=== PATIENT | male | born 1955 | race Two or more races ===

== ENCOUNTER 2019-01-03 06:05 | Inpatient (IN) | payer MEDICAID ==
[~2019-01-03] VITALS: Ht 170.2 cm; Wt 72.4 kg
--- NOTE | 2019-01-03 06:19 | NUR ---
ED Nurse Note: Patient brought in by ambulance, RA 70, with complaints of altered level of consciousness.
[2019-01-03 06:20] VITALS: BP 149/76
--- NOTE | 2019-01-03 06:41 | Emergency Room Report ---
History of Present Illness General Chief Complaint: Altered Level of Consciousness Source: EMS Present Illness HPI Patient presents with complaints of altered mental status Patient is brought in by paramedics Unknown last well symptoms Patient does have a dialysis catheter on the right upper chest Grimaces to physical stimuli otherwise is nonverbal does not open his eyes to verbal command Unknown regarding recent fevers unknown regarding vomiting or diarrhea history of present illness is significantly limited Allergies: Coded Allergies: PENICILLINS (Verified Allergy, Unknown, 01/03/19) Patient History Limited by: medical condition Reviewed Nursing Documentation: PMH: Agreed; PSxH: Agreed Review of Systems All Other Systems: limited - Other than the ones mentioned in the history of present illness all others are reviewed however they do stay limited due to the patient's mental status Physical Exam Vital Signs Date Time Temp Pulse Resp B/P (MAP) Pulse Ox O2 Delivery O2 Flow Rate FiO2 01/03/19 06:03 98.4 85 22 149/76 (100) 98 Room Air Sp02 EP Interpretation: reviewed, normal General Appearance: other - Patient has significant decreased response grimaces to physical stimuli otherwise nonverbal Head: normocephalic, atraumatic Eyes: bilateral eye PERRL ENT: normal pharynx, no angioedema Neck: supple Respiratory: lungs clear, no respiratory distress, no retraction Cardiovascular #1: regular rate, rhythm Gastrointestinal: non tender, soft, other - Umbilical hernia mild abdominal distention Musculoskeletal: other - Difficult to assess patient is not awake does not follow commands Neurologic: other - Significantly decreased GCS does not open eyes minimal response to physical stimuli Skin: no rash Lymphatic: no adenopathy Procedures Critical Care Time Critical Care Time 40 minutes for multiple re-evaluations confused presentation concern for respiratory failure and possible not including any procedural time Medical Decision Making Diagnostic Impression: Primary Impression: Hepatic encephalopathy Additional Impressions: Pleural effusion Renal failure Pancytopenia ER Course Patient is a fairly complex patient with multiple differential to consideration including but not limited to cardiac cardiopulmonary and vascular emergencies, intracranial, neurological, neurosurgical, infectious process also entertained CT head does not show any obvious acute process patient shows signs of pancytopenia Along with Elevated ammonia likely liver disease with hepatic encephalopathy and consideration patient provided acute intervention Nephrology has also been contacted and patient admitted for further care Labs Test 01/03/19 06:15 01/03/19 07:00 01/03/19 08:40 White Blood Count 1.8 K/UL (4.8-10.8) Red Blood Count 2.96 M/UL (4.70-6.10) Hemoglobin 9.6 G/DL (14.2-18.0) Hematocrit 29.2 % (42.0-52.0) Mean Corpuscular Volume 99 FL (80-99) Mean Corpuscular Hemoglobin 32.5 PG (27.0-31.0) Mean Corpuscular Hemoglobin Concent 32.9 G/DL (32.0-36.0) Red Cell Distribution Width 16.0 % (11.6-14.8) Platelet Count 37 K/UL (150-450) Mean Platelet Volume 10.3 FL (6.5-10.1) Neutrophils (%) (Auto) % (45.0-75.0) Lymphocytes (%) (Auto) % (20.0-45.0) Monocytes (%) (Auto) % (1.0-10.0) Eosinophils (%) (Auto) % (0.0-3.0) Basophils (%) (Auto) % (0.0-2.0) Differential Total Cells Counted 100 Neutrophils % (Manual) 84 % (45-75) Lymphocytes % (Manual) 10 % (20-45) Monocytes % (Manual) 6 % (1-10) Eosinophils % (Manual) 0 % (0-3) Basophils % (Manual) 0 % (0-2) Band Neutrophils 0 % (0-8) Platelet Estimate Decreased Platelet Morphology Normal Hypochromasia 1+ Anisocytosis 1+ Sodium Level 139 MMOL/L (136-145) Potassium Level 3.9 MMOL/L (3.5-5.1) Chloride Level 104 MMOL/L (98-107) Carbon Dioxide Level 33 MMOL/L (21-32) Anion Gap 2 mmol/L (5-15) Blood Urea Nitrogen 16 mg/dL (7-18) Creatinine 2.0 MG/DL (0.55-1.30) Estimat Glomerular Filtration Rate 34.1 mL/min (>60) Glucose Level 132 MG/DL (74-106) Lactic Acid Level 2.80 mmol/L (0.4-2.0) 2.70 mmol/L (0.66-2.22) Calcium Level 8.1 MG/DL (8.5-10.1) Total Bilirubin 1.8 MG/DL (0.2-1.0) Direct Bilirubin 0.7 MG/DL (0.0-0.3) Aspartate Amino Transf (AST/SGOT) 48 U/L (15-37) Alanine Aminotransferase (ALT/SGPT) 31 U/L (12-78) Alkaline Phosphatase 233 U/L (46-116) Ammonia 108 umol/L (11-32) Total Creatine Kinase 40 U/L (26-308) Creatine Kinase MB 0.5 NG/ML (0.0-3.6) Creatine Kinase MB Relative Index 1.2 Troponin I 0.005 ng/mL (0.000-0.056) Pro-B-Type Natriuretic Peptide 489 pg/mL (0-125) Total Protein 7.4 G/DL (6.4-8.2) Albumin 2.5 G/DL (3.4-5.0) Globulin 4.9 g/dL Albumin/Globulin Ratio 0.5 (1.0-2.7) Lipase 322 U/L (73-393) Urine Color Yellow Urine Appearance Clear Urine pH 8 (4.5-8.0) Urine Specific [place] 1.010 (1.005-1.035) Urine Protein 2+ (NEGATIVE) Urine Glucose (UA) Negative (NEGATIVE) Urine Ketones 2+ (NEGATIVE) Urine Blood 4+ (NEGATIVE) Urine Nitrite Negative (NEGATIVE) Urine Bilirubin Negative (NEGATIVE) Urine Urobilinogen Normal MG/DL (0.0-1.0) Urine Leukocyte Esterase Negative (NEGATIVE) Urine RBC 5-10 /HPF (0 - 0) Urine WBC 0-2 /HPF (0 - 0) Urine Squamous Epithelial Cells Occasional /LPF Urine Bacteria Occasional /HPF (NONE) Urine Opiates Screen Negative (NEGATIVE) Urine Barbiturates Screen Negative (NEGATIVE) Phencyclidine (PCP) Screen Negative (NEGATIVE) Urine Amphetamines Screen Negative (NEGATIVE) Urine Benzodiazepines Screen Negative (NEGATIVE) Urine Cocaine Screen Negative (NEGATIVE) Urine Marijuana (THC) Screen Negative (NEGATIVE) EKG Diagnostic Results Rate: normal Rhythm: NSR ST Segments: other - Specific ST T wave changes Rhythm Strip Diag. Results EP Interpretation: yes Rate: 66 Rhythm: NSR, no PVC's, no ectopy Chest X-Ray Diagnostic Results Chest X-Ray Diagnostic Results : Chest X-Ray Ordered: Yes # of Views/Limited/Complete: 1 View Indication: Chest Pain EP Interpretation: Yes Interpretation: no pneumothorax, other - Large right-sided effusion, almost full white out of the right side Impression: Other - Large right-sided effusion, pleural effusion Electronically Signed by: Keron Woodward DO Last Vital Signs Date Time Temp Pulse Resp B/P (MAP) Pulse Ox O2 Delivery O2 Flow Rate FiO2 01/03/19 06:20 85 22 Room Air 01/03/19 06:20 98.4 149/76 98 Status: improved Disposition: ADMITTED INPATIENT Condition: Serious Scripts Unable to Obtain Active Prescriptions or Reported Meds Keron Woodward DO Jan 03, 2019 06:41
[2019-01-03 06:46] LABS: ANION GAP 2 mmol/L (5-15); BLOOD UREA NITROGEN 16 mg/dL (7-18); CALCIUM 8.1 MG/DL (8.5-10.1); CARBON DIOXIDE 33 MMOL/L (21-32); CHLORIDE 104 MMOL/L (98-107); HEMATOCRIT 29.2 % (42.0-52.0); HEMOGLOBIN 9.6 G/DL (14.2-18.0); MEAN CORPUSCULAR VOLUME 99 FL (80-99); PLATELET COUNT 37 K/UL (150-450); POTASSIUM 3.9 MMOL/L (3.5-5.1); RED BLOOD COUNT 2.96 M/UL (4.70-6.10); SODIUM 139 MMOL/L (136-145); WHITE BLOOD COUNT 1.8 K/UL (4.8-10.8)
[2019-01-03 06:59] LABS: ALANINE AMINOTRANSFERASE 31 U/L (12-78); ALBUMIN 2.5 G/DL (3.4-5.0); ALBUMIN/GLOBULIN RATIO 0.5 (1.0-2.7); ALKALINE PHOSPHATASE 233 U/L (46-116); ASPARTATE AMINO TRANSFERASE 48 U/L (15-37); BILIRUBIN,TOTAL 1.8 MG/DL (0.2-1.0); CKMB 0.5 NG/ML (0.0-3.6); CREATINE KINASE 40 U/L (26-308)
[2019-01-03 07:00] LABS: BILIRUBIN,DIRECT 0.7 MG/DL (0.0-0.3)
--- NOTE | 2019-01-03 07:16 | NUR ---
HAND-OFF: Report given to Ai QUINTANILLA.
[2019-01-03 07:18] LABS: APPEARANCE,URINE CLEAR; BILIRUBIN, URINE NEGATIVE (NEGATIVE); GLUCOSE, URINE (UA) NEGATIVE (NEGATIVE); KETONES,URINE 2+ (NEGATIVE); LEUKOCYTE ESTERASE ,URINE NEGATIVE (NEGATIVE); NITRITE,URINE NEGATIVE (NEGATIVE); PH,URINE 8 (4.5-8.0); PROTEIN,URINE 2+ (NEGATIVE); UROBILINOGEN,URINE NORMAL MG/DL (0.0-1.0)
--- NOTE | 2019-01-03 07:27 | NUR ---
ED Nurse Note:pt. had ct scan head done
[2019-01-03 07:38] LABS: COLOR,URINE YELLOW
--- NOTE | 2019-01-03 08:07 | Diagnostic Imaging Report ---
Indications: Altered mental status Technique: Spiral acquisitions obtained through the brain. Angled axial and coronal 5 x 5 mm slices were reconstructed. Total dose length product 1720 mGycm. CTDI vol(s) 74 mGy. Dose reduction achieved using automated exposure control Comparison: None. Findings: No acute intracranial hemorrhage or edema. No mass effect nor midline shift. Ring artifact is demonstrated posteriorly to the left of midline. Normal moreno-white differentiation. Normal size ventricles and extra-axial CSF spaces. Intact calvarium. Visualized orbits and sinuses are unremarkable. The mastoids are clear. Impression: Negative This agrees with the preliminary interpretation provided overnight by [facility]erad[facility] service. The CT scanner at [facility] is accredited by the [employer] and the scans are performed using protocols designed to limit radiation exposure to as low as reasonably achievable to attain images of sufficient resolution adequate for diagnostic evaluation.
[2019-01-03 08:34] VITALS: BP 110/78
[2019-01-03] MEDS ORDERED: Lactulose 200 GM in NS Irrig 1000ml 700 ML RECTAL ONE (08:45)
--- NOTE | 2019-01-03 08:46 | NUR ---
ED Nurse Note sent lactic redraw
[2019-01-03] MEDS ORDERED: Lactulose 200 GM in NS Irrig 1000ml 700 ML RECTAL SCH (09:00)
--- NOTE | 2019-01-03 09:26 | NUR ---
ED Nurse Note:given lactulose enema- pt. had large BM, swabs are done
--- NOTE | 2019-01-03 10:27 | Consultation ---
Consult Note Consult Note asked to eval for dialysis management william seen in Er room 4 encephalopathic with high Ammonia was dialysed yesterday has a right chest permacath no previous admission at [facility] examined data reviewed ER Altered Level of Consciousness Patient presents with complaints of altered mental status Patient is brought in by paramedics Unknown last well symptoms Patient does have a dialysis catheter on the right upper chest Grimaces to physical stimuli otherwise is nonverbal does not open his eyes to verbal command Unknown regarding recent fevers unknown regarding vomiting or diarrhea history of present illness is significantly limited Allergies: PENICILLINS (Verified Allergy, Unknown, 01/03/19) Assessment/Plan ESRD Liver Disease, nature? Hepatic encephalopathy Leukopenia Pleural effusion NPO until awake per GI ? NGT Dialysis as needed per orders Dg Ennis MD Jan 03, 2019 10:27
--- NOTE | 2019-01-03 10:27 | NUR ---
ED Nurse Note:called report to tele, given to Lee Ann RN, pt. is stable for transfer up stairs
[2019-01-03] MEDS: D5NS 1,000 ML IV SCH (10:30)
[2019-01-03 10:45] VITALS: BP 118/70
--- NOTE | 2019-01-03 10:48 | Diagnostic Imaging Report ---
Indication: Chest pain Technique: One view of the chest Comparison: none Findings: There is a massive right pleural effusion. There is bilateral interstitial and airspace edema. There is right jugular tunneled dialysis catheter. There is probably a small amount of pleural fluid on the left. Probably normal heart size Impression: Massive right pleural effusion Bilateral pulmonary interstitial and airspace edema Probable small left pleural effusion
--- NOTE | 2019-01-03 11:00 | NUR ---
NURSE NOTES: Received report from Nunu Cloud. Patient arrived to the floor transported via gurney. Patient transferred to the bed without difficulty. Patient is lethargic but arousable to touch/ withdraws to pain. hong konger speaking. is at bedside. VSS. fall precautions in place. call schuster within patients reach will follow.
[2019-01-03] MEDS ORDERED: guaiFENesin 100mg/5ml Liq ud ORAL PRN (11:15)
[2019-01-03] MEDS ORDERED: VITAMIN D250000 UNI1 ORAL ×2 (11:16→13:04)
--- NOTE | 2019-01-03 11:40 | NUR ---
NURSE NOTES: received orders from Dr. Hoffman. noted and carried out.
--- NOTE | 2019-01-03 11:41 | General Progress Note ---
Assessment/Plan Problem List: (1) Renal failure ICD Codes: N19 - Unspecified kidney failure SNOMED: 40186049 (2) Hepatic encephalopathy ICD Codes: K72.90 - Hepatic failure, unspecified without coma SNOMED: 05342507 (3) Pancytopenia ICD Codes: D61.818 - Other pancytopenia SNOMED: 444124630 (4) Pleural effusion ICD Codes: J90 - Pleural effusion, not elsewhere classified SNOMED: 47782488 Assessment/Plan: lactulose and xifaxan repeat labs in am abd us hepatitis panel HD per nephrology drug screen Subjective Allergies: Coded Allergies: PENICILLINS (Verified Allergy, Unknown, 01/03/19) Objective Last 24 Hour Vital Signs Date Time Temp Pulse Resp B/P (MAP) Pulse Ox O2 Delivery O2 Flow Rate FiO2 01/03/19 10:26 98.4 72 16 110/78 100 Room Air 01/03/19 08:34 98.4 72 16 110/78 100 Room Air 01/03/19 06:20 85 22 Room Air 01/03/19 06:20 98.4 85 22 149/76 98 Room Air 01/03/19 06:03 98.4 85 22 149/76 (100) 98 Room Air Intake and Output 01/02/19 01/03/19 19:00 07:00 Intake Total 0 ml Balance 0 ml Intake Oral 0 ml Laboratory Tests 01/03/19 06:15: White Blood Count 1.8*L, Red Blood Count 2.96L, Hemoglobin 9.6L, Hematocrit 29.2L, Mean Corpuscular Volume 99, Mean Corpuscular Hemoglobin 32.5H, Mean Corpuscular Hemoglobin Concent 32.9, Red Cell Distribution Width 16.0H, Platelet Count 37L, Mean Platelet Volume 10.3H, Neutrophils (%) (Auto) , Lymphocytes (%) (Auto) , Monocytes (%) (Auto) , Eosinophils (%) (Auto) , Basophils (%) (Auto) , Differential Total Cells Counted 100, Neutrophils % ( Manual) 84H, Lymphocytes % (Manual) 10L, Monocytes % (Manual) 6, Eosinophils % ( Manual) 0, Basophils % (Manual) 0, Band Neutrophils 0, Platelet Estimate DecreasedL, Platelet Morphology Normal, Hypochromasia 1+, Anisocytosis 1+, Sodium Level 139, Potassium Level 3.9, Chloride Level 104, Carbon Dioxide Level 33H, Anion Gap 2L, Blood Urea Nitrogen 16, Creatinine 2.0H, Estimat Glomerular Filtration Rate 34.1, Glucose Level 132H, Lactic Acid Level 2.80H, Calcium Level 8.1L, Total Bilirubin 1.8H, Direct Bilirubin 0.7H, Aspartate Amino Transf (AST/SGOT) 48H, Alanine Aminotransferase (ALT/SGPT) 31, Alkaline Phosphatase 233H, Ammonia 108H, Total Creatine Kinase 40, Creatine Kinase MB 0.5, Creatine Kinase MB Relative Index 1.2, Troponin I 0.005, Pro-B-Type Natriuretic Peptide 489H, Total Protein 7.4, Albumin 2.5L, Globulin 4.9, Albumin/Globulin Ratio 0.5L , Lipase 322 01/03/19 07:00: Urine Color Yellow, Urine Appearance Clear, Urine pH 8, Urine Specific [place] 1.010, Urine Protein 2+H, Urine Glucose (UA) Negative, Urine Ketones 2+H, Urine Blood 4+H, Urine Nitrite Negative, Urine Bilirubin Negative, Urine Urobilinogen Normal, Urine Leukocyte Esterase Negative, Urine RBC 5-10H, Urine WBC 0-2, Urine Squamous Epithelial Cells Occasional, Urine Bacteria Occasional, Urine Opiates Screen Negative, Urine Barbiturates Screen Negative, Phencyclidine (PCP ) Screen Negative, Urine Amphetamines Screen Negative, Urine Benzodiazepines Screen Negative, Urine Cocaine Screen Negative, Urine Marijuana (THC) Screen Negative 01/03/19 08:40: Lactic Acid Level 2.70H Height (Feet): 5 Height (Inches): 7.00 Weight (Pounds): 180 General Appearance: lethargic EENT: normal ENT inspection Neck: supple Cardiovascular: normal rate Respiratory/Chest: decreased breath sounds Abdomen: normal bowel sounds, non tender, soft Extremities: non-tender José Michael MD Jan 03, 2019 11:41
[2019-01-03] MEDS: Lactulose 10gm/15ml UDC ORAL SCH ×3 (12:00→18:53)
[2019-01-03] MEDS: Pantoprazole Inj IVP SCH (12:05)
--- NOTE | 2019-01-03 12:30 | NUR ---
NURSE NOTES: Charge nurse Wayne Rn. Spoke with Héctor BROWNING. made aware patient unable to take meds PO secondary to lethargy. new orders received to insert NGT. will follow.
[2019-01-03] MEDS ORDERED: Lactulose 10gm/15ml UDC ORAL SCH (13:00)
[2019-01-03] MEDS ORDERED: RIFAXIMIN500 GM MC (13:04)
[2019-01-03] MEDS ORDERED: GUAIFENESI100 MG/5 M ORAL (13:04)
[2019-01-03] MEDS ORDERED: SEVELAMER HCL800 MG PO (13:04)
[2019-01-03] MEDS ORDERED: SPIRONOLACTONE25 MG ORAL (13:04)
[2019-01-03] MEDS ORDERED: MIRALAX17 G2 ORAL (13:04)
[2019-01-03] MEDS ORDERED: LACTULOSE10 GM/153 PO (13:04)
[2019-01-03] MEDS ORDERED: FOLIC ACID1 M1 PO (13:04)
[2019-01-03] MEDS ORDERED: MULTIVITAMINS1 EAC2 ORAL (13:04)
[2019-01-03] MEDS ORDERED: OMEPRAZOLE20 M2 ORAL (13:04)
--- NOTE | 2019-01-03 13:30 | NUR ---
NURSE NOTES: Right nare NGT inserted. Awaiting Xray to be done. Notified Radiology. will follow
--- NOTE | 2019-01-03 15:17 | Diagnostic Imaging Report ---
Indication: Abdominal pain, abnormal liver function tests, abnormal renal function tests Technique: Benton-scale and duplex images of the upper abdomen were obtained Comparison: none Findings: Ascites fluid is present. There are bilateral pleural effusions. Gallbladder gallbladder contains a gallstone. Gallbladder wall is thickened, measuring 6 mm thick. Sonographic Orr's sign is negative. Common bile duct measures 3 mm in diameter. No intrahepatic biliary ductal dilatation. Liver demonstrates surface nodularity. In the right hepatic lobe, there is a 13 mm hypoechoic solid-appearing nodule. Portal vein and hepatic veins are patent. Pancreas is unremarkable. The spleen is enlarged, measuring at least 14 cm long axis dimension. Large varices are seen in the splenic hilum. There is an accessory splenule incidentally noted Left kidney measures 10.5 cm in length. Right kidney measures 8.7 cm length. Both kidneys demonstrate equivocally slightly increased echogenicity There is no hydronephrosis. No focal abnormality . Abdominal aorta is partially obscured by bowel gas, visualized portions are non-aneurysmal . Impression: Evidence of hepatic cirrhosis, with hepatic surface nodularity Hypoechoic but solid-appearing right hepatic lobe liver nodule. Recommend further evaluation with multiphasic liver protocol contrast CT or MRI Evidence of portal hypertension, with ascites, splenomegaly, and splenic hilar varices Cholelithiasis. Gallbladder wall thickening is probably a manifestation of generalized edema resulting from the hepatic derangements, but does raise the possibility of acute cholecystitis. Consider hepatobiliary nuclear scan if there is high clinical suspicion Bilateral pleural effusions Borderline increased renal echogenicity, if real could indicate medical renal disease Note suboptimal visualization of the abdominal aorta
[2019-01-03 16:00] VITALS: BP 115/69
--- NOTE | 2019-01-03 16:00 | NUR ---
NURSE NOTES: Xray abdomen for NGT confirmation done and resulted. Leigh Ann Anaya aware. order received ok to use. will follow.
--- NOTE | 2019-01-03 16:04 | Diagnostic Imaging Report ---
Indication: Post nasogastric tube placement Technique: Supine view of the upper abdomen Comparison: none Findings: There is nasogastric tube in place, tip projected at the level of the gastric antrum. The visualized bowel gas appears unremarkable. The included lower chest demonstrates a large right pleural effusion and a right chest tunneled dialysis catheter. Impression: Satisfactory position of nasogastric tube, suitable for use
--- NOTE | 2019-01-03 19:47 | NUR ---
HAND-OFF: Report given to Nunu Killian. Plan of care endorsed.
[2019-01-03 20:00] VITALS: BP 105/60
--- NOTE | 2019-01-03 20:13 | NUR ---
NURSE NOTES: RECEIVED PATIENT AWAKE RESTING IN BED, FAMILY AT BEDSIDE. FALL AND ASPIRATION PRECAUTIONS IN PLACE: CALL LIGHT WITHIN REACH, BED IN LOW POSITION AND BED ALARM ON. PLAN OF CARE REVIEWED.
[2019-01-03] MEDS ORDERED: Miralax 17gm pkt ORAL SCH (21:00)
[2019-01-04] VITALS: BP 104/58
[2019-01-04 04:00] VITALS: BP 100/56
[2019-01-04] MEDS: D5NS 1,000 ML IV SCH (04:55)
[2019-01-04] MEDS: Lactulose 10gm/15ml UDC ORAL SCH (06:41)
[2019-01-04 06:59] LABS: HEMOGLOBIN 8.5 G/DL (14.2-18.0); MEAN CORPUSCULAR VOLUME 100 FL (80-99); PLATELET COUNT 34 K/UL (150-450); RED BLOOD COUNT 2.61 M/UL (4.70-6.10); RED CELL DISTRIBUTION WIDTH 16.1 % (11.6-14.8)
[2019-01-04 07:00] LABS: WHITE BLOOD COUNT 1.3 K/UL (4.8-10.8)
--- NOTE | 2019-01-04 07:20 | NUR ---
NURSE NOTES: Received report from Nunu Killian. Patient is alert and Ox2. Patient is Hebrew speaking. With rn hemodialysis, patient denies pain and request to eat breakfast. Patient is breathing even and unlabored on room air. Noted NG tube on right nare that is patent and intact. Patient left arm is +1 edema and elevated. Noted right chest permacath with dry and intact dressing. Right FA 22g is dry, patent and intact. Fall precautions in place- bed locked, side rails x3, bed in lowest position. Call schuster within patient's reach. Will follow up with lab results with Dr. Hoffman.
--- NOTE | 2019-01-04 07:28 | NUR ---
HAND-OFF: Report given to Velasquez STRANGE RN. PATIENT AWAKE, RESTING IN BED.
[2019-01-04 07:38] LABS: ALANINE AMINOTRANSFERASE 27 U/L (12-78); ALBUMIN/GLOBULIN RATIO 0.5 (1.0-2.7); ALKALINE PHOSPHATASE 174 U/L (46-116); ANION GAP 5 mmol/L (5-15); ASPARTATE AMINO TRANSFERASE 40 U/L (15-37); BILIRUBIN,TOTAL 1.9 MG/DL (0.2-1.0); BLOOD UREA NITROGEN 19 mg/dL (7-18); CARBON DIOXIDE 32 MMOL/L (21-32); CHLORIDE 107 MMOL/L (98-107); CHOLESTEROL 89 MG/DL (< 200); CREATININE 1.9 MG/DL (0.55-1.30); FERRITIN 299 NG/ML (8-388); GAMMA GLUTAMYL TRANSPEPTIDASE 132 U/L (5-85); HDL CHOLESTEROL 47 MG/DL (40-60); PHOSPHORUS 3.8 MG/DL (2.5-4.9); POTASSIUM 3.4 MMOL/L (3.5-5.1); SODIUM 143 MMOL/L (136-145); TRIGLYCERIDES 62 MG/DL (30-150)
[2019-01-04 08:00] VITALS: BP 108/61
[2019-01-04 08:23] LABS: % IRON SATURATION 30 % (15-50); TOTAL IRON BINDING CAPACITY 141 ug/dL (250-450)
--- NOTE | 2019-01-04 08:27 | NUR ---
NURSE NOTES: Notified Dr. Hoffman about WBC 1.3. Received orders.
--- NOTE | 2019-01-04 08:33 | NUR ---
NURSE NOTES: Notified Dr. Mcclain about wbc 1.3. Aware of ID consult.
[2019-01-04 08:51] LABS: IRON 42 ug/dL (50-175)
[2019-01-04 08:59] LABS: BILIRUBIN,DIRECT 0.6 MG/DL (0.0-0.3)
[2019-01-04] MEDS ORDERED: Spironolactone 25mg tab ORAL SCH (09:00)
--- NOTE | 2019-01-04 09:36 | Nephrology Progress Note ---
Assessment/Plan Problem List: (1) Hepatic encephalopathy (2) Renal failure (3) Pleural effusion (4) Pancytopenia Assessment ESRD Liver Disease, nature? Hepatic encephalopathy Leukopenia Pleural effusion massive right Plan increase lactulose K supplement NPO until awake per GI ? NGT Dialysis as needed per orders Pleural tap?? Objective Objective Last 24 Hour Vital Signs Date Time Temp Pulse Resp B/P (MAP) Pulse Ox O2 Delivery O2 Flow Rate FiO2 01/04/19 08:00 97.7 70 18 108/61 (77) 92 01/04/19 07:40 66 01/04/19 04:00 98.3 71 18 100/56 (71) 96 01/04/19 04:00 65 01/04/19 00:00 69 01/04/19 00:00 98.5 74 18 104/58 (73) 96 01/03/19 21:00 Room Air 01/03/19 20:00 98.2 69 18 105/60 (75) 96 01/03/19 20:00 66 01/03/19 16:00 97.2 76 18 115/69 (84) 95 01/03/19 16:00 74 01/03/19 12:00 64 01/03/19 11:00 Room Air 01/03/19 10:45 97.4 80 18 118/70 (86) 97 01/03/19 10:26 98.4 72 16 110/78 100 Room Air Intake and Output 01/03/19 01/04/19 19:00 07:00 Intake Total 50 ml 503 ml Balance 50 ml 503 ml IV Total 50 ml 503 ml # Bowel Movements 4 Laboratory Tests 01/04/19 06:29: White Blood Count 1.3*L, Red Blood Count 2.61L, Hemoglobin 8.5L, Hematocrit 26.0L, Mean Corpuscular Volume 100H, Mean Corpuscular Hemoglobin 32.7H, Mean Corpuscular Hemoglobin Concent 32.8, Red Cell Distribution Width 16.1H, Platelet Count 34L, Mean Platelet Volume 8.4, Neutrophils (%) (Auto) , Lymphocytes (%) (Auto) , Monocytes (%) (Auto) , Eosinophils (%) (Auto) , Basophils (%) (Auto) , Differential Total Cells Counted 100, Neutrophils % ( Manual) 59, Lymphocytes % (Manual) 27, Monocytes % (Manual) 13H, Eosinophils % ( Manual) 1, Basophils % (Manual) 0, Band Neutrophils 0, Platelet Estimate DecreasedL, Platelet Morphology Normal, Polychromasia 1+, Hypochromasia 1+, Anisocytosis 1+, Sodium Level 143, Potassium Level 3.4L, Chloride Level 107, Carbon Dioxide Level 32, Anion Gap 5, Blood Urea Nitrogen 19H, Creatinine 1.9H, Estimat Glomerular Filtration Rate 36.2, Glucose Level 92, Lactic Acid Level 1.40, Uric Acid 4.3, Calcium Level 8.0L, Phosphorus Level 3.8, Magnesium Level 1.6L, Iron Level 42L, Total Iron Binding Capacity 141L, Percent Iron Saturation 30, Unsaturated Iron Binding 99L, Ferritin 299, Total Bilirubin 1.9H, Direct Bilirubin 0.6H, Gamma Glutamyl Transpeptidase 132H, Aspartate Amino Transf (AST/ SGOT) 40H, Alanine Aminotransferase (ALT/SGPT) 27, Alkaline Phosphatase 174H, Ammonia 110H, C-Reactive Protein, Quantitative 2.4H, Pro-B-Type Natriuretic Peptide 874H, Total Protein 6.2L, Albumin 2.0L, Globulin 4.2, Albumin/Globulin Ratio 0.5L, Triglycerides Level 62, Cholesterol Level 89, LDL Cholesterol 33, HDL Cholesterol 47, Cholesterol/HDL Ratio 1.9L, Vitamin B12 Level 931, Folate 34.2, Hepatitis A IgM Antibody [Pending], Hepatitis B Surface Antigen [Pending] , Hepatitis B Core IgM Antibody [Pending], Hepatitis C Antibody [Pending] Height (Feet): 5 Height (Inches): 7.00 Weight (Pounds): 180 Dg Ennis MD Jan 04, 2019 09:36
[2019-01-04] MEDS ORDERED: Vancomycin 1.5gm/NS Premix IVPB ONE (10:00)
[2019-01-04] MEDS ORDERED: guaiFENesin 100mg/5ml Liq ud NG PRN (10:00)
[2019-01-04] MEDS: Pantoprazole Inj IVP SCH (10:09)
[2019-01-04] MEDS ORDERED: Multivitamins W/Minerals 15 ML UDC NG SCH (10:30)
[2019-01-04 12:00] VITALS: BP 111/61
--- NOTE | 2019-01-04 12:12 | Cardiology Progress Note ---
Assessment/Plan Assessment/Plan The patient is seen and examined, full consult note is dictated. Objective Last 24 Hour Vital Signs Date Time Temp Pulse Resp B/P (MAP) Pulse Ox O2 Delivery O2 Flow Rate FiO2 01/04/19 12:00 97.9 71 20 111/61 (78) 97 01/04/19 09:00 Room Air 01/04/19 08:00 97.7 70 18 108/61 (77) 92 01/04/19 07:40 66 01/04/19 04:00 98.3 71 18 100/56 (71) 96 01/04/19 04:00 65 01/04/19 00:00 69 01/04/19 00:00 98.5 74 18 104/58 (73) 96 01/03/19 21:00 Room Air 01/03/19 20:00 98.2 69 18 105/60 (75) 96 01/03/19 20:00 66 01/03/19 16:00 97.2 76 18 115/69 (84) 95 01/03/19 16:00 74 Intake and Output 01/03/19 01/04/19 19:00 07:00 Intake Total 50 ml 503 ml Balance 50 ml 503 ml IV Total 50 ml 503 ml # Bowel Movements 4 Laboratory Tests Test 01/04/19 06:29 White Blood Count 1.3 K/UL (4.8-10.8) *L Red Blood Count 2.61 M/UL (4.70-6.10) L Hemoglobin 8.5 G/DL (14.2-18.0) L Hematocrit 26.0 % (42.0-52.0) L Mean Corpuscular Volume 100 FL (80-99) H Mean Corpuscular Hemoglobin 32.7 PG (27.0-31.0) H Mean Corpuscular Hemoglobin Concent 32.8 G/DL (32.0-36.0) Red Cell Distribution Width 16.1 % (11.6-14.8) H Platelet Count 34 K/UL (150-450) L Mean Platelet Volume 8.4 FL (6.5-10.1) Neutrophils (%) (Auto) % (45.0-75.0) Lymphocytes (%) (Auto) % (20.0-45.0) Monocytes (%) (Auto) % (1.0-10.0) Eosinophils (%) (Auto) % (0.0-3.0) Basophils (%) (Auto) % (0.0-2.0) Differential Total Cells Counted 100 Neutrophils % (Manual) 59 % (45-75) Lymphocytes % (Manual) 27 % (20-45) Monocytes % (Manual) 13 % (1-10) H Eosinophils % (Manual) 1 % (0-3) Basophils % (Manual) 0 % (0-2) Band Neutrophils 0 % (0-8) Platelet Estimate Decreased L Platelet Morphology Normal Polychromasia 1+ Hypochromasia 1+ Anisocytosis 1+ Sodium Level 143 MMOL/L (136-145) Potassium Level 3.4 MMOL/L (3.5-5.1) L Chloride Level 107 MMOL/L (98-107) Carbon Dioxide Level 32 MMOL/L (21-32) Anion Gap 5 mmol/L (5-15) Blood Urea Nitrogen 19 mg/dL (7-18) H Creatinine 1.9 MG/DL (0.55-1.30) H Estimat Glomerular Filtration Rate 36.2 mL/min (>60) Glucose Level 92 MG/DL (74-106) Lactic Acid Level 1.40 mmol/L (0.4-2.0) Uric Acid 4.3 MG/DL (2.6-7.2) Calcium Level 8.0 MG/DL (8.5-10.1) L Phosphorus Level 3.8 MG/DL (2.5-4.9) Magnesium Level 1.6 MG/DL (1.8-2.4) L Iron Level 42 ug/dL (50-175) L Total Iron Binding Capacity 141 ug/dL (250-450) L Percent Iron Saturation 30 % (15-50) Unsaturated Iron Binding 99 ug/dL (112-346) L Ferritin 299 NG/ML (8-388) Total Bilirubin 1.9 MG/DL (0.2-1.0) H Direct Bilirubin 0.6 MG/DL (0.0-0.3) H Gamma Glutamyl Transpeptidase 132 U/L (5-85) H Aspartate Amino Transf (AST/SGOT) 40 U/L (15-37) H Alanine Aminotransferase (ALT/SGPT) 27 U/L (12-78) Alkaline Phosphatase 174 U/L (46-116) H Ammonia 110 umol/L (11-32) H C-Reactive Protein, Quantitative 2.4 mg/dL (0.00-0.90) H Pro-B-Type Natriuretic Peptide 874 pg/mL (0-125) H Total Protein 6.2 G/DL (6.4-8.2) L Albumin 2.0 G/DL (3.4-5.0) L Globulin 4.2 g/dL Albumin/Globulin Ratio 0.5 (1.0-2.7) L Triglycerides Level 62 MG/DL (30-150) Cholesterol Level 89 MG/DL (< 200) LDL Cholesterol 33 mg/dL (<100) HDL Cholesterol 47 MG/DL (40-60) Cholesterol/HDL Ratio 1.9 (3.3-4.4) L Vitamin B12 Level 931 PG/ML (193-986) Folate 34.2 NG/ML (8.6-58.9) Hepatitis A IgM Antibody Pending Hepatitis B Surface Antigen Pending Hepatitis B Core IgM Antibody Pending Hepatitis C Antibody Pending Microbiology Date/Time Source Procedure Growth Status 01/03/19 08:30 Rectum Received Oswaldo Hobson MD Jan 04, 2019 12:12
--- NOTE | 2019-01-04 12:42 | Cardiology Report ---
APPROVED REPORT EKG Measurement Heart [id number] Normal sinus rhythm Prolonged QT Abnormal ECG
[2019-01-04] MEDS ORDERED: Acetaminophen 650mg/20.3ml NG PRN (12:45)
[2019-01-04] MEDS ORDERED: Lactulose 10gm/15ml UDC NG SCH (13:00)
--- NOTE | 2019-01-04 13:01 | Cardiology Report ---
APPROVED REPORT EXAM: Two-dimensional and M-mode echocardiogram with Doppler and color Doppler. INDICATION Altred mental sattus M-Mode DIMENSIONS IVSd0.7 (0.7-1.1cm)Left Atrium (MM)3.8 (1.6-4.0cm) LVDd4.4 (3.5-5.6cm)Aortic Root2.8 (2.0-3.7cm) PWd0.9 (0.7-1.1cm)Aortic Cusp Exc.1.8 (1.5-2.0cm) IVSs1.2 cm LVDs1.7 (2.5-4.0cm) PWs1.0 cm Normal left ventricular chamber size, systolic function and wall motion . Left ventricular ejection fraction estimated to be 60-65%. Small posterior pericardial effusion. Mild bi-atrial enlargement. Right ventricular chamber sizes are within normal limits. Focal aortic valve sclerosis with adequate cusp excursion. Thickened mitral valve leaflets with normal excursion. Mitral annulus and aortic root calcification. Normal pulmonic valve structure. Normal tricuspid valve structure. IVC at normal size with physiologic collapse. A color flow and spectral Doppler study was performed and revealed: Mild mitral regurgitation. Mitral inflow indicates normal left ventricular diastolic function Mild tricuspid regurgitation. Tricuspid systolic velocities suggests peak right ventricular systolic pressure of 24mmHg consistent with mild, moderate, severe pulmonary hypertension.
--- NOTE | 2019-01-04 13:25 | Infectious Diseases Prog Note ---
Assessment/Plan Problems: (1) Pancytopenia Assessment & Plan: suspect bone marrow suppression from advanced liver cirrhosis, may benefit from filgrastim injection to improve his WBC, will start him empirically on cefepime and continue vancomycin pending other cultures and the improvement of his WBC counts , hematology is following (2) Pleural effusion Assessment & Plan: massive on the right side with possible underlying pneumonia , recommend thoracentesis and fluids to be sent for cell counts, culture, gram stain, fungal and AFB with cytology. already on wide spectrum antibiotics (3) ESRD (end stage renal disease) Assessment & Plan: resume HD as per renal (4) Hepatic encephalopathy Assessment & Plan: with elevated ammonia level, on lactulose , monitor closely ammonia level (5) Liver nodule Assessment & Plan: on the right lobe, rule out HCC, recommend tumor markers and oncology eval for possible biopsy (6) Liver cirrhosis Assessment & Plan: advanced, with poor prognosis , GI is following Subjective Allergies: Coded Allergies: PENICILLINS (Verified Allergy, Unknown, 01/03/19) Objective Vital Signs Last 24 Hour Vital Signs Date Time Temp Pulse Resp B/P (MAP) Pulse Ox O2 Delivery O2 Flow Rate FiO2 01/04/19 12:00 97.9 71 20 111/61 (78) 97 01/04/19 11:51 71 01/04/19 09:00 Room Air 01/04/19 08:00 97.7 70 18 108/61 (77) 92 01/04/19 07:40 66 01/04/19 04:00 98.3 71 18 100/56 (71) 96 01/04/19 04:00 65 01/04/19 00:00 69 01/04/19 00:00 98.5 74 18 104/58 (73) 96 01/03/19 21:00 Room Air 01/03/19 20:00 98.2 69 18 105/60 (75) 96 01/03/19 20:00 66 01/03/19 16:00 97.2 76 18 115/69 (84) 95 01/03/19 16:00 74 Height (Feet): 5 Height (Inches): 7.00 Weight (Pounds): 154 Microbiology Date/Time Source Procedure Growth Status 01/03/19 08:30 Rectum Received Laboratory Tests Test 01/04/19 06:29 White Blood Count 1.3 K/UL (4.8-10.8) *L Red Blood Count 2.61 M/UL (4.70-6.10) L Hemoglobin 8.5 G/DL (14.2-18.0) L Hematocrit 26.0 % (42.0-52.0) L Mean Corpuscular Volume 100 FL (80-99) H Mean Corpuscular Hemoglobin 32.7 PG (27.0-31.0) H Mean Corpuscular Hemoglobin Concent 32.8 G/DL (32.0-36.0) Red Cell Distribution Width 16.1 % (11.6-14.8) H Platelet Count 34 K/UL (150-450) L Mean Platelet Volume 8.4 FL (6.5-10.1) Neutrophils (%) (Auto) % (45.0-75.0) Lymphocytes (%) (Auto) % (20.0-45.0) Monocytes (%) (Auto) % (1.0-10.0) Eosinophils (%) (Auto) % (0.0-3.0) Basophils (%) (Auto) % (0.0-2.0) Differential Total Cells Counted 100 Neutrophils % (Manual) 59 % (45-75) Lymphocytes % (Manual) 27 % (20-45) Monocytes % (Manual) 13 % (1-10) H Eosinophils % (Manual) 1 % (0-3) Basophils % (Manual) 0 % (0-2) Band Neutrophils 0 % (0-8) Platelet Estimate Decreased L Platelet Morphology Normal Polychromasia 1+ Hypochromasia 1+ Anisocytosis 1+ Sodium Level 143 MMOL/L (136-145) Potassium Level 3.4 MMOL/L (3.5-5.1) L Chloride Level 107 MMOL/L (98-107) Carbon Dioxide Level 32 MMOL/L (21-32) Anion Gap 5 mmol/L (5-15) Blood Urea Nitrogen 19 mg/dL (7-18) H Creatinine 1.9 MG/DL (0.55-1.30) H Estimat Glomerular Filtration Rate 36.2 mL/min (>60) Glucose Level 92 MG/DL (74-106) Lactic Acid Level 1.40 mmol/L (0.4-2.0) Uric Acid 4.3 MG/DL (2.6-7.2) Calcium Level 8.0 MG/DL (8.5-10.1) L Phosphorus Level 3.8 MG/DL (2.5-4.9) Magnesium Level 1.6 MG/DL (1.8-2.4) L Iron Level 42 ug/dL (50-175) L Total Iron Binding Capacity 141 ug/dL (250-450) L Percent Iron Saturation 30 % (15-50) Unsaturated Iron Binding 99 ug/dL (112-346) L Ferritin 299 NG/ML (8-388) Total Bilirubin 1.9 MG/DL (0.2-1.0) H Direct Bilirubin 0.6 MG/DL (0.0-0.3) H Gamma Glutamyl Transpeptidase 132 U/L (5-85) H Aspartate Amino Transf (AST/SGOT) 40 U/L (15-37) H Alanine Aminotransferase (ALT/SGPT) 27 U/L (12-78) Alkaline Phosphatase 174 U/L (46-116) H Ammonia 110 umol/L (11-32) H C-Reactive Protein, Quantitative 2.4 mg/dL (0.00-0.90) H Pro-B-Type Natriuretic Peptide 874 pg/mL (0-125) H Total Protein 6.2 G/DL (6.4-8.2) L Albumin 2.0 G/DL (3.4-5.0) L Globulin 4.2 g/dL Albumin/Globulin Ratio 0.5 (1.0-2.7) L Triglycerides Level 62 MG/DL (30-150) Cholesterol Level 89 MG/DL (< 200) LDL Cholesterol 33 mg/dL (<100) HDL Cholesterol 47 MG/DL (40-60) Cholesterol/HDL Ratio 1.9 (3.3-4.4) L Vitamin B12 Level 931 PG/ML (193-986) Folate 34.2 NG/ML (8.6-58.9) Hepatitis A IgM Antibody Pending Hepatitis B Surface Antigen Pending Hepatitis B Core IgM Antibody Pending Hepatitis C Antibody Pending Current Medications Medications (Trade) Dose Ordered Sig/Katie Route PRN Reason Start Time Stop Time Status Last Admin Dose Admin Acetaminophen (Tylenol) 500 mg Q8H PRN NG Prn Headache/Temp > 101 01/04/19 12:45 02/03/19 12:44 Dextrose/Sodium Chloride 1,000 ml @ 50 mls/hr Q20H IV 01/03/19 10:30 02/02/19 10:29 01/04/19 04:55 Guaifenesin (Robitussin) 100 mg Q4H PRN NG For Cough 01/04/19 10:00 02/03/19 09:59 Lactulose (Cephulac) 20 gm QID NG 01/04/19 13:00 02/02/19 12:59 Magnesium Sulfate 100 ml @ 100 mls/hr ONCE ONCE IVPB 01/04/19 15:45 01/04/19 16:44 Multivitamins (Multivitamins W/ Minerals 15ml Liquid) 15 ml DAILY NG 01/04/19 10:30 02/03/19 10:29 01/04/19 10:55 Pantoprazole (Protonix) 40 mg DAILY IVP 01/03/19 10:30 02/02/19 10:29 01/04/19 10:09 Polyethylene Glycol (Miralax) 17 gm BEDTIME NG 01/04/19 21:00 02/02/19 20:59 Rifaximin (Xifaxan) 550 mg EVERY 12 HOURS NG 01/04/19 21:00 01/10/19 12:59 Spironolactone (Aldactone) 25 mg BID NG 01/04/19 18:00 02/03/19 08:59 Vancomycin HCl (Vanco rx to dose) 1 ea DAILY PRN MISC Per rx protocol 01/04/19 08:30 02/03/19 08:29 Sudeep Mcclain M.D. Jan 04, 2019 13:25
[2019-01-04] MEDS ORDERED: D5NS 1000ml IV ONE (13:40)
--- NOTE | 2019-01-04 14:00 | NUR ---
NURSE NOTES: Spoke to Dr. Hernandez. Ok to remove NG tube.
--- NOTE | 2019-01-04 14:30 | NUR ---
NURSE NOTES: NG tube removed at 14:30.
--- NOTE | 2019-01-04 15:43 | General Progress Note ---
Assessment/Plan Assessment/Plan: Assessment (1) Renal failure ICD Codes: N19 - Unspecified kidney failure SNOMED: 40956544 (2) Hepatic encephalopathy / EtOH cirrhosis ICD Codes: K72.90 - Hepatic failure, unspecified without coma SNOMED: 66152315 (3) Pancytopenia ICD Codes: D61.818 - Other pancytopenia SNOMED: 362530321 (4) Pleural effusion ICD Codes: J90 - Pleural effusion, not elsewhere classified SNOMED: 60864939 Assessment/Plan: lactulose and xifaxan repeat labs in am abd us hepatitis panel HD per nephrology drug screen d/c MGT Begin clears Subjective Allergies: Coded Allergies: PENICILLINS (Verified Allergy, Unknown, 01/03/19) Subjective more awake A&O to name of hospital, year, month, and own name Objective Last 24 Hour Vital Signs Date Time Temp Pulse Resp B/P (MAP) Pulse Ox O2 Delivery O2 Flow Rate FiO2 01/04/19 14:20 97.9 01/04/19 12:00 97.9 71 20 111/61 (78) 97 01/04/19 11:51 71 01/04/19 09:00 Room Air 01/04/19 08:00 97.7 70 18 108/61 (77) 92 01/04/19 07:40 66 01/04/19 04:00 98.3 71 18 100/56 (71) 96 01/04/19 04:00 65 01/04/19 00:00 69 01/04/19 00:00 98.5 74 18 104/58 (73) 96 01/03/19 21:00 Room Air 01/03/19 20:00 98.2 69 18 105/60 (75) 96 01/03/19 20:00 66 01/03/19 16:00 97.2 76 18 115/69 (84) 95 01/03/19 16:00 74 Intake and Output 01/03/19 01/04/19 19:00 07:00 Intake Total 50 ml 503 ml Balance 50 ml 503 ml IV Total 50 ml 503 ml # Bowel Movements 4 Laboratory Tests 01/04/19 06:29: White Blood Count 1.3*L, Red Blood Count 2.61L, Hemoglobin 8.5L, Hematocrit 26.0L, Mean Corpuscular Volume 100H, Mean Corpuscular Hemoglobin 32.7H, Mean Corpuscular Hemoglobin Concent 32.8, Red Cell Distribution Width 16.1H, Platelet Count 34L, Mean Platelet Volume 8.4, Neutrophils (%) (Auto) , Lymphocytes (%) (Auto) , Monocytes (%) (Auto) , Eosinophils (%) (Auto) , Basophils (%) (Auto) , Differential Total Cells Counted 100, Neutrophils % ( Manual) 59, Lymphocytes % (Manual) 27, Monocytes % (Manual) 13H, Eosinophils % ( Manual) 1, Basophils % (Manual) 0, Band Neutrophils 0, Platelet Estimate DecreasedL, Platelet Morphology Normal, Polychromasia 1+, Hypochromasia 1+, Anisocytosis 1+, Sodium Level 143, Potassium Level 3.4L, Chloride Level 107, Carbon Dioxide Level 32, Anion Gap 5, Blood Urea Nitrogen 19H, Creatinine 1.9H, Estimat Glomerular Filtration Rate 36.2, Glucose Level 92, Lactic Acid Level 1.40, Uric Acid 4.3, Calcium Level 8.0L, Phosphorus Level 3.8, Magnesium Level 1.6L, Iron Level 42L, Total Iron Binding Capacity 141L, Percent Iron Saturation 30, Unsaturated Iron Binding 99L, Ferritin 299, Total Bilirubin 1.9H, Direct Bilirubin 0.6H, Gamma Glutamyl Transpeptidase 132H, Aspartate Amino Transf (AST/ SGOT) 40H, Alanine Aminotransferase (ALT/SGPT) 27, Alkaline Phosphatase 174H, Ammonia 110H, C-Reactive Protein, Quantitative 2.4H, Pro-B-Type Natriuretic Peptide 874H, Total Protein 6.2L, Albumin 2.0L, Globulin 4.2, Albumin/Globulin Ratio 0.5L, Triglycerides Level 62, Cholesterol Level 89, LDL Cholesterol 33, HDL Cholesterol 47, Cholesterol/HDL Ratio 1.9L, Vitamin B12 Level 931, Folate 34.2, Hepatitis A IgM Antibody [Pending], Hepatitis B Surface Antigen [Pending] , Hepatitis B Core IgM Antibody [Pending], Hepatitis C Antibody [Pending] Height (Feet): 5 Height (Inches): 7.00 Weight (Pounds): 154 Objective Thin man NCAT supple CTA RRR abd soft ND NT no edema Paulina Hernandez MD Jan 04, 2019 15:43
[2019-01-04 16:00] VITALS: BP 125/68
[2019-01-04] MEDS ORDERED: Acetaminophen 500mg (ES) tab ORAL PRN (16:00)
[2019-01-04] MEDS ORDERED: guaiFENesin 100mg/5ml Liq ud ORAL PRN (16:00)
[2019-01-04] MEDS: Cefepime HCl 1 GM in D5W 55 ML IVPB SCH (16:11)
[2019-01-04] MEDS ORDERED: NS 275ml ONE (16:24)
[2019-01-04] MEDS ORDERED: Tubing IV Secondary IV ONE (16:24)
--- NOTE | 2019-01-04 16:36 | History & Physical ---
History and Physical History & Physicial seen and examined. Dict # [id number] Rosaura Hoffman MD Jan 04, 2019 16:36
--- NOTE | 2019-01-04 16:37 | General Progress Note ---
Assessment/Plan Assessment/Plan: Dict in progress 1- Acute metabolic encephalpthy 2- PNA 3- Peritonisits Plan: GI ID Nephro Hem Puml consulted Subjective Allergies: Coded Allergies: PENICILLINS (Verified Allergy, Unknown, 01/03/19) Objective Last 24 Hour Vital Signs Date Time Temp Pulse Resp B/P (MAP) Pulse Ox O2 Delivery O2 Flow Rate FiO2 01/04/19 16:00 97.7 71 18 125/68 (87) 96 01/04/19 14:20 97.9 01/04/19 12:00 97.9 71 20 111/61 (78) 97 01/04/19 11:51 71 01/04/19 09:00 Room Air 01/04/19 08:00 97.7 70 18 108/61 (77) 92 01/04/19 07:40 66 01/04/19 04:00 98.3 71 18 100/56 (71) 96 01/04/19 04:00 65 01/04/19 00:00 69 01/04/19 00:00 98.5 74 18 104/58 (73) 96 01/03/19 21:00 Room Air 01/03/19 20:00 98.2 69 18 105/60 (75) 96 01/03/19 20:00 66 Intake and Output 01/03/19 01/04/19 19:00 07:00 Intake Total 50 ml 503 ml Balance 50 ml 503 ml IV Total 50 ml 503 ml # Bowel Movements 4 Laboratory Tests 01/04/19 06:29: White Blood Count 1.3*L, Red Blood Count 2.61L, Hemoglobin 8.5L, Hematocrit 26.0L, Mean Corpuscular Volume 100H, Mean Corpuscular Hemoglobin 32.7H, Mean Corpuscular Hemoglobin Concent 32.8, Red Cell Distribution Width 16.1H, Platelet Count 34L, Mean Platelet Volume 8.4, Neutrophils (%) (Auto) , Lymphocytes (%) (Auto) , Monocytes (%) (Auto) , Eosinophils (%) (Auto) , Basophils (%) (Auto) , Differential Total Cells Counted 100, Neutrophils % ( Manual) 59, Lymphocytes % (Manual) 27, Monocytes % (Manual) 13H, Eosinophils % ( Manual) 1, Basophils % (Manual) 0, Band Neutrophils 0, Platelet Estimate DecreasedL, Platelet Morphology Normal, Polychromasia 1+, Hypochromasia 1+, Anisocytosis 1+, Sodium Level 143, Potassium Level 3.4L, Chloride Level 107, Carbon Dioxide Level 32, Anion Gap 5, Blood Urea Nitrogen 19H, Creatinine 1.9H, Estimat Glomerular Filtration Rate 36.2, Glucose Level 92, Lactic Acid Level 1.40, Uric Acid 4.3, Calcium Level 8.0L, Phosphorus Level 3.8, Magnesium Level 1.6L, Iron Level 42L, Total Iron Binding Capacity 141L, Percent Iron Saturation 30, Unsaturated Iron Binding 99L, Ferritin 299, Total Bilirubin 1.9H, Direct Bilirubin 0.6H, Gamma Glutamyl Transpeptidase 132H, Aspartate Amino Transf (AST/ SGOT) 40H, Alanine Aminotransferase (ALT/SGPT) 27, Alkaline Phosphatase 174H, Ammonia 110H, C-Reactive Protein, Quantitative 2.4H, Pro-B-Type Natriuretic Peptide 874H, Total Protein 6.2L, Albumin 2.0L, Globulin 4.2, Albumin/Globulin Ratio 0.5L, Triglycerides Level 62, Cholesterol Level 89, LDL Cholesterol 33, HDL Cholesterol 47, Cholesterol/HDL Ratio 1.9L, Vitamin B12 Level 931, Folate 34.2, Hepatitis A IgM Antibody [Pending], Hepatitis B Surface Antigen [Pending] , Hepatitis B Core IgM Antibody [Pending], Hepatitis C Antibody [Pending] Height (Feet): 5 Height (Inches): 7.00 Weight (Pounds): 154 Rosaura Hoffman MD Jan 04, 2019 16:37
[2019-01-04] MEDS ORDERED: Omnipaque-300 100ml vial INJ PRN (17:15)
[2019-01-04] MEDS: Lactulose 20gm/30ml UDC ORAL SCH ×2 (17:59→20:56)
[2019-01-04] MEDS ORDERED: Spironolactone 25mg tab NG SCH (18:00)
--- NOTE | 2019-01-04 19:20 | NUR ---
HAND-OFF: Report given to DWIGHT Marino.
--- NOTE | 2019-01-04 19:21 | NUR ---
NURSE NOTES: Received report from DWIGHT Mcrae. Patient is awake, lying in semi carl's; resting comfortably. A/Ox3-4. Primarily [place] speaking. Denies pain at this time. No signs of acute distress noted. Checked IV site and flushed. No erythema, bleeding or infiltration noted. With perm catheter located at right upper chest for hemodialysis. Bed at lowest position, brakes on, [id number]. Call light within reach. Will continue to monitor.
--- NOTE | 2019-01-04 19:30 | Consultation ---
DATE OF CONSULTATION: 01/04/2019 INFECTIOUS DISEASE CONSULTATION CONSULTING PHYSICIAN: Sudeep Mcclain M.D. REQUESTING PHYSICIAN: Rosaura Hoffman M.D. REASON FOR CONSULTATION: Massive right pleural effusion, possible underlying pneumonia, and pancytopenia with low WBC count. Recommendation for antibiotics treatment HISTORY OF PRESENT ILLNESS: The patient is a 63-year-old male with past medical history of end-stage renal disease, on hemodialysis and chronic liver cirrhosis with ascites presented to [facility] emergency room with altered mental status via paramedics from his facility. The patient had only grimaces to physical stimuli upon arrival to the emergency room and he was nonverbal and does not respond to command. Unclear whether he had a recent fever, cough, shortness of breath, vomiting, or diarrhea. The patient's O2 saturation was 98% on room air with temperature of 98.4. Chest x-ray showed massive right pleural effusion with underlying lung atelectasis concerning for pneumonia. His white count also was significantly low with 1.8. So, the patient was given antibiotics and Infectious Disease consultation was requested for antibiotics treatment and further management. As of note, the patient is [place] speaker. Poor historian could not provide good history. History was mainly obtained from the medical record and nursing staff. REVIEW OF SYSTEMS: A 14-point of systems reviewed were all negative apart from the one I mentioned above in my History and Physical. PAST MEDICAL HISTORY: Significant for chronic liver cirrhosis with ascites, end-stage renal disease, on hemodialysis, and hepatic encephalopathy. PAST SURGICAL HISTORY: Not on record. MEDICATIONS: The patient received vancomycin. For the rest of his medications, please refer to MAR's. ALLERGIES: He is allergic to penicillin unclear what kind of reaction he gets, but as per nurse he gets itching. FAMILY HISTORY: Unable to obtain. SOCIAL HISTORY: Unable to obtain. PHYSICAL EXAMINATION: VITAL SIGNS: Temperature 97.9, pulse 71, respirations 20, blood pressure 111/61, and saturation 97% on room air. GENERAL: A middle-aged male, cachectic, lying in bed, awake, alert, [place] speaker mainly, not in acute distress. HEENT: Normocephalic and atraumatic. Pupils are reactive to light equally. Moist oral mucosa. No exudate. NECK: Supple. No lymphadenopathy. CARDIOVASCULAR: Regular rate and rhythm. No murmur. LUNGS: He had diminished breathing sound on the right side of his chest. Normal breathing sounds on the left. No wheezing or rhonchi. CHEST: He had right tunneled hemodialysis catheter with clean site. ABDOMEN: Soft, nontender, and nondistended. There is hepatosplenomegaly and ascites. EXTREMITY: Edema +1. No cyanosis. Distal pulses +1 in both lower extremities. SKIN: No rash. No hives. LABORATORY DATA: Laboratories showed white count of 1.3, hemoglobin of 8.5. BUN of 19 and creatinine of 1.9. AST of 40 and ALT of 27. A C-reactive protein 2.4. Urinalysis was negative for infection. IMAGING: Chest x-ray showed massive right pleural effusion, bilateral pulmonary interstitial and airspace edema, probable small left pleural effusion. Abdominal ultrasound showed hepatic cirrhosis with hepatic surface nodularity, hypoechoic but solid appearing right hepatic lobe liver nodule, evidence of portal hypertension with ascites, splenomegaly, and splenic hilar varices. Cholelithiasis and gallbladder wall thickening is probably a manifestation of generalized edema. Abdominal x-ray showed satisfactory position of nasogastric tube. ASSESSMENT AND RECOMMENDATION: 1. Pancytopenia, suspect bone marrow suppression from hepatic cirrhosis. We will start the patient empirically on cefepime and continue vancomycin with dialysis. We will send blood culture. The patient may benefit from the filgrastim injection to improve his WBC. 2. Pleural effusion, massive suspect due to liver cirrhosis. Recommend thoracentesis and fluid to be sent for cell count, culture, bacterial, fungal, and AFB, and cytology. 3. Possible pneumonia due to massive pleural effusion. The patient will be on vancomycin and cefepime empiric coverage. We will send sputum culture if he produces any. Recommend thoracentesis. 4. End-stage renal disease, on hemodialysis. Continue dialysis as per Renal. 5. Hepatic encephalopathy with high ammonia level. Continue lactulose as needed. Monitor mental status. 6. Right liver lobe nodule. Recommend tumor marker and Oncology evaluation for possible biopsy to rule out hepatocellular carcinoma. 7. Liver cirrhosis, chronic. Follow up with GI. Prognosis is poor. Thank you for the consult. ID will continue to follow. Sudeep Mcclain M.D. DR: DIYA JOB#: [id number] CC: EDITA
--- NOTE | 2019-01-04 19:45 | Consultation ---
DATE OF CONSULTATION: 01/04/2019 CARDIOLOGY CONSULTATION CONSULTING PHYSICIAN: Oswaldo Hobson M.D. REFERRING PHYSICIAN: Rosaura Hoffman M.D. REASON FOR CONSULTATION: Management of anasarca from cardiac standpoint. HISTORY OF PRESENT ILLNESS: The patient is a very unfortunate 63-year-old gentleman, who presents to the hospital with altered level of consciousness. The patient has a prior history of alcohol cirrhosis with history of portal hypertension, prior history of upper gastrointestinal bleed, as well as history of end-stage renal disease, on dialysis. Last hemodialysis was done on . Other than that, there is no prior history of coronary artery disease, congestive heart failure, or cardiac arrhythmias. At the time of arrival to this facility, blood pressure was 149/76 mmHg and heart rate was 85. A 12-lead electrocardiogram was significant for sinus rhythm at the rate of 85 with QT prolongation at 5:23 but no acute ischemic features. In the emergency department, initial laboratory finding was significant for a creatinine of 2.0, elevation of total bilirubin at 1.8, elevation of alkaline phosphatase at 233, normal troponin I level is 0.005, elevation of pro-brain natriuretic peptide at 489, and low magnesium level measured at 1.6. The patient's chest x-ray showed whiteout of the right lung due to large pleural effusion. Abdominal ultrasound confirmed the presence of ascites as well as bilateral pleural effusion, left greater than right. The patient was admitted to telemetry for further evaluation and management. Cardiology consultation was made at the request of Dr. Hoffman to assess and address anasarca from cardiac standpoint. PAST MEDICAL HISTORY: 1. Liver cirrhosis with portal hypertension. 2. History of umbilical hernia. 3. History of upper gastrointestinal bleed. 4. History of alcoholic hepatitis. 5. History of anemia. ALLERGIES: Penicillin. REVIEW OF SYSTEMS: A 12-system review done essentially negative except what was mentioned in the history of present illness. SOCIAL HISTORY: Prior history of alcohol use for more than 30 years. Quit alcohol about 10 years ago. Denies any tobacco or illicit drug use. FAMILY HISTORY: No premature coronary artery disease in the first-degree relatives. LIST OF MEDICATIONS: 1. Vitamin D 50,000 units once a week. 2. Folic acid 1 mg p.o. daily. 3. Guaifenesin 5 mL q.4 hours. 4. Lactulose 10 gram 5 times a day. 5. Multivitamin one tablet daily. 6. Omeprazole 20 mg daily. 7. MiraLAX 17 grams daily. 8. Rifaximin 500 gram ____. 9. Sevelamer 1600 mg p.o. daily. 10. Aldactone 25 mg daily. PHYSICAL EXAMINATION: VITAL SIGNS: Blood pressure at the time of arrival to the hospital was 149/76, pulse of 85, respirations 22, temperature 98.4 degrees Fahrenheit, and O2 saturation 99% on room air. GENERAL: The patient is a very ill-looking 63-year-old gentleman with NG-tube in place, appeared to be weak, and communicating in Armenian language with the nurse appropriately. HEENT: Atraumatic and normocephalic. Icteric sclerae is evident. Pupils are equal, round, and reactive to light and accommodation. NECK: JVP less than 5 cm. No carotid bruits. Carotid upstrokes 2+ bilaterally. CVS: Normal S1, S2. Regular rate and rhythm. No murmurs, gallops, or rubs. PMI is at fourth intercostal space at the midclavicular line. LUNGS: Diminished breath sounds particularly in the right lower lung and in the base of the left lung. ABDOMEN: Distended most likely due to ascites. Positive shifting dullness. Positive for an umbilical hernia, soft, and possible bowel sounds. EXTREMITIES: A 1+ bilateral lower extremity edema. LABORATORY FINDINGS: Sodium was 139, potassium is 3.9, chloride 104, bicarbonate 33, BUN of 16, creatinine 2.0, and glucose 132. Lactic acid is 2.8. Calcium is 8.1. WBC was 1.8, hemoglobin of 9.6, hematocrit of 29.2, and platelet count is 37,000. Urine tox screen was negative. ASSESSMENT AND PLAN: The patient is a very unfortunate 63-year-old gentleman, who is seen in Cardiology consultation. 1. Anasarca most likely due to end-stage liver disease due to alcohol-induced liver cirrhosis. The patient has low oncotic pressure due to lack of albumin synthesis and a failed liver requires albumin administration if mean arterial pressure is less than 65 mmHg. This measure however is temporary. I would consider, we will continue monitoring the patient's hemodynamics. A 2D echocardiography had shown presence of a normal LV systolic function with LVEF of approximately 60% to 65%. 2. Bilateral pleural effusion, right greater than left most likely due to low oncotic pressure or via the fenestration from ascitic fluid. Pulmonary consultation. Possible thoracentesis. 3. Small pericardial effusion. 4. History of GI bleed. 5. Portal hypertension. I would agree with combination of Lasix and Aldactone determined by [employer] real [employer] listing consultant. 6. ALOC most likely hepatic encephalopathy. Continue with ammonia check. Appears to be better. I would like to thank, Dr. Hoffman for allowing me to participate in the care of this patient. Oswaldo Hobson M.D. DR: JAS JOB#: [id number] CC:
[2019-01-04 20:00] VITALS: BP 121/64
[2019-01-04] MEDS: Miralax 17gm pkt ORAL SCH (20:56)
[2019-01-04] MEDS: Spironolactone 25mg tab ORAL SCH (20:56)
[2019-01-04] MEDS ORDERED: Miralax 17gm pkt NG SCH (21:00)
--- NOTE | 2019-01-04 21:30 | History and Physical Report ---
DATE OF ADMISSION: 01/03/2019 SOURCE OF INFORMATION: Patient and EMR. HISTORY OF PRESENT ILLNESS: The patient is a 63-year-old male with a history of dialysis, who lives with . Per , the patient has had decreased level of consciousness for the last couple of days. At the time of evaluation, the patient poor historian. at the bedside. No reported incident of fever, shortness of breath, or chest pain. No episodes of missed hemodialysis. REVIEW OF SYSTEMS: All 12 elements of review of systems reviewed, pertinent positive and negative as above. ALLERGIES: Penicillin. PAST MEDICAL HISTORY: End-stage renal disease, on hemodialysis and cirrhosis. MEDICATIONS: Current hospital medications including cefepime, vancomycin, spironolactone, and . SOCIAL HISTORY: The patient is . No recent active tobacco use or illicit drug abuse has been reported. The patient lives with the . PHYSICAL EXAMINATION: VITAL SIGNS: Blood pressure 150/70, temperature 98.2, pulse oximetry 98% on room air, pulse rate 85, and respiratory rate 18. HEAD AND NECK: Atraumatic and normocephalic. CHEST: Clear to auscultation. HEART: S1, S2. Regular rate and rhythm. ABDOMEN: Soft. No organomegaly. Abdomen is protuberant. Positive organomegaly. MUSCULOSKELETAL: Limited evaluation as the patient is sleepy. Limited following of the commands. IMAGING: Chest x-ray dated 01/03/2019 shows right-sided pleural effusion and bilateral pulmonary airspace disease. LABORATORY DATA: Labs dated 01/03/2019 shows WBC 1.8, hemoglobin 9.6, and platelets 37,000. Sodium 143. Ammonia level of 108. ASSESSMENT: 1. Acute metabolic encephalopathy. 2. Sepsis secondary to healthcare-associated pneumonia. 3. Pancytopenia. 4. Cirrhosis. 5. End-stage renal disease, on hemodialysis. 6. GI and DVT prophylaxes. PLAN OF CARE: I will start with empiric antibiotic treatment. Infectious Disease, Nephrology, Pulmonary, and Hematology-Oncology have been consulted. The time of this dictation does not reflect the actual time of encounter. Rosaura Hoffman M.D. DR: JOSIE JOB#: [id number] CC:
[2019-01-05] VITALS: BP 122/76
--- NOTE | 2019-01-05 03:11 | NUR ---
NURSE NOTES: Resting throughout the night. No significant change of condition noted. Will continue to monitor.
[2019-01-05] MEDS: D5NS 1,000 ML IV SCH ×2 (03:55→21:16)
[2019-01-05 04:00] VITALS: BP 120/63
[2019-01-05 06:26] LABS: HEMATOCRIT 26.3 % (42.0-52.0); HEMOGLOBIN 8.6 G/DL (14.2-18.0); MEAN CORPUSCULAR VOLUME 99 FL (80-99); PLATELET COUNT 33 K/UL (150-450); RED BLOOD COUNT 2.65 M/UL (4.70-6.10); RED CELL DISTRIBUTION WIDTH 16.1 % (11.6-14.8)
[2019-01-05 06:52] LABS: WHITE BLOOD COUNT 1.5 K/UL (4.8-10.8)
[2019-01-05 07:22] LABS: AMMONIA 100 umol/L (11-32)
[2019-01-05 07:23] LABS: ALANINE AMINOTRANSFERASE 29 U/L (12-78); ALBUMIN 1.9 G/DL (3.4-5.0); ALBUMIN/GLOBULIN RATIO 0.5 (1.0-2.7); ALKALINE PHOSPHATASE 170 U/L (46-116); ANION GAP 9 mmol/L (5-15); ASPARTATE AMINO TRANSFERASE 51 U/L (15-37); BILIRUBIN,TOTAL 1.7 MG/DL (0.2-1.0); BLOOD UREA NITROGEN 20 mg/dL (7-18); CALCIUM 7.8 MG/DL (8.5-10.1); CARBON DIOXIDE 24 MMOL/L (21-32); CHLORIDE 108 MMOL/L (98-107); CREATININE 1.8 MG/DL (0.55-1.30); PHOSPHORUS 3.7 MG/DL (2.5-4.9); POTASSIUM 3.7 MMOL/L (3.5-5.1); SODIUM 141 MMOL/L (136-145)
[2019-01-05 07:25] LABS: BILIRUBIN,DIRECT 0.5 MG/DL (0.0-0.3)
--- NOTE | 2019-01-05 07:40 | NUR ---
NURSE NOTES: Received report from DWIGHT Marino. Patient in bed resting no active s/s cardiac, respiratory distress noticed at this time. Patient on room air, AOx3-4, SR with HR 66. IV on right FA 22G, asymptomatic, patent, intact, IV fluid running as prescribed rate, PermCath on right chest . Bed in lowest position, side rails upx3, call light within reach. Will continue to monitor.
--- NOTE | 2019-01-05 07:40 | NUR ---
HAND-OFF: Report given to DWIGHT Willis. Plan of care endorsed.
--- NOTE | 2019-01-05 07:50 | NUR ---
NURSE NOTES: Dr. Hoffman made aware patient Mg level today 1.7, WBC 1.5. Per Dr. Hoffman 1g Mg once IV. Order noted, entered, carried out.
[2019-01-05 08:00] VITALS: BP 126/71
--- NOTE | 2019-01-05 08:21 | Consultation ---
History of Present Illness General Chief Complaint: Altered Level of Consciousness Present Illness Allergies: Coded Allergies: PENICILLINS (Verified Allergy, Unknown, 01/03/19) Medication History Scheduled Ergocalciferol (Vitamin D2)* (Vitamin D*), 50,000 UNIT ORAL ONCE A WEEK, ( Reported) Ergocalciferol (Vitamin D2)* (Vitamin D*), 50,000 UNIT ORAL ONCE A WEEK, ( Reported) Guaifenesin* (Guaifenesin), 5 ML ORAL Q4H, (Reported) Lactulose (Lactulose), 10 GM PO FIVE TIMES A DAY, (Reported) Multivitamins* (Multivitamins*), 1 TAB ORAL DAILY, (Reported) Omeprazole (Omeprazole), 20 MG ORAL DAILY, (Reported) Polyethylene Glycol 3350* (Miralax*), 17 GM ORAL DAILY, (Reported) Spironolactone* (Aldactone*), 25 MG ORAL DAILY, (Reported) Miscellaneous Medications Folic Acid (Folic Acid), 1 MG PO, (Reported) Rifaximin (Rifaximin), 500 GM MC, (Reported) Sevelamer HCl (Sevelamer HCl), 1,600 MG PO, (Reported) Patient History Healthcare decision maker Resuscitation status Advanced Directive on File Physical Exam Last 24 Hour Vital Signs Date Time Temp Pulse Resp B/P (MAP) Pulse Ox O2 Delivery O2 Flow Rate FiO2 01/05/19 08:00 97.5 73 18 126/71 (89) 96 01/05/19 04:00 65 01/05/19 04:00 98.3 66 18 120/63 (82) 96 01/05/19 00:00 71 01/05/19 00:00 98.0 72 20 122/76 (91) 95 01/04/19 21:00 Room Air 01/04/19 20:00 98.0 70 20 121/64 (83) 94 01/04/19 20:00 79 01/04/19 16:08 70 01/04/19 16:00 97.7 71 18 125/68 (87) 96 01/04/19 14:20 97.9 01/04/19 12:00 97.9 71 20 111/61 (78) 97 01/04/19 11:51 71 01/04/19 09:00 Room Air Intake and Output 01/04/19 01/05/19 19:00 07:00 Intake Total 350 ml 120 ml Output Total 500 ml 200 ml Balance -150 ml -80 ml Intake Oral 300 ml 120 ml IV Total 50 ml Output Urine Total 500 ml 200 ml # Bowel Movements 1 Laboratory Tests Test 01/05/19 04:35 White Blood Count 1.5 K/UL (4.8-10.8) *L Red Blood Count 2.65 M/UL (4.70-6.10) L Hemoglobin 8.6 G/DL (14.2-18.0) L Hematocrit 26.3 % (42.0-52.0) L Mean Corpuscular Volume 99 FL (80-99) Mean Corpuscular Hemoglobin 32.7 PG (27.0-31.0) H Mean Corpuscular Hemoglobin Concent 32.9 G/DL (32.0-36.0) Red Cell Distribution Width 16.1 % (11.6-14.8) H Platelet Count 33 K/UL (150-450) L Mean Platelet Volume 10.0 FL (6.5-10.1) Neutrophils (%) (Auto) % (45.0-75.0) Lymphocytes (%) (Auto) % (20.0-45.0) Monocytes (%) (Auto) % (1.0-10.0) Eosinophils (%) (Auto) % (0.0-3.0) Basophils (%) (Auto) % (0.0-2.0) Neutrophils % (Manual) Pending Lymphocytes % (Manual) Pending Platelet Estimate Pending Platelet Morphology Pending Sodium Level 141 MMOL/L (136-145) Potassium Level 3.7 MMOL/L (3.5-5.1) Chloride Level 108 MMOL/L (98-107) H Carbon Dioxide Level 24 MMOL/L (21-32) Anion Gap 9 mmol/L (5-15) Blood Urea Nitrogen 20 mg/dL (7-18) H Creatinine 1.8 MG/DL (0.55-1.30) H Estimat Glomerular Filtration Rate 38.6 mL/min (>60) Glucose Level 92 MG/DL (74-106) Uric Acid 4.9 MG/DL (2.6-7.2) Calcium Level 7.8 MG/DL (8.5-10.1) L Phosphorus Level 3.7 MG/DL (2.5-4.9) Magnesium Level 1.7 MG/DL (1.8-2.4) L Total Bilirubin 1.7 MG/DL (0.2-1.0) H Direct Bilirubin 0.5 MG/DL (0.0-0.3) H Aspartate Amino Transf (AST/SGOT) 51 U/L (15-37) H Alanine Aminotransferase (ALT/SGPT) 29 U/L (12-78) Alkaline Phosphatase 170 U/L (46-116) H Ammonia 100 umol/L (11-32) H C-Reactive Protein, Quantitative 2.1 mg/dL (0.00-0.90) H Pro-B-Type Natriuretic Peptide 790 pg/mL (0-125) H Total Protein 6.0 G/DL (6.4-8.2) L Albumin 1.9 G/DL (3.4-5.0) L Globulin 4.1 g/dL Albumin/Globulin Ratio 0.5 (1.0-2.7) L Cortisol AM Sample Pending Height (Feet): 5 Height (Inches): 7.00 Weight (Pounds): 154 Medications Current Medications Medications (Trade) Dose Ordered Sig/Katie Route PRN Reason Start Time Stop Time Status Last Admin Dose Admin Acetaminophen (Tylenol) 500 mg Q8H PRN ORAL Prn Headache/Temp > 101 01/04/19 16:00 02/03/19 15:59 Barium Sulfate (Readi-Cat 2) 450 ml NOW PRN ORAL Radiology Procedure 01/04/19 17:15 01/06/19 17:03 Cefepime HCl 1 gm/ Dextrose 55 ml @ 110 mls/hr Q24H IVPB 01/04/19 15:00 01/11/19 14:59 01/04/19 16:11 Dextrose/Sodium Chloride 1,000 ml @ 50 mls/hr Q20H IV 01/03/19 10:30 02/02/19 10:29 01/05/19 03:55 Guaifenesin (Robitussin) 100 mg Q4H PRN ORAL For Cough 01/04/19 16:00 02/03/19 15:59 Iohexol (OMNIPAQUE-300 100ml) 100 ml NOW PRN INJ Radiology Procedure 01/04/19 17:15 01/06/19 17:03 Lactulose (Cephulac) 20 gm QID ORAL 01/04/19 18:00 02/02/19 12:59 01/04/19 20:56 Multivitamins Therapeutic (Therapeutic Multivitamin) 15 ea DAILY ORAL 01/05/19 09:00 02/03/19 10:29 Pantoprazole (Protonix) 40 mg DAILY IVP 01/03/19 10:30 02/02/19 10:29 01/04/19 10:09 Polyethylene Glycol (Miralax) 17 gm BEDTIME ORAL 01/04/19 21:00 02/02/19 20:59 01/04/19 20:56 Rifaximin (Xifaxan) 550 mg EVERY 12 HOURS ORAL 01/04/19 21:00 01/10/19 12:59 01/04/19 20:56 Spironolactone (Aldactone) 25 mg Q12HR ORAL 01/04/19 21:00 02/03/19 20:59 01/04/19 20:56 Vancomycin HCl (Vanco rx to dose) 1 ea DAILY PRN MISC Per rx protocol 01/04/19 08:30 02/03/19 08:29 Assessment/Plan Assessment/Plan: Hematology Consultation REGuillermina MD: Isaiah Kaplan RFC: Pancytopenia DOS: 01/05/19 ID 63y old male Patient presents with complaints of altered mental status Patient is brought in by paramedics Unknown last well symptoms Patient does have a dialysis catheter on the right upper chest Grimaces to physical stimuli otherwise is nonverbal does not open his eyes to verbal command This was in the ER Unknown regarding recent fevers unknown regarding vomiting or diarrhea history of present illness is significantly limited He has been seen by gi, id, renal, cards, here for hd as well HE is a very poor historian, speaks arabic and does go to [facility] for his [facility] care , does have a known history of cancer. Coded Allergies: PENICILLINS (Verified Allergy, Unknown, 01/03/19) Patient History Limited by: medical condition Reviewed Nursing Documentation: PMH: Agreed; PSxH: Agreed Review of Systems All Other Systems: limited - Other than the ones mentioned in the history of present illness all others are reviewed however they do stay limited due to the patient's mental status Physical Exam Vitals: reviewed General Appearance: today more comfortable Neck: supple Respiratory: lungs clear, no respiratory distress Cardiovascular: RRR, no mgr Gastrointestinal: non tender, soft, other ++ Umbilical hernia mild abdominal distention Neurologic: II-XII intact grossly Lymphatic: no adenopathy Imaging: US abd: Impression: Evidence of hepatic cirrhosis, with hepatic surface nodularity Hypoechoic but solid-appearing right hepatic lobe liver nodule. Recommend further evaluation with multiphasic liver protocol contrast CT or MRI Evidence of portal hypertension, with ascites, splenomegaly, and splenic hilar varices Cholelithiasis. Gallbladder wall thickening is probably a manifestation of generalized edema resulting from the hepatic derangements, but does raise the possibility of acute cholecystitis. Consider hepatobiliary nuclear scan if there is high clinical suspicion Bilateral pleural effusions Borderline increased renal echogenicity, if real could indicate medical renal disease Note suboptimal visualization of the abdominal aorta Assessment and Recs: # Hepatocellular carcinoma has had this for three years and gets treatment at [facility] --> have dw patient need further history and will contact family, have dw RN, need more history, has been on treatment for the past three years --> f[place] [facility] since first time here, obtain ONLY cea, afp --> imaging noted, doesn't need biopsy here --> further imaging if abd pain worsens # PAncytopenia is related to history of liver disease, cirrhosis and cancer --> closely monitor, neupogen given 01/05 x1 --> ANC is >1500 --> meds have been reviewed, on abx --> perp smear has been reviewed, no blasts --> epogen and iron as needed for esrd --> as per renal, hd # Hepatic encephalopathy --> lactulose and gi management # HYperblirubinemia due to liver disease --> lactulose and other prn # Pleural effusion --> drain prn, due to hep congestion potentially and chf # ESRD on hd --> per renal DW RN in am, and appreciate consultation. Damion Brown MD Jan 05, 2019 08:21
[2019-01-05] MEDS: Lactulose 20gm/30ml UDC ORAL SCH ×4 (08:49→21:01)
[2019-01-05] MEDS: Multivitamin w/Minerals tab ORAL SCH (08:54)
[2019-01-05] MEDS: Pantoprazole Inj IVP SCH (08:54)
[2019-01-05] MEDS: Spironolactone 25mg tab ORAL SCH ×2 (08:54→21:00)
[2019-01-05] MEDS ORDERED: Multivitamin w/Minerals tab ORAL SCH (09:00)
[2019-01-05] MEDS ORDERED: TBO-Filgrastim 300 mcg/0.5ml SQ ONE (09:30)
[2019-01-05] MEDS ORDERED: D5NS 1000ml IV ONE (09:56)
[2019-01-05] MEDS ORDERED: Tubing IV Secondary IV ONE (09:56)
--- NOTE | 2019-01-05 11:03 | NUR ---
NURSE NOTES: Dr. Hoffman made aware patient schedule for CT abd pelvis w/ contrast, creatinine level 1.8, no HD scheduled at this time. Per Dr. Hoffman, do CT w/ contrast right before dialysis. Radiology made aware.
--- NOTE | 2019-01-05 11:41 | NUR ---
NURSE NOTES: Dr. Mcclain made aware blood culture resulted as positive for gram positive cocci in clusters and patient on vancomycin IV, cefepime IV. Per Dr. Mcclain, vancomycin is good enough, no new order given at this time. Will continue to monitor.
[2019-01-05 12:00] VITALS: BP 124/66
[2019-01-05] MEDS ORDERED: Vancomycin 1gm/D5W 275ml IVPB ONE ×2 (12:00)
--- NOTE | 2019-01-05 13:21 | General Progress Note ---
Assessment/Plan Assessment/Plan: S: I am feeling better O: son and at the bed side. Complains of mild abd pain Interpretation: reviewed, normal General Appearance: other - Patient has significant decreased response grimaces to physical stimuli otherwise nonverbal Head: normocephalic, atraumatic Eyes: bilateral eye PERRL ENT: normal pharynx, no angioedema Neck: supple Respiratory: lungs clear, no respiratory distress, no retraction Cardiovascular #1: regular rate, rhythm Gastrointestinal: non tender, soft, other - Umbilical hernia mild abdominal distention Musculoskeletal: other - Difficult to assess patient is not awake does not follow commands Neurologic: other - Significantly decreased GCS does not open eyes minimal response to physical stimuli Skin: no rash Lymphatic: no adenopathy Meds and Labs: dated Jan 05 reviewed Assessment: 1- Acute encephalopathy 2- Pancytopenia 3- HCC 4- Cirhosis 5- Immunocompromised 6- ESRDx HD Plan: Following notes reviewed: GI ID Nephro Hem Puml current mgt Subjective Allergies: Coded Allergies: PENICILLINS (Verified Allergy, Unknown, 01/03/19) Objective Last 24 Hour Vital Signs Date Time Temp Pulse Resp B/P (MAP) Pulse Ox O2 Delivery O2 Flow Rate FiO2 01/05/19 12:00 97.8 68 20 124/66 (85) 97 01/05/19 12:00 80 01/05/19 09:00 Room Air 01/05/19 08:00 80 01/05/19 08:00 97.5 73 18 126/71 (89) 96 01/05/19 04:00 65 01/05/19 04:00 98.3 66 18 120/63 (82) 96 01/05/19 00:00 71 01/05/19 00:00 98.0 72 20 122/76 (91) 95 01/04/19 21:00 Room Air 01/04/19 20:00 98.0 70 20 121/64 (83) 94 01/04/19 20:00 79 01/04/19 16:08 70 01/04/19 16:00 97.7 71 18 125/68 (87) 96 01/04/19 14:20 97.9 Intake and Output 01/04/19 01/05/19 19:00 07:00 Intake Total 350 ml 120 ml Output Total 500 ml 200 ml Balance -150 ml -80 ml Intake Oral 300 ml 120 ml IV Total 50 ml Output Urine Total 500 ml 200 ml # Bowel Movements 1 Laboratory Tests 01/05/19 04:35: White Blood Count 1.5*L, Red Blood Count 2.65L, Hemoglobin 8.6L, Hematocrit 26.3L, Mean Corpuscular Volume 99, Mean Corpuscular Hemoglobin 32.7H, Mean Corpuscular Hemoglobin Concent 32.9, Red Cell Distribution Width 16.1H, Platelet Count 33L, Mean Platelet Volume 10.0, Neutrophils (%) (Auto) , Lymphocytes (%) (Auto) , Monocytes (%) (Auto) , Eosinophils (%) (Auto) , Basophils (%) (Auto) , Differential Total Cells Counted 100, Neutrophils % ( Manual) 66, Lymphocytes % (Manual) 19L, Monocytes % (Manual) 10, Eosinophils % ( Manual) 5H, Basophils % (Manual) 0, Band Neutrophils 0, Platelet Estimate DecreasedL, Platelet Morphology Normal, Anisocytosis 1+, Sodium Level 141, Potassium Level 3.7, Chloride Level 108H, Carbon Dioxide Level 24, Anion Gap 9, Blood Urea Nitrogen 20H, Creatinine 1.8H, Estimat Glomerular Filtration Rate 38.6, Glucose Level 92, Uric Acid 4.9, Calcium Level 7.8L, Phosphorus Level 3.7 , Magnesium Level 1.7L, Total Bilirubin 1.7H, Direct Bilirubin 0.5H, Aspartate Amino Transf (AST/SGOT) 51H, Alanine Aminotransferase (ALT/SGPT) 29, Alkaline Phosphatase 170H, Ammonia 100H, C-Reactive Protein, Quantitative 2.1H, Pro-B- Type Natriuretic Peptide 790H, Total Protein 6.0L, Albumin 1.9L, Globulin 4.1, Albumin/Globulin Ratio 0.5L, Cortisol AM Sample [Pending] 01/05/19 08:40: Alpha Fetoprotein [Pending], Carcinoembryonic Antigen [Pending], Random Vancomycin Level 13.9, HIV (1&2) Antibody Rapid Negative Height (Feet): 5 Height (Inches): 7.00 Weight (Pounds): 154 Rosaura Hoffman MD Jan 05, 2019 13:21
--- NOTE | 2019-01-05 13:40 | Consultation ---
Consult Note Assessment/Plan DICT # [id number] Agustin Gilbert MD Jan 05, 2019 13:40
--- NOTE | 2019-01-05 14:12 | Nephrology Progress Note ---
Assessment/Plan Problem List: (1) Liver nodule Assessment: h/o hepatocellular ca (2) Hepatic encephalopathy (3) Renal failure (4) Pleural effusion (5) Pancytopenia Assessment ESRD Liver Disease, nature? Hepatic encephalopathy Leukopenia Pleural effusion massive right Plan increase lactulose K supplement NPO until awake per GI ? NGT Dialysis as needed per orders Pleural tap?? Subjective ROS Limited/Unobtainable: No Constitutional: Reports: malaise Objective Objective Last 24 Hour Vital Signs Date Time Temp Pulse Resp B/P (MAP) Pulse Ox O2 Delivery O2 Flow Rate FiO2 01/05/19 12:00 97.8 68 20 124/66 (85) 97 01/05/19 12:00 80 01/05/19 09:00 Room Air 01/05/19 08:00 80 01/05/19 08:00 97.5 73 18 126/71 (89) 96 01/05/19 04:00 65 01/05/19 04:00 98.3 66 18 120/63 (82) 96 01/05/19 00:00 71 01/05/19 00:00 98.0 72 20 122/76 (91) 95 01/04/19 21:00 Room Air 01/04/19 20:00 98.0 70 20 121/64 (83) 94 01/04/19 20:00 79 01/04/19 16:08 70 01/04/19 16:00 97.7 71 18 125/68 (87) 96 01/04/19 14:20 97.9 Intake and Output 01/04/19 01/05/19 19:00 07:00 Intake Total 350 ml 120 ml Output Total 500 ml 200 ml Balance -150 ml -80 ml Intake Oral 300 ml 120 ml IV Total 50 ml Output Urine Total 500 ml 200 ml # Bowel Movements 1 Laboratory Tests 01/05/19 04:35: White Blood Count 1.5*L, Red Blood Count 2.65L, Hemoglobin 8.6L, Hematocrit 26.3L, Mean Corpuscular Volume 99, Mean Corpuscular Hemoglobin 32.7H, Mean Corpuscular Hemoglobin Concent 32.9, Red Cell Distribution Width 16.1H, Platelet Count 33L, Mean Platelet Volume 10.0, Neutrophils (%) (Auto) , Lymphocytes (%) (Auto) , Monocytes (%) (Auto) , Eosinophils (%) (Auto) , Basophils (%) (Auto) , Differential Total Cells Counted 100, Neutrophils % ( Manual) 66, Lymphocytes % (Manual) 19L, Monocytes % (Manual) 10, Eosinophils % ( Manual) 5H, Basophils % (Manual) 0, Band Neutrophils 0, Platelet Estimate DecreasedL, Platelet Morphology Normal, Anisocytosis 1+, Sodium Level 141, Potassium Level 3.7, Chloride Level 108H, Carbon Dioxide Level 24, Anion Gap 9, Blood Urea Nitrogen 20H, Creatinine 1.8H, Estimat Glomerular Filtration Rate 38.6, Glucose Level 92, Uric Acid 4.9, Calcium Level 7.8L, Phosphorus Level 3.7 , Magnesium Level 1.7L, Total Bilirubin 1.7H, Direct Bilirubin 0.5H, Aspartate Amino Transf (AST/SGOT) 51H, Alanine Aminotransferase (ALT/SGPT) 29, Alkaline Phosphatase 170H, Ammonia 100H, C-Reactive Protein, Quantitative 2.1H, Pro-B- Type Natriuretic Peptide 790H, Total Protein 6.0L, Albumin 1.9L, Globulin 4.1, Albumin/Globulin Ratio 0.5L, Cortisol AM Sample [Pending] 01/05/19 08:40: Alpha Fetoprotein [Pending], Carcinoembryonic Antigen [Pending], Random Vancomycin Level 13.9, HIV (1&2) Antibody Rapid Negative Height (Feet): 5 Height (Inches): 7.00 Weight (Pounds): 154 General Appearance: no apparent distress, lethargic Cardiovascular: tachycardia Respiratory/Chest: decreased breath sounds Abdomen: distended Dg Ennis MD Jan 05, 2019 14:12
--- NOTE | 2019-01-05 15:05 | NUR ---
NURSE NOTES: Family member stated patient went to [facility] Oncology last week, per Dr. Gilbert request for medical record. Called [facility] tele : [phone], left message regarding request for medical record. Awaiting for callback.
--- NOTE | 2019-01-05 15:12 | NUR ---
NURSE NOTES: Dr. Brown made aware per family member, patient diagnosed as liver cancer about 2 yrs ago and went [facility] Oncology last week for treatment, made aware awaiting for medical record.
[2019-01-05] MEDS: Cefepime HCl 1 GM in D5W 55 ML IVPB SCH (15:52)
[2019-01-05 16:00] VITALS: BP 128/72
--- NOTE | 2019-01-05 16:25 | General Progress Note ---
Assessment/Plan Assessment/Plan: Assessment (1) Renal failure ICD Codes: N19 - Unspecified kidney failure SNOMED: 42477925 (2) Hepatic encephalopathy / EtOH cirrhosis ICD Codes: K72.90 - Hepatic failure, unspecified without coma SNOMED: 03769494 (3) Pancytopenia ICD Codes: D61.818 - Other pancytopenia SNOMED: 872852508 (4) Pleural effusion ICD Codes: J90 - Pleural effusion, not elsewhere classified SNOMED: 66741317 Assessment/Plan: lactulose and xifaxan repeat labs in am abd us hepatitis panel HD per nephrology drug screen d/c MGT advance diet Subjective Allergies: Coded Allergies: PENICILLINS (Verified Allergy, Unknown, 01/03/19) Subjective awake conversant no complaints Objective Last 24 Hour Vital Signs Date Time Temp Pulse Resp B/P (MAP) Pulse Ox O2 Delivery O2 Flow Rate FiO2 01/05/19 12:00 97.8 68 20 124/66 (85) 97 01/05/19 12:00 80 01/05/19 09:00 Room Air 01/05/19 08:00 80 01/05/19 08:00 97.5 73 18 126/71 (89) 96 01/05/19 04:00 65 01/05/19 04:00 98.3 66 18 120/63 (82) 96 01/05/19 00:00 71 01/05/19 00:00 98.0 72 20 122/76 (91) 95 01/04/19 21:00 Room Air 01/04/19 20:00 98.0 70 20 121/64 (83) 94 01/04/19 20:00 79 Intake and Output 01/04/19 01/05/19 19:00 07:00 Intake Total 350 ml 120 ml Output Total 500 ml 200 ml Balance -150 ml -80 ml Intake Oral 300 ml 120 ml IV Total 50 ml Output Urine Total 500 ml 200 ml # Bowel Movements 1 Laboratory Tests 01/05/19 04:35: White Blood Count 1.5*L, Red Blood Count 2.65L, Hemoglobin 8.6L, Hematocrit 26.3L, Mean Corpuscular Volume 99, Mean Corpuscular Hemoglobin 32.7H, Mean Corpuscular Hemoglobin Concent 32.9, Red Cell Distribution Width 16.1H, Platelet Count 33L, Mean Platelet Volume 10.0, Neutrophils (%) (Auto) , Lymphocytes (%) (Auto) , Monocytes (%) (Auto) , Eosinophils (%) (Auto) , Basophils (%) (Auto) , Differential Total Cells Counted 100, Neutrophils % ( Manual) 66, Lymphocytes % (Manual) 19L, Monocytes % (Manual) 10, Eosinophils % ( Manual) 5H, Basophils % (Manual) 0, Band Neutrophils 0, Platelet Estimate DecreasedL, Platelet Morphology Normal, Anisocytosis 1+, Sodium Level 141, Potassium Level 3.7, Chloride Level 108H, Carbon Dioxide Level 24, Anion Gap 9, Blood Urea Nitrogen 20H, Creatinine 1.8H, Estimat Glomerular Filtration Rate 38.6, Glucose Level 92, Uric Acid 4.9, Calcium Level 7.8L, Phosphorus Level 3.7 , Magnesium Level 1.7L, Total Bilirubin 1.7H, Direct Bilirubin 0.5H, Aspartate Amino Transf (AST/SGOT) 51H, Alanine Aminotransferase (ALT/SGPT) 29, Alkaline Phosphatase 170H, Ammonia 100H, C-Reactive Protein, Quantitative 2.1H, Pro-B- Type Natriuretic Peptide 790H, Total Protein 6.0L, Albumin 1.9L, Globulin 4.1, Albumin/Globulin Ratio 0.5L, Cortisol AM Sample [Pending] 01/05/19 08:40: Alpha Fetoprotein [Pending], Carcinoembryonic Antigen [Pending], Random Vancomycin Level 13.9, HIV (1&2) Antibody Rapid Negative Height (Feet): 5 Height (Inches): 7.00 Weight (Pounds): 154 Objective Thin man NCAT supple CTA RRR abd soft ND NT no edema Paulina Hernandez MD Jan 05, 2019 16:25
--- NOTE | 2019-01-05 18:20 | NUR ---
CASE MANAGEMENT: INITIAL REVIEW 63 YO M KARLOS FROM HOME CC: ALOC PMHx: ESRD ON HD. DM. SI:HEPATIC ENCEPHALOPATHY. T 98.4 HR 85 RR 22 B/P 149/76 SATS 98% ON RA LABS: WBC 1.8 CO2 33 CR 2 GLU 132 CA 8.1 TBILI 1.8 DBILI 0.7 AST 48 ALP 233 BNP 489 IS: LACTULOSE REC X2 CT HEAD (-) CXR Impression: Massive right pleural effusion. Bilateral pulmonary interstitial and airspace edema. Probable small left pleural effusion. US ABD Impression: Evidence of hepatic cirrhosis, with hepatic surface nodularity. Evidence of portal hypertension, with ascites, splenomegaly, and splenic hilar varices PATIENT ADMITTED TO TELE 01/03/2019 @ 0748. DCP: PATIENT TO BE DISCHARGED TO HOME ONCE MEDICALLY CLEARED. PLAN OF CARE: CT ABD PELVIS US PARACENTESIS Addendum: 01/05/19 at 2050 by Jamila Lux CM INTERQUAL MET
--- NOTE | 2019-01-05 18:50 | Infectious Diseases Prog Note ---
Assessment/Plan Problems: (1) Bacteremia due to Gram-positive bacteria Assessment & Plan: already on vancomycin and cefepime pending identification and sensitivity (2) Pancytopenia Assessment & Plan: suspect bone marrow suppression from advanced liver cirrhosis, may benefit from filgrastim injection to improve his WBC, will start him empirically on cefepime and continue vancomycin pending other cultures and the improvement of his WBC counts , hematology is following (3) Pleural effusion Assessment & Plan: massive on the right side with possible underlying pneumonia , recommend thoracentesis and fluids to be sent for cell counts, culture, gram stain, fungal and AFB with cytology. already on wide spectrum antibiotics (4) ESRD (end stage renal disease) Assessment & Plan: resume HD as per renal (5) Hepatic encephalopathy Assessment & Plan: with elevated ammonia level, on lactulose , monitor closely ammonia level (6) Liver nodule Assessment & Plan: on the right lobe, rule out HCC, recommend tumor markers and oncology eval for possible biopsy (7) Liver cirrhosis Assessment & Plan: advanced, with poor prognosis , GI is following Subjective Constitutional: Reports: fatigue HEENT: Reports: no symptoms Respiratory: Reports: dry cough Breasts: Reports: no symptoms Cardiovascular: Reports: no symptoms Gastrointestinal/Abdominal: Reports: bloating Genitourinary: Reports: no symptoms Neurologic: Reports: weakness Psychiatric: Reports: no symptoms Skin: Reports: no symptoms Endocrine: Reports: no symptoms Hematologic: Reports: no symptoms Musculoskeletal: Reports: no symptoms Allergies: Coded Allergies: PENICILLINS (Verified Allergy, Unknown, 01/03/19) Objective Vital Signs Last 24 Hour Vital Signs Date Time Temp Pulse Resp B/P (MAP) Pulse Ox O2 Delivery O2 Flow Rate FiO2 01/05/19 16:00 97.9 66 18 128/72 (90) 96 01/05/19 16:00 70 01/05/19 12:00 97.8 68 20 124/66 (85) 97 01/05/19 12:00 80 01/05/19 09:00 Room Air 01/05/19 08:00 80 01/05/19 08:00 97.5 73 18 126/71 (89) 96 01/05/19 04:00 65 01/05/19 04:00 98.3 66 18 120/63 (82) 96 01/05/19 00:00 71 01/05/19 00:00 98.0 72 20 122/76 (91) 95 01/04/19 21:00 Room Air 01/04/19 20:00 98.0 70 20 121/64 (83) 94 01/04/19 20:00 79 Height (Feet): 5 Height (Inches): 7.00 Weight (Pounds): 154 General Appearance: no acute distress, cachetic HEENT: normocephalic, atraumatic, anicteric, mucous membranes moist, PERRL, supple Respiratory/Chest: chest wall non-tender, no respiratory distress, no accessory muscle use, decreased breath sounds Cardiovascular: normal peripheral pulses, normal rate, regular rhythm, no gallop/murmur, no JVD Abdomen: soft, non tender, no scars, hypoactive bowel sounds, distended, hepatomegaly, other - ascites Genitourinary: normal external genitalia Extremities: no cyanosis, no clubbing Skin: no rash, no lesions, no ulcers Neurologic/Psychiatric: event mgr II-XII grossly normal, no motor/sensory deficits, alert, oriented x 3, responsive Lymphatic: no neck adenopathy, no groin adenopathy Musculoskeletal: normal muscle bulk, no effusion Microbiology Date/Time Source Procedure Growth Status 01/03/19 06:15 Blood Blood Culture - Preliminary NO GROWTH AFTER 48 HOURS Resulted 01/03/19 06:00 Blood Blood Culture - Preliminary Resulted 01/03/19 08:30 Nasal Nares MRSA Culture - Final NO METHICILLIN RESISTANT STAPH AUREUS... Complete 01/03/19 08:30 Rectum VRE Culture - Final NO VANCOMYCIN RESISTANT ENTEROCOCCUS ... Complete 01/03/19 08:30 Rectum - Final NO CARBAPENEM-RESISTANT ENTEROBACTERI... Complete Laboratory Tests Test 01/05/19 04:35 01/05/19 08:40 White Blood Count 1.5 K/UL (4.8-10.8) *L Red Blood Count 2.65 M/UL (4.70-6.10) L Hemoglobin 8.6 G/DL (14.2-18.0) L Hematocrit 26.3 % (42.0-52.0) L Mean Corpuscular Volume 99 FL (80-99) Mean Corpuscular Hemoglobin 32.7 PG (27.0-31.0) H Mean Corpuscular Hemoglobin Concent 32.9 G/DL (32.0-36.0) Red Cell Distribution Width 16.1 % (11.6-14.8) H Platelet Count 33 K/UL (150-450) L Mean Platelet Volume 10.0 FL (6.5-10.1) Neutrophils (%) (Auto) % (45.0-75.0) Lymphocytes (%) (Auto) % (20.0-45.0) Monocytes (%) (Auto) % (1.0-10.0) Eosinophils (%) (Auto) % (0.0-3.0) Basophils (%) (Auto) % (0.0-2.0) Differential Total Cells Counted 100 Neutrophils % (Manual) 66 % (45-75) Lymphocytes % (Manual) 19 % (20-45) L Monocytes % (Manual) 10 % (1-10) Eosinophils % (Manual) 5 % (0-3) H Basophils % (Manual) 0 % (0-2) Band Neutrophils 0 % (0-8) Platelet Estimate Decreased L Platelet Morphology Normal Anisocytosis 1+ Sodium Level 141 MMOL/L (136-145) Potassium Level 3.7 MMOL/L (3.5-5.1) Chloride Level 108 MMOL/L (98-107) H Carbon Dioxide Level 24 MMOL/L (21-32) Anion Gap 9 mmol/L (5-15) Blood Urea Nitrogen 20 mg/dL (7-18) H Creatinine 1.8 MG/DL (0.55-1.30) H Estimat Glomerular Filtration Rate 38.6 mL/min (>60) Glucose Level 92 MG/DL (74-106) Uric Acid 4.9 MG/DL (2.6-7.2) Calcium Level 7.8 MG/DL (8.5-10.1) L Phosphorus Level 3.7 MG/DL (2.5-4.9) Magnesium Level 1.7 MG/DL (1.8-2.4) L Total Bilirubin 1.7 MG/DL (0.2-1.0) H Direct Bilirubin 0.5 MG/DL (0.0-0.3) H Aspartate Amino Transf (AST/SGOT) 51 U/L (15-37) H Alanine Aminotransferase (ALT/SGPT) 29 U/L (12-78) Alkaline Phosphatase 170 U/L (46-116) H Ammonia 100 umol/L (11-32) H C-Reactive Protein, Quantitative 2.1 mg/dL (0.00-0.90) H Pro-B-Type Natriuretic Peptide 790 pg/mL (0-125) H Total Protein 6.0 G/DL (6.4-8.2) L Albumin 1.9 G/DL (3.4-5.0) L Globulin 4.1 g/dL Albumin/Globulin Ratio 0.5 (1.0-2.7) L Cortisol AM Sample Pending Alpha Fetoprotein Pending Carcinoembryonic Antigen Pending Random Vancomycin Level 13.9 ug/mL HIV (1&2) Antibody Rapid Negative (NEGATIVE) Current Medications Medications (Trade) Dose Ordered Sig/Katie Route PRN Reason Start Time Stop Time Status Last Admin Dose Admin Acetaminophen (Tylenol) 500 mg Q8H PRN ORAL Prn Headache/Temp > 101 01/04/19 16:00 02/03/19 15:59 Barium Sulfate (Readi-Cat 2) 450 ml NOW PRN ORAL Radiology Procedure 01/04/19 17:15 01/06/19 17:03 Cefepime HCl 1 gm/ Dextrose 55 ml @ 110 mls/hr Q24H IVPB 01/04/19 15:00 01/11/19 14:59 01/05/19 15:52 Dextrose/Sodium Chloride 1,000 ml @ 50 mls/hr Q20H IV 01/03/19 10:30 02/02/19 10:29 01/05/19 03:55 Guaifenesin (Robitussin) 100 mg Q4H PRN ORAL For Cough 01/04/19 16:00 02/03/19 15:59 Iohexol (OMNIPAQUE-300 100ml) 100 ml NOW PRN INJ Radiology Procedure 01/04/19 17:15 01/06/19 17:03 Lactulose (Cephulac) 30 gm QID ORAL 01/05/19 18:00 02/02/19 12:59 01/05/19 17:25 Multivitamins Therapeutic (Therapeutic Multivitamin) 1 ea DAILY ORAL 01/05/19 09:00 02/03/19 10:29 01/05/19 08:54 Pantoprazole (Protonix) 40 mg EVERY 12 HOURS ORAL 01/05/19 21:00 02/04/19 20:59 Polyethylene Glycol (Miralax) 17 gm BEDTIME ORAL 01/04/19 21:00 02/02/19 20:59 01/04/19 20:56 Rifaximin (Xifaxan) 550 mg EVERY 12 HOURS ORAL 01/04/19 21:00 01/10/19 12:59 01/05/19 08:51 Spironolactone (Aldactone) 25 mg Q12HR ORAL 01/04/19 21:00 02/03/19 20:59 01/05/19 08:54 Vancomycin HCl (Vanco rx to dose) 1 ea DAILY PRN MISC Per rx protocol 01/04/19 08:30 02/03/19 08:29 Sudeep Mcclain M.D. Jan 05, 2019 18:50
--- NOTE | 2019-01-05 19:20 | NUR ---
NURSE NOTES: Received report from DWIGHT Willis. Patient is awake, lying in semi carl's; resting comfortably. A/Ox4. Primarily Persian speaking. Denies pain at this time. No signs of distress noted. Checked IV site and flushed. No erythema, bleeding or infiltration noted. Bed at lowest position, brakes on, siderails x3. Call light within reach. Will continue to monitor.
--- NOTE | 2019-01-05 19:25 | NUR ---
HAND-OFF: Report given to DWIGHT Marino.
[2019-01-05 20:00] VITALS: BP 120/65
[2019-01-05] MEDS: Miralax 17gm pkt ORAL SCH (21:00)
--- NOTE | 2019-01-05 21:30 | Consultation ---
DATE OF CONSULTATION: 01/05/2019 PULMONARY CONSULTATION CONSULTING PHYSICIAN: Agustin Gilbert M.D. REFERRING PHYSICIAN: Rosaura Hoffman M.D. REASON FOR CONSULTATION: Opacification of right hemithorax. HISTORY OF PRESENT ILLNESS: The patient and family are all poor historians, but the patient has a history of cirrhosis, pancytopenia, and dialysis dependent, recently admitted to [facility], who came in with paramedics with altered mental status. When the patient was first seen, he was grimacing, but now he is awake and alert. A CT of the head did not show any acute process, and as I said the patient had pancytopenia, elevated ammonia and was admitted for further management of renal failure and hepatic encephalopathy. Since presenting to the hospital, the patient has been afebrile with stable vital signs and saturating well on room air. He had pancytopenia as stated and evidence of elevated ammonia consistent with hepatic encephalopathy. Toxicology screen was negative. Hepatitis and HIV serologies are all pending. Blood culture from the first actually grew gram-positive cocci. The patient is being treated with broad spectrum antimicrobials. A chest x-ray done in the ER showed a massive right effusion as I said with edema and no other findings. Tunnel catheter was noted. Abdominal ultrasound showed evidence of cirrhosis with hepatic surface nodularity and gallbladder wall thickening, bilateral effusions, as I stated. Duplex ultrasound of the lower extremities was negative. Echocardiogram was done, the EF of 60% to 65%, small posterior pericardial effusion, mild mitral enlargement, normal chamber sizes, IVC collapsible and evidence of pulmonary hypertension as well. PAST MEDICAL HISTORY: Not entirely known, but definitely history of cirrhosis, hepatocellular carcinoma, hepatic encephalopathy, pancytopenia, end-stage renal disease on dialysis, known liver nodule and hepatic encephalopathy. PAST SURGICAL HISTORY: Unknown. SOCIAL HISTORY: No known history of tobacco, alcohol, or drug use. FAMILY HISTORY: Noncontributory. REVIEW OF SYSTEMS: Negative other than history of present illness. PHYSICAL EXAMINATION: VITAL SIGNS: Temperature 97.5, pulse 73, blood pressure 126/71, and respiratory rate 18. Saturating well on room air. GENERAL: The patient is well developed, well nourished, in no acute distress. Awake, alert, and oriented x3. HEENT: Normocephalic and atraumatic. Scleral icterus is noted. NECK: Supple without lymphadenopathy. CHEST: Decreased breath sounds on the right. Normal breath sounds on the left. HEART: Regular rate and rhythm. PermCath noted. ABDOMEN: Soft, nontender, and nondistended. EXTREMITIES: No cyanosis, clubbing, or edema. ANCILLARY DATA: Labs reviewed. ASSESSMENT: The patient is a 63-year-old male with a history of end-stage renal disease on dialysis, cirrhosis, questionable history of hepatocellular carcinoma in the past, and pancytopenia, now presenting with altered mental status and gram-positive cocci bacteremia, noted to have complete opacification of the right hemithorax. He is being worked up by GI and treated for hepatic encephalopathy. We will obtain a thoracentesis. I would like to scan his chest afterwards to assess for lung expansion and underlying parenchymal lung disease. PROBLEM LIST: 1. Large right-sided pleural effusion. 2. Gram-positive bacteremia. 3. Pancytopenia. 4. End-stage renal disease, on dialysis. 5. Cirrhosis. 6. Hepatic encephalopathy. 7. History of hepatocellular carcinoma in the past. 8. Protein-calorie malnutrition. TREATMENT PLAN: 1. Thoracentesis evaluation. 2. We will consider imaging of the chest afterwards. 3. Management of hepatic encephalopathy per GI. 4. Continue antibiotics per ID, follow up cultures. 5. Monitor volumes and renal function. Dialysis per Renal with ultrafiltration as able. 6. DVT prophylaxis, SCDs. 7. Aspiration precautions. 8. The patient is a Full Code. I discussed the case with the patient and his family via supervisor production department. We will attempt to get outside records from [facility]. Agustin Gilbert M.D. DR: JAVIER JOB#: [id number] CC:
[2019-01-06] VITALS: BP 121/67
--- NOTE | 2019-01-06 00:51 | NUR ---
NURSE NOTES: Resting throughout the night. No significant change of condition noted. Will continue to monitor.
[2019-01-06 04:00] VITALS: BP 124/68
--- NOTE | 2019-01-06 07:10 | NUR ---
HAND-OFF: Report given to DWIGHT Willis. Plan of care endorsed.
[2019-01-06 07:31] LABS: HEMATOCRIT 27.4 % (42.0-52.0); HEMOGLOBIN 9.1 G/DL (14.2-18.0); MEAN CORPUSCULAR VOLUME 99 FL (80-99); PLATELET COUNT 35 K/UL (150-450); RED BLOOD COUNT 2.76 M/UL (4.70-6.10); RED CELL DISTRIBUTION WIDTH 16.4 % (11.6-14.8); WHITE BLOOD COUNT 7.7 K/UL (4.8-10.8)
--- NOTE | 2019-01-06 07:42 | NUR ---
NURSE NOTES: Received report from DWIGHT Marino. Patient in bed resting, no active s/s cardiac, respiratory distress noticed at this time. Patient AOx3-4, SR with HR 81. Patient on room air, denies chest pain at this time, c/o discomfort on abdominal area. Endorsed patient schedule fro CT abd with contrast, thoracentesis. IV on right FA22G, asymptomatic, patent, intact, IV fluid running as prescribed rate. Bed in lowest position, side rails ups x2, call light within reach. Will continue to monitor.
[2019-01-06 07:57] LABS: AMMONIA 63 umol/L (11-32)
[2019-01-06 08:00] VITALS: BP 115/69
[2019-01-06 08:00] LABS: ANION GAP 10 mmol/L (5-15); BLOOD UREA NITROGEN 18 mg/dL (7-18); CALCIUM 8.1 MG/DL (8.5-10.1); CARBON DIOXIDE 21 MMOL/L (21-32); CHLORIDE 108 MMOL/L (98-107); CREATININE 1.8 MG/DL (0.55-1.30); POTASSIUM 3.6 MMOL/L (3.5-5.1); SODIUM 139 MMOL/L (136-145)
--- NOTE | 2019-01-06 08:10 | NUR ---
NURSE NOTES: Paged Dr. Gilbert, regarding patient schedule for Thoracentesis today, no record for INR, PT, PTT and platelet low 35 K/UL. No order received at this time. Will continue to follow up.
[2019-01-06 08:20] LABS: ALANINE AMINOTRANSFERASE 34 U/L (12-78); ALKALINE PHOSPHATASE 190 U/L (46-116); ASPARTATE AMINO TRANSFERASE 54 U/L (15-37); BILIRUBIN,DIRECT 0.6 MG/DL (0.0-0.3); BILIRUBIN,TOTAL 2.1 MG/DL (0.2-1.0); GAMMA GLUTAMYL TRANSPEPTIDASE 146 U/L (5-85); PHOSPHORUS 3.7 MG/DL (2.5-4.9)
[2019-01-06] MEDS: Lactulose 20gm/30ml UDC ORAL SCH ×4 (09:12→20:57)
[2019-01-06] MEDS: Spironolactone 25mg tab ORAL SCH ×2 (09:12→20:50)
[2019-01-06] MEDS: Multivitamin w/Minerals tab ORAL SCH (09:12)
--- NOTE | 2019-01-06 10:10 | NUR ---
NURSE NOTES: Paged Dr. Hoffman regarding CT w/ contrast. made aware no HD schedule per Dr. Ennis today. Per Dr. Hoffman, cancel the test. Order noted, entered, carried out.
--- NOTE | 2019-01-06 10:43 | General Progress Note ---
Assessment/Plan Assessment/Plan: patient seen and examined. Full dictation in progress. I discussed with Yamile[employer] in HIM department, she notified me about the software issue that doesn't let Progress notes show in system. Subjective Allergies: Coded Allergies: PENICILLINS (Verified Allergy, Unknown, 01/03/19) Objective Last 24 Hour Vital Signs Date Time Temp Pulse Resp B/P (MAP) Pulse Ox O2 Delivery O2 Flow Rate FiO2 01/06/19 08:00 79 01/06/19 08:00 98.1 78 20 115/69 (84) 93 01/06/19 04:00 98.2 83 16 124/68 (86) 96 01/06/19 04:00 81 01/06/19 00:00 98.5 83 17 121/67 (85) 95 01/06/19 00:00 78 01/05/19 21:00 Room Air 01/05/19 20:00 73 01/05/19 20:00 98.3 75 17 120/65 (83) 95 01/05/19 16:00 97.9 66 18 128/72 (90) 96 01/05/19 16:00 70 01/05/19 12:00 97.8 68 20 124/66 (85) 97 01/05/19 12:00 80 Intake and Output 01/05/19 01/06/19 18:59 06:59 Intake Total 360 ml 120 ml Output Total 700 ml Balance -340 ml 120 ml Intake Oral 360 ml 120 ml Output Urine Total 700 ml Laboratory Tests 01/06/19 06:16: White Blood Count 7.7#, Red Blood Count 2.76L, Hemoglobin 9.1L, Hematocrit 27.4L , Mean Corpuscular Volume 99, Mean Corpuscular Hemoglobin 32.8H, Mean Corpuscular Hemoglobin Concent 33.1, Red Cell Distribution Width 16.4H, Platelet Count 35L, Mean Platelet Volume 6.9, Neutrophils (%) (Auto) , Lymphocytes (%) (Auto) , Monocytes (%) (Auto) , Eosinophils (%) (Auto) , Basophils (%) (Auto) , Differential Total Cells Counted 100, Neutrophils % ( Manual) 90H, Lymphocytes % (Manual) 5L, Monocytes % (Manual) 3, Eosinophils % ( Manual) 2, Basophils % (Manual) 0, Band Neutrophils 0, Platelet Estimate DecreasedL, Platelet Morphology Normal, Anisocytosis 1+, Sodium Level 139, Potassium Level 3.6, Chloride Level 108H, Carbon Dioxide Level 21, Anion Gap 10 , Blood Urea Nitrogen 18, Creatinine 1.8H, Estimat Glomerular Filtration Rate 38.6, Glucose Level 101, Calcium Level 8.1L, Phosphorus Level 3.7, Magnesium Level 1.7L, Total Bilirubin 2.1H, Direct Bilirubin 0.6H, Gamma Glutamyl Transpeptidase 146H, Aspartate Amino Transf (AST/SGOT) 54H, Alanine Aminotransferase (ALT/SGPT) 34, Alkaline Phosphatase 190H, Ammonia 63H, Total Protein 6.3L, Albumin 2.0L Height (Feet): 5 Height (Inches): 7.00 Weight (Pounds): 154 Rosaura Hoffman MD Jan 06, 2019 10:42
[2019-01-06 11:38] LABS: INR 1.5 (0.9-1.1)
[2019-01-06 12:00] VITALS: BP 120/69
--- NOTE | 2019-01-06 12:41 | GI Progress Note ---
Assessment/Plan Problems: (1) Liver cirrhosis ICD Codes: K74.60 - Unspecified cirrhosis of liver SNOMED: 40803644 (2) Hepatic encephalopathy ICD Codes: K72.90 - Hepatic failure, unspecified without coma SNOMED: 45628331 (3) Pancytopenia ICD Codes: D61.818 - Other pancytopenia SNOMED: 123822810 Status: progressing Status Narrative Discussed with Dr. Michael Assessment/Plan hepatitis panel negative abdominal US reviewed, Evidence of hepatic cirrhosis, with hepatic surface nodularity. Evidence of portal hypertension, with ascites, splenomegaly, and splenic hilar varices. Hepatic encephalopathy resolved cont lactulose and xifaxan repeat labs in am HD per nephrology drug screen dc NGT, advance diet dc planning The patient was seen and examined at bedside and all new and available data was reviewed in the patients chart. I agree with the above findings, impression and plan. (Patient seen earlier today. Signature stamp does not reflect patient encounter time.). - José Michael MD Subjective Subjective Denies any abdominal pain Denies any nausea vomiting. Has complaint of diarrhea Objective Last 24 Hour Vital Signs Date Time Temp Pulse Resp B/P (MAP) Pulse Ox O2 Delivery O2 Flow Rate FiO2 01/06/19 09:00 Room Air 01/06/19 08:00 79 01/06/19 08:00 98.1 78 20 115/69 (84) 93 01/06/19 04:00 98.2 83 16 124/68 (86) 96 01/06/19 04:00 81 01/06/19 00:00 98.5 83 17 121/67 (85) 95 01/06/19 00:00 78 01/05/19 21:00 Room Air 01/05/19 20:00 73 01/05/19 20:00 98.3 75 17 120/65 (83) 95 01/05/19 16:00 97.9 66 18 128/72 (90) 96 01/05/19 16:00 70 Intake and Output 01/05/19 01/06/19 19:00 07:00 Intake Total 360 ml 120 ml Output Total 700 ml Balance -340 ml 120 ml Intake Oral 360 ml 120 ml Output Urine Total 700 ml Laboratory Tests Test 01/06/19 06:16 01/06/19 11:05 White Blood Count 7.7 K/UL (4.8-10.8) # Red Blood Count 2.76 M/UL (4.70-6.10) L Hemoglobin 9.1 G/DL (14.2-18.0) L Hematocrit 27.4 % (42.0-52.0) L Mean Corpuscular Volume 99 FL (80-99) Mean Corpuscular Hemoglobin 32.8 PG (27.0-31.0) H Mean Corpuscular Hemoglobin Concent 33.1 G/DL (32.0-36.0) Red Cell Distribution Width 16.4 % (11.6-14.8) H Platelet Count 35 K/UL (150-450) L Mean Platelet Volume 6.9 FL (6.5-10.1) Neutrophils (%) (Auto) % (45.0-75.0) Lymphocytes (%) (Auto) % (20.0-45.0) Monocytes (%) (Auto) % (1.0-10.0) Eosinophils (%) (Auto) % (0.0-3.0) Basophils (%) (Auto) % (0.0-2.0) Differential Total Cells Counted 100 Neutrophils % (Manual) 90 % (45-75) H Lymphocytes % (Manual) 5 % (20-45) L Monocytes % (Manual) 3 % (1-10) Eosinophils % (Manual) 2 % (0-3) Basophils % (Manual) 0 % (0-2) Band Neutrophils 0 % (0-8) Platelet Estimate Decreased L Platelet Morphology Normal Anisocytosis 1+ Sodium Level 139 MMOL/L (136-145) Potassium Level 3.6 MMOL/L (3.5-5.1) Chloride Level 108 MMOL/L (98-107) H Carbon Dioxide Level 21 MMOL/L (21-32) Anion Gap 10 mmol/L (5-15) Blood Urea Nitrogen 18 mg/dL (7-18) Creatinine 1.8 MG/DL (0.55-1.30) H Estimat Glomerular Filtration Rate 38.6 mL/min (>60) Glucose Level 101 MG/DL (74-106) Calcium Level 8.1 MG/DL (8.5-10.1) L Phosphorus Level 3.7 MG/DL (2.5-4.9) Magnesium Level 1.7 MG/DL (1.8-2.4) L Total Bilirubin 2.1 MG/DL (0.2-1.0) H Direct Bilirubin 0.6 MG/DL (0.0-0.3) H Gamma Glutamyl Transpeptidase 146 U/L (5-85) H Aspartate Amino Transf (AST/SGOT) 54 U/L (15-37) H Alanine Aminotransferase (ALT/SGPT) 34 U/L (12-78) Alkaline Phosphatase 190 U/L (46-116) H Ammonia 63 umol/L (11-32) H Total Protein 6.3 G/DL (6.4-8.2) L Albumin 2.0 G/DL (3.4-5.0) L Prothrombin Time 15.2 SEC (9.30-11.50) H Prothromb Time International Ratio 1.5 (0.9-1.1) H Activated Partial Thromboplast Time 41 SEC (23-33) H Height (Feet): 5 Height (Inches): 7.00 Weight (Pounds): 154 General Appearance: WD/WN, no apparent distress, alert Cardiovascular: normal rate Respiratory/Chest: normal breath sounds, no respiratory distress Abdominal Exam: normal bowel sounds, non tender, soft Extremities: normal range of motion, non-tender Aden Sanderson NP Jan 06, 2019 12:41
--- NOTE | 2019-01-06 14:20 | NUR ---
NURSE NOTES: Paged Dr. Gilbert, regarding patient INR 1.54, PT 15.2, PTT 41, platelet 35. Left message, awaiting for callback. Will continue to follow up.
--- NOTE | 2019-01-06 15:01 | Infectious Diseases Prog Note ---
Assessment/Plan Problems: (1) Bacteremia due to Gram-positive bacteria Assessment & Plan: already on vancomycin and cefepime pending identification and sensitivity (2) Pancytopenia Assessment & Plan: suspect bone marrow suppression from advanced liver cirrhosis, had filgrastim injection which improved his WBC, continue cefepime and vancomycin pending other cultures and the improvement of his WBC counts , hematology is following (3) Pleural effusion Assessment & Plan: massive on the right side with possible underlying pneumonia , recommend thoracentesis and fluids to be sent for cell counts, culture, gram stain, fungal and AFB with cytology. already on wide spectrum antibiotics (4) ESRD (end stage renal disease) Assessment & Plan: resume HD as per renal (5) Hepatic encephalopathy Assessment & Plan: with elevated ammonia level, on lactulose , monitor closely ammonia level (6) Liver nodule Assessment & Plan: on the right lobe, rule out HCC, recommend tumor markers and oncology eval for possible biopsy (7) Liver cirrhosis Assessment & Plan: advanced, with poor prognosis , GI is following Subjective Constitutional: Reports: fatigue, anorexia HEENT: Reports: no symptoms Respiratory: Reports: dry cough Breasts: Reports: no symptoms Cardiovascular: Reports: no symptoms Gastrointestinal/Abdominal: Reports: nausea, bloating Genitourinary: Reports: no symptoms Neurologic: Reports: weakness Psychiatric: Reports: no symptoms Skin: Reports: no symptoms Endocrine: Reports: no symptoms Hematologic: Reports: no symptoms Musculoskeletal: Reports: no symptoms Allergies: Coded Allergies: PENICILLINS (Verified Allergy, Unknown, 01/03/19) Objective Vital Signs Last 24 Hour Vital Signs Date Time Temp Pulse Resp B/P (MAP) Pulse Ox O2 Delivery O2 Flow Rate FiO2 01/06/19 12:00 72 01/06/19 12:00 98.2 80 20 120/69 (86) 95 01/06/19 09:00 Room Air 01/06/19 08:00 79 01/06/19 08:00 98.1 78 20 115/69 (84) 93 01/06/19 04:00 98.2 83 16 124/68 (86) 96 01/06/19 04:00 81 01/06/19 00:00 98.5 83 17 121/67 (85) 95 01/06/19 00:00 78 01/05/19 21:00 Room Air 01/05/19 20:00 73 01/05/19 20:00 98.3 75 17 120/65 (83) 95 01/05/19 16:00 97.9 66 18 128/72 (90) 96 01/05/19 16:00 70 Height (Feet): 5 Height (Inches): 7.00 Weight (Pounds): 154 General Appearance: no acute distress, cachetic HEENT: normocephalic, atraumatic, anicteric, mucous membranes moist, PERRL, supple, no JVD Respiratory/Chest: chest wall non-tender, no respiratory distress, no accessory muscle use, decreased breath sounds, crackles/rales Cardiovascular: normal peripheral pulses, normal rate, regular rhythm, no gallop/murmur, no JVD Abdomen: normal bowel sounds, soft, non tender, no organomegaly, non distended , no mass, no scars Extremities: no cyanosis, no clubbing Skin: no rash, no lesions, no ulcers Neurologic/Psychiatric: alert, responsive Lymphatic: no neck adenopathy, no groin adenopathy Musculoskeletal: normal muscle bulk, no effusion Microbiology Date/Time Source Procedure Growth Status 01/04/19 09:50 Blood Blood Culture - Preliminary NO GROWTH AFTER 24 HOURS Resulted 01/04/19 09:38 Blood Blood Culture - Preliminary NO GROWTH AFTER 24 HOURS Resulted Laboratory Tests Test 01/06/19 06:16 01/06/19 11:05 White Blood Count 7.7 K/UL (4.8-10.8) # Red Blood Count 2.76 M/UL (4.70-6.10) L Hemoglobin 9.1 G/DL (14.2-18.0) L Hematocrit 27.4 % (42.0-52.0) L Mean Corpuscular Volume 99 FL (80-99) Mean Corpuscular Hemoglobin 32.8 PG (27.0-31.0) H Mean Corpuscular Hemoglobin Concent 33.1 G/DL (32.0-36.0) Red Cell Distribution Width 16.4 % (11.6-14.8) H Platelet Count 35 K/UL (150-450) L Mean Platelet Volume 6.9 FL (6.5-10.1) Neutrophils (%) (Auto) % (45.0-75.0) Lymphocytes (%) (Auto) % (20.0-45.0) Monocytes (%) (Auto) % (1.0-10.0) Eosinophils (%) (Auto) % (0.0-3.0) Basophils (%) (Auto) % (0.0-2.0) Differential Total Cells Counted 100 Neutrophils % (Manual) 90 % (45-75) H Lymphocytes % (Manual) 5 % (20-45) L Monocytes % (Manual) 3 % (1-10) Eosinophils % (Manual) 2 % (0-3) Basophils % (Manual) 0 % (0-2) Band Neutrophils 0 % (0-8) Platelet Estimate Decreased L Platelet Morphology Normal Anisocytosis 1+ Sodium Level 139 MMOL/L (136-145) Potassium Level 3.6 MMOL/L (3.5-5.1) Chloride Level 108 MMOL/L (98-107) H Carbon Dioxide Level 21 MMOL/L (21-32) Anion Gap 10 mmol/L (5-15) Blood Urea Nitrogen 18 mg/dL (7-18) Creatinine 1.8 MG/DL (0.55-1.30) H Estimat Glomerular Filtration Rate 38.6 mL/min (>60) Glucose Level 101 MG/DL (74-106) Calcium Level 8.1 MG/DL (8.5-10.1) L Phosphorus Level 3.7 MG/DL (2.5-4.9) Magnesium Level 1.7 MG/DL (1.8-2.4) L Total Bilirubin 2.1 MG/DL (0.2-1.0) H Direct Bilirubin 0.6 MG/DL (0.0-0.3) H Gamma Glutamyl Transpeptidase 146 U/L (5-85) H Aspartate Amino Transf (AST/SGOT) 54 U/L (15-37) H Alanine Aminotransferase (ALT/SGPT) 34 U/L (12-78) Alkaline Phosphatase 190 U/L (46-116) H Ammonia 63 umol/L (11-32) H Total Protein 6.3 G/DL (6.4-8.2) L Albumin 2.0 G/DL (3.4-5.0) L Prothrombin Time 15.2 SEC (9.30-11.50) H Prothromb Time International Ratio 1.5 (0.9-1.1) H Activated Partial Thromboplast Time 41 SEC (23-33) H Current Medications Medications (Trade) Dose Ordered Sig/Katie Route PRN Reason Start Time Stop Time Status Last Admin Dose Admin Acetaminophen (Tylenol) 500 mg Q8H PRN ORAL Prn Headache/Temp > 101 01/04/19 16:00 02/03/19 15:59 Barium Sulfate (Readi-Cat 2) 450 ml NOW PRN ORAL Radiology Procedure 01/04/19 17:15 01/06/19 17:03 Cefepime HCl 1 gm/ Dextrose 55 ml @ 110 mls/hr Q24H IVPB 01/04/19 15:00 01/11/19 14:59 01/05/19 15:52 Dextrose/Sodium Chloride 1,000 ml @ 50 mls/hr Q20H IV 01/03/19 10:30 02/02/19 10:29 01/05/19 21:16 Guaifenesin (Robitussin) 100 mg Q4H PRN ORAL For Cough 01/04/19 16:00 02/03/19 15:59 Iohexol (OMNIPAQUE-300 100ml) 100 ml NOW PRN INJ Radiology Procedure 01/04/19 17:15 01/06/19 17:03 Lactulose (Cephulac) 30 gm QID ORAL 01/05/19 18:00 02/02/19 12:59 01/06/19 13:53 Multivitamins Therapeutic (Therapeutic Multivitamin) 1 ea DAILY ORAL 01/05/19 09:00 02/03/19 10:29 01/06/19 09:12 Pantoprazole (Protonix) 40 mg EVERY 12 HOURS ORAL 01/05/19 21:00 02/04/19 20:59 01/06/19 09:12 Polyethylene Glycol (Miralax) 17 gm BEDTIME ORAL 01/04/19 21:00 02/02/19 20:59 01/04/19 20:56 Rifaximin (Xifaxan) 550 mg EVERY 12 HOURS ORAL 01/04/19 21:00 01/10/19 12:59 01/06/19 09:12 Spironolactone (Aldactone) 25 mg Q12HR ORAL 01/04/19 21:00 02/03/19 20:59 01/06/19 09:12 Vancomycin HCl (Vanco rx to dose) 1 ea DAILY PRN MISC Per rx protocol 01/04/19 08:30 02/03/19 08:29 Sudeep Mcclain M.D. Jan 06, 2019 15:01
[2019-01-06] MEDS: Cefepime HCl 1 GM in D5W 55 ML IVPB SCH (15:03)
--- NOTE | 2019-01-06 15:05 | NUR ---
NURSE NOTES: Paged Dr. Hoffman regarding patient schedule for thoracentesis per Dr. Gilbert but patient with low platelet, high INR MD made aware no response from Dr. Gilbert at this time. Per Dr. Hoffman, order needed to received from Dr. Gilbert. No order given at this time. Will continue to follow up.
--- NOTE | 2019-01-06 15:18 | Hematology/Onc Progress Note ---
Assessment/Plan Assessment/Plan Assessment and Recs: # Hepatocellular carcinoma has had this for three years and gets treatment at [facility] --> have dw patient need further history and will contact family, have dw RN, need more history, has been on treatment for the past three years --> [place] [facility] [place] since first time here, obtain ONLY cea, afp --> imaging noted, doesn't need biopsy here --> further imaging if abd pain worsens # PAncytopenia is related to history of liver disease, cirrhosis and cancer --> closely monitor, neupogen given 01/05 x1 --> ANC is >1500 --> meds have been reviewed, on abx --> perp smear has been reviewed, no blasts --> epogen and iron as needed for esrd --> as per renal, hd --> wbc 1.5-->7.7 # Coagulopathy is due to likely cirrhosis --> vit K prn pre any procedure # Hepatic encephalopathy --> lactulose and gi management # HYperblirubinemia due to liver disease --> lactulose and other prn # Pleural effusion --> drain prn, due to hep congestion potentially and chf # ESRD on hd --> per renal DW RN in am, and appreciate consultation. Subjective HEENT: Denies: no symptoms, eye pain, blurred vision, tearing, double vision, ear pain, ear discharge, nose pain, nose congestion, throat pain, throat swelling, mouth pain, mouth swelling, other Cardiovascular: Denies: no symptoms, chest pain, edema, irregular heart rate, lightheadedness, palpitations, syncope, other Respiratory: Denies: no symptoms, cough, shortness of breath, SOB with excertion, SOB at rest, sputum, wheezing, other Neurologic/Psychiatric: Denies: no symptoms, anxiety, depressed, emotional problems, headache, numbness, paresthesia, pre-existing deficit, seizure, tingling, tremors, weakness, other Endocrine: Denies: no symptoms, excessive sweating, flushing, intolerance to cold, intolerance to heat, increased hunger, increased thirst, increased urine, unexplained weight gain, unexplained weight loss, other Hematologic/Lymphatic: Denies: no symptoms, anemia, easy bleeding, easy bruising, adenopathy, other Allergies: Coded Allergies: PENICILLINS (Verified Allergy, Unknown, 01/03/19) Subjective 01/06: no major events, wbc is higher as neupogen was given, no bleeding Objective Objective Current Medications Medications (Trade) Dose Ordered Sig/Katie Route PRN Reason Start Time Stop Time Status Last Admin Dose Admin Acetaminophen (Tylenol) 500 mg Q8H PRN ORAL Prn Headache/Temp > 101 01/04/19 16:00 02/03/19 15:59 Barium Sulfate (Readi-Cat 2) 450 ml NOW PRN ORAL Radiology Procedure 01/04/19 17:15 01/06/19 17:03 Cefepime HCl 1 gm/ Dextrose 55 ml @ 110 mls/hr Q24H IVPB 01/04/19 15:00 01/11/19 14:59 01/06/19 15:03 Dextrose/Sodium Chloride 1,000 ml @ 50 mls/hr Q20H IV 01/03/19 10:30 02/02/19 10:29 01/05/19 21:16 Guaifenesin (Robitussin) 100 mg Q4H PRN ORAL For Cough 01/04/19 16:00 02/03/19 15:59 Iohexol (OMNIPAQUE-300 100ml) 100 ml NOW PRN INJ Radiology Procedure 01/04/19 17:15 01/06/19 17:03 Lactulose (Cephulac) 30 gm QID ORAL 01/05/19 18:00 02/02/19 12:59 01/06/19 13:53 Multivitamins Therapeutic (Therapeutic Multivitamin) 1 ea DAILY ORAL 01/05/19 09:00 02/03/19 10:29 01/06/19 09:12 Pantoprazole (Protonix) 40 mg EVERY 12 HOURS ORAL 01/05/19 21:00 02/04/19 20:59 01/06/19 09:12 Polyethylene Glycol (Miralax) 17 gm BEDTIME ORAL 01/04/19 21:00 02/02/19 20:59 01/04/19 20:56 Rifaximin (Xifaxan) 550 mg EVERY 12 HOURS ORAL 01/04/19 21:00 01/10/19 12:59 01/06/19 09:12 Spironolactone (Aldactone) 25 mg Q12HR ORAL 01/04/19 21:00 02/03/19 20:59 01/06/19 09:12 Vancomycin HCl (Vanco rx to dose) 1 ea DAILY PRN MISC Per rx protocol 01/04/19 08:30 02/03/19 08:29 Last 24 Hour Vital Signs Date Time Temp Pulse Resp B/P (MAP) Pulse Ox O2 Delivery O2 Flow Rate FiO2 01/06/19 12:00 72 01/06/19 12:00 98.2 80 20 120/69 (86) 95 01/06/19 09:00 Room Air 01/06/19 08:00 79 01/06/19 08:00 98.1 78 20 115/69 (84) 93 01/06/19 04:00 98.2 83 16 124/68 (86) 96 01/06/19 04:00 81 01/06/19 00:00 98.5 83 17 121/67 (85) 95 01/06/19 00:00 78 01/05/19 21:00 Room Air 01/05/19 20:00 73 01/05/19 20:00 98.3 75 17 120/65 (83) 95 01/05/19 16:00 97.9 66 18 128/72 (90) 96 01/05/19 16:00 70 01/05/19 12:00 97.8 68 20 124/66 (85) 97 01/05/19 12:00 80 01/05/19 09:00 Room Air 01/05/19 08:00 80 01/05/19 08:00 97.5 73 18 126/71 (89) 96 01/05/19 04:00 65 01/05/19 04:00 98.3 66 18 120/63 (82) 96 01/05/19 00:00 71 01/05/19 00:00 98.0 72 20 122/76 (91) 95 01/04/19 21:00 Room Air 01/04/19 20:00 98.0 70 20 121/64 (83) 94 01/04/19 20:00 79 01/04/19 16:08 70 01/04/19 16:00 97.7 71 18 125/68 (87) 96 Intake and Output 01/05/19 01/06/19 19:00 07:00 Intake Total 360 ml 120 ml Output Total 700 ml Balance -340 ml 120 ml Intake Oral 360 ml 120 ml Output Urine Total 700 ml Labs Test 01/04/19 06:29 01/05/19 04:35 01/05/19 08:40 01/06/19 06:16 White Blood Count 1.3 K/UL (4.8-10.8) 1.5 K/UL (4.8-10.8) 7.7 K/UL (4.8-10.8) Red Blood Count 2.61 M/UL (4.70-6.10) 2.65 M/UL (4.70-6.10) 2.76 M/UL (4.70-6.10) Hemoglobin 8.5 G/DL (14.2-18.0) 8.6 G/DL (14.2-18.0) 9.1 G/DL (14.2-18.0) Hematocrit 26.0 % (42.0-52.0) 26.3 % (42.0-52.0) 27.4 % (42.0-52.0) Mean Corpuscular Volume 100 FL (80-99) 99 FL (80-99) 99 FL (80-99) Mean Corpuscular Hemoglobin 32.7 PG (27.0-31.0) 32.7 PG (27.0-31.0) 32.8 PG (27.0-31.0) Mean Corpuscular Hemoglobin Concent 32.8 G/DL (32.0-36.0) 32.9 G/DL (32.0-36.0) 33.1 G/DL (32.0-36.0) Red Cell Distribution Width 16.1 % (11.6-14.8) 16.1 % (11.6-14.8) 16.4 % (11.6-14.8) Platelet Count 34 K/UL (150-450) 33 K/UL (150-450) 35 K/UL (150-450) Mean Platelet Volume 8.4 FL (6.5-10.1) 10.0 FL (6.5-10.1) 6.9 FL (6.5-10.1) Neutrophils (%) (Auto) % (45.0-75.0) % (45.0-75.0) % (45.0-75.0) Lymphocytes (%) (Auto) % (20.0-45.0) % (20.0-45.0) % (20.0-45.0) Monocytes (%) (Auto) % (1.0-10.0) % (1.0-10.0) % (1.0-10.0) Eosinophils (%) (Auto) % (0.0-3.0) % (0.0-3.0) % (0.0-3.0) Basophils (%) (Auto) % (0.0-2.0) % (0.0-2.0) % (0.0-2.0) Differential Total Cells Counted 100 100 100 Neutrophils % (Manual) 59 % (45-75) 66 % (45-75) 90 % (45-75) Lymphocytes % (Manual) 27 % (20-45) 19 % (20-45) 5 % (20-45) Monocytes % (Manual) 13 % (1-10) 10 % (1-10) 3 % (1-10) Eosinophils % (Manual) 1 % (0-3) 5 % (0-3) 2 % (0-3) Basophils % (Manual) 0 % (0-2) 0 % (0-2) 0 % (0-2) Band Neutrophils 0 % (0-8) 0 % (0-8) 0 % (0-8) Platelet Estimate Decreased Decreased Decreased Platelet Morphology Normal Normal Normal Polychromasia 1+ Hypochromasia 1+ Anisocytosis 1+ 1+ 1+ Sodium Level 143 MMOL/L (136-145) 141 MMOL/L (136-145) 139 MMOL/L (136-145) Potassium Level 3.4 MMOL/L (3.5-5.1) 3.7 MMOL/L (3.5-5.1) 3.6 MMOL/L (3.5-5.1) Chloride Level 107 MMOL/L (98-107) 108 MMOL/L (98-107) 108 MMOL/L (98-107) Carbon Dioxide Level 32 MMOL/L (21-32) 24 MMOL/L (21-32) 21 MMOL/L (21-32) Anion Gap 5 mmol/L (5-15) 9 mmol/L (5-15) 10 mmol/L (5-15) Blood Urea Nitrogen 19 mg/dL (7-18) 20 mg/dL (7-18) 18 mg/dL (7-18) Creatinine 1.9 MG/DL (0.55-1.30) 1.8 MG/DL (0.55-1.30) 1.8 MG/DL (0.55-1.30) Estimat Glomerular Filtration Rate 36.2 mL/min (>60) 38.6 mL/min (>60) 38.6 mL/min (>60) Glucose Level 92 MG/DL (74-106) 92 MG/DL (74-106) 101 MG/DL (74-106) Lactic Acid Level 1.40 mmol/L (0.4-2.0) Uric Acid 4.3 MG/DL (2.6-7.2) 4.9 MG/DL (2.6-7.2) Calcium Level 8.0 MG/DL (8.5-10.1) 7.8 MG/DL (8.5-10.1) 8.1 MG/DL (8.5-10.1) Phosphorus Level 3.8 MG/DL (2.5-4.9) 3.7 MG/DL (2.5-4.9) 3.7 MG/DL (2.5-4.9) Magnesium Level 1.6 MG/DL (1.8-2.4) 1.7 MG/DL (1.8-2.4) 1.7 MG/DL (1.8-2.4) Iron Level 42 ug/dL (50-175) Total Iron Binding Capacity 141 ug/dL (250-450) Percent Iron Saturation 30 % (15-50) Unsaturated Iron Binding 99 ug/dL (112-346) Ferritin 299 NG/ML (8-388) Total Bilirubin 1.9 MG/DL (0.2-1.0) 1.7 MG/DL (0.2-1.0) 2.1 MG/DL (0.2-1.0) Direct Bilirubin 0.6 MG/DL (0.0-0.3) 0.5 MG/DL (0.0-0.3) 0.6 MG/DL (0.0-0.3) Gamma Glutamyl Transpeptidase 132 U/L (5-85) 146 U/L (5-85) Aspartate Amino Transf (AST/SGOT) 40 U/L (15-37) 51 U/L (15-37) 54 U/L (15-37) Alanine Aminotransferase (ALT/SGPT) 27 U/L (12-78) 29 U/L (12-78) 34 U/L (12-78) Alkaline Phosphatase 174 U/L (46-116) 170 U/L (46-116) 190 U/L (46-116) Ammonia 110 umol/L (11-32) 100 umol/L (11-32) 63 umol/L (11-32) C-Reactive Protein, Quantitative 2.4 mg/dL (0.00-0.90) 2.1 mg/dL (0.00-0.90) Pro-B-Type Natriuretic Peptide 874 pg/mL (0-125) 790 pg/mL (0-125) Total Protein 6.2 G/DL (6.4-8.2) 6.0 G/DL (6.4-8.2) 6.3 G/DL (6.4-8.2) Albumin 2.0 G/DL (3.4-5.0) 1.9 G/DL (3.4-5.0) 2.0 G/DL (3.4-5.0) Globulin 4.2 g/dL 4.1 g/dL Albumin/Globulin Ratio 0.5 (1.0-2.7) 0.5 (1.0-2.7) Triglycerides Level 62 MG/DL (30-150) Cholesterol Level 89 MG/DL (< 200) LDL Cholesterol 33 mg/dL (<100) HDL Cholesterol 47 MG/DL (40-60) Cholesterol/HDL Ratio 1.9 (3.3-4.4) Vitamin B12 Level 931 PG/ML (193-986) Folate 34.2 NG/ML (8.6-58.9) Hepatitis A IgM Antibody Negative (Negative) Hepatitis B Surface Antigen Negative (Negative) Hepatitis B Core IgM Antibody Negative (Negative) Hepatitis C Antibody <0.1 s/co ratio Random Vancomycin Level 13.9 ug/mL HIV (1&2) Antibody Rapid Negative (NEGATIVE) Test 01/06/19 11:05 Prothrombin Time 15.2 SEC (9.30-11.50) Prothromb Time International Ratio 1.5 (0.9-1.1) Activated Partial Thromboplast Time 41 SEC (23-33) Height (Feet): 5 Height (Inches): 7.00 Weight (Pounds): 154 Objective Physical Exam Vitals: reviewed General Appearance: today more comfortable Neck: supple Respiratory: lungs clear, no respiratory distress Cardiovascular: RRR, no mgr Gastrointestinal: non tender, soft, other ++ Umbilical hernia mild abdominal distention Neurologic: II-XII intact grossly Lymphatic: no adenopathy noted Damion Brown MD Jan 06, 2019 15:18
[2019-01-06 16:00] VITALS: BP 129/72
--- NOTE | 2019-01-06 16:00 | NUR ---
NURSE NOTES: Left message Dr. Gilbert regarding thoracentesis. Awaiting for callback.
--- NOTE | 2019-01-06 16:11 | Nephrology Progress Note ---
Assessment/Plan Problem List: (1) Liver nodule Assessment: h/o hepatocellular ca (2) Hepatic encephalopathy (3) Renal failure (4) Pleural effusion (5) Pancytopenia Assessment ESRD Liver Disease, nature? Hepatic encephalopathy Leukopenia Pleural effusion massive right Plan amonia lower on lactulose K supplement as needed taking PO well Dialysis as needed, not needed since admission per orders Pleural tap?? Subjective ROS Limited/Unobtainable: No Constitutional: Reports: malaise Objective Objective Last 24 Hour Vital Signs Date Time Temp Pulse Resp B/P (MAP) Pulse Ox O2 Delivery O2 Flow Rate FiO2 01/06/19 12:00 72 01/06/19 12:00 98.2 80 20 120/69 (86) 95 01/06/19 09:00 Room Air 01/06/19 08:00 79 01/06/19 08:00 98.1 78 20 115/69 (84) 93 01/06/19 04:00 98.2 83 16 124/68 (86) 96 01/06/19 04:00 81 01/06/19 00:00 98.5 83 17 121/67 (85) 95 01/06/19 00:00 78 01/05/19 21:00 Room Air 01/05/19 20:00 73 01/05/19 20:00 98.3 75 17 120/65 (83) 95 Intake and Output 01/05/19 01/06/19 19:00 07:00 Intake Total 360 ml 120 ml Output Total 700 ml Balance -340 ml 120 ml Intake Oral 360 ml 120 ml Output Urine Total 700 ml Laboratory Tests 01/06/19 06:16: White Blood Count 7.7#, Red Blood Count 2.76L, Hemoglobin 9.1L, Hematocrit 27.4L , Mean Corpuscular Volume 99, Mean Corpuscular Hemoglobin 32.8H, Mean Corpuscular Hemoglobin Concent 33.1, Red Cell Distribution Width 16.4H, Platelet Count 35L, Mean Platelet Volume 6.9, Neutrophils (%) (Auto) , Lymphocytes (%) (Auto) , Monocytes (%) (Auto) , Eosinophils (%) (Auto) , Basophils (%) (Auto) , Differential Total Cells Counted 100, Neutrophils % ( Manual) 90H, Lymphocytes % (Manual) 5L, Monocytes % (Manual) 3, Eosinophils % ( Manual) 2, Basophils % (Manual) 0, Band Neutrophils 0, Platelet Estimate DecreasedL, Platelet Morphology Normal, Anisocytosis 1+, Sodium Level 139, Potassium Level 3.6, Chloride Level 108H, Carbon Dioxide Level 21, Anion Gap 10 , Blood Urea Nitrogen 18, Creatinine 1.8H, Estimat Glomerular Filtration Rate 38.6, Glucose Level 101, Calcium Level 8.1L, Phosphorus Level 3.7, Magnesium Level 1.7L, Total Bilirubin 2.1H, Direct Bilirubin 0.6H, Gamma Glutamyl Transpeptidase 146H, Aspartate Amino Transf (AST/SGOT) 54H, Alanine Aminotransferase (ALT/SGPT) 34, Alkaline Phosphatase 190H, Ammonia 63H, Total Protein 6.3L, Albumin 2.0L 01/06/19 11:05: Prothrombin Time 15.2H, Prothromb Time International Ratio 1.5H, Activated Partial Thromboplast Time 41H Height (Feet): 5 Height (Inches): 7.00 Weight (Pounds): 154 General Appearance: no apparent distress Cardiovascular: tachycardia Respiratory/Chest: decreased breath sounds Abdomen: distended Dg Ennis MD Jan 06, 2019 16:11
--- NOTE | 2019-01-06 16:11 | NUR ---
NURSE NOTES:WOUND CARE NOTES:Pt presented with non-blanching erythema without induration sacrum. Pt complained of pain when affected site minimally palpated. Moisture Barrier Paste applied to sacrum and covered with Optifoam drsg.Pt demonstrated good mobility in bed and is capable of repositioning self when cued. Pt educated on wound prevention and encouraged to frequently reposition side to side to avoid further skin breakdown. Pt also noted to have three Cat 3 skin tears with full flap loss to L antecubital.Surrounding skin fragile and erythematous. Cleansed with Saline. Versatel Contact layer Drsg applied. Silvasorb gel applied and covered with Optifoam drsg. Recommendations: Cleanse L antecubital with Saline.(Versatel Contact layer applied). Apply Silvasorb Gel. Cover with Optifoam drsg. Change every 7 days and prn. Apply Moisture Barrier Paste to Sacrum. Cover with Optifoam drsg. Change every 3 days and prn. Reposition at least every 2hours or as tolerated. Off-load heels with pillow.
[2019-01-06] MEDS: D5NS 1,000 ML IV SCH (17:34)
--- NOTE | 2019-01-06 19:36 | NUR ---
NURSE NOTES: Received patient from DWIGHT Willis. Patient resting comfortably in bed, Niuean speaking, and able to make needs known. IV site checked, intact and patent, no signs of bleeding, redness, or infiltration, D5NS running at 50 mL/hr. Bed in lowest position, brakes on, side rails up x3, and call light within reach. Will continue with plan of care.
--- NOTE | 2019-01-06 19:50 | NUR ---
HAND-OFF: Report given to DWIGHT Martinez.
[2019-01-06 20:00] VITALS: BP 126/76
[2019-01-06] MEDS: Miralax 17gm pkt ORAL SCH (20:57)
--- NOTE | 2019-01-06 22:20 | Pulmonology Progress Note ---
Assessment/Plan Assessment/Plan Pulmonary Progress Note HPI: The patient has a history of cirrhosis, pancytopenia, and ESRD dialysis dependent, recently admitted to [facility], who came in with paramedics with altered mental status. When the patient was first seen, he was grimacing, but now he is awake and alert. A CT of the head did not show any acute process, and as I said the patient had pancytopenia, elevated ammonia and was admitted for further management of renal failure and hepatic encephalopathy. Since presenting to the hospital, the patient has been afebrile with stable vital signs and saturating well on room air. He had pancytopenia as stated and evidence of elevated ammonia consistent with hepatic encephalopathy. Toxicology screen was negative. Hepatitis and HIV serologies are all pending. Blood culture from the first actually grew gram-positive cocci. The patient is being treated with broad spectrum antimicrobials. A chest x-ray done in the ER showed a massive right effusion as I said with edema and no other findings. Tunnel catheter was noted. Abdominal ultrasound showed evidence of cirrhosis with hepatic surface nodularity and gallbladder wall thickening, bilateral effusions, as I stated. Duplex ultrasound of the lower extremities was negative. Echocardiogram was done, the EF of 60% to 65%, small posterior pericardial effusion, mild mitral enlargement, normal chamber sizes, IVC collapsible and evidence of pulmonary hypertension as well. PAST MEDICAL HISTORY: Not entirely known, but definitely history of cirrhosis, hepatocellular carcinoma, hepatic encephalopathy, pancytopenia, end-stage renal disease on dialysis, known liver nodule and hepatic encephalopathy. PAST SURGICAL HISTORY: Unknown. SOCIAL HISTORY: No known history of tobacco, alcohol, or drug use. FAMILY HISTORY: Noncontributory. REVIEW OF SYSTEMS: Negative other than history of present illness. PHYSICAL EXAMINATION: VITAL SIGNS NOTED: GENERAL: The patient is well developed, well nourished, in no acute distress. Awake, alert, and oriented x3. HEENT: Normocephalic and atraumatic. Scleral icterus is noted. NECK: Supple without lymphadenopathy. CHEST: Decreased breath sounds on the right. Normal breath sounds on the left. HEART: Regular rate and rhythm. PermCath noted. ABDOMEN: Soft, nontender, and nondistended. EXTREMITIES: No cyanosis, clubbing, or edema. ANCILLARY DATA: Labs reviewed. ASSESSMENT: The patient is a 63-year-old male with a history of end-stage renal disease on dialysis, cirrhosis, questionable history of hepatocellular carcinoma in the past, and pancytopenia, now presenting with altered mental status and gram-positive cocci bacteremia, noted to have complete opacification of the right hemithorax. He is being worked up by GI and treated for hepatic encephalopathy. We will obtain a thoracentesis. I would like to scan his chest afterwards to assess for lung expansion and underlying parenchymal lung disease. PROBLEM LIST: 1. Large right-sided pleural effusion. 2. Gram-positive bacteremia. 3. Pancytopenia. 4. End-stage renal disease, on dialysis. 5. Cirrhosis. 6. Hepatic encephalopathy. 7. History of hepatocellular carcinoma in the past. 8. Protein-calorie malnutrition. PLAN: 1. Thoracentesis. 2. We will consider imaging of the chest afterwards. 3. Management of hepatic encephalopathy per GI. 4. Continue antibiotics per ID, follow up cultures. 5. Monitor volumes and renal function. Dialysis per Renal with ultrafiltration as able. 6. DVT prophylaxis, SCDs. 7. Aspiration precautions. 8. The patient is a Full Code. Subjective ROS Limited/Unobtainable: No Allergies: Coded Allergies: PENICILLINS (Verified Allergy, Unknown, 01/03/19) Objective Last 24 Hour Vital Signs Date Time Temp Pulse Resp B/P (MAP) Pulse Ox O2 Delivery O2 Flow Rate FiO2 01/06/19 20:00 98.2 88 18 126/76 (93) 93 01/06/19 16:00 98.6 83 20 129/72 (91) 94 01/06/19 16:00 82 01/06/19 12:00 72 01/06/19 12:00 98.2 80 20 120/69 (86) 95 01/06/19 09:00 Room Air 01/06/19 08:00 79 01/06/19 08:00 98.1 78 20 115/69 (84) 93 01/06/19 04:00 98.2 83 16 124/68 (86) 96 01/06/19 04:00 81 01/06/19 00:00 98.5 83 17 121/67 (85) 95 01/06/19 00:00 78 Intake and Output 01/05/19 01/06/19 19:00 07:00 Intake Total 360 ml 120 ml Output Total 700 ml Balance -340 ml 120 ml Intake Oral 360 ml 120 ml Output Urine Total 700 ml Microbiology Date/Time Source Procedure Growth Status 01/04/19 09:50 Blood Blood Culture - Preliminary NO GROWTH AFTER 24 HOURS Resulted 01/04/19 09:38 Blood Blood Culture - Preliminary NO GROWTH AFTER 24 HOURS Resulted Laboratory Tests 01/06/19 06:16: White Blood Count 7.7#, Red Blood Count 2.76L, Hemoglobin 9.1L, Hematocrit 27.4L , Mean Corpuscular Volume 99, Mean Corpuscular Hemoglobin 32.8H, Mean Corpuscular Hemoglobin Concent 33.1, Red Cell Distribution Width 16.4H, Platelet Count 35L, Mean Platelet Volume 6.9, Neutrophils (%) (Auto) , Lymphocytes (%) (Auto) , Monocytes (%) (Auto) , Eosinophils (%) (Auto) , Basophils (%) (Auto) , Differential Total Cells Counted 100, Neutrophils % ( Manual) 90H, Lymphocytes % (Manual) 5L, Monocytes % (Manual) 3, Eosinophils % ( Manual) 2, Basophils % (Manual) 0, Band Neutrophils 0, Platelet Estimate DecreasedL, Platelet Morphology Normal, Anisocytosis 1+, Sodium Level 139, Potassium Level 3.6, Chloride Level 108H, Carbon Dioxide Level 21, Anion Gap 10 , Blood Urea Nitrogen 18, Creatinine 1.8H, Estimat Glomerular Filtration Rate 38.6, Glucose Level 101, Calcium Level 8.1L, Phosphorus Level 3.7, Magnesium Level 1.7L, Total Bilirubin 2.1H, Direct Bilirubin 0.6H, Gamma Glutamyl Transpeptidase 146H, Aspartate Amino Transf (AST/SGOT) 54H, Alanine Aminotransferase (ALT/SGPT) 34, Alkaline Phosphatase 190H, Ammonia 63H, Total Protein 6.3L, Albumin 2.0L 01/06/19 11:05: Prothrombin Time 15.2H, Prothromb Time International Ratio 1.5H, Activated Partial Thromboplast Time 41H Current Medications Medications (Trade) Dose Ordered Sig/Katie Route PRN Reason Start Time Stop Time Status Last Admin Dose Admin Acetaminophen (Tylenol) 500 mg Q8H PRN ORAL Prn Headache/Temp > 101 01/04/19 16:00 02/03/19 15:59 Cefepime HCl 1 gm/ Dextrose 55 ml @ 110 mls/hr Q24H IVPB 01/04/19 15:00 01/11/19 14:59 01/06/19 15:03 Dextrose/Sodium Chloride 1,000 ml @ 50 mls/hr Q20H IV 01/03/19 10:30 02/02/19 10:29 01/06/19 17:34 Guaifenesin (Robitussin) 100 mg Q4H PRN ORAL For Cough 01/04/19 16:00 02/03/19 15:59 Lactulose (Cephulac) 30 gm QID ORAL 01/05/19 18:00 02/02/19 12:59 01/06/19 20:57 Multivitamins Therapeutic (Therapeutic Multivitamin) 1 ea DAILY ORAL 01/05/19 09:00 02/03/19 10:29 01/06/19 09:12 Pantoprazole (Protonix) 40 mg EVERY 12 HOURS ORAL 01/05/19 21:00 02/04/19 20:59 01/06/19 20:50 Polyethylene Glycol (Miralax) 17 gm BEDTIME ORAL 01/04/19 21:00 02/02/19 20:59 01/04/19 20:56 Rifaximin (Xifaxan) 550 mg EVERY 12 HOURS ORAL 01/04/19 21:00 01/10/19 12:59 01/06/19 20:50 Spironolactone (Aldactone) 25 mg Q12HR ORAL 01/04/19 21:00 02/03/19 20:59 01/06/19 20:50 Vancomycin HCl (Vanco rx to dose) 1 ea DAILY PRN MISC Per rx protocol 01/04/19 08:30 02/03/19 08:29 Claudio Araiza MD Jan 06, 2019 22:20
[2019-01-07] VITALS: BP 124/67
[2019-01-07 04:00] VITALS: BP 128/67
--- NOTE | 2019-01-07 05:51 | Hematology/Onc Progress Note ---
Assessment/Plan Assessment/Plan Assessment and Recs: # Hepatocellular carcinoma has had this for three years and gets treatment at [facility] --> have dw patient need further history and will contact family, have mounika RN, need more history, has been on treatment for the past three years --> f/u with onc at [facility] [place] --> since first time here, obtain ONLY cea, afp --> imaging noted, doesn't need biopsy here --> further imaging if abd pain worsens # PAncytopenia is related to history of liver disease, cirrhosis and cancer --> closely monitor, neupogen given 01/05 x1 --> ANC is >1500 --> meds have been reviewed, on abx --> perp smear has been reviewed, no blasts --> epogen and iron as needed for esrd --> as per renal, hd --> wbc 1.5-->7.7 # Coagulopathy is due to likely cirrhosis --> vit K prn pre any procedure # Hepatic encephalopathy --> lactulose and gi management # HYperblirubinemia due to liver disease --> lactulose and other prn # Pleural effusion --> drain prn, due to hep congestion potentially and chf # ESRD on hd --> per renal # Dvt ppx with scds MOUNIKA RN in am, and appreciate consultation. Subjective Constitutional: Denies: no symptoms, chills, fever, malaise, weakness, other HEENT: Denies: no symptoms, eye pain, blurred vision, tearing, double vision, ear pain, ear discharge, nose pain, nose congestion, throat pain, throat swelling, mouth pain, mouth swelling, other Cardiovascular: Denies: no symptoms, chest pain, edema, irregular heart rate, lightheadedness, palpitations, syncope, other Respiratory: Denies: no symptoms, cough, shortness of breath, SOB with excertion, SOB at rest, sputum, wheezing, other Gastrointestinal/Abdominal: Denies: no symptoms, abdomen distended, abdominal pain, black stools, tarry stools, blood in stool, constipated, diarrhea, difficulty swallowing, nausea, poor appetite, poor fluid intake, rectal bleeding , vomiting, other Endocrine: Denies: no symptoms, excessive sweating, flushing, intolerance to cold, intolerance to heat, increased hunger, increased thirst, increased urine, unexplained weight gain, unexplained weight loss, other Allergies: Coded Allergies: PENICILLINS (Verified Allergy, Unknown, 01/03/19) Subjective 01/06: no major events, wbc is higher as neupogen was given, no bleeding 01/07: remains sob, decreased breath sounds on right side, no events Objective Objective Current Medications Medications (Trade) Dose Ordered Sig/Katie Route PRN Reason Start Time Stop Time Status Last Admin Dose Admin Acetaminophen (Tylenol) 500 mg Q8H PRN ORAL Prn Headache/Temp > 101 01/04/19 16:00 02/03/19 15:59 Cefepime HCl 1 gm/ Dextrose 55 ml @ 110 mls/hr Q24H IVPB 01/04/19 15:00 01/11/19 14:59 01/06/19 15:03 Dextrose/Sodium Chloride 1,000 ml @ 50 mls/hr Q20H IV 01/03/19 10:30 02/02/19 10:29 01/06/19 17:34 Guaifenesin (Robitussin) 100 mg Q4H PRN ORAL For Cough 01/04/19 16:00 02/03/19 15:59 Lactulose (Cephulac) 30 gm QID ORAL 01/05/19 18:00 02/02/19 12:59 01/06/19 20:57 Multivitamins Therapeutic (Therapeutic Multivitamin) 1 ea DAILY ORAL 01/05/19 09:00 02/03/19 10:29 01/06/19 09:12 Pantoprazole (Protonix) 40 mg EVERY 12 HOURS ORAL 01/05/19 21:00 02/04/19 20:59 01/06/19 20:50 Polyethylene Glycol (Miralax) 17 gm BEDTIME ORAL 01/04/19 21:00 02/02/19 20:59 01/04/19 20:56 Rifaximin (Xifaxan) 550 mg EVERY 12 HOURS ORAL 01/04/19 21:00 01/10/19 12:59 01/06/19 20:50 Spironolactone (Aldactone) 25 mg Q12HR ORAL 01/04/19 21:00 02/03/19 20:59 01/06/19 20:50 Vancomycin HCl (Vanco rx to dose) 1 ea DAILY PRN MISC Per rx protocol 01/04/19 08:30 02/03/19 08:29 Last 24 Hour Vital Signs Date Time Temp Pulse Resp B/P (MAP) Pulse Ox O2 Delivery O2 Flow Rate FiO2 01/07/19 04:00 81 01/07/19 04:00 98.0 82 18 128/67 (87) 95 01/07/19 00:00 80 01/07/19 00:00 98.2 83 18 124/67 (86) 95 01/06/19 21:00 Room Air 01/06/19 20:00 91 01/06/19 20:00 98.2 88 18 126/76 (93) 93 01/06/19 16:00 98.6 83 20 129/72 (91) 94 01/06/19 16:00 82 01/06/19 12:00 72 01/06/19 12:00 98.2 80 20 120/69 (86) 95 01/06/19 09:00 Room Air 01/06/19 08:00 79 01/06/19 08:00 98.1 78 20 115/69 (84) 93 01/06/19 04:00 98.2 83 16 124/68 (86) 96 01/06/19 04:00 81 01/06/19 00:00 98.5 83 17 121/67 (85) 95 01/06/19 00:00 78 01/05/19 21:00 Room Air 01/05/19 20:00 73 01/05/19 20:00 98.3 75 17 120/65 (83) 95 01/05/19 16:00 97.9 66 18 128/72 (90) 96 01/05/19 16:00 70 01/05/19 12:00 97.8 68 20 124/66 (85) 97 01/05/19 12:00 80 01/05/19 09:00 Room Air 01/05/19 08:00 80 01/05/19 08:00 97.5 73 18 126/71 (89) 96 Intake and Output 01/06/19 01/07/19 19:00 07:00 Intake Total 240 ml 450 ml Output Total 200 ml Balance 40 ml 450 ml Intake Oral 240 ml IV Total 450 ml Output Urine Total 200 ml # Voids 2 Labs Test 01/04/19 06:29 01/05/19 04:35 01/05/19 08:40 01/06/19 06:16 White Blood Count 1.3 K/UL (4.8-10.8) 1.5 K/UL (4.8-10.8) 7.7 K/UL (4.8-10.8) Red Blood Count 2.61 M/UL (4.70-6.10) 2.65 M/UL (4.70-6.10) 2.76 M/UL (4.70-6.10) Hemoglobin 8.5 G/DL (14.2-18.0) 8.6 G/DL (14.2-18.0) 9.1 G/DL (14.2-18.0) Hematocrit 26.0 % (42.0-52.0) 26.3 % (42.0-52.0) 27.4 % (42.0-52.0) Mean Corpuscular Volume 100 FL (80-99) 99 FL (80-99) 99 FL (80-99) Mean Corpuscular Hemoglobin 32.7 PG (27.0-31.0) 32.7 PG (27.0-31.0) 32.8 PG (27.0-31.0) Mean Corpuscular Hemoglobin Concent 32.8 G/DL (32.0-36.0) 32.9 G/DL (32.0-36.0) 33.1 G/DL (32.0-36.0) Red Cell Distribution Width 16.1 % (11.6-14.8) 16.1 % (11.6-14.8) 16.4 % (11.6-14.8) Platelet Count 34 K/UL (150-450) 33 K/UL (150-450) 35 K/UL (150-450) Mean Platelet Volume 8.4 FL (6.5-10.1) 10.0 FL (6.5-10.1) 6.9 FL (6.5-10.1) Neutrophils (%) (Auto) % (45.0-75.0) % (45.0-75.0) % (45.0-75.0) Lymphocytes (%) (Auto) % (20.0-45.0) % (20.0-45.0) % (20.0-45.0) Monocytes (%) (Auto) % (1.0-10.0) % (1.0-10.0) % (1.0-10.0) Eosinophils (%) (Auto) % (0.0-3.0) % (0.0-3.0) % (0.0-3.0) Basophils (%) (Auto) % (0.0-2.0) % (0.0-2.0) % (0.0-2.0) Differential Total Cells Counted 100 100 100 Neutrophils % (Manual) 59 % (45-75) 66 % (45-75) 90 % (45-75) Lymphocytes % (Manual) 27 % (20-45) 19 % (20-45) 5 % (20-45) Monocytes % (Manual) 13 % (1-10) 10 % (1-10) 3 % (1-10) Eosinophils % (Manual) 1 % (0-3) 5 % (0-3) 2 % (0-3) Basophils % (Manual) 0 % (0-2) 0 % (0-2) 0 % (0-2) Band Neutrophils 0 % (0-8) 0 % (0-8) 0 % (0-8) Platelet Estimate Decreased Decreased Decreased Platelet Morphology Normal Normal Normal Polychromasia 1+ Hypochromasia 1+ Anisocytosis 1+ 1+ 1+ Sodium Level 143 MMOL/L (136-145) 141 MMOL/L (136-145) 139 MMOL/L (136-145) Potassium Level 3.4 MMOL/L (3.5-5.1) 3.7 MMOL/L (3.5-5.1) 3.6 MMOL/L (3.5-5.1) Chloride Level 107 MMOL/L (98-107) 108 MMOL/L (98-107) 108 MMOL/L (98-107) Carbon Dioxide Level 32 MMOL/L (21-32) 24 MMOL/L (21-32) 21 MMOL/L (21-32) Anion Gap 5 mmol/L (5-15) 9 mmol/L (5-15) 10 mmol/L (5-15) Blood Urea Nitrogen 19 mg/dL (7-18) 20 mg/dL (7-18) 18 mg/dL (7-18) Creatinine 1.9 MG/DL (0.55-1.30) 1.8 MG/DL (0.55-1.30) 1.8 MG/DL (0.55-1.30) Estimat Glomerular Filtration Rate 36.2 mL/min (>60) 38.6 mL/min (>60) 38.6 mL/min (>60) Glucose Level 92 MG/DL (74-106) 92 MG/DL (74-106) 101 MG/DL (74-106) Lactic Acid Level 1.40 mmol/L (0.4-2.0) Uric Acid 4.3 MG/DL (2.6-7.2) 4.9 MG/DL (2.6-7.2) Calcium Level 8.0 MG/DL (8.5-10.1) 7.8 MG/DL (8.5-10.1) 8.1 MG/DL (8.5-10.1) Phosphorus Level 3.8 MG/DL (2.5-4.9) 3.7 MG/DL (2.5-4.9) 3.7 MG/DL (2.5-4.9) Magnesium Level 1.6 MG/DL (1.8-2.4) 1.7 MG/DL (1.8-2.4) 1.7 MG/DL (1.8-2.4) Iron Level 42 ug/dL (50-175) Total Iron Binding Capacity 141 ug/dL (250-450) Percent Iron Saturation 30 % (15-50) Unsaturated Iron Binding 99 ug/dL (112-346) Ferritin 299 NG/ML (8-388) Total Bilirubin 1.9 MG/DL (0.2-1.0) 1.7 MG/DL (0.2-1.0) 2.1 MG/DL (0.2-1.0) Direct Bilirubin 0.6 MG/DL (0.0-0.3) 0.5 MG/DL (0.0-0.3) 0.6 MG/DL (0.0-0.3) Gamma Glutamyl Transpeptidase 132 U/L (5-85) 146 U/L (5-85) Aspartate Amino Transf (AST/SGOT) 40 U/L (15-37) 51 U/L (15-37) 54 U/L (15-37) Alanine Aminotransferase (ALT/SGPT) 27 U/L (12-78) 29 U/L (12-78) 34 U/L (12-78) Alkaline Phosphatase 174 U/L (46-116) 170 U/L (46-116) 190 U/L (46-116) Ammonia 110 umol/L (11-32) 100 umol/L (11-32) 63 umol/L (11-32) C-Reactive Protein, Quantitative 2.4 mg/dL (0.00-0.90) 2.1 mg/dL (0.00-0.90) Pro-B-Type Natriuretic Peptide 874 pg/mL (0-125) 790 pg/mL (0-125) Total Protein 6.2 G/DL (6.4-8.2) 6.0 G/DL (6.4-8.2) 6.3 G/DL (6.4-8.2) Albumin 2.0 G/DL (3.4-5.0) 1.9 G/DL (3.4-5.0) 2.0 G/DL (3.4-5.0) Globulin 4.2 g/dL 4.1 g/dL Albumin/Globulin Ratio 0.5 (1.0-2.7) 0.5 (1.0-2.7) Triglycerides Level 62 MG/DL (30-150) Cholesterol Level 89 MG/DL (< 200) LDL Cholesterol 33 mg/dL (<100) HDL Cholesterol 47 MG/DL (40-60) Cholesterol/HDL Ratio 1.9 (3.3-4.4) Vitamin B12 Level 931 PG/ML (193-986) Folate 34.2 NG/ML (8.6-58.9) Hepatitis A IgM Antibody Negative (Negative) Hepatitis B Surface Antigen Negative (Negative) Hepatitis B Core IgM Antibody Negative (Negative) Hepatitis C Antibody <0.1 s/co ratio Random Vancomycin Level 13.9 ug/mL HIV (1&2) Antibody Rapid Negative (NEGATIVE) Test 01/06/19 11:05 Prothrombin Time 15.2 SEC (9.30-11.50) Prothromb Time International Ratio 1.5 (0.9-1.1) Activated Partial Thromboplast Time 41 SEC (23-33) Height (Feet): 5 Height (Inches): 7.00 Weight (Pounds): 154 Objective Physical Exam Vitals: reviewed General Appearance: today more comfortable Neck: supple Respiratory: lungs clear,Right side decreased breath sounds Cardiovascular: RRR, no mgr Gastrointestinal: non tender, soft, other ++ Umbilical hernia mild abdominal distention Neurologic: II-XII intact grossly Lymphatic: no adenopathy noted Damion Brown MD Jan 07, 2019 05:51
--- NOTE | 2019-01-07 07:00 | NUR ---
HAND-OFF: Report given to DWIGHT Willis. Plan of care endorsed, patient alert and talkative.
--- NOTE | 2019-01-07 07:32 | General Progress Note ---
Assessment/Plan Problem List: (1) Renal failure ICD Codes: N19 - Unspecified kidney failure SNOMED: 77102237 (2) Hepatic encephalopathy ICD Codes: K72.90 - Hepatic failure, unspecified without coma SNOMED: 61983368 (3) Pancytopenia ICD Codes: D61.818 - Other pancytopenia SNOMED: 605583233 (4) Pleural effusion ICD Codes: J90 - Pleural effusion, not elsewhere classified SNOMED: 52816224 Status: progressing Assessment/Plan: lactulose and xifaxan repeat labs in am abd us>>> reviewed hepatitis panel>>> neg HD per nephrology paracentesis for today EGD for tomorrow Subjective ROS Limited/Unobtainable: Yes Allergies: Coded Allergies: PENICILLINS (Verified Allergy, Unknown, 01/03/19) Subjective c/o abd pain Objective Last 24 Hour Vital Signs Date Time Temp Pulse Resp B/P (MAP) Pulse Ox O2 Delivery O2 Flow Rate FiO2 01/07/19 04:00 81 01/07/19 04:00 98.0 82 18 128/67 (87) 95 01/07/19 00:00 80 01/07/19 00:00 98.2 83 18 124/67 (86) 95 01/06/19 21:00 Room Air 01/06/19 20:00 91 01/06/19 20:00 98.2 88 18 126/76 (93) 93 01/06/19 16:00 98.6 83 20 129/72 (91) 94 01/06/19 16:00 82 01/06/19 12:00 72 01/06/19 12:00 98.2 80 20 120/69 (86) 95 01/06/19 09:00 Room Air 01/06/19 08:00 79 01/06/19 08:00 98.1 78 20 115/69 (84) 93 Intake and Output 01/06/19 01/07/19 19:00 07:00 Intake Total 240 ml 670 ml Output Total 200 ml Balance 40 ml 670 ml Intake Oral 240 ml 120 ml IV Total 550 ml Output Urine Total 200 ml # Voids 2 2 # Bowel Movements 1 Laboratory Tests 01/06/19 11:05: Prothrombin Time 15.2H, Prothromb Time International Ratio 1.5H, Activated Partial Thromboplast Time 41H Height (Feet): 5 Height (Inches): 7.00 Weight (Pounds): 154 General Appearance: alert EENT: normal ENT inspection Neck: supple Cardiovascular: normal rate Respiratory/Chest: decreased breath sounds Abdomen: soft, hypoactive bowel sounds, distended Extremities: non-tender José Michael MD Jan 07, 2019 07:32
[2019-01-07 08:00] VITALS: BP 131/82
--- NOTE | 2019-01-07 08:01 | NUR ---
NURSE NOTES: Received report from DWIGHT Martinez. Patient in bed resting, no active s/s cardiac, respiratory distress noticed at this time. Patient AOx4, SR with HR 82, on room air. IV on right FA 22G, asymptomatic, patent, intact, IVF running as prescribed rate. Bed in lowest position, side rails upx3, call light within reach. Will continue to monitor.
[2019-01-07] MEDS: Multivitamin w/Minerals tab ORAL SCH (08:36)
[2019-01-07] MEDS: Lactulose 20gm/30ml UDC ORAL SCH ×5 (08:36→22:01)
[2019-01-07 08:41] LABS: HEMATOCRIT 29.4 % (42.0-52.0); HEMOGLOBIN 9.5 G/DL (14.2-18.0); MEAN CORPUSCULAR VOLUME 101 FL (80-99); PLATELET COUNT 32 K/UL (150-450); RED BLOOD COUNT 2.92 M/UL (4.70-6.10); RED CELL DISTRIBUTION WIDTH 16.1 % (11.6-14.8); WHITE BLOOD COUNT 4.9 K/UL (4.8-10.8)
--- NOTE | 2019-01-07 08:52 | NUR ---
NURSE NOTES: Paged Dr. Gilbert regarding patient schedule for thoracentesis, per Dr. Gilbert, 1 bag of platelet prior to thoracentesis. Order noted, entered, carried out.
[2019-01-07 08:57] LABS: ANION GAP 9 mmol/L (5-15); BLOOD UREA NITROGEN 19 mg/dL (7-18); CALCIUM 8.1 MG/DL (8.5-10.1); CARBON DIOXIDE 22 MMOL/L (21-32); CHLORIDE 108 MMOL/L (98-107); CREATININE 1.9 MG/DL (0.55-1.30); POTASSIUM 3.5 MMOL/L (3.5-5.1); SODIUM 139 MMOL/L (136-145)
--- NOTE | 2019-01-07 09:20 | NUR ---
NURSE NOTES: Per Dr. Hoffman, order Physical therapy eval. Order noted, entered, carried out.
[2019-01-07] MEDS ORDERED: Vancomycin 1.25gm/NS Premix q24h IVPB SCH (11:00)
[2019-01-07 12:00] VITALS: BP 126/74
--- NOTE | 2019-01-07 12:39 | CDS Physician Query ---
Clarification is required for compliance, coding accuracy, and to reflect severity of illness for this patient Dear Dg Sauceda MD Date: 01/07/2019 Bee Producer/CDS Name: Jaylon Sanabria The patient is a 63-year-old male with a history of dialysis, who lives with . Per , the patient has had decreased level of consciousness for the last couple of days. At the time of evaluation, the patient poor historian. at the bedside. No reported incident of fever, shortness of breath, or chest pain. No episodes of missed hemodialysis. ALBUMIN: 2.5--->1.9 Please select the most appropriate option: [] Protein/Calorie Malnutrition [] Mild [] Moderate [] Severe [] Hypoalbuminemia [] Cachexia [] Underweight [] Intestinal malabsorption [] Other [] Unable to determine [] Not Applicable Present on Admission: [] Yes [] No [] Clinically Undetermined Physician signature Date Please also document in your Progress Notes and/or Discharge Summary and indicate if the condition was present on admission. MTDD
--- NOTE | 2019-01-07 13:12 | NUR ---
P.T Note: P.T evaluation completed and tx initiated. Please refer to P.T evaluation for current functional status. Pt is limited by generalized weakness from prolonged bedrest ( pt stated he has not been getting out bed for the past 5 days ). Pt currently require MIN A x 1 for bed mobilities, CGA x 1 for transfers and SBA/CGA x 1 for gait/ambulation activities with use of FWW. Skilled P.T service is warranted to improve his strength, balance and endurance to increase level of mobility independence and safety. Pt is cleared for OOB with nursing assist.
--- NOTE | 2019-01-07 13:39 | Nephrology Progress Note ---
Assessment/Plan Problem List: (1) Liver nodule Assessment: h/o hepatocellular ca (2) Hepatic encephalopathy (3) Renal failure (4) Pleural effusion (5) Pancytopenia Assessment ESRD Liver Disease, nature? Hepatic encephalopathy Leukopenia Pleural effusion massive right Plan due paracenthesis am[place] lower on lactulose K supplement as needed taking PO well Dialysis as needed, not needed since admission per orders Pleural tap?? Subjective ROS Limited/Unobtainable: No Constitutional: Reports: malaise Objective Objective Last 24 Hour Vital Signs Date Time Temp Pulse Resp B/P (MAP) Pulse Ox O2 Delivery O2 Flow Rate FiO2 01/07/19 12:00 98.0 88 20 126/74 (91) 97 01/07/19 09:00 Room Air 01/07/19 08:00 90 01/07/19 08:00 97.8 82 18 131/82 (98) 95 01/07/19 04:00 81 01/07/19 04:00 98.0 82 18 128/67 (87) 95 01/07/19 00:00 80 01/07/19 00:00 98.2 83 18 124/67 (86) 95 01/06/19 21:00 Room Air 01/06/19 20:00 91 01/06/19 20:00 98.2 88 18 126/76 (93) 93 01/06/19 16:00 98.6 83 20 129/72 (91) 94 01/06/19 16:00 82 Intake and Output 01/06/19 01/07/19 19:00 07:00 Intake Total 240 ml 670 ml Output Total 200 ml Balance 40 ml 670 ml Intake Oral 240 ml 120 ml IV Total 550 ml Output Urine Total 200 ml # Voids 2 2 # Bowel Movements 1 Laboratory Tests 01/07/19 07:15: White Blood Count 4.9, Red Blood Count 2.92L, Hemoglobin 9.5L, Hematocrit 29.4L , Mean Corpuscular Volume 101H, Mean Corpuscular Hemoglobin 32.6H, Mean Corpuscular Hemoglobin Concent 32.3, Red Cell Distribution Width 16.1H, Platelet Count 32L, Mean Platelet Volume 8.0, Neutrophils (%) (Auto) , Lymphocytes (%) (Auto) , Monocytes (%) (Auto) , Eosinophils (%) (Auto) , Basophils (%) (Auto) , Differential Total Cells Counted 100, Neutrophils % ( Manual) 88H, Lymphocytes % (Manual) 5L, Monocytes % (Manual) 3, Eosinophils % ( Manual) 4H, Basophils % (Manual) 0, Band Neutrophils 0, Platelet Estimate DecreasedL, Platelet Morphology Normal, Anisocytosis 1+, Sodium Level 139, Potassium Level 3.5, Chloride Level 108H, Carbon Dioxide Level 22, Anion Gap 9, Blood Urea Nitrogen 19H, Creatinine 1.9H, Estimat Glomerular Filtration Rate 36.2, Glucose Level 105, Calcium Level 8.1L, Random Vancomycin Level 11.7 Height (Feet): 5 Height (Inches): 7.00 Weight (Pounds): 154 General Appearance: no apparent distress Cardiovascular: normal rate Respiratory/Chest: decreased breath sounds Abdomen: distended Dg Ennis MD Jan 07, 2019 13:39
--- NOTE | 2019-01-07 14:25 | Diagnostic Imaging Report ---
APPROVED REPORT CPT Code: 59690 Present Symptoms Lower Extremity Pain: Bilateral Lower Extremity Edema: Bilateral BILATERAL: Imaging reveals a patent deep venous system bilaterally. There is no evidence of thrombus within the common femoral, superficial femoral, popliteal or tibial segments. The greater saphenous veins are within normal limits. Doppler indicates normal spontaneous flow within these segments.
--- NOTE | 2019-01-07 14:31 | Infectious Diseases Prog Note ---
Assessment/Plan Problems: (1) Bacteremia due to Gram-positive bacteria Assessment & Plan: ruled out with culture grew only staph hominis , suspect contaminants , already on vancomycin and cefepime to cover for pneumonia (2) Pancytopenia Assessment & Plan: suspect bone marrow suppression from advanced liver cirrhosis, had filgrastim injection which improved his WBC, continue cefepime and vancomycin to cover for possible pneumonia , hematology is following (3) Pleural effusion Assessment & Plan: massive on the right side with possible underlying pneumonia , recommend thoracentesis and fluids to be sent for cell counts, culture, gram stain, fungal and AFB with cytology. already on wide spectrum antibiotics (4) ESRD (end stage renal disease) Assessment & Plan: resume HD as per renal (5) Hepatic encephalopathy Assessment & Plan: with elevated ammonia level, on lactulose , monitor closely ammonia level (6) Liver nodule Assessment & Plan: on the right lobe, rule out HCC, recommend tumor markers and oncology eval for possible biopsy (7) Liver cirrhosis Assessment & Plan: advanced, with poor prognosis , GI is following Subjective Constitutional: Reports: fatigue, anorexia HEENT: Reports: no symptoms Respiratory: Reports: shortness of breath, dry cough Breasts: Reports: no symptoms Cardiovascular: Reports: no symptoms Gastrointestinal/Abdominal: Reports: bloating, other - massive ascites Genitourinary: Reports: no symptoms Neurologic: Reports: weakness Psychiatric: Reports: no symptoms Skin: Reports: no symptoms Endocrine: Reports: no symptoms Hematologic: Reports: no symptoms Musculoskeletal: Reports: no symptoms Allergies: Coded Allergies: PENICILLINS (Verified Allergy, Unknown, 01/03/19) Objective Vital Signs Last 24 Hour Vital Signs Date Time Temp Pulse Resp B/P (MAP) Pulse Ox O2 Delivery O2 Flow Rate FiO2 01/07/19 12:00 98.0 88 20 126/74 (91) 97 01/07/19 09:00 Room Air 01/07/19 08:00 90 01/07/19 08:00 97.8 82 18 131/82 (98) 95 01/07/19 04:00 81 01/07/19 04:00 98.0 82 18 128/67 (87) 95 01/07/19 00:00 80 01/07/19 00:00 98.2 83 18 124/67 (86) 95 01/06/19 21:00 Room Air 01/06/19 20:00 91 01/06/19 20:00 98.2 88 18 126/76 (93) 93 01/06/19 16:00 98.6 83 20 129/72 (91) 94 01/06/19 16:00 82 Height (Feet): 5 Height (Inches): 7.00 Weight (Pounds): 154 General Appearance: no acute distress, cachetic HEENT: normocephalic, atraumatic, anicteric, mucous membranes moist, PERRL Respiratory/Chest: chest wall non-tender, lungs clear, normal breath sounds, no respiratory distress, no accessory muscle use Cardiovascular: normal peripheral pulses, normal rate, regular rhythm, no gallop/murmur, no JVD Abdomen: soft, non tender, no mass, no scars, hypoactive bowel sounds, distended, hepatomegaly, other - ascites Extremities: no cyanosis, no clubbing Skin: no rash, no lesions, no ulcers Neurologic/Psychiatric: alert, oriented x 3, responsive Lymphatic: no neck adenopathy, no groin adenopathy Musculoskeletal: normal muscle bulk, no effusion Laboratory Tests Test 01/07/19 07:15 White Blood Count 4.9 K/UL (4.8-10.8) Red Blood Count 2.92 M/UL (4.70-6.10) L Hemoglobin 9.5 G/DL (14.2-18.0) L Hematocrit 29.4 % (42.0-52.0) L Mean Corpuscular Volume 101 FL (80-99) H Mean Corpuscular Hemoglobin 32.6 PG (27.0-31.0) H Mean Corpuscular Hemoglobin Concent 32.3 G/DL (32.0-36.0) Red Cell Distribution Width 16.1 % (11.6-14.8) H Platelet Count 32 K/UL (150-450) L Mean Platelet Volume 8.0 FL (6.5-10.1) Neutrophils (%) (Auto) % (45.0-75.0) Lymphocytes (%) (Auto) % (20.0-45.0) Monocytes (%) (Auto) % (1.0-10.0) Eosinophils (%) (Auto) % (0.0-3.0) Basophils (%) (Auto) % (0.0-2.0) Differential Total Cells Counted 100 Neutrophils % (Manual) 88 % (45-75) H Lymphocytes % (Manual) 5 % (20-45) L Monocytes % (Manual) 3 % (1-10) Eosinophils % (Manual) 4 % (0-3) H Basophils % (Manual) 0 % (0-2) Band Neutrophils 0 % (0-8) Platelet Estimate Decreased L Platelet Morphology Normal Anisocytosis 1+ Sodium Level 139 MMOL/L (136-145) Potassium Level 3.5 MMOL/L (3.5-5.1) Chloride Level 108 MMOL/L (98-107) H Carbon Dioxide Level 22 MMOL/L (21-32) Anion Gap 9 mmol/L (5-15) Blood Urea Nitrogen 19 mg/dL (7-18) H Creatinine 1.9 MG/DL (0.55-1.30) H Estimat Glomerular Filtration Rate 36.2 mL/min (>60) Glucose Level 105 MG/DL (74-106) Calcium Level 8.1 MG/DL (8.5-10.1) L Random Vancomycin Level 11.7 ug/mL Current Medications Medications (Trade) Dose Ordered Sig/Katie Route PRN Reason Start Time Stop Time Status Last Admin Dose Admin Acetaminophen (Tylenol) 500 mg Q8H PRN ORAL Prn Headache/Temp > 101 01/04/19 16:00 02/03/19 15:59 Cefepime HCl 1 gm/ Dextrose 55 ml @ 110 mls/hr Q24H IVPB 01/04/19 15:00 01/11/19 14:59 01/06/19 15:03 Dextrose/Sodium Chloride 1,000 ml @ 50 mls/hr Q20H IV 01/03/19 10:30 02/02/19 10:29 01/06/19 17:34 Guaifenesin (Robitussin) 100 mg Q4H PRN ORAL For Cough 01/04/19 16:00 02/03/19 15:59 Lactulose (Cephulac) 30 gm QID ORAL 01/05/19 18:00 02/02/19 12:59 01/07/19 13:41 Multivitamins Therapeutic (Therapeutic Multivitamin) 1 ea DAILY ORAL 01/05/19 09:00 02/03/19 10:29 01/07/19 08:36 Pantoprazole (Protonix) 40 mg EVERY 12 HOURS ORAL 01/05/19 21:00 02/04/19 20:59 01/07/19 08:36 Polyethylene Glycol (Miralax) 17 gm BEDTIME ORAL 01/04/19 21:00 02/02/19 20:59 01/04/19 20:56 Rifaximin (Xifaxan) 550 mg EVERY 12 HOURS ORAL 01/04/19 21:00 01/10/19 12:59 01/07/19 08:36 Vancomycin HCl (Vanco rx to dose) 1 ea DAILY PRN MISC Per rx protocol 01/04/19 08:30 02/03/19 08:29 Sudeep Mcclain M.D. Jan 07, 2019 14:31
--- NOTE | 2019-01-07 15:09 | NUR ---
RD ASSESSMENT & RECOMMENDATIONS SEE CARE ACTIVITY FOR COMPLETE ASSESSMENT DAILY ESTIMATED NEEDS: Needs based on cirrhosis, renal (no order for HD yet)/ 63kg 25-30 kcals/kg 3660-0736 total kcals 0.9-1.3 (Without HD)/ 1.2-1.8 (with HD) g protein/kg 57-82 (Without HD)/ 75-113 (with HD) g total protein 20-25 mL/kg 9383-2718 total fluid mLs NUTRITION DIAGNOSIS: Altered nutrition related lab values R/T cirrhosis, hepatic encephalopathy, h/o ESRD as evidenced by elev T bili (2.1), elev AST, elev NH3 (108-> 63), elev creat (1.9) CURRENT DIET:RENAL PO DIET RECOMMENDATIONS: Maintain renal restriction at this time given h/o ESRD/ texture as tolerate ADDITIONAL RECOMMENDATIONS: * Standing wt as able for accurate CBW * Monitor renal fxn closely- h/o ERSD, no need for HD since adm -> Monitor for resuming of HD * Monitor lytes closely- h/o ESRD -> Replete lytes a needed (low mag 1.7) * Wound healing: Nephrovite x 1 + Vit C 250mg QD
--- NOTE | 2019-01-07 15:34 | General Progress Note ---
Assessment/Plan Status: progressing Assessment/Plan: S: I am feeling better O: at the bed side. Complains of mild abd pain Interpretation: reviewed, normal General Appearance: other - Patient has significant decreased response grimaces to physical stimuli otherwise nonverbal Head: normocephalic, atraumatic Eyes: bilateral eye PERRL ENT: normal pharynx, no angioedema Neck: supple Respiratory: lungs clear, no respiratory distress, no retraction Cardiovascular #1: regular rate, rhythm Gastrointestinal: non tender, soft, other - Umbilical hernia mild abdominal distention Musculoskeletal: other - Difficult to assess patient is not awake does not follow commands Neurologic: other - Significantly decreased GCS does not open eyes minimal response to physical stimuli Skin: no rash Lymphatic: no adenopathy Meds and Labs: dated Jan 07 reviewed Assessment: 1- Acute encephalopathy: resolved 2- Pancytopenia 3- HCC 4- Cirhosis 5- Immunocompromised 6- ESRDx HD Plan: Proceed with Thoracentesis and Paracentesis Discussed the fact that his expected life expectancy is less than six months at the bed side. Plan: Following notes reviewed: GI ID Nephro Hem Puml current mgt Subjective Allergies: Coded Allergies: PENICILLINS (Verified Allergy, Unknown, 01/03/19) Objective Last 24 Hour Vital Signs Date Time Temp Pulse Resp B/P (MAP) Pulse Ox O2 Delivery O2 Flow Rate FiO2 01/07/19 12:00 98.0 88 20 126/74 (91) 97 01/07/19 12:00 85 01/07/19 09:00 Room Air 01/07/19 08:00 90 01/07/19 08:00 97.8 82 18 131/82 (98) 95 01/07/19 04:00 81 01/07/19 04:00 98.0 82 18 128/67 (87) 95 01/07/19 00:00 80 01/07/19 00:00 98.2 83 18 124/67 (86) 95 01/06/19 21:00 Room Air 01/06/19 20:00 91 01/06/19 20:00 98.2 88 18 126/76 (93) 93 01/06/19 16:00 98.6 83 20 129/72 (91) 94 01/06/19 16:00 82 Intake and Output 01/06/19 01/07/19 19:00 07:00 Intake Total 240 ml 670 ml Output Total 200 ml Balance 40 ml 670 ml Intake Oral 240 ml 120 ml IV Total 550 ml Output Urine Total 200 ml # Voids 2 2 # Bowel Movements 1 Laboratory Tests 01/07/19 07:15: White Blood Count 4.9, Red Blood Count 2.92L, Hemoglobin 9.5L, Hematocrit 29.4L , Mean Corpuscular Volume 101H, Mean Corpuscular Hemoglobin 32.6H, Mean Corpuscular Hemoglobin Concent 32.3, Red Cell Distribution Width 16.1H, Platelet Count 32L, Mean Platelet Volume 8.0, Neutrophils (%) (Auto) , Lymphocytes (%) (Auto) , Monocytes (%) (Auto) , Eosinophils (%) (Auto) , Basophils (%) (Auto) , Differential Total Cells Counted 100, Neutrophils % ( Manual) 88H, Lymphocytes % (Manual) 5L, Monocytes % (Manual) 3, Eosinophils % ( Manual) 4H, Basophils % (Manual) 0, Band Neutrophils 0, Platelet Estimate DecreasedL, Platelet Morphology Normal, Anisocytosis 1+, Sodium Level 139, Potassium Level 3.5, Chloride Level 108H, Carbon Dioxide Level 22, Anion Gap 9, Blood Urea Nitrogen 19H, Creatinine 1.9H, Estimat Glomerular Filtration Rate 36.2, Glucose Level 105, Calcium Level 8.1L, Random Vancomycin Level 11.7 Height (Feet): 5 Height (Inches): 7.00 Weight (Pounds): 154 Rosaura Hoffman MD Jan 07, 2019 15:34
[2019-01-07 16:00] VITALS: BP 125/66
[2019-01-07] MEDS: Cefepime HCl 1 GM in D5W 55 ML IVPB SCH (16:04)
[2019-01-07] MEDS: D5NS 1,000 ML IV SCH (16:04)
--- NOTE | 2019-01-07 16:20 | NUR ---
NURSE NOTES: Thoracentesis done at the bedside, x-ray taken, no bleeding at this time. Patient dines pain at this time.
--- NOTE | 2019-01-07 16:21 | NUR ---
NURSE NOTES: Per Ultrasound department, [place], 1.15L out from right lung.
--- NOTE | 2019-01-07 16:38 | Diagnostic Imaging Report ---
Indication: Status post thoracentesis, cough, pleural effusion Technique: One view of the chest Comparison: 01/03/2019 Findings: Large right pleural effusion is again demonstrated, probably not significantly changed from the prior exam despite recent 1 L thoracentesis. The left lung is clear except for minimal left basilar atelectasis. The heart is enlarged. There is no pneumothorax. Right jugular tunneled dialysis catheter is again demonstrated Impression: Persistent large right pleural effusion, post 1 L thoracentesis. No pneumothorax demonstrated.
--- NOTE | 2019-01-07 19:18 | NUR ---
HAND-OFF: Report given to DWIGHT Martinez.
--- NOTE | 2019-01-07 19:20 | NUR ---
NURSE NOTES: Received patient from DWIGHT Willis. Patient awake, talkative, and resting in bed comfortably. Family at bedside. No signs of distress, shortness of breath, or pain noted. Patient is able to make needs known, Cambodian speaking. IV site checked, intact and patent, no signs of infiltration, redness, or bleeding, D5NS running at 50 mL/hr. Patient aware of NPO at midnight. Bed in lowest position, brakes on, side rails up x3, and call light within reach. Will continue with plan of care.
[2019-01-07 20:00] VITALS: BP 122/69
[2019-01-07] MEDS: Miralax 17gm pkt ORAL SCH (20:11)
--- NOTE | 2019-01-07 20:50 | Pulmonology Progress Note ---
Assessment/Plan Assessment/Plan Pulmonary Progress Note HPI: The patient has a history of cirrhosis, pancytopenia, and ESRD dialysis dependent, recently admitted to [facility], who came in with paramedics with altered mental status. When the patient was first seen, he was grimacing, but now he is awake and alert. A CT of the head did not show any acute process, and as I said the patient had pancytopenia, elevated ammonia and was admitted for further management of renal failure and hepatic encephalopathy. Since presenting to the hospital, the patient has been afebrile with stable vital signs and saturating well on room air. He had pancytopenia as stated and evidence of elevated ammonia consistent with hepatic encephalopathy. Toxicology screen was negative. Hepatitis and HIV serologies are all pending. Blood culture from the first actually grew gram-positive cocci. The patient is being treated with broad spectrum antimicrobials. A chest x-ray done in the ER showed a massive right effusion as I said with edema and no other findings. Tunnel catheter was noted. Abdominal ultrasound showed evidence of cirrhosis with hepatic surface nodularity and gallbladder wall thickening, bilateral effusions, as I stated. Duplex ultrasound of the lower extremities was negative. Echocardiogram was done, the EF of 60% to 65%, small posterior pericardial effusion, mild mitral enlargement, normal chamber sizes, IVC collapsible and evidence of pulmonary hypertension as well. PAST MEDICAL HISTORY: Not entirely known, but definitely history of cirrhosis, hepatocellular carcinoma, hepatic encephalopathy, pancytopenia, end-stage renal disease on dialysis, known liver nodule and hepatic encephalopathy. PAST SURGICAL HISTORY: Unknown. SOCIAL HISTORY: No known history of tobacco, alcohol, or drug use. FAMILY HISTORY: Noncontributory. REVIEW OF SYSTEMS: Negative other than history of present illness. PHYSICAL EXAMINATION: VITAL SIGNS NOTED: GENERAL: The patient is well developed, well nourished, in no acute distress. Awake, alert, and oriented x3. HEENT: Normocephalic and atraumatic. Scleral icterus is noted. NECK: Supple without lymphadenopathy. CHEST: Decreased breath sounds on the right. Normal breath sounds on the left. HEART: Regular rate and rhythm. PermCath noted. ABDOMEN: Soft, nontender, and nondistended. EXTREMITIES: No cyanosis, clubbing, or edema. ANCILLARY DATA: Labs reviewed. ASSESSMENT: The patient is a 63-year-old male with a history of end-stage renal disease on dialysis, cirrhosis, questionable history of hepatocellular carcinoma in the past, and pancytopenia, now presenting with altered mental status and gram-positive cocci bacteremia, noted to have complete opacification of the right hemithorax. He is being worked up by GI and treated for hepatic encephalopathy. We will obtain a thoracentesis. I would like to scan his chest afterwards to assess for lung expansion and underlying parenchymal lung disease. PROBLEM LIST: 1. Large right-sided pleural effusion - improved s/p Thoracentesis 2. Gram-positive bacteremia. 3. Pancytopenia. 4. End-stage renal disease, on dialysis. 5. Cirrhosis. 6. Hepatic encephalopathy. 7. History of hepatocellular carcinoma in the past. 8. Protein-calorie malnutrition. PLAN: 1. Thoracentesis. 2. We will consider imaging of the chest afterwards. 3. Management of hepatic encephalopathy per GI. 4. Continue antibiotics per ID, follow up cultures. 5. Monitor volumes and renal function. Dialysis per Renal with ultrafiltration as able. 6. DVT prophylaxis, SCDs. 7. Aspiration precautions. 8. The patient is a Full Code. Subjective ROS Limited/Unobtainable: No Allergies: Coded Allergies: PENICILLINS (Verified Allergy, Unknown, 01/03/19) Objective Last 24 Hour Vital Signs Date Time Temp Pulse Resp B/P (MAP) Pulse Ox O2 Delivery O2 Flow Rate FiO2 01/07/19 16:00 83 01/07/19 16:00 98.0 87 18 125/66 (85) 99 01/07/19 12:00 98.0 88 20 126/74 (91) 97 01/07/19 12:00 85 01/07/19 09:00 Room Air 01/07/19 08:00 90 01/07/19 08:00 97.8 82 18 131/82 (98) 95 01/07/19 04:00 81 01/07/19 04:00 98.0 82 18 128/67 (87) 95 01/07/19 00:00 80 01/07/19 00:00 98.2 83 18 124/67 (86) 95 01/06/19 21:00 Room Air Intake and Output 01/06/19 01/07/19 19:00 07:00 Intake Total 240 ml 670 ml Output Total 200 ml Balance 40 ml 670 ml Intake Oral 240 ml 120 ml IV Total 550 ml Output Urine Total 200 ml # Voids 2 2 # Bowel Movements 1 Laboratory Tests 01/07/19 07:15: White Blood Count 4.9, Red Blood Count 2.92L, Hemoglobin 9.5L, Hematocrit 29.4L , Mean Corpuscular Volume 101H, Mean Corpuscular Hemoglobin 32.6H, Mean Corpuscular Hemoglobin Concent 32.3, Red Cell Distribution Width 16.1H, Platelet Count 32L, Mean Platelet Volume 8.0, Neutrophils (%) (Auto) , Lymphocytes (%) (Auto) , Monocytes (%) (Auto) , Eosinophils (%) (Auto) , Basophils (%) (Auto) , Differential Total Cells Counted 100, Neutrophils % ( Manual) 88H, Lymphocytes % (Manual) 5L, Monocytes % (Manual) 3, Eosinophils % ( Manual) 4H, Basophils % (Manual) 0, Band Neutrophils 0, Platelet Estimate DecreasedL, Platelet Morphology Normal, Anisocytosis 1+, Sodium Level 139, Potassium Level 3.5, Chloride Level 108H, Carbon Dioxide Level 22, Anion Gap 9, Blood Urea Nitrogen 19H, Creatinine 1.9H, Estimat Glomerular Filtration Rate 36.2, Glucose Level 105, Calcium Level 8.1L, Random Vancomycin Level 11.7 01/07/19 15:45: Body Fluid Source Pleural, Body Fluid Volume 24, Body Fluid Appearance Hazy, Body Fluid RBC 4380, Body Fluid Total Nucleated Cells 105, Body Fluid Polynuclear WBCs (%) 4, Body Fluid Mononuclear WBCs (%) 88, Body Fluid Mesothelial Cells (%) 8, Body Fluid Glucose [Pending], Body Fluid Total Protein [Pending], Body Fluid Lactate Dehydrogenase [Pending] Current Medications Medications (Trade) Dose Ordered Sig/Katie Route PRN Reason Start Time Stop Time Status Last Admin Dose Admin Acetaminophen (Tylenol) 500 mg Q8H PRN ORAL Prn Headache/Temp > 101 01/04/19 16:00 02/03/19 15:59 Cefepime HCl 1 gm/ Dextrose 55 ml @ 110 mls/hr Q24H IVPB 01/04/19 15:00 01/11/19 14:59 01/07/19 16:04 Dextrose/Sodium Chloride 1,000 ml @ 50 mls/hr Q20H IV 01/03/19 10:30 02/02/19 10:29 01/07/19 16:04 Guaifenesin (Robitussin) 100 mg Q4H PRN ORAL For Cough 01/04/19 16:00 02/03/19 15:59 Lactulose (Cephulac) 30 gm QID ORAL 01/05/19 18:00 02/02/19 12:59 01/07/19 18:09 Multivitamins Therapeutic (Therapeutic Multivitamin) 1 ea DAILY ORAL 01/05/19 09:00 02/03/19 10:29 01/07/19 08:36 Pantoprazole (Protonix) 40 mg EVERY 12 HOURS ORAL 01/05/19 21:00 02/04/19 20:59 01/07/19 20:11 Polyethylene Glycol (Miralax) 17 gm BEDTIME ORAL 01/04/19 21:00 02/02/19 20:59 01/04/19 20:56 Rifaximin (Xifaxan) 550 mg EVERY 12 HOURS ORAL 01/04/19 21:00 01/10/19 12:59 01/07/19 20:11 Vancomycin HCl (Vanco rx to dose) 1 ea DAILY PRN MISC Per rx protocol 01/04/19 08:30 02/03/19 08:29 Claudio Araiza MD Jan 07, 2019 20:50
--- NOTE | 2019-01-07 23:54 | Cardiology Progress Note ---
Assessment/Plan Assessment/Plan 1. Anasarca most likely due to end-stage liver disease, normal hemodynamics, A 2D echocardiography had shown presence of a normal LV systolic function with LVEF of approximately 60% to 65%. 2. Bilateral pleural effusion, right greater than left most likely due to low oncotic pressure or via the fenestration from ascitic fluid. 3. Small pericardial effusion. 4. History of GI bleed. 5. Portal hypertension, continue Lasix and Aldactone. 6. ALOC most likely hepatic encephalopathy. Subjective Subjective Sinus rhythm at rate of 82. Objective Last 24 Hour Vital Signs Date Time Temp Pulse Resp B/P (MAP) Pulse Ox O2 Delivery O2 Flow Rate FiO2 01/07/19 21:00 Room Air 01/07/19 20:00 98.2 80 18 122/69 (86) 96 01/07/19 20:00 79 01/07/19 16:00 83 01/07/19 16:00 98.0 87 18 125/66 (85) 99 01/07/19 12:00 98.0 88 20 126/74 (91) 97 01/07/19 12:00 85 01/07/19 09:00 Room Air 01/07/19 08:00 90 01/07/19 08:00 97.8 82 18 131/82 (98) 95 01/07/19 04:00 81 01/07/19 04:00 98.0 82 18 128/67 (87) 95 01/07/19 00:00 80 01/07/19 00:00 98.2 83 18 124/67 (86) 95 Intake and Output 01/06/19 01/07/19 19:00 07:00 Intake Total 240 ml 670 ml Output Total 200 ml Balance 40 ml 670 ml Intake Oral 240 ml 120 ml IV Total 550 ml Output Urine Total 200 ml # Voids 2 2 # Bowel Movements 1 2D Echo: LVEF 60-65%, TRINO, Small pericard. effusion, RVSP 24 mmHg, Mild MR Laboratory Tests Test 01/07/19 07:15 01/07/19 15:45 White Blood Count 4.9 K/UL (4.8-10.8) Red Blood Count 2.92 M/UL (4.70-6.10) L Hemoglobin 9.5 G/DL (14.2-18.0) L Hematocrit 29.4 % (42.0-52.0) L Mean Corpuscular Volume 101 FL (80-99) H Mean Corpuscular Hemoglobin 32.6 PG (27.0-31.0) H Mean Corpuscular Hemoglobin Concent 32.3 G/DL (32.0-36.0) Red Cell Distribution Width 16.1 % (11.6-14.8) H Platelet Count 32 K/UL (150-450) L Mean Platelet Volume 8.0 FL (6.5-10.1) Neutrophils (%) (Auto) % (45.0-75.0) Lymphocytes (%) (Auto) % (20.0-45.0) Monocytes (%) (Auto) % (1.0-10.0) Eosinophils (%) (Auto) % (0.0-3.0) Basophils (%) (Auto) % (0.0-2.0) Differential Total Cells Counted 100 Neutrophils % (Manual) 88 % (45-75) H Lymphocytes % (Manual) 5 % (20-45) L Monocytes % (Manual) 3 % (1-10) Eosinophils % (Manual) 4 % (0-3) H Basophils % (Manual) 0 % (0-2) Band Neutrophils 0 % (0-8) Platelet Estimate Decreased L Platelet Morphology Normal Anisocytosis 1+ Sodium Level 139 MMOL/L (136-145) Potassium Level 3.5 MMOL/L (3.5-5.1) Chloride Level 108 MMOL/L (98-107) H Carbon Dioxide Level 22 MMOL/L (21-32) Anion Gap 9 mmol/L (5-15) Blood Urea Nitrogen 19 mg/dL (7-18) H Creatinine 1.9 MG/DL (0.55-1.30) H Estimat Glomerular Filtration Rate 36.2 mL/min (>60) Glucose Level 105 MG/DL (74-106) Calcium Level 8.1 MG/DL (8.5-10.1) L Random Vancomycin Level 11.7 ug/mL Body Fluid Source Pleural Body Fluid Volume 24 mL Body Fluid Appearance Hazy (Clear) Body Fluid RBC 4380 /CUMM Body Fluid Total Nucleated Cells 105 /CUMM Body Fluid Polynuclear WBCs (%) 4 % Body Fluid Mononuclear WBCs (%) 88 % Body Fluid Mesothelial Cells (%) 8 % Body Fluid Glucose Pending Body Fluid Total Protein Pending Body Fluid Lactate Dehydrogenase Pending Objective HEENT: Atraumatic and normocephalic. Icteric sclerae is evident. Pupils are equal, round, and reactive to light and accommodation. NECK: JVP less than 5 cm. No carotid bruits. Carotid upstrokes 2+ bilaterally. CVS: Normal S1, S2. Regular rate and rhythm. No murmurs, gallops, or rubs. PMI is at fourth intercostal space at the midclavicular line. LUNGS: Diminished breath sounds particularly in the right lower lung and in the base of the left lung. ABDOMEN: Distended most likely due to ascites. Positive shifting dullness. Positive for an umbilical hernia, soft, and possible bowel sounds. EXTREMITIES: A 1+ bilateral lower extremity edema. Oswlado Hobson MD Jan 07, 2019 23:53
[2019-01-08] VITALS (8 sets, daily range): BP systolic 112–130; BP diastolic 61–76
[2019-01-08 07:23] LABS: INR 1.5 (0.9-1.1)
[2019-01-08 07:37] LABS: HEMATOCRIT 27.8 % (42.0-52.0); HEMOGLOBIN 9.1 G/DL (14.2-18.0); MEAN CORPUSCULAR VOLUME 101 FL (80-99); PLATELET COUNT 33 K/UL (150-450); RED BLOOD COUNT 2.76 M/UL (4.70-6.10); RED CELL DISTRIBUTION WIDTH 15.7 % (11.6-14.8); WHITE BLOOD COUNT 3.3 K/UL (4.8-10.8)
--- NOTE | 2019-01-08 07:50 | NUR ---
HAND-OFF: Report given to DWIGHT Shoemaker. Plan of care endorsed.
[2019-01-08 07:56] LABS: AMMONIA 36 umol/L (11-32)
[2019-01-08 08:03] LABS: ALANINE AMINOTRANSFERASE 35 U/L (12-78); ALBUMIN 2.5 G/DL (3.4-5.0); ALBUMIN/GLOBULIN RATIO 0.6 (1.0-2.7); ALKALINE PHOSPHATASE 233 U/L (46-116); ANION GAP 12 mmol/L (5-15); ASPARTATE AMINO TRANSFERASE 52 U/L (15-37); BLOOD UREA NITROGEN 19 mg/dL (7-18); CALCIUM 8.4 MG/DL (8.5-10.1); CARBON DIOXIDE 21 MMOL/L (21-32); CHLORIDE 109 MMOL/L (98-107); CREATININE 1.5 MG/DL (0.55-1.30); POTASSIUM 3.4 MMOL/L (3.5-5.1); SODIUM 142 MMOL/L (136-145)
[2019-01-08 08:04] LABS: BILIRUBIN,DIRECT 0.6 MG/DL (0.0-0.3)
[2019-01-08 08:08] LABS: PHOSPHORUS 3.2 MG/DL (2.5-4.9)
--- NOTE | 2019-01-08 08:24 | NUR ---
NURSE NOTES: pt is awake and in bed very talkative. pt is NPO waiting for paracentesis and EGD. Pt on teletypesetter monitor no signs of cardiac or respiratory stress at this time. Bed in lowest position and locked. call light within reach. Will continue to follow plans of care.
[2019-01-08] MEDS ORDERED: Vitamin D 50,000 units cap ORAL SCH (09:00)
[2019-01-08] MEDS: Lactulose 20gm/30ml UDC ORAL SCH ×4 (09:00→22:28)
--- NOTE | 2019-01-08 09:37 | Nephrology Progress Note ---
Assessment/Plan Problem List: (1) Liver nodule Assessment: h/o hepatocellular ca (2) Hepatic encephalopathy (3) Renal failure (4) Pleural effusion (5) Pancytopenia Assessment ESRD Liver Disease, nature? Hepatic encephalopathy Leukopenia Pleural effusion massive right Plan to med surg due paracenthesis [place] lower on lactulose K supplement as needed taking PO well Dialysis as needed, not needed since admission per orders Pleural tap?? Subjective ROS Limited/Unobtainable: No Constitutional: Reports: malaise Objective Objective Last 24 Hour Vital Signs Date Time Temp Pulse Resp B/P (MAP) Pulse Ox O2 Delivery O2 Flow Rate FiO2 01/08/19 04:00 97.4 81 18 112/63 (79) 96 01/08/19 04:00 78 01/08/19 00:00 98.5 77 18 124/70 (88) 96 01/08/19 00:00 77 01/07/19 21:00 Room Air 01/07/19 20:00 98.2 80 18 122/69 (86) 96 01/07/19 20:00 79 01/07/19 16:00 83 01/07/19 16:00 98.0 87 18 125/66 (85) 99 01/07/19 12:00 98.0 88 20 126/74 (91) 97 01/07/19 12:00 85 Intake and Output 01/07/19 01/08/19 19:00 07:00 Intake Total 240 ml 580 ml Output Total 700 ml 200 ml Balance -460 ml 380 ml Intake Oral 240 ml 80 ml IV Total 500 ml Output Urine Total 700 ml 200 ml # Bowel Movements 2 Laboratory Tests 01/07/19 15:45: Body Fluid Source Pleural, Body Fluid Volume 24, Body Fluid Appearance Hazy, Body Fluid RBC 4380, Body Fluid Total Nucleated Cells 105, Body Fluid Polynuclear WBCs (%) 4, Body Fluid Mononuclear WBCs (%) 88, Body Fluid Mesothelial Cells (%) 8, Body Fluid Glucose [Pending], Body Fluid Total Protein [Pending], Body Fluid Lactate Dehydrogenase [Pending] 01/08/19 06:26: White Blood Count 3.3L, Red Blood Count 2.76L, Hemoglobin 9.1L, Hematocrit 27.8L , Mean Corpuscular Volume 101H, Mean Corpuscular Hemoglobin 32.8H, Mean Corpuscular Hemoglobin Concent 32.6, Red Cell Distribution Width 15.7H, Platelet Count 33L, Mean Platelet Volume 7.8, Neutrophils (%) (Auto) , Lymphocytes (%) (Auto) , Monocytes (%) (Auto) , Eosinophils (%) (Auto) , Basophils (%) (Auto) , Differential Total Cells Counted 100, Neutrophils % ( Manual) 81H, Lymphocytes % (Manual) 9L, Monocytes % (Manual) 4, Eosinophils % ( Manual) 6H, Basophils % (Manual) 0, Band Neutrophils 0, Platelet Estimate DecreasedL, Platelet Morphology Normal, Anisocytosis 1+, Prothrombin Time 15.2H , Prothromb Time International Ratio 1.5H, Sodium Level 142, Potassium Level 3.4L, Chloride Level 109H, Carbon Dioxide Level 21, Anion Gap 12, Blood Urea Nitrogen 19H, Creatinine 1.5H, Estimat Glomerular Filtration Rate 47.6, Glucose Level 103, Calcium Level 8.4L, Phosphorus Level 3.2, Magnesium Level 1.7L, Total Bilirubin 2.0H, Direct Bilirubin 0.6H, Aspartate Amino Transf (AST/SGOT) 52H, Alanine Aminotransferase (ALT/SGPT) 35, Alkaline Phosphatase 233H, Ammonia 36H, C-Reactive Protein, Quantitative 1.4H, Pro-B-Type Natriuretic Peptide 812H , Total Protein 6.8, Albumin 2.5L, Globulin 4.3, Albumin/Globulin Ratio 0.6L Height (Feet): 5 Height (Inches): 7.00 Weight (Pounds): 153 General Appearance: no apparent distress Cardiovascular: normal rate Abdomen: soft Dg Ennis MD Jan 08, 2019 09:37
--- NOTE | 2019-01-08 10:15 | Anethesia Preoperative Eval ---
Anesthesia Pre-op PMH/ROS General Date of Evaluation: Jan 08, 2019 Time of Evaluation: 10:11 Anesthesiologist: Burke ASA Score: ASA 4 Mallampati Score Class I : Soft palate, uvula, fauces, pillars visible Class II: Soft palate, uvula, fauces visible Class III: Soft palate, base of uvula visible Class IV: Only hard plate visible Mallampati Classification: Class II Surgeon: Fernanda Diagnosis: Anemia Surgical Procedure: EGD Anesthesia History: none Social History: alcohol use - h/o Family History: no anesthesia problems Allergies: Coded Allergies: PENICILLINS (Verified Allergy, Unknown, 01/03/19) Medications: see eMAR Patient NPO?: Yes Past Medical History Cardiovascular: Reports: HTN; Denies: CAD, [place], valve dz, arrhythmia, other Pulmonary: Denies: asthma, COPD, CHEPE, other Gastrointestinal/Genitourinary: Reports: GERD, ESRD - on HD, other - Liver cirrosis; Denies: CRI Neurologic/Psychiatric: Reports: dementia, other - encephaloppathyu; Denies: CVA, depression/anxiety, TIA Endocrine: Reports: DM, hypothyroidism; Denies: steroids, other HEENT: Denies: cataract (L), cataract (R), glaucoma, [place] (L), [place] (R), other Hematology/Immune: Reports: anemia - of chronic d-s; Denies: DVT, bleeding disorder, other Musculoskeletal/Integumentary: Denies: OA, RA, DJD, DDD, edema, other Other: other - malnourished PMH Narrative: as above PSxH Narrative: see chart Anesthesia Pre-op Phys. Exam Physician Exam Last Vital Signs Date Time Temp Pulse Resp B/P (MAP) Pulse Ox O2 Delivery O2 Flow Rate FiO2 01/08/19 04:00 97.4 81 18 112/63 (79) 96 01/07/19 21:00 Room Air Constitutional: NAD Neurologic: CN 2-12 intact Cardiovascular: RRR, no M/R/G Respiratory: CTA Gastrointestinal: S/NT/ND Airway Exam Mallampati Score: Class II MO: limited Neck: stiff ROM: limited Teeth: missing Dentures: no upper, no lower Anesthesia Pre-op A/P Labs Hematology Test 01/08/19 06:26 White Blood Count 3.3 K/UL (4.8-10.8) L Red Blood Count 2.76 M/UL (4.70-6.10) L Hemoglobin 9.1 G/DL (14.2-18.0) L Hematocrit 27.8 % (42.0-52.0) L Mean Corpuscular Volume 101 FL (80-99) H Mean Corpuscular Hemoglobin 32.8 PG (27.0-31.0) H Mean Corpuscular Hemoglobin Concent 32.6 G/DL (32.0-36.0) Red Cell Distribution Width 15.7 % (11.6-14.8) H Platelet Count 33 K/UL (150-450) L Mean Platelet Volume 7.8 FL (6.5-10.1) Neutrophils (%) (Auto) % (45.0-75.0) Lymphocytes (%) (Auto) % (20.0-45.0) Monocytes (%) (Auto) % (1.0-10.0) Eosinophils (%) (Auto) % (0.0-3.0) Basophils (%) (Auto) % (0.0-2.0) Differential Total Cells Counted 100 Neutrophils % (Manual) 81 % (45-75) H Lymphocytes % (Manual) 9 % (20-45) L Monocytes % (Manual) 4 % (1-10) Eosinophils % (Manual) 6 % (0-3) H Basophils % (Manual) 0 % (0-2) Band Neutrophils 0 % (0-8) Platelet Estimate Decreased L Platelet Morphology Normal Anisocytosis 1+ Coagulation Test 01/08/19 06:26 Prothrombin Time 15.2 SEC (9.30-11.50) H Prothromb Time International Ratio 1.5 (0.9-1.1) H Chemistry Test 01/08/19 06:26 Sodium Level 142 MMOL/L (136-145) Potassium Level 3.4 MMOL/L (3.5-5.1) L Chloride Level 109 MMOL/L (98-107) H Carbon Dioxide Level 21 MMOL/L (21-32) Anion Gap 12 mmol/L (5-15) Blood Urea Nitrogen 19 mg/dL (7-18) H Creatinine 1.5 MG/DL (0.55-1.30) H Estimat Glomerular Filtration Rate 47.6 mL/min (>60) Glucose Level 103 MG/DL (74-106) Calcium Level 8.4 MG/DL (8.5-10.1) L Phosphorus Level 3.2 MG/DL (2.5-4.9) Magnesium Level 1.7 MG/DL (1.8-2.4) L Total Bilirubin 2.0 MG/DL (0.2-1.0) H Direct Bilirubin 0.6 MG/DL (0.0-0.3) H Aspartate Amino Transf (AST/SGOT) 52 U/L (15-37) H Alanine Aminotransferase (ALT/SGPT) 35 U/L (12-78) Alkaline Phosphatase 233 U/L (46-116) H Ammonia 36 umol/L (11-32) H C-Reactive Protein, Quantitative 1.4 mg/dL (0.00-0.90) H Pro-B-Type Natriuretic Peptide 812 pg/mL (0-125) H Total Protein 6.8 G/DL (6.4-8.2) Albumin 2.5 G/DL (3.4-5.0) L Globulin 4.3 g/dL Albumin/Globulin Ratio 0.6 (1.0-2.7) L Risk Assessment & Plan Assessment: ASA 4 Plan: MAC Status Change Before Surgery: Adeel Ordaz MD Jan 08, 2019 10:15
--- NOTE | 2019-01-08 10:40 | General Progress Note ---
Assessment/Plan Status: progressing Assessment/Plan: S: I am feeling better O: at the bed side. Complains of mild abd pain Interpretation: reviewed, normal General Appearance: other - Patient has significant decreased response grimaces to physical stimuli otherwise nonverbal Head: normocephalic, atraumatic Eyes: bilateral eye PERRL ENT: normal pharynx, no angioedema Neck: supple Respiratory: lungs clear, no respiratory distress, no retraction Cardiovascular #1: regular rate, rhythm Gastrointestinal: non tender, soft, other - Umbilical hernia mild abdominal distention Musculoskeletal: other - Difficult to assess patient is not awake does not follow commands Neurologic: other - Significantly decreased GCS does not open eyes minimal response to physical stimuli Skin: no rash Lymphatic: no adenopathy Meds and Labs: dated Jan 08 reviewed Assessment: 1- Acute encephalopathy: resolved 2- Pancytopenia 3- HCC 4- Cirhosis 5- Immunocompromised 6- ESRDx HD 7. Multiple medi al problems with Life expectency less than 6 months Plan: Once clear by GI may return home. Palliative care is consulted Subjective Allergies: Coded Allergies: PENICILLINS (Verified Allergy, Unknown, 01/03/19) Objective Last 24 Hour Vital Signs Date Time Temp Pulse Resp B/P (MAP) Pulse Ox O2 Delivery O2 Flow Rate FiO2 01/08/19 04:00 97.4 81 18 112/63 (79) 96 01/08/19 04:00 78 01/08/19 00:00 98.5 77 18 124/70 (88) 96 01/08/19 00:00 77 01/07/19 21:00 Room Air 01/07/19 20:00 98.2 80 18 122/69 (86) 96 01/07/19 20:00 79 01/07/19 16:00 83 01/07/19 16:00 98.0 87 18 125/66 (85) 99 01/07/19 12:00 98.0 88 20 126/74 (91) 97 01/07/19 12:00 85 Intake and Output 01/07/19 01/08/19 19:00 07:00 Intake Total 240 ml 580 ml Output Total 700 ml 200 ml Balance -460 ml 380 ml Intake Oral 240 ml 80 ml IV Total 500 ml Output Urine Total 700 ml 200 ml # Bowel Movements 2 Laboratory Tests 01/07/19 15:45: Body Fluid Source Pleural, Body Fluid Volume 24, Body Fluid Appearance Hazy, Body Fluid RBC 4380, Body Fluid Total Nucleated Cells 105, Body Fluid Polynuclear WBCs (%) 4, Body Fluid Mononuclear WBCs (%) 88, Body Fluid Mesothelial Cells (%) 8, Body Fluid Glucose [Pending], Body Fluid Total Protein [Pending], Body Fluid Lactate Dehydrogenase [Pending] 01/08/19 06:26: White Blood Count 3.3L, Red Blood Count 2.76L, Hemoglobin 9.1L, Hematocrit 27.8L , Mean Corpuscular Volume 101H, Mean Corpuscular Hemoglobin 32.8H, Mean Corpuscular Hemoglobin Concent 32.6, Red Cell Distribution Width 15.7H, Platelet Count 33L, Mean Platelet Volume 7.8, Neutrophils (%) (Auto) , Lymphocytes (%) (Auto) , Monocytes (%) (Auto) , Eosinophils (%) (Auto) , Basophils (%) (Auto) , Differential Total Cells Counted 100, Neutrophils % ( Manual) 81H, Lymphocytes % (Manual) 9L, Monocytes % (Manual) 4, Eosinophils % ( Manual) 6H, Basophils % (Manual) 0, Band Neutrophils 0, Platelet Estimate DecreasedL, Platelet Morphology Normal, Anisocytosis 1+, Prothrombin Time 15.2H , Prothromb Time International Ratio 1.5H, Sodium Level 142, Potassium Level 3.4L, Chloride Level 109H, Carbon Dioxide Level 21, Anion Gap 12, Blood Urea Nitrogen 19H, Creatinine 1.5H, Estimat Glomerular Filtration Rate 47.6, Glucose Level 103, Calcium Level 8.4L, Phosphorus Level 3.2, Magnesium Level 1.7L, Total Bilirubin 2.0H, Direct Bilirubin 0.6H, Aspartate Amino Transf (AST/SGOT) 52H, Alanine Aminotransferase (ALT/SGPT) 35, Alkaline Phosphatase 233H, Ammonia 36H, C-Reactive Protein, Quantitative 1.4H, Pro-B-Type Natriuretic Peptide 812H , Total Protein 6.8, Albumin 2.5L, Globulin 4.3, Albumin/Globulin Ratio 0.6L Height (Feet): 5 Height (Inches): 7.00 Weight (Pounds): 153 Rosaura Hoffman MD Jan 08, 2019 10:40
--- NOTE | 2019-01-08 10:52 | Pre-Procedure Note/Attestation ---
Pre-Procedure Note/Attestation Complete Prior to Procedure Planned Procedure: not applicable Procedure Narrative: paracentesis Indications for Procedure Pre-Operative Diagnosis: ascites Attestation I attest that I discussed the nature of the procedure; its benefits; risks and complications; and alternatives (and the risks and benefits of such alternatives ), prior to the procedure, with the patient (or the patient's legal footwear sales representative). I attest that, if there was a reasonable possibility of needing a blood transfusion, the patient (or the patient's legal footwear sales representative) was given the [facility] standardized written summary, pursuant to the Aleksandr Hermila Blood Safety Act ([place] Health and Safety Code # 1645, as amended). I attest that I re-evaluated the patient just prior to the surgery and that there has been no change in the patient's H&P, except as documented below: Jaylon Ball MD Jan 08, 2019 10:52
--- NOTE | 2019-01-08 10:53 | Brief Operative Note ---
Immediate Post Operative Note Operative Note Pre-op Diagnosis: ascites Procedure: paracentesis Post-op Diagnosis: same as pre-op Surgeon: Isaiah Franklin Anesthesia: local Specimen: yes - 50 ml fluid sent to lab Complications: none Fluids: none Implant(s) used?: No Jaylon Franklin MD Jan 08, 2019 10:53
--- NOTE | 2019-01-08 10:53 | NUR ---
NURSE NOTES: Waisted 9am meds, pt was p/u to get procedure done earlier. Will pull meds again once pt comes back to unit.
--- NOTE | 2019-01-08 10:59 | Diagnostic Imaging Report ---
Indications: Pleural effusion Technique: Ultrasound used to localize optimal puncture site. Sterile prepping and draping chest. Local anesthesia with 1% lidocaine. Under real-time ultrasound guidance, puncture pleural space using thoracentesis needle. Stylet removed. Catheter placed to vacuum bottle suction. Total 1150 milliliters of fluid aspirated. Aspiration stopped as patient began coughing. Patient tolerated procedure well, without immediate complication. Findings: Followup sonography demonstrates significant residual fluid Impression: Successful ultrasound-guided thoracentesis, yielding 1150 milliliters of fluid. Patient not completely drained, due to patient developed coughing during the drainage
--- NOTE | 2019-01-08 11:14 | Hematology/Onc Progress Note ---
Assessment/Plan Assessment/Plan Assessment and Recs: # Hepatocellular carcinoma has had this for three years and gets treatment at [facility] --> have dw patient need further history and will contact family, have mounika RN, need more history, has been on treatment for the past three years --> f/u with onc at [facility] [place] --> since first time here, obtain ONLY cea, afp --> imaging noted, doesn't need biopsy here --> further imaging if abd pain worsens # PAncytopenia is related to history of liver disease, cirrhosis and cancer --> closely monitor, neupogen given 01/05 x1 --> ANC is >1500 --> meds have been reviewed, on abx --> perp smear has been reviewed, no blasts --> epogen and iron as needed for esrd --> as per renal, hd --> wbc 1.5-->7.7->3 --> plt 33k --> hgb 9 --> transfuse prn basis # Coagulopathy is due to likely cirrhosis --> vit K prn pre any procedure # Hepatic encephalopathy --> lactulose and gi management # HYperblirubinemia due to liver disease --> lactulose and other prn # Pleural effusion --> drain prn, due to hep congestion potentially and chf # ESRD on hd --> per renal # Dvt ppx with scds MOUNIKA RN in am, and appreciate consultation. Subjective Constitutional: Denies: no symptoms, chills, fever, malaise, weakness, other HEENT: Denies: no symptoms, eye pain, blurred vision, tearing, double vision, ear pain, ear discharge, nose pain, nose congestion, throat pain, throat swelling, mouth pain, mouth swelling, other Cardiovascular: Denies: no symptoms, chest pain, edema, irregular heart rate, lightheadedness, palpitations, syncope, other Respiratory: Denies: no symptoms, cough, shortness of breath, SOB with excertion, SOB at rest, sputum, wheezing, other Genitourinary: Denies: no symptoms, burning, discharge, frequency, flank pain, hematuria, incontinence, pain, urgency, other Neurologic/Psychiatric: Denies: no symptoms, anxiety, depressed, emotional problems, headache, numbness, paresthesia, pre-existing deficit, seizure, tingling, tremors, weakness, other Endocrine: Denies: no symptoms, excessive sweating, flushing, intolerance to cold, intolerance to heat, increased hunger, increased thirst, increased urine, unexplained weight gain, unexplained weight loss, other Allergies: Coded Allergies: PENICILLINS (Verified Allergy, Unknown, 01/03/19) Subjective 01/06: no major events, wbc is higher as neupogen was given, no bleeding 01/07: remains sob, decreased breath sounds on right side, no events 01/08: for para and egd, otherwise more talkative today Objective Objective Current Medications Medications (Trade) Dose Ordered Sig/Katie Route PRN Reason Start Time Stop Time Status Last Admin Dose Admin Acetaminophen (Tylenol) 500 mg Q8H PRN ORAL Prn Headache/Temp > 101 01/04/19 16:00 02/03/19 15:59 Cefepime HCl 1 gm/ Dextrose 55 ml @ 110 mls/hr Q24H IVPB 01/04/19 15:00 01/11/19 14:59 01/07/19 16:04 Dextrose/Sodium Chloride 1,000 ml @ 50 mls/hr Q20H IV 01/03/19 10:30 02/02/19 10:29 01/07/19 16:04 Guaifenesin (Robitussin) 100 mg Q4H PRN ORAL For Cough 01/04/19 16:00 02/03/19 15:59 Lactulose (Cephulac) 30 gm QID ORAL 01/05/19 18:00 02/02/19 12:59 01/07/19 22:01 Multivitamins Therapeutic (Therapeutic Multivitamin) 1 ea DAILY ORAL 01/05/19 09:00 02/03/19 10:29 01/07/19 08:36 Pantoprazole (Protonix) 40 mg EVERY 12 HOURS ORAL 01/05/19 21:00 02/04/19 20:59 01/07/19 20:11 Polyethylene Glycol (Miralax) 17 gm BEDTIME ORAL 01/04/19 21:00 02/02/19 20:59 01/04/19 20:56 Potassium Chloride (K-Dur) 40 meq TWICE A DAY ORAL 01/08/19 09:00 02/07/19 08:59 Rifaximin (Xifaxan) 550 mg EVERY 12 HOURS ORAL 11/2/19 21:00 01/10/19 12:59 01/07/19 20:11 Vancomycin HCl (Vanco rx to dose) 1 ea DAILY PRN MISC Per rx protocol 01/04/19 08:30 02/03/19 08:29 Last 24 Hour Vital Signs Date Time Temp Pulse Resp B/P (MAP) Pulse Ox O2 Delivery O2 Flow Rate FiO2 01/08/19 04:00 97.4 81 18 112/63 (79) 96 01/08/19 04:00 78 01/08/19 00:00 98.5 77 18 124/70 (88) 96 01/08/19 00:00 77 01/07/19 21:00 Room Air 01/07/19 20:00 98.2 80 18 122/69 (86) 96 01/07/19 20:00 79 01/07/19 16:00 83 01/07/19 16:00 98.0 87 18 125/66 (85) 99 01/07/19 12:00 98.0 88 20 126/74 (91) 97 01/07/19 12:00 85 01/07/19 09:00 Room Air 01/07/19 08:00 90 01/07/19 08:00 97.8 82 18 131/82 (98) 95 01/07/19 04:00 81 01/07/19 04:00 98.0 82 18 128/67 (87) 95 01/07/19 00:00 80 01/07/19 00:00 98.2 83 18 124/67 (86) 95 01/06/19 21:00 Room Air 01/06/19 20:00 91 01/06/19 20:00 98.2 88 18 126/76 (93) 93 01/06/19 16:00 98.6 83 20 129/72 (91) 94 01/06/19 16:00 82 01/06/19 12:00 72 01/06/19 12:00 98.2 80 20 120/69 (86) 95 Intake and Output 01/07/19 01/08/19 19:00 07:00 Intake Total 240 ml 580 ml Output Total 700 ml 200 ml Balance -460 ml 380 ml Intake Oral 240 ml 80 ml IV Total 500 ml Output Urine Total 700 ml 200 ml # Bowel Movements 2 Labs Test 01/06/19 06:16 01/06/19 11:05 01/07/19 07:15 01/07/19 15:45 White Blood Count 7.7 K/UL (4.8-10.8) 4.9 K/UL (4.8-10.8) Red Blood Count 2.76 M/UL (4.70-6.10) 2.92 M/UL (4.70-6.10) Hemoglobin 9.1 G/DL (14.2-18.0) 9.5 G/DL (14.2-18.0) Hematocrit 27.4 % (42.0-52.0) 29.4 % (42.0-52.0) Mean Corpuscular Volume 99 FL (80-99) 101 FL (80-99) Mean Corpuscular Hemoglobin 32.8 PG (27.0-31.0) 32.6 PG (27.0-31.0) Mean Corpuscular Hemoglobin Concent 33.1 G/DL (32.0-36.0) 32.3 G/DL (32.0-36.0) Red Cell Distribution Width 16.4 % (11.6-14.8) 16.1 % (11.6-14.8) Platelet Count 35 K/UL (150-450) 32 K/UL (150-450) Mean Platelet Volume 6.9 FL (6.5-10.1) 8.0 FL (6.5-10.1) Neutrophils (%) (Auto) % (45.0-75.0) % (45.0-75.0) Lymphocytes (%) (Auto) % (20.0-45.0) % (20.0-45.0) Monocytes (%) (Auto) % (1.0-10.0) % (1.0-10.0) Eosinophils (%) (Auto) % (0.0-3.0) % (0.0-3.0) Basophils (%) (Auto) % (0.0-2.0) % (0.0-2.0) Differential Total Cells Counted 100 100 Neutrophils % (Manual) 90 % (45-75) 88 % (45-75) Lymphocytes % (Manual) 5 % (20-45) 5 % (20-45) Monocytes % (Manual) 3 % (1-10) 3 % (1-10) Eosinophils % (Manual) 2 % (0-3) 4 % (0-3) Basophils % (Manual) 0 % (0-2) 0 % (0-2) Band Neutrophils 0 % (0-8) 0 % (0-8) Platelet Estimate Decreased Decreased Platelet Morphology Normal Normal Anisocytosis 1+ 1+ Sodium Level 139 MMOL/L (136-145) 139 MMOL/L (136-145) Potassium Level 3.6 MMOL/L (3.5-5.1) 3.5 MMOL/L (3.5-5.1) Chloride Level 108 MMOL/L (98-107) 108 MMOL/L (98-107) Carbon Dioxide Level 21 MMOL/L (21-32) 22 MMOL/L (21-32) Anion Gap 10 mmol/L (5-15) 9 mmol/L (5-15) Blood Urea Nitrogen 18 mg/dL (7-18) 19 mg/dL (7-18) Creatinine 1.8 MG/DL (0.55-1.30) 1.9 MG/DL (0.55-1.30) Estimat Glomerular Filtration Rate 38.6 mL/min (>60) 36.2 mL/min (>60) Glucose Level 101 MG/DL (74-106) 105 MG/DL (74-106) Calcium Level 8.1 MG/DL (8.5-10.1) 8.1 MG/DL (8.5-10.1) Phosphorus Level 3.7 MG/DL (2.5-4.9) Magnesium Level 1.7 MG/DL (1.8-2.4) Total Bilirubin 2.1 MG/DL (0.2-1.0) Direct Bilirubin 0.6 MG/DL (0.0-0.3) Gamma Glutamyl Transpeptidase 146 U/L (5-85) Aspartate Amino Transf (AST/SGOT) 54 U/L (15-37) Alanine Aminotransferase (ALT/SGPT) 34 U/L (12-78) Alkaline Phosphatase 190 U/L (46-116) Ammonia 63 umol/L (11-32) Total Protein 6.3 G/DL (6.4-8.2) Albumin 2.0 G/DL (3.4-5.0) Prothrombin Time 15.2 SEC (9.30-11.50) Prothromb Time International Ratio 1.5 (0.9-1.1) Activated Partial Thromboplast Time 41 SEC (23-33) Random Vancomycin Level 11.7 ug/mL Body Fluid Source Pleural Body Fluid Volume 24 mL Body Fluid Appearance Hazy (Clear) Body Fluid RBC 4380 /CUMM Body Fluid Total Nucleated Cells 105 /CUMM Body Fluid Polynuclear WBCs (%) 4 % Body Fluid Mononuclear WBCs (%) 88 % Body Fluid Mesothelial Cells (%) 8 % Test 01/08/19 06:26 White Blood Count 3.3 K/UL (4.8-10.8) Red Blood Count 2.76 M/UL (4.70-6.10) Hemoglobin 9.1 G/DL (14.2-18.0) Hematocrit 27.8 % (42.0-52.0) Mean Corpuscular Volume 101 FL (80-99) Mean Corpuscular Hemoglobin 32.8 PG (27.0-31.0) Mean Corpuscular Hemoglobin Concent 32.6 G/DL (32.0-36.0) Red Cell Distribution Width 15.7 % (11.6-14.8) Platelet Count 33 K/UL (150-450) Mean Platelet Volume 7.8 FL (6.5-10.1) Neutrophils (%) (Auto) % (45.0-75.0) Lymphocytes (%) (Auto) % (20.0-45.0) Monocytes (%) (Auto) % (1.0-10.0) Eosinophils (%) (Auto) % (0.0-3.0) Basophils (%) (Auto) % (0.0-2.0) Differential Total Cells Counted 100 Neutrophils % (Manual) 81 % (45-75) Lymphocytes % (Manual) 9 % (20-45) Monocytes % (Manual) 4 % (1-10) Eosinophils % (Manual) 6 % (0-3) Basophils % (Manual) 0 % (0-2) Band Neutrophils 0 % (0-8) Platelet Estimate Decreased Platelet Morphology Normal Anisocytosis 1+ Prothrombin Time 15.2 SEC (9.30-11.50) Prothromb Time International Ratio 1.5 (0.9-1.1) Sodium Level 142 MMOL/L (136-145) Potassium Level 3.4 MMOL/L (3.5-5.1) Chloride Level 109 MMOL/L (98-107) Carbon Dioxide Level 21 MMOL/L (21-32) Anion Gap 12 mmol/L (5-15) Blood Urea Nitrogen 19 mg/dL (7-18) Creatinine 1.5 MG/DL (0.55-1.30) Estimat Glomerular Filtration Rate 47.6 mL/min (>60) Glucose Level 103 MG/DL (74-106) Calcium Level 8.4 MG/DL (8.5-10.1) Phosphorus Level 3.2 MG/DL (2.5-4.9) Magnesium Level 1.7 MG/DL (1.8-2.4) Total Bilirubin 2.0 MG/DL (0.2-1.0) Direct Bilirubin 0.6 MG/DL (0.0-0.3) Aspartate Amino Transf (AST/SGOT) 52 U/L (15-37) Alanine Aminotransferase (ALT/SGPT) 35 U/L (12-78) Alkaline Phosphatase 233 U/L (46-116) Ammonia 36 umol/L (11-32) C-Reactive Protein, Quantitative 1.4 mg/dL (0.00-0.90) Pro-B-Type Natriuretic Peptide 812 pg/mL (0-125) Total Protein 6.8 G/DL (6.4-8.2) Albumin 2.5 G/DL (3.4-5.0) Globulin 4.3 g/dL Albumin/Globulin Ratio 0.6 (1.0-2.7) Micro Microbiology Date/Time Source Procedure Growth Status 01/07/19 15:45 Thoracic Fluid Gram Stain - Final Resulted 01/07/19 15:45 Thoracic Fluid Body Fluid Culture - Preliminary Resulted Height (Feet): 5 Height (Inches): 7.00 Weight (Pounds): 153 Objective Physical Exam Vitals: reviewed General Appearance: today more comfortable Neck: supple Respiratory: lungs clear,Right side decreased breath sounds Cardiovascular: RRR, no mgr Gastrointestinal: non tender, soft, other ++ Umbilical hernia mild abdominal distention Neurologic: II-XII intact grossly Lymphatic: no adenopathy noted Damion Brown MD Jan 08, 2019 11:14
[2019-01-08] MEDS ORDERED: Propofol 200mg/20ml IV ONE (11:30)
--- NOTE | 2019-01-08 11:38 | Pre-Procedure Note/Attestation ---
Pre-Procedure Note/Attestation Complete Prior to Procedure Planned Procedure: not applicable Procedure Narrative: egd Indications for Procedure Pre-Operative Diagnosis: cirrhosis Attestation I attest that I discussed the nature of the procedure; its benefits; risks and complications; and alternatives (and the risks and benefits of such alternatives ), prior to the procedure, with the patient (or the patient's legal financial services representative). I attest that, if there was a reasonable possibility of needing a blood transfusion, the patient (or the patient's legal financial services representative) was given the [facility] standardized written summary, pursuant to the Aleksandr Sandy Blood Safety Act ([place] Health and Safety Code # 1645, as amended). I attest that I re-evaluated the patient just prior to the surgery and that there has been no change in the patient's H&P, except as documented below: José Michael MD Jan 08, 2019 11:38
[2019-01-08] MEDS ORDERED: NS 500ML IVPB ONE (11:40)
--- NOTE | 2019-01-08 12:01 | Immediate Post-Op Evaluation ---
Immediate Post-Op Evalulation Immediate Post-Op Evalulation Procedure: EGD with Bx Date of Evaluation: Jan 08, 2019 Time of Evaluation: 12:00 IV Fluids: 200 Blood Products: none Estimated Blood Loss: none Urinary Output: none Blood Pressure Systolic: 118 Blood Pressure Diastolic: 72 Pulse Rate: 76 Respiratory Rate: 18 O2 Sat by Pulse Oximetry: 98 Temperature (Fahrenheit): 97.8 Pain Score (1-10): 1 Nausea: No Vomiting: No Complications none Patient Status: reacts, patent, none Hydration Status: adequate Adeel Turk MD Jan 08, 2019 12:01
[2019-01-08] MEDS: Multivitamin w/Minerals tab ORAL SCH (13:04)
--- NOTE | 2019-01-08 13:05 | NUR ---
NURSE NOTES: pt. is back from procedure. Pt is alert and oriented and talking. Meds were given, second bag of Mg will be started once 1st is finished. 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
[2019-01-08] MEDS: D5NS 1,000 ML IV SCH ×2 (13:06→17:05)
--- NOTE | 2019-01-08 13:31 | Diagnostic Imaging Report ---
Indications: Ascites Technique: Ultrasound used to localize optimal puncture site. Sterile prepping and draping . Local anesthesia with 1% lidocaine. Under real-time ultrasound guidance, puncture peritoneal space using paracentesis needle. Stylet removed. Catheter placed to vacuum bottle suction. Total 2.5 liters of fluid aspirated. Patient tolerated procedure well, without immediate complication. Findings: Followup sonography demonstrates near complete resolution of peritoneal fluid. Impression: Successful ultrasound-guided paracentesis, yielding 2.5 liters of clear yellow fluid
--- NOTE | 2019-01-08 14:53 | Infectious Diseases Prog Note ---
Assessment/Plan Problems: (1) Bacteremia due to Gram-positive bacteria Assessment & Plan: ruled out with culture grew only staph hominis , suspect contaminants , already on vancomycin and cefepime to cover for pneumonia (2) Pancytopenia Assessment & Plan: suspect bone marrow suppression from advanced liver cirrhosis, had filgrastim injection which improved his WBC, continue cefepime and vancomycin to cover for possible pneumonia , hematology is following (3) Pleural effusion Assessment & Plan: massive on the right side with possible underlying pneumonia , S/P thoracentesis , recommend fluids to be sent for cell counts, culture, gram stain, fungal and AFB with cytology. already on wide spectrum antibiotics (4) ESRD (end stage renal disease) Assessment & Plan: resume HD as per renal (5) Hepatic encephalopathy Assessment & Plan: with elevated ammonia level, on lactulose , monitor closely ammonia level (6) Liver nodule Assessment & Plan: on the right lobe, rule out HCC, recommend tumor markers and oncology eval for possible biopsy (7) Liver cirrhosis Assessment & Plan: advanced, with poor prognosis , GI is following Subjective Constitutional: Reports: fatigue HEENT: Reports: no symptoms Respiratory: Reports: dry cough Breasts: Reports: no symptoms Cardiovascular: Reports: no symptoms Gastrointestinal/Abdominal: Reports: bloating Genitourinary: Reports: no symptoms Neurologic: Reports: weakness Psychiatric: Reports: no symptoms Skin: Reports: no symptoms Endocrine: Reports: no symptoms Hematologic: Reports: no symptoms Musculoskeletal: Reports: no symptoms Allergies: Coded Allergies: PENICILLINS (Verified Allergy, Unknown, 01/03/19) Objective Vital Signs Last 24 Hour Vital Signs Date Time Temp Pulse Resp B/P (MAP) Pulse Ox O2 Delivery O2 Flow Rate FiO2 01/08/19 12:15 98.0 77 21 121/76 100 Nasal Cannula 3 01/08/19 12:10 73 20 130/72 100 Nasal Cannula 3 01/08/19 12:05 76 16 118/70 100 Nasal Cannula 3 01/08/19 12:01 76 18 98 01/08/19 12:00 97.8 79 14 124/72 100 Nasal Cannula 3 01/08/19 04:00 97.4 81 18 112/63 (79) 96 01/08/19 04:00 78 01/08/19 00:00 98.5 77 18 124/70 (88) 96 01/08/19 00:00 77 01/07/19 21:00 Room Air 01/07/19 20:00 98.2 80 18 122/69 (86) 96 01/07/19 20:00 79 01/07/19 16:00 83 01/07/19 16:00 98.0 87 18 125/66 (85) 99 Height (Feet): 5 Height (Inches): 7.00 Weight (Pounds): 153 General Appearance: no acute distress, cachetic HEENT: normocephalic, atraumatic, anicteric, mucous membranes moist, PERRL Respiratory/Chest: chest wall non-tender, lungs clear, normal breath sounds, no respiratory distress, no accessory muscle use Cardiovascular: normal peripheral pulses, normal rate, regular rhythm, no gallop/murmur, no JVD Abdomen: normal bowel sounds, soft, non tender, no organomegaly, non distended , no mass, no scars Genitourinary: normal external genitalia Extremities: no cyanosis, no clubbing Skin: no rash, no lesions, no ulcers 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, alert, responsive Lymphatic: no neck adenopathy, no groin adenopathy Musculoskeletal: normal muscle bulk, no effusion Microbiology Date/Time Source Procedure Growth Status 01/07/19 15:45 Thoracic Fluid Gram Stain - Final Resulted 01/07/19 15:45 Thoracic Fluid Body Fluid Culture - Preliminary Resulted Laboratory Tests Test 01/07/19 15:45 01/08/19 06:26 Body Fluid Source Pleural Body Fluid Volume 24 mL Body Fluid Appearance Hazy (Clear) Body Fluid RBC 4380 /CUMM Body Fluid Total Nucleated Cells 105 /CUMM Body Fluid Polynuclear WBCs (%) 4 % Body Fluid Mononuclear WBCs (%) 88 % Body Fluid Mesothelial Cells (%) 8 % Body Fluid Glucose 124 mg/dL (.) Body Fluid Total Protein 2.0 g/dL (.) Body Fluid Lactate Dehydrogenase 98 IU/L (.) White Blood Count 3.3 K/UL (4.8-10.8) L Red Blood Count 2.76 M/UL (4.70-6.10) L Hemoglobin 9.1 G/DL (14.2-18.0) L Hematocrit 27.8 % (42.0-52.0) L Mean Corpuscular Volume 101 FL (80-99) H Mean Corpuscular Hemoglobin 32.8 PG (27.0-31.0) H Mean Corpuscular Hemoglobin Concent 32.6 G/DL (32.0-36.0) Red Cell Distribution Width 15.7 % (11.6-14.8) H Platelet Count 33 K/UL (150-450) L Mean Platelet Volume 7.8 FL (6.5-10.1) Neutrophils (%) (Auto) % (45.0-75.0) Lymphocytes (%) (Auto) % (20.0-45.0) Monocytes (%) (Auto) % (1.0-10.0) Eosinophils (%) (Auto) % (0.0-3.0) Basophils (%) (Auto) % (0.0-2.0) Differential Total Cells Counted 100 Neutrophils % (Manual) 81 % (45-75) H Lymphocytes % (Manual) 9 % (20-45) L Monocytes % (Manual) 4 % (1-10) Eosinophils % (Manual) 6 % (0-3) H Basophils % (Manual) 0 % (0-2) Band Neutrophils 0 % (0-8) Platelet Estimate Decreased L Platelet Morphology Normal Anisocytosis 1+ Prothrombin Time 15.2 SEC (9.30-11.50) H Prothromb Time International Ratio 1.5 (0.9-1.1) H Sodium Level 142 MMOL/L (136-145) Potassium Level 3.4 MMOL/L (3.5-5.1) L Chloride Level 109 MMOL/L (98-107) H Carbon Dioxide Level 21 MMOL/L (21-32) Anion Gap 12 mmol/L (5-15) Blood Urea Nitrogen 19 mg/dL (7-18) H Creatinine 1.5 MG/DL (0.55-1.30) H Estimat Glomerular Filtration Rate 47.6 mL/min (>60) Glucose Level 103 MG/DL (74-106) Calcium Level 8.4 MG/DL (8.5-10.1) L Phosphorus Level 3.2 MG/DL (2.5-4.9) Magnesium Level 1.7 MG/DL (1.8-2.4) L Total Bilirubin 2.0 MG/DL (0.2-1.0) H Direct Bilirubin 0.6 MG/DL (0.0-0.3) H Aspartate Amino Transf (AST/SGOT) 52 U/L (15-37) H Alanine Aminotransferase (ALT/SGPT) 35 U/L (12-78) Alkaline Phosphatase 233 U/L (46-116) H Ammonia 36 umol/L (11-32) H C-Reactive Protein, Quantitative 1.4 mg/dL (0.00-0.90) H Pro-B-Type Natriuretic Peptide 812 pg/mL (0-125) H Total Protein 6.8 G/DL (6.4-8.2) Albumin 2.5 G/DL (3.4-5.0) L Globulin 4.3 g/dL Albumin/Globulin Ratio 0.6 (1.0-2.7) L Current Medications Medications (Trade) Dose Ordered Sig/Katie Route PRN Reason Start Time Stop Time Status Last Admin Dose Admin Acetaminophen (Tylenol) 500 mg Q8H PRN ORAL Prn Headache/Temp > 101 01/04/19 16:00 02/03/19 15:59 Cefepime HCl 1 gm/ Dextrose 55 ml @ 110 mls/hr Q24H IVPB 01/04/19 15:00 01/11/19 14:59 01/07/19 16:04 Dextrose/Sodium Chloride 1,000 ml @ 50 mls/hr Q20H IV 01/03/19 10:30 02/02/19 10:29 01/08/19 13:06 Guaifenesin (Robitussin) 100 mg Q4H PRN ORAL For Cough 01/04/19 16:00 02/03/19 15:59 Lactulose (Cephulac) 30 gm QID ORAL 01/05/19 18:00 02/02/19 12:59 01/08/19 13:10 Multivitamins Therapeutic (Therapeutic Multivitamin) 1 ea DAILY ORAL 01/05/19 09:00 02/03/19 10:29 01/08/19 13:04 Pantoprazole (Protonix) 40 mg EVERY 12 HOURS ORAL 01/05/19 21:00 02/04/19 20:59 01/08/19 13:05 Polyethylene Glycol (Miralax) 17 gm BEDTIME ORAL 01/04/19 21:00 02/02/19 20:59 01/04/19 20:56 Potassium Chloride (K-Dur) 40 meq TWICE A DAY ORAL 01/08/19 09:00 02/07/19 08:59 01/08/19 13:08 Rifaximin (Xifaxan) 550 mg EVERY 12 HOURS ORAL 01/04/19 21:00 01/10/19 12:59 01/08/19 13:05 Vancomycin HCl (Vanco rx to dose) 1 ea DAILY PRN MISC Per rx protocol 01/04/19 08:30 02/03/19 08:29 Sudeep Mcclain M.D. Jan 08, 2019 14:53
[2019-01-08] MEDS ORDERED: guaiFENesin 100mg/5ml Liq ud ORAL PRN (16:00)
--- NOTE | 2019-01-08 16:11 | NUR ---
NURSE NOTES: I received report from DWIGHT Shoemaker; Patient awake, alert x4, room air, no sing of distress and shortness of breath; no sing of chest pain; IV Right For-Arm 22G D5NS 50cc running; Right For-Arm 22G flushes well; wound picture taken on sacral, picture uploaded and wound care provided; there is skin tear on Left Hand, picture taken and covered with Optifoam; Abdomen ascites and hernia; side rails up x3, breaks engaged, bed at lowest position, bed alarm on; urinal within reach; belonging list signed by transferring and receiving nurse; also received bag of Cefepime 1gm; MD Michael gave order to Tele nurseSahara to resume Renal Diet, soft easy chew, order carried out; will keep monitoring,
--- NOTE | 2019-01-08 16:18 | NUR ---
NURSE NOTES: Transferred pt to Med surge report given to Roberta/ RN. Pt off personnel monitor. Pt alert and oriented and is with him. Belonging sheet was reviewed with RN. Pt Iphone is staying with pt starting today. Bed is locked and in lowest position. Call light is within reach
--- NOTE | 2019-01-08 17:15 | Procedure Note ---
DATE OF PROCEDURE: 01/08/2019 SURGEON: José Michael M.D. REFERRING PHYSICIAN: Rosaura oHffman M.D. PROCEDURE: Upper endoscopy with biopsy. ANESTHESIA: Per Adeel Turk M.D. INSTRUMENT: Olympus adult flexible upper endoscope. INDICATION: Cirrhosis. The procedure, risks, benefits, and possible consequences, including hemorrhage, aspiration, perforation and infection, and alternative treatments, were explained to the patient/legal guardian by Dr. José Michael and the patient/legal guardian understood and accepted these risks. PROCEDURE IN DETAIL: After informed consent was obtained and the patient was adequately sedated, Olympus upper endoscope was advanced from the mouth to the second portion of the duodenum and retroflexion was performed in the stomach. The patient had 1 or 2 columns of grade 1/max grade 2 distal esophageal varices without any stigmata, not amenable to banding. No evidence of any gastric varices. In the stomach, there was evidence of moderate portal hypertensive gastropathy. Biopsy from body was obtained. The rest of the examination grossly looked within normal limits. The patient tolerated the procedure very well without any complication. SUMMARY OF FINDINGS: 1. Small esophageal varices, not big enough to be banded. 2. Portal hypertensive gastropathy. RECOMMENDATIONS: Follow up pathology and treat accordingly. Resume diet. Follow labs. Discharge planning per primary team. I want to thank Dr. Hoffman for this kind referral. José Michael M.D. DR: Lupe JOB#: [id number] CC: Rosaura Hoffman M.D.; Fax#: [phone]
--- NOTE | 2019-01-08 19:27 | NUR ---
HAND-OFF: Report given to Jhonny Reddy RN.
--- NOTE | 2019-01-08 19:56 | NUR ---
CASE MANAGEMENT: REVIEW SI: ENCEPHALOPATHY . ANEMIA . LIVER CIRRHOSIS EGD w/BIOPSY 01/08 T 97.8 HR 79 RR 14 BP 124/72 SAT 100% NC/3L WBC 3.3 H/H 9.1/27.8 IS: CEFEPIME IV Q24HR PROTONIX PO Q12HR RIFAXIMIN PO Q12HR LACTULOSE PO QID K-DUR 40MEQ PO D5 NS IVF @ 50ML/HR MED/SURG UNIT STATUS DCP: PATIENT IS FROM HOME
[2019-01-08] MEDS ORDERED: Miralax 17gm pkt ORAL SCH (21:00)
--- NOTE | 2019-01-08 21:49 | Pulmonology Progress Note ---
Assessment/Plan Assessment/Plan Pulmonary Progress Note HPI: The patient has a history of cirrhosis, pancytopenia, and ESRD dialysis dependent, recently admitted to [facility], who came in with paramedics with altered mental status. When the patient was first seen, he was grimacing, but now he is awake and alert. A CT of the head did not show any acute process, and as I said the patient had pancytopenia, elevated ammonia and was admitted for further management of renal failure and hepatic encephalopathy. Since presenting to the hospital, the patient has been afebrile with stable vital signs and saturating well on room air. He had pancytopenia as stated and evidence of elevated ammonia consistent with hepatic encephalopathy. Toxicology screen was negative. Hepatitis and HIV serologies are all pending. Blood culture from the first actually grew gram-positive cocci. The patient is being treated with broad spectrum antimicrobials. A chest x-ray done in the ER showed a massive right effusion as I said with edema and no other findings. Tunnel catheter was noted. Abdominal ultrasound showed evidence of cirrhosis with hepatic surface nodularity and gallbladder wall thickening, bilateral effusions, as I stated. Duplex ultrasound of the lower extremities was negative. Echocardiogram was done, the EF of 60% to 65%, small posterior pericardial effusion, mild mitral enlargement, normal chamber sizes, IVC collapsible and evidence of pulmonary hypertension as well. PAST MEDICAL HISTORY: Not entirely known, but definitely history of cirrhosis, hepatocellular carcinoma, hepatic encephalopathy, pancytopenia, end-stage renal disease on dialysis, known liver nodule and hepatic encephalopathy. PAST SURGICAL HISTORY: Unknown. SOCIAL HISTORY: No known history of tobacco, alcohol, or drug use. FAMILY HISTORY: Noncontributory. REVIEW OF SYSTEMS: Negative other than history of present illness. PHYSICAL EXAMINATION: VITAL SIGNS NOTED: GENERAL: The patient is well developed, well nourished, in no acute distress. Awake, alert, and oriented x3. HEENT: Normocephalic and atraumatic. Scleral icterus is noted. NECK: Supple without lymphadenopathy. CHEST: Decreased breath sounds on the right. Normal breath sounds on the left. HEART: Regular rate and rhythm. PermCath noted. ABDOMEN: Soft, nontender, and nondistended. EXTREMITIES: No cyanosis, clubbing, or edema. ANCILLARY DATA: Labs reviewed. ASSESSMENT: The patient is a 63-year-old male with a history of end-stage renal disease on dialysis, cirrhosis, questionable history of hepatocellular carcinoma in the past, and pancytopenia, now presenting with altered mental status and gram-positive cocci bacteremia, noted to have complete opacification of the right hemithorax. He is being worked up by GI and treated for hepatic encephalopathy. We will obtain a thoracentesis. I would like to scan his chest afterwards to assess for lung expansion and underlying parenchymal lung disease. PROBLEM LIST: 1. Large right-sided pleural effusion - improved s/p Thoracentesis 2. Gram-positive bacteremia. 3. Pancytopenia. 4. End-stage renal disease, on dialysis. 5. Cirrhosis. 6. Hepatic encephalopathy. 7. History of hepatocellular carcinoma in the past. 8. Protein-calorie malnutrition. PLAN: 1. Await thoracentesis results 2. We will consider imaging of the chest afterwards. 3. Management of hepatic encephalopathy per GI. 4. Continue antibiotics per ID, follow up cultures. 5. Monitor volumes and renal function. Dialysis per Renal with ultrafiltration as able. 6. DVT prophylaxis, SCDs. 7. Aspiration precautions. 8. The patient is a Full Code. Subjective ROS Limited/Unobtainable: No Allergies: Coded Allergies: PENICILLINS (Verified Allergy, Unknown, 01/03/19) Objective Last 24 Hour Vital Signs Date Time Temp Pulse Resp B/P (MAP) Pulse Ox O2 Delivery O2 Flow Rate FiO2 01/08/19 16:00 98.2 70 19 120/61 (80) 95 01/08/19 12:15 98.0 77 21 121/76 100 Nasal Cannula 3 01/08/19 12:10 73 20 130/72 100 Nasal Cannula 3 01/08/19 12:05 76 16 118/70 100 Nasal Cannula 3 01/08/19 12:01 76 18 98 01/08/19 12:00 97.8 79 14 124/72 100 Nasal Cannula 3 01/08/19 09:00 Room Air 01/08/19 08:00 76 01/08/19 04:00 97.4 81 18 112/63 (79) 96 01/08/19 04:00 78 01/08/19 00:00 98.5 77 18 124/70 (88) 96 01/08/19 00:00 77 Intake and Output 01/07/19 01/08/19 19:00 07:00 Intake Total 240 ml 580 ml Output Total 700 ml 200 ml Balance -460 ml 380 ml Intake Oral 240 ml 80 ml IV Total 500 ml Output Urine Total 700 ml 200 ml # Bowel Movements 2 Microbiology Date/Time Source Procedure Growth Status 01/07/19 15:45 Thoracic Fluid Gram Stain - Final Resulted 01/07/19 15:45 Thoracic Fluid Body Fluid Culture - Preliminary Resulted Laboratory Tests 01/08/19 06:26: White Blood Count 3.3L, Red Blood Count 2.76L, Hemoglobin 9.1L, Hematocrit 27.8L , Mean Corpuscular Volume 101H, Mean Corpuscular Hemoglobin 32.8H, Mean Corpuscular Hemoglobin Concent 32.6, Red Cell Distribution Width 15.7H, Platelet Count 33L, Mean Platelet Volume 7.8, Neutrophils (%) (Auto) , Lymphocytes (%) (Auto) , Monocytes (%) (Auto) , Eosinophils (%) (Auto) , Basophils (%) (Auto) , Differential Total Cells Counted 100, Neutrophils % ( Manual) 81H, Lymphocytes % (Manual) 9L, Monocytes % (Manual) 4, Eosinophils % ( Manual) 6H, Basophils % (Manual) 0, Band Neutrophils 0, Platelet Estimate DecreasedL, Platelet Morphology Normal, Anisocytosis 1+, Prothrombin Time 15.2H , Prothromb Time International Ratio 1.5H, Sodium Level 142, Potassium Level 3.4L, Chloride Level 109H, Carbon Dioxide Level 21, Anion Gap 12, Blood Urea Nitrogen 19H, Creatinine 1.5H, Estimat Glomerular Filtration Rate 47.6, Glucose Level 103, Calcium Level 8.4L, Phosphorus Level 3.2, Magnesium Level 1.7L, Total Bilirubin 2.0H, Direct Bilirubin 0.6H, Aspartate Amino Transf (AST/SGOT) 52H, Alanine Aminotransferase (ALT/SGPT) 35, Alkaline Phosphatase 233H, Ammonia 36H, C-Reactive Protein, Quantitative 1.4H, Pro-B-Type Natriuretic Peptide 812H , Total Protein 6.8, Albumin 2.5L, Globulin 4.3, Albumin/Globulin Ratio 0.6L Current Medications Medications (Trade) Dose Ordered Sig/Katie Route PRN Reason Start Time Stop Time Status Last Admin Dose Admin Acetaminophen (Tylenol) 500 mg Q8H PRN ORAL Prn Headache/Temp > 101 01/09/19 00:00 02/03/19 15:59 Cefepime HCl 1 gm/ Dextrose 55 ml @ 110 mls/hr Q24H IVPB 01/09/19 15:00 01/11/19 14:59 Dextrose/Sodium Chloride 1,000 ml @ 50 mls/hr Q20H IV 01/08/19 16:15 02/02/19 10:29 01/08/19 17:05 Guaifenesin (Robitussin) 100 mg Q4H PRN ORAL For Cough 01/08/19 16:00 02/03/19 15:59 Lactulose (Cephulac) 30 gm QID ORAL 01/08/19 18:00 02/02/19 12:59 01/08/19 17:04 Multivitamins Therapeutic (Therapeutic Multivitamin) 1 ea DAILY ORAL 01/09/19 09:00 02/08/19 08:59 Pantoprazole (Protonix) 40 mg EVERY 12 HOURS ORAL 01/08/19 21:00 02/04/19 20:59 01/08/19 20:56 Polyethylene Glycol (Miralax) 17 gm BEDTIME ORAL 01/08/19 21:00 02/02/19 20:59 01/08/19 20:55 Potassium Chloride (K-Dur) 40 meq TWICE A DAY ORAL 01/08/19 18:00 02/07/19 08:59 01/08/19 17:05 Rifaximin (Xifaxan) 550 mg EVERY 12 HOURS ORAL 01/08/19 21:00 01/10/19 20:59 01/08/19 20:56 Vancomycin HCl (Vanco rx to dose) 1 ea DAILY PRN MISC Per rx protocol 01/09/19 09:00 02/03/19 08:29 Claudio Araiza MD Jan 08, 2019 21:48
[2019-01-09] VITALS: BP 117/67
[2019-01-09] MEDS ORDERED: Acetaminophen 500mg (ES) tab ORAL PRN
[2019-01-09 04:00] VITALS: BP 143/70
[2019-01-09 06:17] LABS: HEMATOCRIT 29.5 % (42.0-52.0); HEMOGLOBIN 9.5 G/DL (14.2-18.0); MEAN CORPUSCULAR VOLUME 100 FL (80-99); PLATELET COUNT 44 K/UL (150-450); RED BLOOD COUNT 2.95 M/UL (4.70-6.10); RED CELL DISTRIBUTION WIDTH 15.4 % (11.6-14.8); WHITE BLOOD COUNT 2.6 K/UL (4.8-10.8)
--- NOTE | 2019-01-09 07:50 | NUR ---
HAND-OFF: Report given to Cherelle QUINTANILLA.
[2019-01-09 08:00] VITALS: BP 124/75
--- NOTE | 2019-01-09 08:04 | NUR ---
NURSE NOTES: received report from DWIGHT Ferrara. patient in bed, alert. oriented. verbally responsive in turkish. no respiratory distress noted. no c/o pain at this time. IV RFA 22 running fluid @60/hr. RUC perma cath for HD. dry and clean. intact. no isolation. ambulatory with assist. informed patient to call nursing staff for assist. bed in the lowest position. call light within reach. will continue to provide plan of care.
[2019-01-09] MEDS ORDERED: Multivitamin w/Minerals tab ORAL SCH (09:00)
[2019-01-09] MEDS: Lactulose 20gm/30ml UDC ORAL SCH ×2 (09:03→12:29)
[2019-01-09] MEDS ORDERED: LACTULOSE20 GM/301 ORAL (09:42)
[2019-01-09] MEDS ORDERED: K-TAB ER20 MEQ ORAL (09:42)
--- NOTE | 2019-01-09 09:43 | General Progress Note ---
Assessment/Plan Status: progressing Assessment/Plan: S: I am feeling better O: at the bed side. Complains of mild abd pain Interpretation: reviewed, normal General Appearance: other - Patient has significant decreased response grimaces to physical stimuli otherwise nonverbal Head: normocephalic, atraumatic Eyes: bilateral eye PERRL ENT: normal pharynx, no angioedema Neck: supple Respiratory: lungs clear, no respiratory distress, no retraction Cardiovascular #1: regular rate, rhythm Gastrointestinal: non tender, soft, other - Umbilical hernia mild abdominal distention Musculoskeletal: other - Difficult to assess patient is not awake does not follow commands Neurologic: other - Significantly decreased GCS does not open eyes minimal response to physical stimuli Skin: no rash Lymphatic: no adenopathy Meds and Labs: dated Jan 08 reviewed Assessment: 1- Acute encephalopathy: resolved 2- Pancytopenia 3- HCC 4- Cirhosis 5- Immunocompromised 6- ESRDx HD 7. Multiple medi al problems with Life expectency less than 6 months Plan: Palliative care is consulted once clear by ID, ok to DC today Subjective Allergies: Coded Allergies: PENICILLINS (Verified Allergy, Unknown, 01/03/19) Objective Last 24 Hour Vital Signs Date Time Temp Pulse Resp B/P (MAP) Pulse Ox O2 Delivery O2 Flow Rate FiO2 01/09/19 08:00 97.9 83 17 124/75 (91) 98 01/09/19 04:00 98.2 94 19 143/70 (94) 100 01/09/19 00:00 98.1 76 19 117/67 (84) 99 01/08/19 21:00 Room Air 01/08/19 20:00 98.1 76 19 121/69 (86) 97 01/08/19 16:00 98.2 70 19 120/61 (80) 95 01/08/19 12:15 98.0 77 21 121/76 100 Nasal Cannula 3 01/08/19 12:10 73 20 130/72 100 Nasal Cannula 3 01/08/19 12:05 76 16 118/70 100 Nasal Cannula 3 01/08/19 12:01 76 18 98 01/08/19 12:00 97.8 79 14 124/72 100 Nasal Cannula 3 Intake and Output 01/08/19 01/09/19 18:59 06:59 Intake Total 300 ml 730 ml Output Total 200 ml Balance 300 ml 530 ml Intake Oral 80 ml IV Total 300 ml 650 ml Output Urine Total 200 ml # Voids 2 # Bowel Movements 2 Laboratory Tests 01/09/19 05:05: White Blood Count 2.6L, Red Blood Count 2.95L, Hemoglobin 9.5L, Hematocrit 29.5L , Mean Corpuscular Volume 100H, Mean Corpuscular Hemoglobin 32.4H, Mean Corpuscular Hemoglobin Concent 32.3, Red Cell Distribution Width 15.4H, Platelet Count 44L, Mean Platelet Volume 9.9, Neutrophils (%) (Auto) , Lymphocytes (%) (Auto) , Monocytes (%) (Auto) , Eosinophils (%) (Auto) , Basophils (%) (Auto) , Differential Total Cells Counted 100, Neutrophils % ( Manual) 74, Lymphocytes % (Manual) 14L, Monocytes % (Manual) 6, Eosinophils % ( Manual) 5H, Basophils % (Manual) 1, Band Neutrophils 0, Platelet Estimate DecreasedL, Platelet Morphology Normal, Hypochromasia 2+, Anisocytosis 1+, Spherocytes 1+, Random Vancomycin Level 19.2 Height (Feet): 5 Height (Inches): 7.00 Weight (Pounds): 156 Rosaura Hoffman MD Jan 09, 2019 09:43
[2019-01-09] MEDS ORDERED: Vancomycin 750mg/D5W 275ml IVPB SCH ×2 (10:00)
--- NOTE | 2019-01-09 10:07 | Nephrology Progress Note ---
Assessment/Plan Problem List: (1) Liver nodule Assessment: h/o hepatocellular ca (2) Hepatic encephalopathy (3) Renal failure (4) Pleural effusion (5) Pancytopenia Assessment ESRD Liver Disease, nature? Hepatic encephalopathy Leukopenia Pleural effusion massive right Plan to med surg due paracenthesis [place] lower on lactulose K supplement as needed taking PO well Dialysis as needed, not needed since admission per orders Pleural tap?? Subjective ROS Limited/Unobtainable: No Constitutional: Reports: malaise Objective Objective Last 24 Hour Vital Signs Date Time Temp Pulse Resp B/P (MAP) Pulse Ox O2 Delivery O2 Flow Rate FiO2 01/09/19 08:00 97.9 83 17 124/75 (91) 98 01/09/19 04:00 98.2 94 19 143/70 (94) 100 01/09/19 00:00 98.1 76 19 117/67 (84) 99 01/08/19 21:00 Room Air 01/08/19 20:00 98.1 76 19 121/69 (86) 97 01/08/19 16:00 98.2 70 19 120/61 (80) 95 01/08/19 12:15 98.0 77 21 121/76 100 Nasal Cannula 3 01/08/19 12:10 73 20 130/72 100 Nasal Cannula 3 01/08/19 12:05 76 16 118/70 100 Nasal Cannula 3 01/08/19 12:01 76 18 98 01/08/19 12:00 97.8 79 14 124/72 100 Nasal Cannula 3 Intake and Output 01/08/19 01/09/19 18:59 06:59 Intake Total 300 ml 730 ml Output Total 200 ml Balance 300 ml 530 ml Intake Oral 80 ml IV Total 300 ml 650 ml Output Urine Total 200 ml # Voids 2 # Bowel Movements 2 Laboratory Tests 01/09/19 05:05: White Blood Count 2.6L, Red Blood Count 2.95L, Hemoglobin 9.5L, Hematocrit 29.5L , Mean Corpuscular Volume 100H, Mean Corpuscular Hemoglobin 32.4H, Mean Corpuscular Hemoglobin Concent 32.3, Red Cell Distribution Width 15.4H, Platelet Count 44L, Mean Platelet Volume 9.9, Neutrophils (%) (Auto) , Lymphocytes (%) (Auto) , Monocytes (%) (Auto) , Eosinophils (%) (Auto) , Basophils (%) (Auto) , Differential Total Cells Counted 100, Neutrophils % ( Manual) 74, Lymphocytes % (Manual) 14L, Monocytes % (Manual) 6, Eosinophils % ( Manual) 5H, Basophils % (Manual) 1, Band Neutrophils 0, Platelet Estimate DecreasedL, Platelet Morphology Normal, Hypochromasia 2+, Anisocytosis 1+, Spherocytes 1+, Random Vancomycin Level 19.2 Height (Feet): 5 Height (Inches): 7.00 Weight (Pounds): 156 General Appearance: no apparent distress Objective no change Dg Ennis MD Jan 09, 2019 10:07
--- NOTE | 2019-01-09 10:12 | 48 Hour Post Anesthesia Eval ---
Post Anesthesia Evaluation Procedure: EGD with Bx Date of Evaluation: Jan 09, 2019 Time of Evaluation: 10:11 Blood Pressure Systolic: 126 0: 72 Pulse Rate: 68 Respiratory Rate: 20 Temperature (Fahrenheit): 97.6 O2 Sat by Pulse Oximetry: 98 Airway: patent Nausea: No Vomiting: No Pain Intensity: 1 Hydration Status: adequate Cardiopulmonary Status: stable Mental Status/LOC: patient returned to baseline Follow-up Care/Observations: n/a Post-Anesthesia Complications: none Follow-up care needed: N/A Adeel Turk MD Jan 09, 2019 10:12
--- NOTE | 2019-01-09 10:30 | NUR ---
NURSE NOTES: Dr. Hoffman ordered discharge if the patient is cleared by ID. Notified Dr. Mcclain. will see the patient in the afternoon. The patient is aware and his at the bedside.
--- NOTE | 2019-01-09 11:14 | Pulmonology Progress Note ---
Assessment/Plan Problems: (1) Pancytopenia (2) Pleural effusion (3) Hepatic encephalopathy (4) Renal failure (5) ESRD (end stage renal disease) (6) Liver cirrhosis (7) Liver nodule (8) Bacteremia due to Gram-positive bacteria Assessment/Plan ASSESSMENT: The patient is a 63-year-old male with a history of end-stage renal disease on dialysis, cirrhosis, questionable history of hepatocellular carcinoma in the past, and pancytopenia, now presenting with altered mental status and gram-positive cocci bacteremia, noted to have complete opacification of the right hemithorax. He is being worked up by GI and treated for hepatic encephalopathy. We will obtain a thoracentesis. I would like to scan his chest afterwards to assess for lung expansion and underlying parenchymal lung disease. PROBLEM LIST: 1. Large right-sided pleural effusion S/P 1150 thora 01/08 without sig lung re- expansion 2. Gram-positive bacteremia. 3. Pancytopenia. 4. End-stage renal disease, on dialysis. 5. Cirrhosis. 6. Hepatic encephalopathy. 7. History of hepatocellular carcinoma in the past. 8. Protein-calorie malnutrition. TREATMENT PLAN: 1. Monitor effusion, hold off on further drainage given overall stability and GOC 2. Monitor for respiratory distress 3. Management of hepatic encephalopathy per GI. 4. Continue antibiotics per ID, follow up cultures. 5. Monitor volumes and renal function. Dialysis per Renal with ultrafiltration as able. 6. DVT prophylaxis, SCDs. 7. Aspiration precautions. 8. The patient is a Full Code ----> continue to discuss GOC, consider DNAR as patient considering hospice I discussed the case with the patient and his family via rod puller. . Subjective Allergies: Coded Allergies: PENICILLINS (Verified Allergy, Unknown, 01/03/19) Subjective AFVSS on RA events noted possible D/C plan with hospice No cough no SOB no FC no wheezing Objective Last 24 Hour Vital Signs Date Time Temp Pulse Resp B/P (MAP) Pulse Ox O2 Delivery O2 Flow Rate FiO2 01/09/19 10:12 68 20 98 01/09/19 08:00 97.9 83 17 124/75 (91) 98 01/09/19 04:00 98.2 94 19 143/70 (94) 100 01/09/19 00:00 98.1 76 19 117/67 (84) 99 01/08/19 21:00 Room Air 11/6/19 20:00 98.1 76 19 121/69 (86) 97 01/08/19 16:00 98.2 70 19 120/61 (80) 95 01/08/19 12:15 98.0 77 21 121/76 100 Nasal Cannula 3 01/08/19 12:10 73 20 130/72 100 Nasal Cannula 3 01/08/19 12:05 76 16 118/70 100 Nasal Cannula 3 01/08/19 12:01 76 18 98 01/08/19 12:00 97.8 79 14 124/72 100 Nasal Cannula 3 Intake and Output 01/08/19 01/09/19 19:00 07:00 Intake Total 300 ml 730 ml Output Total 200 ml Balance 300 ml 530 ml Intake Oral 80 ml IV Total 300 ml 650 ml Output Urine Total 200 ml # Voids 2 # Bowel Movements 2 General Appearance: no acute distress, cachetic HEENT: normocephalic, atraumatic, anicteric, mucous membranes moist Respiratory/Chest: chest wall non-tender, lungs clear, normal breath sounds, no respiratory distress, no accessory muscle use Cardiovascular: normal peripheral pulses, normal rate, regular rhythm Abdomen: normal bowel sounds, soft, non tender, no organomegaly, non distended , no mass Extremities: no cyanosis, no clubbing, no edema Microbiology Date/Time Source Procedure Growth Status 01/07/19 15:45 Thoracic Fluid Gram Stain - Final Resulted 01/07/19 15:45 Thoracic Fluid Body Fluid Culture - Preliminary NO GROWTH AFTER 24 HOURS Resulted Laboratory Tests 01/09/19 05:05: White Blood Count 2.6L, Red Blood Count 2.95L, Hemoglobin 9.5L, Hematocrit 29.5L , Mean Corpuscular Volume 100H, Mean Corpuscular Hemoglobin 32.4H, Mean Corpuscular Hemoglobin Concent 32.3, Red Cell Distribution Width 15.4H, Platelet Count 44L, Mean Platelet Volume 9.9, Neutrophils (%) (Auto) , Lymphocytes (%) (Auto) , Monocytes (%) (Auto) , Eosinophils (%) (Auto) , Basophils (%) (Auto) , Differential Total Cells Counted 100, Neutrophils % ( Manual) 74, Lymphocytes % (Manual) 14L, Monocytes % (Manual) 6, Eosinophils % ( Manual) 5H, Basophils % (Manual) 1, Band Neutrophils 0, Platelet Estimate DecreasedL, Platelet Morphology Normal, Hypochromasia 2+, Anisocytosis 1+, Spherocytes 1+, Random Vancomycin Level 19.2 Current Medications Medications (Trade) Dose Ordered Sig/Katie Route PRN Reason Start Time Stop Time Status Last Admin Dose Admin Acetaminophen (Tylenol) 500 mg Q8H PRN ORAL Prn Headache/Temp > 101 01/09/19 00:00 02/03/19 15:59 Cefepime HCl 1 gm/ Dextrose 55 ml @ 110 mls/hr Q24H IVPB 01/09/19 15:00 01/11/19 14:59 Dextrose/Sodium Chloride 1,000 ml @ 50 mls/hr Q20H IV 01/08/19 16:15 02/02/19 10:29 01/08/19 17:05 Guaifenesin (Robitussin) 100 mg Q4H PRN ORAL For Cough 01/08/19 16:00 02/03/19 15:59 Lactulose (Cephulac) 30 gm QID ORAL 01/08/19 18:00 02/02/19 12:59 01/09/19 09:03 Multivitamins Therapeutic (Therapeutic Multivitamin) 1 ea DAILY ORAL 01/09/19 09:00 02/08/19 08:59 01/09/19 09:03 Pantoprazole (Protonix) 40 mg EVERY 12 HOURS ORAL 01/08/19 21:00 02/04/19 20:59 01/09/19 09:03 Polyethylene Glycol (Miralax) 17 gm BEDTIME ORAL 01/08/19 21:00 02/02/19 20:59 01/08/19 20:55 Potassium Chloride (K-Dur) 40 meq TWICE A DAY ORAL 01/08/19 18:00 02/07/19 08:59 01/09/19 09:04 Rifaximin (Xifaxan) 550 mg EVERY 12 HOURS ORAL 01/08/19 21:00 01/10/19 20:59 01/09/19 09:03 Vancomycin HCl (Vanco rx to dose) 1 ea DAILY PRN MISC Per rx protocol 01/09/19 09:00 02/03/19 08:29 Vancomycin HCl 750 mg/Dextrose 275 ml @ 183.333 mls/hr ONCE IVPB 01/09/19 10:00 01/09/19 12:00 01/09/19 10:19 Agustin Gilbert MD Jan 09, 2019 11:14
[2019-01-09 12:00] VITALS: BP 129/79
[2019-01-09] MEDS: D5NS 1,000 ML IV SCH (12:30)
--- NOTE | 2019-01-09 13:03 | GI Progress Note ---
Assessment/Plan Problems: (1) Liver cirrhosis ICD Codes: K74.60 - Unspecified cirrhosis of liver SNOMED: 08010858 (2) Hepatic encephalopathy ICD Codes: K72.90 - Hepatic failure, unspecified without coma SNOMED: 92481728 (3) Pancytopenia ICD Codes: D61.818 - Other pancytopenia SNOMED: 081734822 Status: stable Status Narrative Discussed with Dr. Michael. Assessment/Plan hepatitis panel negative abdominal US reviewed, Evidence of hepatic cirrhosis, with hepatic surface nodularity. Evidence of portal hypertension, with ascites, splenomegaly, and splenic hilar varices. Hepatic encephalopathy resolved s/p EGD SUMMARY OF FINDINGS: 1. Small esophageal varices, not big enough to be banded. 2. Portal hypertensive gastropathy. RECOMMENDATIONS: Follow up pathology and treat accordingly. Discharge planning per primary team. cont lactulose and xifaxan repeat labs in am HD per nephrology The patient was seen and examined at bedside and all new and available data was reviewed in the patients chart. I agree with the above findings, impression and plan. (Patient seen earlier today. Signature stamp does not reflect patient encounter time.). - José Michael MD Subjective Subjective Denies any abdominal pain Denies any nausea vomiting. Has complaint of diarrhea Objective Last 24 Hour Vital Signs Date Time Temp Pulse Resp B/P (MAP) Pulse Ox O2 Delivery O2 Flow Rate FiO2 01/09/19 12:00 97.8 74 17 129/79 (96) 100 01/09/19 10:12 68 20 98 01/09/19 09:00 Room Air 01/09/19 08:00 97.9 83 17 124/75 (91) 98 01/09/19 04:00 98.2 94 19 143/70 (94) 100 01/09/19 00:00 98.1 76 19 117/67 (84) 99 01/08/19 21:00 Room Air 01/08/19 20:00 98.1 76 19 121/69 (86) 97 01/08/19 16:00 98.2 70 19 120/61 (80) 95 Intake and Output 01/08/19 01/09/19 19:00 07:00 Intake Total 300 ml 730 ml Output Total 200 ml Balance 300 ml 530 ml Intake Oral 80 ml IV Total 300 ml 650 ml Output Urine Total 200 ml # Voids 2 # Bowel Movements 2 Laboratory Tests Test 01/09/19 05:05 White Blood Count 2.6 K/UL (4.8-10.8) L Red Blood Count 2.95 M/UL (4.70-6.10) L Hemoglobin 9.5 G/DL (14.2-18.0) L Hematocrit 29.5 % (42.0-52.0) L Mean Corpuscular Volume 100 FL (80-99) H Mean Corpuscular Hemoglobin 32.4 PG (27.0-31.0) H Mean Corpuscular Hemoglobin Concent 32.3 G/DL (32.0-36.0) Red Cell Distribution Width 15.4 % (11.6-14.8) H Platelet Count 44 K/UL (150-450) L Mean Platelet Volume 9.9 FL (6.5-10.1) Neutrophils (%) (Auto) % (45.0-75.0) Lymphocytes (%) (Auto) % (20.0-45.0) Monocytes (%) (Auto) % (1.0-10.0) Eosinophils (%) (Auto) % (0.0-3.0) Basophils (%) (Auto) % (0.0-2.0) Differential Total Cells Counted 100 Neutrophils % (Manual) 74 % (45-75) Lymphocytes % (Manual) 14 % (20-45) L Monocytes % (Manual) 6 % (1-10) Eosinophils % (Manual) 5 % (0-3) H Basophils % (Manual) 1 % (0-2) Band Neutrophils 0 % (0-8) Platelet Estimate Decreased L Platelet Morphology Normal Hypochromasia 2+ Anisocytosis 1+ Spherocytes 1+ Random Vancomycin Level 19.2 ug/mL Height (Feet): 5 Height (Inches): 7.00 Weight (Pounds): 159 General Appearance: WD/WN, no apparent distress, alert Cardiovascular: normal rate Respiratory/Chest: normal breath sounds, no respiratory distress Abdominal Exam: normal bowel sounds, non tender, soft Extremities: normal range of motion, non-tender Aden Sanderson [employer]ATIONS [employer] Jan 09, 2019 13:03
[2019-01-09] MEDS ORDERED: Cefepime HCl 1 GM in D5W 55 ML IVPB SCH (15:00)
--- NOTE | 2019-01-09 15:32 | Infectious Diseases Prog Note ---
Assessment/Plan Problems: (1) Bacteremia due to Gram-positive bacteria Assessment & Plan: ruled out with culture grew only staph hominis , suspect contaminants , will stop vancomycin and cefepime (2) Pancytopenia Assessment & Plan: suspect bone marrow suppression from advanced liver cirrhosis, had filgrastim injection which improvement in his WBC, will stop cefepime and vancomycin follow up with hematology (3) Pleural effusion Assessment & Plan: massive on the right side , S/P thoracentesis , recommend fluids culture is negative , will stop antibiotics (4) ESRD (end stage renal disease) Assessment & Plan: resume HD as per renal (5) Hepatic encephalopathy Assessment & Plan: with elevated ammonia level, on lactulose , monitor closely ammonia level (6) Liver nodule Assessment & Plan: on the right lobe, rule out HCC, recommend tumor markers and oncology eval for possible biopsy (7) Liver cirrhosis Assessment & Plan: advanced, with poor prognosis , GI is following Subjective Constitutional: Reports: no symptoms HEENT: Reports: no symptoms Respiratory: Reports: no symptoms Breasts: Reports: no symptoms Cardiovascular: Reports: no symptoms Gastrointestinal/Abdominal: Reports: no symptoms Genitourinary: Reports: no symptoms Neurologic: Reports: no symptoms Psychiatric: Reports: no symptoms Skin: Reports: no symptoms Endocrine: Reports: no symptoms Hematologic: Reports: no symptoms Musculoskeletal: Reports: no symptoms Allergies: Coded Allergies: PENICILLINS (Verified Allergy, Unknown, 01/03/19) Objective Vital Signs Last 24 Hour Vital Signs Date Time Temp Pulse Resp B/P (MAP) Pulse Ox O2 Delivery O2 Flow Rate FiO2 01/09/19 12:00 97.8 74 17 129/79 (96) 100 01/09/19 10:12 68 20 98 01/09/19 09:00 Room Air 01/09/19 08:00 97.9 83 17 124/75 (91) 98 01/09/19 04:00 98.2 94 19 143/70 (94) 100 01/09/19 00:00 98.1 76 19 117/67 (84) 99 01/08/19 21:00 Room Air 01/08/19 20:00 98.1 76 19 121/69 (86) 97 01/08/19 16:00 98.2 70 19 120/61 (80) 95 Height (Feet): 5 Height (Inches): 7.00 Weight (Pounds): 159 General Appearance: WD/WN, no acute distress HEENT: normocephalic, atraumatic, anicteric, mucous membranes moist, PERRL Respiratory/Chest: chest wall non-tender, lungs clear, normal breath sounds, no respiratory distress, no accessory muscle use Cardiovascular: normal peripheral pulses, normal rate, regular rhythm, no gallop/murmur, no JVD Abdomen: normal bowel sounds, soft, non tender, no organomegaly, non distended , no mass, no scars Genitourinary: normal external genitalia Extremities: no cyanosis, no clubbing Skin: no rash, no lesions, no ulcers Neurologic/Psychiatric: 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, oriented x 3 Lymphatic: no neck adenopathy, no groin adenopathy Musculoskeletal: normal muscle bulk, no effusion Microbiology Date/Time Source Procedure Growth Status 01/07/19 15:45 Thoracic Fluid Gram Stain - Final Resulted 01/07/19 15:45 Thoracic Fluid Body Fluid Culture - Preliminary NO GROWTH AFTER 24 HOURS Resulted Laboratory Tests Test 01/09/19 05:05 White Blood Count 2.6 K/UL (4.8-10.8) L Red Blood Count 2.95 M/UL (4.70-6.10) L Hemoglobin 9.5 G/DL (14.2-18.0) L Hematocrit 29.5 % (42.0-52.0) L Mean Corpuscular Volume 100 FL (80-99) H Mean Corpuscular Hemoglobin 32.4 PG (27.0-31.0) H Mean Corpuscular Hemoglobin Concent 32.3 G/DL (32.0-36.0) Red Cell Distribution Width 15.4 % (11.6-14.8) H Platelet Count 44 K/UL (150-450) L Mean Platelet Volume 9.9 FL (6.5-10.1) Neutrophils (%) (Auto) % (45.0-75.0) Lymphocytes (%) (Auto) % (20.0-45.0) Monocytes (%) (Auto) % (1.0-10.0) Eosinophils (%) (Auto) % (0.0-3.0) Basophils (%) (Auto) % (0.0-2.0) Differential Total Cells Counted 100 Neutrophils % (Manual) 74 % (45-75) Lymphocytes % (Manual) 14 % (20-45) L Monocytes % (Manual) 6 % (1-10) Eosinophils % (Manual) 5 % (0-3) H Basophils % (Manual) 1 % (0-2) Band Neutrophils 0 % (0-8) Platelet Estimate Decreased L Platelet Morphology Normal Hypochromasia 2+ Anisocytosis 1+ Spherocytes 1+ Random Vancomycin Level 19.2 ug/mL Current Medications Medications (Trade) Dose Ordered Sig/Katie Route PRN Reason Start Time Stop Time Status Last Admin Dose Admin Acetaminophen (Tylenol) 500 mg Q8H PRN ORAL Prn Headache/Temp > 101 01/09/19 00:00 02/03/19 15:59 Dextrose/Sodium Chloride 1,000 ml @ 50 mls/hr Q20H IV 01/08/19 16:15 02/02/19 10:29 01/09/19 12:30 Guaifenesin (Robitussin) 100 mg Q4H PRN ORAL For Cough 01/08/19 16:00 02/03/19 15:59 Lactulose (Cephulac) 30 gm QID ORAL 01/08/19 18:00 02/02/19 12:59 01/09/19 12:29 Multivitamins Therapeutic (Therapeutic Multivitamin) 1 ea DAILY ORAL 01/09/19 09:00 02/08/19 08:59 01/09/19 09:03 Pantoprazole (Protonix) 40 mg EVERY 12 HOURS ORAL 01/08/19 21:00 02/04/19 20:59 01/09/19 09:03 Polyethylene Glycol (Miralax) 17 gm BEDTIME ORAL 01/08/19 21:00 02/02/19 20:59 01/08/19 20:55 Potassium Chloride (K-Dur) 40 meq TWICE A DAY ORAL 01/08/19 18:00 02/07/19 08:59 01/09/19 09:04 Rifaximin (Xifaxan) 550 mg EVERY 12 HOURS ORAL 01/08/19 21:00 01/10/19 20:59 01/09/19 09:03 Sudeep Mcclain M.D. Jan 09, 2019 15:32
--- NOTE | 2019-01-09 16:22 | NUR ---
NURSE NOTES: patient discharged to home with fair condition by family member. no respiratory distress noted. no c/o pain at this time. Dr. Galicia canceled new prescription. OK to discharge with No new medications. keep continue to current medications reconcilation. RN provided dc packets and educate patient and family for caring patient at home. Perma cath intact. dressing clean and dry. RN removed IV and id band. checked and counted belongings with patient and obtained sign. CODEY Duron assisted patient via w/c to the lobby.
--- NOTE | 2019-01-09 23:55 | Cardiology Progress Note ---
Assessment/Plan Assessment/Plan 1. Anasarca most likely due to end-stage liver disease, normal hemodynamics, A 2D echocardiography had shown presence of a normal LV systolic function with LVEF of approximately 60% to 65%. 2. Bilateral pleural effusion, right greater than left most likely due to low oncotic pressure or via the fenestration from ascitic fluid. 3. Small pericardial effusion. 4. History of GI bleed. 5. Portal hypertension, continue Lasix and Aldactone. 6. ALOC most likely hepatic encephalopathy. Subjective Subjective Transferred to the med surg unit. Objective Last 24 Hour Vital Signs Date Time Temp Pulse Resp B/P (MAP) Pulse Ox O2 Delivery O2 Flow Rate FiO2 01/09/19 12:00 97.8 74 17 129/79 (96) 100 01/09/19 10:12 68 20 98 01/09/19 09:00 Room Air 01/09/19 08:00 97.9 83 17 124/75 (91) 98 01/09/19 04:00 98.2 94 19 143/70 (94) 100 01/09/19 00:00 98.1 76 19 117/67 (84) 99 Intake and Output 01/08/19 01/09/19 19:00 07:00 Intake Total 300 ml 730 ml Output Total 200 ml Balance 300 ml 530 ml Intake Oral 80 ml IV Total 300 ml 650 ml Output Urine Total 200 ml # Voids 2 # Bowel Movements 2 2D Echo: LVEF 60-65%, TRINO, Small pericard. effusion, RVSP 24 mmHg, Mild MR Laboratory Tests Test 01/09/19 05:05 White Blood Count 2.6 K/UL (4.8-10.8) L Red Blood Count 2.95 M/UL (4.70-6.10) L Hemoglobin 9.5 G/DL (14.2-18.0) L Hematocrit 29.5 % (42.0-52.0) L Mean Corpuscular Volume 100 FL (80-99) H Mean Corpuscular Hemoglobin 32.4 PG (27.0-31.0) H Mean Corpuscular Hemoglobin Concent 32.3 G/DL (32.0-36.0) Red Cell Distribution Width 15.4 % (11.6-14.8) H Platelet Count 44 K/UL (150-450) L Mean Platelet Volume 9.9 FL (6.5-10.1) Neutrophils (%) (Auto) % (45.0-75.0) Lymphocytes (%) (Auto) % (20.0-45.0) Monocytes (%) (Auto) % (1.0-10.0) Eosinophils (%) (Auto) % (0.0-3.0) Basophils (%) (Auto) % (0.0-2.0) Differential Total Cells Counted 100 Neutrophils % (Manual) 74 % (45-75) Lymphocytes % (Manual) 14 % (20-45) L Monocytes % (Manual) 6 % (1-10) Eosinophils % (Manual) 5 % (0-3) H Basophils % (Manual) 1 % (0-2) Band Neutrophils 0 % (0-8) Platelet Estimate Decreased L Platelet Morphology Normal Hypochromasia 2+ Anisocytosis 1+ Spherocytes 1+ Random Vancomycin Level 19.2 ug/mL Microbiology Date/Time Source Procedure Growth Status 01/07/19 15:45 Thoracic Fluid Gram Stain - Final Resulted 01/07/19 15:45 Thoracic Fluid Body Fluid Culture - Preliminary NO GROWTH AFTER 24 HOURS Resulted Objective HEENT: Atraumatic and normocephalic. Icteric sclerae is evident. Pupils are equal, round, and reactive to light and accommodation. NECK: JVP less than 5 cm. No carotid bruits. Carotid upstrokes 2+ bilaterally. CVS: Normal S1, S2. Regular rate and rhythm. No murmurs, gallops, or rubs. PMI is at fourth intercostal space at the midclavicular line. LUNGS: Diminished breath sounds particularly in the right lower lung and in the base of the left lung. ABDOMEN: Distended most likely due to ascites. Positive shifting dullness. Positive for an umbilical hernia, soft, and possible bowel sounds. EXTREMITIES: A 1+ bilateral lower extremity edema. Oswaldo Hobson MD Jan 09, 2019 23:55
--- NOTE | 2019-01-10 07:35 | Discharge Summary ---
Discharge Summary Discharge Summary _ DATE OF ADMISSION: 01/03/2019 DATE OF DISCHARGE: 01/09/2019 DISCHARGED BY: Dr. Hoffman REASON FOR ADMISSION: 63 years old male with past medical history of end-stage renal disease on hemodialysis, diabetes mellitus, presented to emergency department with altered level of consciousness for the last few days. No reported fever or chills. No chest pain or shortness of breath. No missed hemodialysis. Upon evaluation laboratory work-up revealed WBC 1.8, hemoglobin 9.6, hematocrit 29.2. Platelet count 37. Stable electrolytes. BUN 16, creatinine 2.0. Glucose 132. Lactic acid 2.8. Total bilirubin 1.8, direct bilirubin 0.7. AST 48 , ALT 31. Alkaline phosphatase 233. Lipase 322. Total CK 40. Ammonia 108. Troponin - 0.005. ProBNP 489. EKG revealed sinus bradycardia with nonspecific ST-T wave changes. Urinalysis revealed +2 protein , no evidence of urinary tract infection. Urine toxicology screen was negative. Chest x-ray demonstrated massive right pleural effusion, bilateral pulmonary interstitial airspace edema. Probable small left pleural effusion. CT of the head revealed no evidence of acute intracranial pathology. Patient subsequently was admitted for further management. CONSULTANTS: bobbin cleaner Dr. Hobson pulmonary Dr. Gilbert ID specialist Dr. Dr. Mcclain valet Dr. Ennis bench tool maker/oncologist Dr. Brown [facility] COURSE: Patient admitted and started started on empiric antibiotic. Patient started on lactulose and Xifaxan. Altered level of consciousness was most likely due to an hepatic encephalopathy. GI specialist followed. Patient started on diuretic. Venous duplex bilateral lower extremity revealed no evidence of acute DVT bilaterally. Supplemental oxygen provided and titrated to keep pulse oximetry above 92%. Welfare Case Worker closely followed. Patient undergone ultrasound-guided thoracentesis of right pleural effusion , yielding 1150 mL of pleural fluid. Patient was not completely drained since he developed cough during the drainage. Pleural fluid culture was negative. CXR post thoracentesis without significant lung reexpansion. Welfare Case Worker recommended to hold off on further drainage . Patient was closely monitored for any signs of for respiratory distress. Patient remains hemodynamically stable with stable respiratory status. Pulse oximetry was stable on room air . DVT prophylaxis provided. Strict aspiration precaution maintained. Abdominal ultrasound demonstrated evidence of hepatic cirrhosis and hepatic surface nodularity. Solid appearing right hepatic lobe liver nodule. Evidence of portal hypertension with ascites, splenomegaly. Cholelithiasis. Gallbladder wall thickening. Bilateral pleural effusion. Borderline increased renal echogenicity indicating medical renal disease. Patient undergone EGD which revealed small esophageal varices, not big enough to band and evidence of portal hypertensive gastropathy. Pathology results pending at the time of this dictation. Patient undergone ultrasound guided paracentesis, yielding 2.5 L of clear yellow fluid. Postprocedure ultrasound revealed near complete resolution of ascites. Patient had hepatocellular carcinoma for 3 years and gets treatment at [facility]. CEA and alpha-fetoprotein were within normal limits. LFT and total bilirubin remained elevated. Ammonia down to 36. Hepatitis panel was negative . HIV test was nonreactive. GI prophylaxis provided. Billing Coordinator followed and recommended dialysis as needed . No need for hemodialysis during this admission. Renal parameters and electrolytes were closely monitored. Electrolytes corrected as needed. Renal parameters remained at the baseline; prior to discharge BUN 19 , creatinine 1.5. Magnesium and potassium corrected. Patient received intermittent albumin boluses. Captain/Airline Pilot followed. Echocardiogram revealed preserved ejection fraction of 60 to 65% with no evidence of wall motion abnormality. Right ventricular systolic pressure of 24. Per bobbin cleaner, anasarca was most likely due to end-stage liver disease. Blood culture initially revealed Staph hominis. Repeated blood cultures were negative. Pleural fluid culture was negative. Initial bacteremia with Staph hominis suspected to be contaminant , as per ID specialist. Antibiotics stopped. Per bench tool maker, pancytopenia was related to liver cirrhosis and cancer. Patient also had coagulopathy due to likely cirrhosis. Rotor Balancer recommended vitamin K to be given before any procedure. Patient received Neupogen on 01/05. Counts were closely monitored. Prior to discharge WBC 2.6, hemoglobin 9.5, hematocrit 29.5. Platelet count 44. Pain management was addressed as needed. Symptomatic treatment provided. distribution field engineer recommendations implemented in plan of care. Mental status improved. Patient with multiply comorbidities and guarded prognosis . At this time remains full code. Continue to discuss goals of care and consider palliative care. Patient clinically stabilized and was ready for discharge home. FINAL DIAGNOSES: Acute hepatic encephalopathy -improved Hepatocellular carcinoma (for 3 years) Liver cirrhosis Right pleural effusion , status post ultrasound-guided thoracentesis Pancytopenia End-stage renal disease, on hemodialysis Anasarca ( due to end-stage liver disease) Portal hypertension Status post EGD with biopsy Portal hypertensive gastropathy Protein calorie malnutrition DISCHARGE MEDICATIONS: See Medication Reconciliation list. DISCHARGE INSTRUCTIONS: Patient was discharged home. Follow up with primary care provider in one week. I have been assigned to dictate discharge summary for this account. I was not involved in the patient's management. Julia Sow NP Jan 10, 2019 07:35
== END 2019-01-09 16:26 | disposition home or self-care (01) | DRG 279 ==
LOC: EDBD 06:05 → EMR 07:40 → 2E 07:48 → EDBEDREQ 10:06 → 2E 11:34 → 4E 01-08 15:36
PROC: 0W993ZZ Drainage of Right Pleural Cavity, Percutaneous Approach (ICD-10-PCS; principal; 2019-01-06)
PROC: 30233R1 Transfusion of Nonautologous Platelets into Peripheral Vein, Percutaneous Approach (ICD-10-PCS; 2019-01-07)
PROC: 0W9G3ZZ Drainage of Peritoneal Cavity, Percutaneous Approach (ICD-10-PCS; 2019-01-08)
DX: K72.00 Acute and subacute hepatic failure without coma (principal); N18.6 End stage renal disease; C22.0 Liver cell carcinoma; E43 Unspecified severe protein-calorie malnutrition; K70.31 Alcoholic cirrhosis of liver with ascites; Z88.0 Allergy status to penicillin; D61.818 Other pancytopenia; J90 Pleural effusion, not elsewhere classified; K76.6 Portal hypertension; K31.89 Other diseases of stomach and duodenum; I31.3 Pericardial effusion (noninflammatory); K80.20 Calculus of gallbladder without cholecystitis without obstruction; I85.10 Secondary esophageal varices without bleeding; G93.41 Metabolic encephalopathy; D68.4 Acquired coagulation factor deficiency; Z99.2 Dependence on renal dialysis; J18.9 Pneumonia, unspecified organism; Y95 Nosocomial condition
CPT/HCPCS: 36415; 70450; 71045; 74018; 76700; 76942; 80048; 80053; 80061; 80076; 80202; 80307; 81003; 82105; 82140; 82248; 82378; 82533; 82550; 82553; 82607; 82728; 82746; 82977; 83540; 83550; 83605; 83690; 83735; 83880; 84100; 84484; 84550; 85007; 85025; 85610; 85730; 86140; 86703; 86705; 86709; 86803; 86850; 86900; 86901; 87040; 87070; 87081; 87181; 87205; 87340; 88104; 89051; 93005; 93306; 93970; 94003; 94150; 99291; J7030; J8499

== ENCOUNTER 2019-02-10 05:54 | Inpatient (IN) | payer MEDICAID ==
[~2019-02-10] VITALS: Ht 162.6 cm; Wt 71.0 kg
[~2019-02-10 05:54] MED LIST: FOLIC ACID1 M1 PO; GUAIFENESI100 MG/5 M ORAL; K-TAB ER20 MEQ ORAL; LACTULOSE10 GM/153 PO; LACTULOSE20 GM/301 ORAL; MIRALAX17 G2 ORAL; MULTIVITAMINS1 EAC2 ORAL; OMEPRAZOLE20 M2 ORAL; RIFAXIMIN500 GM MC; SEVELAMER HCL800 MG PO; SPIRONOLACTONE25 MG ORAL; VITAMIN D250000 UNI1 ORAL
--- NOTE | 2019-02-10 06:01 | NUR ---
ED Nurse Note: Pt brought in by MARYAM from home, pt reported to be altered, pt not speaking, A&Ox0, BS 168, Pt placed on quality assurance monitor chassis
--- NOTE | 2019-02-10 06:05 | Emergency Room Report ---
History of Present Illness General Chief Complaint: Altered Mental Status Source: Family Member, EMS (Keorn Woodward DO) Present Illness HPI Patient presents to the emergency room with reports of altered mental status Last known well was at 8 PM last night putting the last known well approximately 10 hours ago Patient had gone to bed and this morning appears to be more sluggish Family is a poor historian and lack of medical information Limiting the patient's history of present illness Unknown regarding fever there was no reports of vomiting or diarrhea on review of medical records patient appears to have been here recently with Diagnosis of hepatic encephalopathy (Keron Woodward DO) Allergies: Coded Allergies: PENICILLINS (Verified Allergy, Unknown, 01/03/19) Patient History Limited by: medical condition Past Medical History: see triage record Reviewed Nursing Documentation: PMH: Agreed; PSxH: Agreed (Keron Woodward DO) Nursing Documentation-PMH Hx Cardiac Problems: No Hx Diabetes: Yes Hx Cancer: No Hx Gastrointestinal Problems: No Hx Dialysis: Yes Hx Neurological Problems: No (Keron Woodward DO) Review of Systems All Other Systems: limited - Other than the ones mentioned in the history of present illness all others are reviewed however they do stay limited due to the patient's mental status (Keron Woodward DO) Physical Exam Vital Signs Date Time Temp Pulse Resp B/P (MAP) Pulse Ox O2 Delivery O2 Flow Rate FiO2 02/10/19 05:54 98.4 78 12 153/78 (103) 100 Room Air Sp02 EP Interpretation: reviewed, normal General Appearance: no apparent distress Head: normocephalic, atraumatic Eyes: bilateral eye PERRL, bilateral eye scleral icterus ENT: dry mucus membranes Neck: supple Respiratory: lungs clear, no retraction, no accessory muscle use Cardiovascular #1: regular rate, rhythm Gastrointestinal: non tender, hernia - Soft reducible umbilical hernia, other - Ascites noted Musculoskeletal: other - Sluggish to respond does respond towards physical stimuli Neurologic: other - Decreased GCS minimal response, opens eyes and moves towards the physical stimuli Skin: jaundice Lymphatic: no adenopathy (Keron Woodward DO) Medical Decision Making Diagnostic Impression: Primary Impression: Hepatic encephalopathy Additional Impressions: Renal failure Qualified Codes: N18.6 - End stage renal disease; Z99.2 - Dependence on renal dialysis Pleural effusion, right Elevated lactic acid level ER Course Please see above note. Patient signed out to me to review results and labs. Patient presented with altered level of consciousness. History of end-stage renal disease. History of cirrhosis. Lactulose ordered. Labs remarkable for normal white count. Ammonia 199. Renal failure. Lactic acid 2.3. Lactic acid not felt to be reflective of early sepsis. Pleural effusion noted on x-ray. Minimal improved mentation. Laboratory Tests Test 02/10/19 06:30 02/10/19 07:30 02/10/19 09:50 White Blood Count 3.2 K/UL (4.8-10.8) L Red Blood Count 3.45 M/UL (4.70-6.10) L Hemoglobin 10.9 G/DL (14.2-18.0) L Hematocrit 33.3 % (42.0-52.0) L Mean Corpuscular Volume 97 FL (80-99) Mean Corpuscular Hemoglobin 31.6 PG (27.0-31.0) H Mean Corpuscular Hemoglobin Concent 32.7 G/DL (32.0-36.0) Red Cell Distribution Width 15.3 % (11.6-14.8) H Platelet Count 32 K/UL (150-450) L Mean Platelet Volume 7.9 FL (6.5-10.1) Neutrophils (%) (Auto) % (45.0-75.0) Lymphocytes (%) (Auto) % (20.0-45.0) Monocytes (%) (Auto) % (1.0-10.0) Eosinophils (%) (Auto) % (0.0-3.0) Basophils (%) (Auto) % (0.0-2.0) Differential Total Cells Counted 100 Neutrophils % (Manual) 85 % (45-75) H Lymphocytes % (Manual) 10 % (20-45) L Monocytes % (Manual) 3 % (1-10) Eosinophils % (Manual) 2 % (0-3) Basophils % (Manual) 0 % (0-2) Band Neutrophils 0 % (0-8) Platelet Estimate Decreased L Platelet Morphology Normal Anisocytosis 1+ Prothrombin Time 10.4 SEC (9.30-11.50) Prothrombin Time INR 1.0 (0.9-1.1) PTT 22 SEC (23-33) L Sodium Level 138 MMOL/L (136-145) Potassium Level 3.8 MMOL/L (3.5-5.1) Chloride Level 102 MMOL/L (98-107) Carbon Dioxide Level 26 MMOL/L (21-32) Anion Gap 10 mmol/L (5-15) Blood Urea Nitrogen 30 mg/dL (7-18) H Creatinine 1.9 MG/DL (0.55-1.30) H Estimate Glomerular Filtration Rate 36.2 mL/min (>60) Glucose Level 132 MG/DL (74-106) H Lactic Acid Level 2.20 mmol/L (0.4-2.0) H Pending Calcium Level 8.1 MG/DL (8.5-10.1) L Total Bilirubin 2.3 MG/DL (0.2-1.0) H Direct Bilirubin 0.7 MG/DL (0.0-0.3) H Aspartate Amino Transferase (AST) 56 U/L (15-37) H Alanine Aminotransferase (ALT) 39 U/L (12-78) Alkaline Phosphatase 265 U/L (46-116) H Ammonia 199 umol/L (11-32) H Total Creatine Kinase 50 U/L (26-308) Creatine Kinase MB 0.6 NG/ML (0.0-3.6) Creatine Kinase MB Relative Index 1.2 Troponin I 0.006 ng/mL (0.000-0.056) Pro-B-Type Natriuretic Peptide 585 pg/mL (0-125) H Total Protein 6.8 G/DL (6.4-8.2) Albumin 2.2 G/DL (3.4-5.0) L Globulin 4.6 g/dL Albumin/Globulin Ratio 0.5 (1.0-2.7) L Lipase 297 U/L (73-393) Urine Color Pale yellow Urine Appearance Clear Urine pH 8 (4.5-8.0) Urine Specific [place] 1.010 (1.005-1.035) Urine Protein Negative (NEGATIVE) Urine Glucose (UA) Negative (NEGATIVE) Urine Ketones 1+ (NEGATIVE) H Urine Blood 4+ (NEGATIVE) H Urine Nitrite Negative (NEGATIVE) Urine Bilirubin Negative (NEGATIVE) Urine Urobilinogen Normal MG/DL (0.0-1.0) Urine Leukocyte Esterase Negative (NEGATIVE) Urine RBC 5-10 /HPF (0 - 0) H Urine WBC 0 /HPF (0 - 0) Urine Squamous Epithelial Cells Occasional /LPF Urine Bacteria None /HPF (NONE) (Claudio Garvin MD) Rhythm Strip Diag. Results EP Interpretation: yes Rhythm: NSR, no PVC's, no ectopy (Claudio Garvin MD) Chest X-Ray Diagnostic Results Chest X-Ray Diagnostic Results : Chest X-Ray Ordered: Yes # of Views/Limited/Complete: 1 View Indication: Other EP Interpretation: Yes Interpretation: no pneumothorax, other - vas cath, R effusion Impression: Other Electronically Signed by: Electronically signed by Claudio Garvin MD (Claudio Garvin MD) CT/MRI/US Diagnostic Results CT/MRI/US Diagnostic Results : Imaging Test Ordered: head Impression no bleed or mass effect (Claudio Garvin MD) Last Vital Signs Date Time Temp Pulse Resp B/P (MAP) Pulse Ox O2 Delivery O2 Flow Rate FiO2 02/10/19 05:54 98.4 78 12 153/78 (103) 100 Room Air (Keron Woodward DO) Last Vital Signs Date Time Temp Pulse Resp B/P (MAP) Pulse Ox O2 Delivery O2 Flow Rate FiO2 02/10/19 19:28 Room Air 02/10/19 17:29 97.7 70 13 148/68 100 Status: improved (Claudio Garvin MD) Disposition: ADMITTED INPATIENT Condition: Serious Keron Woodward DO Feb 10, 2019 06:05 Claudio Garvin MD Feb 10, 2019 07:17
[2019-02-10] MEDS ORDERED: Sodium Polystyrene Sulfonate Enema RECTAL ONE (06:15)
[2019-02-10] MEDS ORDERED: Lactulose 200 GM in NS Irrig 1000ml 700 ML RECTAL SCH (06:45)
--- NOTE | 2019-02-10 07:10 | NUR ---
ED Nurse Note: Received patient from DWIGHT Valle. Patient is sleeping and unresponsive to pain. is bedside. Urine specimen sent to lab.
[2019-02-10 07:14] LABS: ANION GAP 10 mmol/L (5-15); BLOOD UREA NITROGEN 30 mg/dL (7-18); CALCIUM 8.1 MG/DL (8.5-10.1); CARBON DIOXIDE 26 MMOL/L (21-32); CHLORIDE 102 MMOL/L (98-107); CREATININE 1.9 MG/DL (0.55-1.30); POTASSIUM 3.8 MMOL/L (3.5-5.1); SODIUM 138 MMOL/L (136-145)
[2019-02-10 07:17] LABS: HEMATOCRIT 33.3 % (42.0-52.0); HEMOGLOBIN 10.9 G/DL (14.2-18.0); MEAN CORPUSCULAR VOLUME 97 FL (80-99); PLATELET COUNT 32 K/UL (150-450); RED BLOOD COUNT 3.45 M/UL (4.70-6.10); RED CELL DISTRIBUTION WIDTH 15.3 % (11.6-14.8); WHITE BLOOD COUNT 3.2 K/UL (4.8-10.8)
[2019-02-10 07:33] LABS: ALANINE AMINOTRANSFERASE 39 U/L (12-78); ALBUMIN 2.2 G/DL (3.4-5.0); ALBUMIN/GLOBULIN RATIO 0.5 (1.0-2.7); ALKALINE PHOSPHATASE 265 U/L (46-116); ASPARTATE AMINO TRANSFERASE 56 U/L (15-37); BILIRUBIN,TOTAL 2.3 MG/DL (0.2-1.0); CKMB 0.6 NG/ML (0.0-3.6); CREATINE KINASE 50 U/L (26-308)
--- NOTE | 2019-02-10 07:37 | Diagnostic Imaging Report ---
Indications: Altered mental status, unresponsive Technique: Spiral acquisitions obtained through the brain. Angled axial and coronal 5 x 5 mm slices were reconstructed. Total dose length product 1551 mGycm. CTDI vol(s) 62 mGy. Dose reduction achieved using automated exposure control Comparison: 01/13/2019 Findings: No acute intracranial hemorrhage or edema. No mass effect nor midline shift. Normal size ventricles and extra-axial CSF spaces. Normal moreno-white differentiation. Visualized orbits and sinuses are unremarkable. The mastoids are clear. The calvarium is intact. There is right maxillary sinus mucosal thickening. No other significant interim change Impression: Negative for acute intracranial bleed or mass effect Minimal right maxillary sinus disease This agrees with the preliminary interpretation provided overnight by [facility] teleradiology service. The CT scanner at [facility] is accredited by the [employer] and the scans are performed using protocols designed to limit radiation exposure to as low as reasonably achievable to attain images of sufficient resolution adequate for diagnostic evaluation.
[2019-02-10 07:42] VITALS: BP 160/73
[2019-02-10 07:46] LABS: APPEARANCE,URINE CLEAR; BILIRUBIN, URINE NEGATIVE (NEGATIVE); COLOR,URINE PALE YELLOW; GLUCOSE, URINE (UA) NEGATIVE (NEGATIVE); KETONES,URINE 1+ (NEGATIVE); LEUKOCYTE ESTERASE ,URINE NEGATIVE (NEGATIVE); NITRITE,URINE NEGATIVE (NEGATIVE); PH,URINE 8 (4.5-8.0); PROTEIN,URINE NEGATIVE (NEGATIVE); UROBILINOGEN,URINE NORMAL MG/DL (0.0-1.0)
[2019-02-10 07:50] LABS: BILIRUBIN,DIRECT 0.7 MG/DL (0.0-0.3)
[2019-02-10 07:59] LABS: AMMONIA 199 umol/L (11-32)
[2019-02-10] MEDS ORDERED: Lactulose 200 GM in NS Irrig 1000ml 700 ML RECTAL ONE (08:13)
--- NOTE | 2019-02-10 08:30 | NUR ---
ED Nurse Note: Gave patient enema of lactulose. Patient has no rectal tone and fluid leaked out. Pt tolerated well.
[2019-02-10 09:00] VITALS: BP 130/67
--- NOTE | 2019-02-10 10:00 | NUR ---
ED Nurse Note: Patient is clean and dry and laying comfortably in bed. Repeat lactic sent down to lab.
[2019-02-10 10:15] VITALS: BP 138/64
--- NOTE | 2019-02-10 11:00 | NUR ---
ED Nurse Note: dr dinh called to notify him of need for admission orders, voice message left.
--- NOTE | 2019-02-10 12:11 | Diagnostic Imaging Report ---
Indication: Chest pain, shortness of breath Technique: One view of the chest Comparison: 01/07/2019 Findings: Right jugular tunneled dialysis catheter is again demonstrated. Large right pleural effusion is again demonstrated, may be slightly smaller than on the prior exam. There is generalized bilateral interstitial congestion which was not evident previously. Impression: Large right pleural effusion, also previously reported Generalized interstitial edema, new since prior exam of 01/07/2019 Other findings as noted
--- NOTE | 2019-02-10 12:15 | NUR ---
ED Nurse Note: new orders noted that have been placed by dr dinh.
--- NOTE | 2019-02-10 12:20 | NUR ---
ED Nurse Note: pt moved onto inpt. hospital bed as a boarding pt in ed.
--- NOTE | 2019-02-10 12:21 | General Progress Note ---
Assessment/Plan Problem List: (1) Hepatic encephalopathy ICD Codes: K72.90 - Hepatic failure, unspecified without coma SNOMED: 89314189 (2) Elevated lactic acid level ICD Codes: R79.89 - Other specified abnormal findings of blood chemistry SNOMED: 9921489 (3) Pleural effusion, right ICD Codes: J90 - Pleural effusion, not elsewhere classified SNOMED: 67934902 (4) Liver nodule ICD Codes: K76.89 - Other specified diseases of liver SNOMED: 126345772 (5) Liver cirrhosis ICD Codes: K74.60 - Unspecified cirrhosis of liver SNOMED: 39656712 (6) ESRD (end stage renal disease) ICD Codes: N18.6 - End stage renal disease SNOMED: 76079200 Assessment/Plan: ngt lactulose xifaxan npo abd us fu labs EGD in the last admission showed small varices Subjective ROS Limited/Unobtainable: No Allergies: Coded Allergies: PENICILLINS (Verified Allergy, Unknown, 01/03/19) Objective Last 24 Hour Vital Signs Date Time Temp Pulse Resp B/P (MAP) Pulse Ox O2 Delivery O2 Flow Rate FiO2 02/10/19 10:15 70 15 138/64 100 Room Air 02/10/19 09:00 97.7 74 20 130/67 100 Room Air 02/10/19 07:42 65 13 Room Air 02/10/19 07:42 98.4 65 13 160/73 100 Room Air 02/10/19 05:54 98.4 78 12 153/78 (103) 100 Room Air Laboratory Tests 02/10/19 06:30: White Blood Count 3.2L, Red Blood Count 3.45L, Hemoglobin 10.9L, Hematocrit 33.3L, Mean Corpuscular Volume 97, Mean Corpuscular Hemoglobin 31.6H, Mean Corpuscular Hemoglobin Concent 32.7, Red Cell Distribution Width 15.3H, Platelet Count 32L, Mean Platelet Volume 7.9, Neutrophils (%) (Auto) , Lymphocytes (%) (Auto) , Monocytes (%) (Auto) , Eosinophils (%) (Auto) , Basophils (%) (Auto) , Differential Total Cells Counted 100, Neutrophils % ( Manual) 85H, Lymphocytes % (Manual) 10L, Monocytes % (Manual) 3, Eosinophils % ( Manual) 2, Basophils % (Manual) 0, Band Neutrophils 0, Platelet Estimate DecreasedL, Platelet Morphology Normal, Anisocytosis 1+, Prothrombin Time 10.4, Prothromb Time International Ratio 1.0, Activated Partial Thromboplast Time 22L , Sodium Level 138, Potassium Level 3.8, Chloride Level 102, Carbon Dioxide Level 26, Anion Gap 10, Blood Urea Nitrogen 30H, Creatinine 1.9H, Estimat Glomerular Filtration Rate 36.2, Glucose Level 132H, Lactic Acid Level 2.20H, Calcium Level 8.1L, Total Bilirubin 2.3H, Direct Bilirubin 0.7H, Aspartate Amino Transf (AST/SGOT) 56H, Alanine Aminotransferase (ALT/SGPT) 39, Alkaline Phosphatase 265H, Ammonia 199H, Total Creatine Kinase 50, Creatine Kinase MB 0.6 , Creatine Kinase MB Relative Index 1.2, Troponin I 0.006, Pro-B-Type Natriuretic Peptide 585H, Total Protein 6.8, Albumin 2.2L, Globulin 4.6, Albumin /Globulin Ratio 0.5L, Lipase 297 02/10/19 07:30: Urine Color Pale yellow, Urine Appearance Clear, Urine pH 8, Urine Specific [place] 1.010, Urine Protein Negative, Urine Glucose (UA) Negative, Urine Ketones 1+H, Urine Blood 4+H, Urine Nitrite Negative, Urine Bilirubin Negative, Urine Urobilinogen Normal, Urine Leukocyte Esterase Negative, Urine RBC 5-10H, Urine WBC 0, Urine Squamous Epithelial Cells Occasional, Urine Bacteria None 02/10/19 09:50: Lactic Acid Level 2.00 Height (Feet): 5 Height (Inches): 4.00 Weight (Pounds): 130 General Appearance: lethargic EENT: normal ENT inspection Neck: supple Cardiovascular: normal rate Respiratory/Chest: decreased breath sounds Abdomen: normal bowel sounds, non tender, soft Extremities: non-tender José Michael MD Feb 10, 2019 12:21
[2019-02-10 12:39] VITALS: BP 148/68
--- NOTE | 2019-02-10 15:15 | NUR ---
ED Nurse Note: Abd U/S is at bedside.
--- NOTE | 2019-02-10 16:15 | NUR ---
ED Nurse Note: Called telemetry and spoke with DWIGHT Hyatt and pt prepared to go to unit with ACLS protocol.
--- NOTE | 2019-02-10 16:42 | NUR ---
ED Nurse Note: NG tube placement verified with air instillation on auscultion. Low wall suction applied no aspirated contents. Pt tolerates well, and no vomiting.
--- NOTE | 2019-02-10 16:50 | Diagnostic Imaging Report ---
Indication: Abdominal pain, abnormal liver function tests, abnormal renal function tests Technique: Benton-scale and duplex images of the upper abdomen were obtained Comparison: 01/03/2019 Findings: Exam is limited, due to patient body habitus, bowel gas, and ascites Gallbladder is unremarkable. Gallstone demonstrated previously is not visualized on the current study. Sonographic Orr's sign is negative. Common bile duct measures to mm in diameter. No intrahepatic biliary ductal dilatation. Liver demonstrates increased echogenicity, somewhat atrophic morphology, evidence of surface nodularity. Within the right lobe, there is a 1 cm nodule in the periphery. Note that the left lobe could not be visualized. There is ascites fluid. Portal vein and hepatic veins are patent. Pancreas is incompletely visualized due to overlying bowel gas, visualized portions are unremarkable. The spleen is enlarged, measuring 21 cm long axis dimension. Varices are seen in the splenic hilum. Left kidney measures 10.1 cm in length. Right kidney measures 9.3 cm length. Right kidney demonstrates normal echogenicity; left kidney demonstrates equivocally increased echogenicity. There is no hydronephrosis. No focal abnormality. There is marked distention of the left renal vein . As mentioned earlier, there is ascites fluid present. The inferior vena cava cannot be visualized.. Non-aneurysmal abdominal aorta . Impression: Limited exam, as described. Note nonvisualization of the inferior vena cava, portions of the pancreas and left hepatic lobe 1 cm hypoechoic nodule within the right hepatic lobe. This is nonspecific, could indicate regenerating nodule, neoplasm, hemangioma, among other possibilities. Consider further evaluation with contrast CT if clinically indicated. This is also reported on the prior exam Evidence of hepatic cirrhosis, with atrophic echogenic liver with surface nodularity Evidence of portal hypertension, with ascites, splenomegaly, and splenic hilar varices Enlarged left renal vein, probably indicating presence of splenorenal shunt type varices Equivocally increased left renal echogenicity, could indicate medical renal disease. Note that renal echogenicity was reported as increased bilaterally on the prior study Gallstones reported on previous sonogram are not visible currently. Negative for dilated bile ducts
--- NOTE | 2019-02-10 17:00 | NUR ---
ED Nurse Note: Patient tranfered to telemetry using ACLS protocol. Endorsed pt care to DWIGHT Hyatt.
[2019-02-10] MEDS ORDERED: FUROSEMIDE80 M1 ORAL (17:48)
[2019-02-10] MEDS ORDERED: XIFAXAN200 MG ORAL (17:48)
[2019-02-10] MEDS ORDERED: FAMOTIDINE20 MG ORAL (17:48)
--- NOTE | 2019-02-10 18:00 | NUR ---
NURSE NOTES: Received patient from Nunu Ott. Patient is lethargic. arousable to deep stimulation. withdraws to pain. VSS. Fall precautions in place. Left nare NGT intact. awaiting placement confirmation via KUB. Admission orders received from Dr. Hoffman. at bedside will follow.
[2019-02-10] MEDS: D5NS 1,000 ML IV SCH (18:15)
[2019-02-10] MEDS ORDERED: Vitamin D 50,000 units cap ORAL SCH (18:15)
[2019-02-10] MEDS: guaiFENesin 100mg/5ml Liq ud ORAL SCH ×2 (18:15→21:56)
[2019-02-10] MEDS ORDERED: Acetaminophen 500mg (ES) tab ORAL PRN (18:15)
--- NOTE | 2019-02-10 18:48 | Diagnostic Imaging Report ---
Indication: Post nasogastric tube placement Technique: Supine view of the upper abdomen Comparison: 01/03/2019 Findings: There is a nasogastric tube in place, coiled in the gastric fundus and body. The tip of a dialysis catheter is noted at the cavoatrial junction. Included right lower chest demonstrate a right pleural effusion. There is mildly dilated gas-filled small bowel noted in the upper and mid abdomen. Impression: Satisfactory nasogastric intubation Mildly dilated small bowel. Appearance is nonspecific, may indicate ileus, enteritis, or small bowel obstruction Other findings as noted This agrees with the preliminary interpretation provided overnight by [facility] teleradiology service.
--- NOTE | 2019-02-10 19:00 | NUR ---
NURSE NOTES: order received from DR. Yasmin BAUTISTA to use NGT. noted and carried out.
--- NOTE | 2019-02-10 19:50 | NUR ---
NURSE NOTES: Received pt and report from DWIGHT Hyatt. Observed pt resting in bed with both eyes closed; arousable to shaking. Family member at bedside. Pt is A/Ox0. monitoring tech is in placed, IV site intact, asymptomatic and patent; currently running D5 NS @ 50cc/hr. Bed is in the lowest position and locked. Call light and bedside table within reach. NPO noted. Pt has NGT in left nares; okay to use per Dr. Hoffman. No signs/symptoms of acute distress noted at this time. Will continue plan of care.
[2019-02-10 20:00] VITALS: BP 123/77
--- NOTE | 2019-02-10 20:05 | NUR ---
HAND-OFF: Report given to Nunu Sarmiento. Patient stable. Plan of care endorsed.
[2019-02-10] MEDS: Lactulose 20gm/30ml UDC ORAL SCH (21:44)
[2019-02-11] VITALS: BP 125/74
[2019-02-11] MEDS: guaiFENesin 100mg/5ml Liq ud ORAL SCH ×5 (02:15→17:37)
--- NOTE | 2019-02-11 02:48 | NUR ---
NURSE NOTES: Observed pt asleep in bed with both eyes closed. No signs/symptoms of acute distress noted at this time. Will continue plan of care.
[2019-02-11 04:00] VITALS: BP 115/64
--- NOTE | 2019-02-11 05:28 | NUR ---
NURSE NOTES: Pt is more arousable to voice at this time. Pt still continues to be lethargic.
--- NOTE | 2019-02-11 06:25 | Consultation ---
History of Present Illness General Chief Complaint: Altered Mental Status Present Illness Allergies: Coded Allergies: PENICILLINS (Verified Allergy, Unknown, 01/03/19) Medication History Scheduled Ergocalciferol (Vitamin D2)* (Vitamin D*), 50,000 UNIT ORAL ONCE A WEEK, ( Reported) Ergocalciferol (Vitamin D2)* (Vitamin D*), 50,000 UNIT ORAL ONCE A WEEK, ( Reported) Famotidine* (Pepcid 20mg tablet*), 20 MG ORAL TWICE A DAY, (Reported) Furosemide* (Lasix*), 80 MG ORAL TWICE A DAY, (Reported) Guaifenesin* (Guaifenesin), 5 ML ORAL Q4H, (Reported) Lactulose (Lactulose), 10 GM PO FIVE TIMES A DAY, (Reported) Lactulose (Lactulose*), 30 GM ORAL QID Multivitamins* (Multivitamins*), 1 TAB ORAL DAILY, (Reported) Omeprazole (Omeprazole), 20 MG ORAL DAILY, (Reported) Polyethylene Glycol 3350* (Miralax*), 17 GM ORAL DAILY, (Reported) Potassium Chloride (K-Tab ER), 40 MEQ ORAL TWICE A DAY Rifaximin* (Xifaxan*), 200 MG ORAL TWICE A DAY, (Reported) Spironolactone* (Aldactone*), 25 MG ORAL DAILY, (Reported) Miscellaneous Medications Folic Acid (Folic Acid), 1 MG PO, (Reported) Rifaximin (Rifaximin), 500 GM MC, (Reported) Sevelamer HCl (Sevelamer HCl), 1,600 MG PO, (Reported) Patient History Healthcare decision maker Resuscitation status Full Code Advanced Directive on File Physical Exam Last 24 Hour Vital Signs Date Time Temp Pulse Resp B/P (MAP) Pulse Ox O2 Delivery O2 Flow Rate FiO2 02/11/19 04:00 97.4 58 17 115/64 (81) 97 02/11/19 04:00 57 02/11/19 00:00 57 02/11/19 00:00 97.5 74 19 125/74 (91) 96 02/10/19 21:00 Room Air 02/10/19 20:00 97.4 70 17 123/77 (92) 97 02/10/19 20:00 58 02/10/19 19:28 Room Air 02/10/19 17:29 97.7 70 13 148/68 100 Room Air 02/10/19 12:39 70 13 148/68 100 Room Air 02/10/19 10:15 70 15 138/64 100 Room Air 02/10/19 09:00 97.7 74 20 130/67 100 Room Air 02/10/19 07:42 65 13 Room Air 02/10/19 07:42 98.4 65 13 160/73 100 Room Air Intake and Output 02/10/19 02/11/19 18:59 06:59 Intake Total 350 ml Balance 350 ml Intake IV Total 350 ml # Voids 1 # Bowel Movements 1 Laboratory Tests Test 02/10/19 06:30 02/10/19 07:30 02/10/19 09:50 White Blood Count 3.2 K/UL (4.8-10.8) L Red Blood Count 3.45 M/UL (4.70-6.10) L Hemoglobin 10.9 G/DL (14.2-18.0) L Hematocrit 33.3 % (42.0-52.0) L Mean Corpuscular Volume 97 FL (80-99) Mean Corpuscular Hemoglobin 31.6 PG (27.0-31.0) H Mean Corpuscular Hemoglobin Concent 32.7 G/DL (32.0-36.0) Red Cell Distribution Width 15.3 % (11.6-14.8) H Platelet Count 32 K/UL (150-450) L Mean Platelet Volume 7.9 FL (6.5-10.1) Neutrophils (%) (Auto) % (45.0-75.0) Lymphocytes (%) (Auto) % (20.0-45.0) Monocytes (%) (Auto) % (1.0-10.0) Eosinophils (%) (Auto) % (0.0-3.0) Basophils (%) (Auto) % (0.0-2.0) Differential Total Cells Counted 100 Neutrophils % (Manual) 85 % (45-75) H Lymphocytes % (Manual) 10 % (20-45) L Monocytes % (Manual) 3 % (1-10) Eosinophils % (Manual) 2 % (0-3) Basophils % (Manual) 0 % (0-2) Band Neutrophils 0 % (0-8) Platelet Estimate Decreased L Platelet Morphology Normal Anisocytosis 1+ Prothrombin Time 10.4 SEC (9.30-11.50) Prothromb Time International Ratio 1.0 (0.9-1.1) Activated Partial Thromboplast Time 22 SEC (23-33) L Sodium Level 138 MMOL/L (136-145) Potassium Level 3.8 MMOL/L (3.5-5.1) Chloride Level 102 MMOL/L (98-107) Carbon Dioxide Level 26 MMOL/L (21-32) Anion Gap 10 mmol/L (5-15) Blood Urea Nitrogen 30 mg/dL (7-18) H Creatinine 1.9 MG/DL (0.55-1.30) H Estimat Glomerular Filtration Rate 36.2 mL/min (>60) Glucose Level 132 MG/DL (74-106) H Lactic Acid Level 2.20 mmol/L (0.4-2.0) H 2.00 mmol/L (0.66-2.22) Calcium Level 8.1 MG/DL (8.5-10.1) L Total Bilirubin 2.3 MG/DL (0.2-1.0) H Direct Bilirubin 0.7 MG/DL (0.0-0.3) H Aspartate Amino Transf (AST/SGOT) 56 U/L (15-37) H Alanine Aminotransferase (ALT/SGPT) 39 U/L (12-78) Alkaline Phosphatase 265 U/L (46-116) H Ammonia 199 umol/L (11-32) H Total Creatine Kinase 50 U/L (26-308) Creatine Kinase MB 0.6 NG/ML (0.0-3.6) Creatine Kinase MB Relative Index 1.2 Troponin I 0.006 ng/mL (0.000-0.056) Pro-B-Type Natriuretic Peptide 585 pg/mL (0-125) H Total Protein 6.8 G/DL (6.4-8.2) Albumin 2.2 G/DL (3.4-5.0) L Globulin 4.6 g/dL Albumin/Globulin Ratio 0.5 (1.0-2.7) L Lipase 297 U/L (73-393) Urine Color Pale yellow Urine Appearance Clear Urine pH 8 (4.5-8.0) Urine Specific [place] 1.010 (1.005-1.035) Urine Protein Negative (NEGATIVE) Urine Glucose (UA) Negative (NEGATIVE) Urine Ketones 1+ (NEGATIVE) H Urine Blood 4+ (NEGATIVE) H Urine Nitrite Negative (NEGATIVE) Urine Bilirubin Negative (NEGATIVE) Urine Urobilinogen Normal MG/DL (0.0-1.0) Urine Leukocyte Esterase Negative (NEGATIVE) Urine RBC 5-10 /HPF (0 - 0) H Urine WBC 0 /HPF (0 - 0) Urine Squamous Epithelial Cells Occasional /LPF Urine Bacteria None /HPF (NONE) Microbiology Date/Time Source Procedure Growth Status 02/10/19 09:45 Rectum Received Height (Feet): 5 Height (Inches): 4.00 Weight (Pounds): 149 Medications Current Medications Medications (Trade) Dose Ordered Sig/Katie Route PRN Reason Start Time Stop Time Status Last Admin Dose Admin Acetaminophen (Tylenol) 500 mg Q6H PRN ORAL Mild Pain/Temp > 100.5 02/10/19 18:15 03/12/19 18:14 Dextrose/Sodium Chloride 1,000 ml @ 50 mls/hr Q20H IV 02/10/19 18:15 03/12/19 18:14 02/10/19 18:15 Ergocalciferol (Drisdol) 50,000 intlu ONCE A WEEK ORAL 02/16/19 09:00 03/18/19 08:59 Famotidine (Pepcid) 20 mg DAILY ORAL 02/11/19 09:00 03/13/19 08:59 Folic Acid (Folate) 1 mg DAILY ORAL 02/11/19 09:00 03/13/19 08:59 Guaifenesin (Robitussin) 100 mg Q4H ORAL 02/10/19 18:15 03/12/19 18:14 02/10/19 21:56 Lactulose (Cephulac) 30 gm QID ORAL 02/10/19 21:00 03/12/19 20:59 02/10/19 21:44 Multivitamins (Multivitamins) 1 tab DAILY ORAL 02/11/19 09:00 03/13/19 08:59 Rifaximin (Xifaxan) 550 mg EVERY 12 HOURS ORAL 02/10/19 21:00 02/17/19 20:59 02/10/19 21:43 Assessment/Plan Assessment/Plan: Hematology Consultation MAME MD: Rosaura Hoffman [facility]: Pancytopenia, HCC DOS: 02/11/19 ID [id number] old male Patient presents with complaints of altered mental status Patient is brought in by paramedics Unknown last well symptoms Patient does have a dialysis catheter on the right upper chest This was in the ER Unknown regarding recent fevers unknown regarding vomiting or diarrhea history of present illness is significantly limited HE is a very poor historian, speaks bulgarian and does go to [facility] for his hcc care , does have a known history of cancer. With a ng tube ++ at this time, no bleeding noted, no major changes Coded Allergies: PENICILLINS (Verified Allergy, Unknown, 01/03/19) Patient History Limited by: medical condition Reviewed Nursing Documentation: PMH: Agreed; PSxH: Agreed Review of Systems All Other Systems: limited - Other than the ones mentioned in the history of present illness all others are reviewed however they do stay limited due to the patient's mental status Physical Exam Vitals: reviewed General Appearance: today more comfortable Neck: supple Respiratory: lungs clear, no respiratory distress Cardiovascular: RRR, no mgr Gastrointestinal: non tender, soft, other ++ Umbilical hernia mild abdominal distention Neurologic: II-XII intact grossly Lymphatic: no adenopathy Imaging: US abd 01/2019: Impression: Evidence of hepatic cirrhosis, with hepatic surface nodularity Hypoechoic but solid-appearing right hepatic lobe liver nodule. Recommend further evaluation with multiphasic liver protocol contrast CT or MRI Evidence of portal hypertension, with ascites, splenomegaly, and splenic hilar varices Cholelithiasis. Gallbladder wall thickening is probably a manifestation of generalized edema resulting from the hepatic derangements, but does raise the possibility of acute cholecystitis. Consider hepatobiliary nuclear scan if there is high clinical suspicion Bilateral pleural effusions Borderline increased renal echogenicity, if real could indicate medical renal disease Note suboptimal visualization of the abdominal aorta Assessment and Recs: # Hepatocellular carcinoma has had this for three years and gets treatment at [facility] --> have dw patient need further history and will contact family, have dw RN, need more history, has been on treatment for the past three years --> f/u [facility] onc [facility] --> cea and afp on prior admission were within normal limits --> imaging noted, doesn't need biopsy here --> further imaging if abd pain worsens --> EGD last admission per Dr. Vosoghi showed small varices # PAncytopenia is related to history of liver disease, cirrhosis and cancer --> closely monitor, neupogen given 01/05 x1 --> ANC is >1500 --> meds have been reviewed, on abx --> perp smear has been reviewed, no blasts --> epogen and iron as needed for esrd --> as per renal, hd --> wbc 3.2 --> plt 32k --> hgb 10.9 # Hepatic encephalopathy --> rifaxamin/lactulose and gi management # HYperblirubinemia due to liver disease --> lactulose and other prn # Pleural effusion --> drain prn, due to hep congestion potentially and chf # ESRD on hd --> per renal recs MOUNIKA RN in am, and appreciate consultation. Damion Brown MD Feb 11, 2019 06:25
[2019-02-11 07:11] LABS: INR 1.4 (0.9-1.1)
[2019-02-11 07:38] LABS: HEMATOCRIT 29.6 % (42.0-52.0); HEMOGLOBIN 9.8 G/DL (14.2-18.0); MEAN CORPUSCULAR VOLUME 97 FL (80-99); PLATELET COUNT 29 K/UL (150-450); RED BLOOD COUNT 3.05 M/UL (4.70-6.10); RED CELL DISTRIBUTION WIDTH 15.2 % (11.6-14.8)
--- NOTE | 2019-02-11 07:42 | NUR ---
NURSE NOTES: Ordered KUB per Dr. Michael to confirm NGT placement. Endorsed to DWIGHT Parsons.
--- NOTE | 2019-02-11 07:44 | NUR ---
HAND-OFF: Report given to DWIGHT Parsons. Plan of care endorsed.
--- NOTE | 2019-02-11 07:48 | NUR ---
NURSE NOTES:HANDOFF RECEIVED FROM DWIGHT CARVER. MEHUL STATED THAT THE NG TUBE HAD COME OUT SLIGHTLY SO SHE PUT IT BACK IN PLACE AND GOT ORDER FROM MD TO CHECK POSITION ON XRAY. PATIENT RECEIVED RESTING IN BED, PATIENT DOES NOT VERBALLY RESPOND BUT GROANS TO STIMULATION. PATIENT HAS IV FLUIDS RUNNING AT PRESCRIBED RATE, IV SITE CLEAN, DRY AND INTACT. NO ACUTE SIGNS OF DISTRESS NOTED. BED IN THE LOW AND LOCKED POSITION WITH CALL LIGHT WITHIN REACH, WILL CONTINUE TO MONITOR PATIENT.
[2019-02-11 07:49] LABS: ALANINE AMINOTRANSFERASE 36 U/L (12-78); ALBUMIN 1.9 G/DL (3.4-5.0); ALBUMIN/GLOBULIN RATIO 0.5 (1.0-2.7); ALKALINE PHOSPHATASE 200 U/L (46-116); ANION GAP 9 mmol/L (5-15); ASPARTATE AMINO TRANSFERASE 51 U/L (15-37); BILIRUBIN,TOTAL 2.4 MG/DL (0.2-1.0); BLOOD UREA NITROGEN 34 mg/dL (7-18); CARBON DIOXIDE 25 MMOL/L (21-32); CHLORIDE 106 MMOL/L (98-107); CREATININE 1.8 MG/DL (0.55-1.30); POTASSIUM 3.4 MMOL/L (3.5-5.1); SODIUM 140 MMOL/L (136-145)
[2019-02-11 07:50] LABS: BILIRUBIN,DIRECT 0.6 MG/DL (0.0-0.3)
[2019-02-11 07:57] LABS: WHITE BLOOD COUNT 2.1 K/UL (4.8-10.8)
[2019-02-11 08:00] VITALS: BP 124/64
[2019-02-11] MEDS ORDERED: Lactulose 20gm/30ml UDC ORAL SCH (09:00)
--- NOTE | 2019-02-11 09:29 | General Progress Note ---
Assessment/Plan Problem List: (1) Hepatic encephalopathy ICD Codes: K72.90 - Hepatic failure, unspecified without coma SNOMED: 03819592 (2) Elevated lactic acid level ICD Codes: R79.89 - Other specified abnormal findings of blood chemistry SNOMED: 5637179 (3) Pleural effusion, right ICD Codes: J90 - Pleural effusion, not elsewhere classified SNOMED: 25402786 (4) Liver nodule ICD Codes: K76.89 - Other specified diseases of liver SNOMED: 121761253 (5) Liver cirrhosis ICD Codes: K74.60 - Unspecified cirrhosis of liver SNOMED: 72903895 (6) ESRD (end stage renal disease) ICD Codes: N18.6 - End stage renal disease SNOMED: 49037050 Assessment/Plan: ngt lactulose xifaxan npo abd us>> reviewed fu labs EGD in the last admission showed small varices vit k Subjective ROS Limited/Unobtainable: No Allergies: Coded Allergies: PENICILLINS (Verified Allergy, Unknown, 01/03/19) Objective Last 24 Hour Vital Signs Date Time Temp Pulse Resp B/P (MAP) Pulse Ox O2 Delivery O2 Flow Rate FiO2 02/11/19 08:12 Room Air 02/11/19 08:00 97.5 55 18 124/64 (84) 99 02/11/19 04:00 97.4 58 17 115/64 (81) 97 02/11/19 04:00 57 02/11/19 00:00 57 02/11/19 00:00 97.5 74 19 125/74 (91) 96 02/10/19 21:00 Room Air 02/10/19 20:00 97.4 70 17 123/77 (92) 97 02/10/19 20:00 58 02/10/19 19:28 Room Air 02/10/19 17:29 97.7 70 13 148/68 100 Room Air 02/10/19 12:39 70 13 148/68 100 Room Air 02/10/19 10:15 70 15 138/64 100 Room Air Intake and Output 02/10/19 02/11/19 18:59 06:59 Intake Total 600 ml Balance 600 ml Intake IV Total 600 ml # Voids 1 # Bowel Movements 1 Laboratory Tests 02/10/19 09:50: Lactic Acid Level 2.00 02/11/19 06:30: White Blood Count 2.1*L, Red Blood Count 3.05L, Hemoglobin 9.8L, Hematocrit 29.6L, Mean Corpuscular Volume 97, Mean Corpuscular Hemoglobin 32.2H, Mean Corpuscular Hemoglobin Concent 33.1, Red Cell Distribution Width 15.2H, Platelet Count 29L, Mean Platelet Volume 7.6, Neutrophils (%) (Auto) , Lymphocytes (%) (Auto) , Monocytes (%) (Auto) , Eosinophils (%) (Auto) , Basophils (%) (Auto) , Neutrophils % (Manual) [Pending], Lymphocytes % (Manual) [Pending], Platelet Estimate [Pending], Platelet Morphology [Pending], Prothrombin Time 14.5H, Prothromb Time International Ratio 1.4H, Sodium Level 140, Potassium Level 3.4L, Chloride Level 106, Carbon Dioxide Level 25, Anion Gap 9, Blood Urea Nitrogen 34H, Creatinine 1.8H, Estimat Glomerular Filtration Rate 38.6, Glucose Level 88, Calcium Level 8.0L, Total Bilirubin 2.4H, Direct Bilirubin 0.6H, Aspartate Amino Transf (AST/SGOT) 51H, Alanine Aminotransferase (ALT/SGPT) 36, Alkaline Phosphatase 200H, Ammonia 113H, Total Protein 5.9L, Albumin 1.9L, Globulin 4.0, Albumin/Globulin Ratio 0.5L, Alpha Fetoprotein [ Pending] Height (Feet): 5 Height (Inches): 4.00 Weight (Pounds): 149 General Appearance: no apparent distress, lethargic EENT: normal ENT inspection Neck: supple Cardiovascular: normal rate Respiratory/Chest: decreased breath sounds Extremities: non-tender José Michael MD Feb 11, 2019 09:29
--- NOTE | 2019-02-11 09:44 | NUR ---
NURSE NOTES: WAITING FOR GTUBE PLACEMENT CONFIRMATION BEFORE PASSING MEDICATIONS.
--- NOTE | 2019-02-11 10:54 | NUR ---
NURSE NOTES:CALLED RADIOLOGY TO FOLLOW UP WITH ABDOMINAL X RAY TO CONFIRM PLACEMENT. X RAY HAS STILL NOT BEEN EVALUATED.
[2019-02-11] MEDS ORDERED: Phytonadione 1 MG in D5W 55 ML IVPB SCH (11:00)
--- NOTE | 2019-02-11 11:28 | NUR ---
NURSE NOTES:CALLED RADIOLOGY WORSHIP LEADER TO FOLLOW UP, TRANSFERRED TO RADIOLOGIST, WHO STATED THE GTUBE PLACEMENT LOOKS GOOD, AND CONFIRMED IT IS OK TO USE.
--- NOTE | 2019-02-11 11:32 | Consultation ---
Consult Note Consult Note asked to eval at the request of dr Hoffman patient known to me from his previous admission non historian Patient presents to the emergency room with reports of altered mental status Last known well was at 8 PM last night putting the last known well approximately 10 hours ago Patient had gone to bed and this morning appears to be more sluggish Family is a poor historian and lack of medical information Limiting the patient's history of present illness Unknown regarding fever there was no reports of vomiting or diarrhea on review of medical records patient appears to have been here recently with Diagnosis of hepatic encephalopathy Coded Allergies: PENICILLINS (Verified Allergy, Unknown, 01/03/19) Hx Diabetes: Yes Hx Cancer: No Hx Dialysis: Yes examined data reviewed Assessment/Plan (1) Liver nodule h/o hepatocellular ca (2) Hepatic encephalopathy (3) Renal failure , ESRD (4) Pleural effusion (5) Pancytopenia (6) High Lactic level Per GI ? paracenthesis monitor [place] lactulose K supplement as needed NPO Dialysis as and if needed, per orders Dg Ennis MD Feb 11, 2019 11:32
--- NOTE | 2019-02-11 11:35 | Diagnostic Imaging Report ---
Indication: Post nasogastric tube placement Technique: Supine view of the upper abdomen Comparison: 02/10/2019 Findings: There is a nasogastric tube in place, coiled in the gastric fundus and body, well within the stomach. There is considerable small bowel gas demonstrated, which appears decreased since the previous exam. Incidentally noted in the lower chest are tunneled dialysis catheter and a large right pleural effusion Impression: Satisfactory nasogastric tube position, suitable for use. This finding was discussed with patient's nurse at the time of interpretation Considerable small bowel gas, but improved since prior study of 02/10/2019 Other findings as noted
--- NOTE | 2019-02-11 11:42 | NUR ---
NURSE NOTES: PATIENT COMPLAINING OF ABDOMINAL PAIN 10/12, AND HAS BLOOD PRESSURE 83/42 NOTIFIED DRSanthosh WILL FOLLOW DOCTORS ORDERS. Addendum: 02/11/19 at 1152 by Issa Blackwell RN PATIENT ALSO COMPLAINING OF ITCHING, MADE AWARE.
[2019-02-11] MEDS ORDERED: HYDROcodone/Acetamin 5/325 tab ORAL PRN (11:45)
--- NOTE | 2019-02-11 11:45 | NUR ---
NURSE NOTES: DR MARTÍNEZ CONFIRMED IT IS OK TO USE NG-TUBE.
[2019-02-11 12:00] VITALS: BP 83/42
[2019-02-11] MEDS ORDERED: Dexamethasone 4mg/ml vial IVP SCH (12:00)
[2019-02-11] MEDS: Lactulose 20gm/30ml UDC ORAL SCH ×4 (12:03→21:25)
[2019-02-11] MEDS: D5NS 1,000 ML IV SCH (12:45)
--- NOTE | 2019-02-11 15:09 | General Progress Note ---
Assessment/Plan Assessment/Plan: S: cachectic, minimal word verbal communicatino O: at bed side. denies sever pain General Appearance: other - Patient has significant decreased response grimaces to physical stimuli but verbal in limited wording Head: normocephalic, atraumatic Eyes: bilateral eye PERRL ENT: normal pharynx, no angioedema Neck: supple Respiratory: lungs clear, no respiratory distress, no retraction Cardiovascular #1: regular rate, rhythm Gastrointestinal: non tender, soft, prominent abdomen - Umbilical hernia mild abdominal distention Musculoskeletal: other - Difficult to assess patient is not awake does not follow commands Neurologic: other - Significantly decreased GCS does not open eyes minimal response to physical stimuli Skin: no rash Lymphatic: no adenopathy Meds and Labs: dated Feb 11 reviewed Assessment: 1- Acute encephalopathy: resolved 2- Pancytopenia 3- HCC 4- Cirhosis 5- Immunocompromised 6- ESRDx HD 7. Multiple medi al problems with Life expectancy less than 6 months Plan: I had a detailed cnv with at bed side. Patient is AOX2 and requested us to return him home requesting one additional day for accommodating patient at home Will return home on hospice tommorw Subjective Allergies: Coded Allergies: PENICILLINS (Verified Allergy, Unknown, 01/03/19) Objective Last 24 Hour Vital Signs Date Time Temp Pulse Resp B/P (MAP) Pulse Ox O2 Delivery O2 Flow Rate FiO2 02/11/19 12:00 66 02/11/19 12:00 98.1 79 18 83/42 (56) 95 02/11/19 08:12 Room Air 02/11/19 08:00 54 02/11/19 08:00 97.5 55 18 124/64 (84) 99 02/11/19 04:00 97.4 58 17 115/64 (81) 97 02/11/19 04:00 57 02/11/19 00:00 57 02/11/19 00:00 97.5 74 19 125/74 (91) 96 02/10/19 21:00 Room Air 02/10/19 20:00 97.4 70 17 123/77 (92) 97 02/10/19 20:00 58 02/10/19 19:28 Room Air 02/10/19 17:29 97.7 70 13 148/68 100 Room Air Intake and Output 02/10/19 02/11/19 19:00 07:00 Intake Total 50 ml 600 ml Balance 50 ml 600 ml Intake IV Total 50 ml 600 ml # Voids 1 # Bowel Movements 1 Laboratory Tests 02/11/19 06:30: White Blood Count 2.1*L, Red Blood Count 3.05L, Hemoglobin 9.8L, Hematocrit 29.6L, Mean Corpuscular Volume 97, Mean Corpuscular Hemoglobin 32.2H, Mean Corpuscular Hemoglobin Concent 33.1, Red Cell Distribution Width 15.2H, Platelet Count 29L, Mean Platelet Volume 7.6, Neutrophils (%) (Auto) , Lymphocytes (%) (Auto) , Monocytes (%) (Auto) , Eosinophils (%) (Auto) , Basophils (%) (Auto) , Differential Total Cells Counted 100, Neutrophils % ( Manual) 80H, Lymphocytes % (Manual) 18L, Monocytes % (Manual) 0L, Eosinophils % (Manual) 2, Basophils % (Manual) 0, Band Neutrophils 0, Platelet Estimate DecreasedL, Platelet Morphology Normal, Anisocytosis 1+, Prothrombin Time 14.5H , Prothromb Time International Ratio 1.4H, Sodium Level 140, Potassium Level 3.4L, Chloride Level 106, Carbon Dioxide Level 25, Anion Gap 9, Blood Urea Nitrogen 34H, Creatinine 1.8H, Estimat Glomerular Filtration Rate 38.6, Glucose Level 88, Calcium Level 8.0L, Total Bilirubin 2.4H, Direct Bilirubin 0.6H, Aspartate Amino Transf (AST/SGOT) 51H, Alanine Aminotransferase (ALT/SGPT) 36, Alkaline Phosphatase 200H, Ammonia 113H, Total Protein 5.9L, Albumin 1.9L, Globulin 4.0, Albumin/Globulin Ratio 0.5L, Alpha Fetoprotein [Pending] Height (Feet): 5 Height (Inches): 4.00 Weight (Pounds): 155 Rosaura Hoffman MD Feb 11, 2019 15:09
--- NOTE | 2019-02-11 15:10 | History & Physical ---
History and Physical History & Physicial HISTORY OF PRESENT ILLNESS: The patient is a 63-year-old male with a history of dialysis, who lives with . Per , the patient has had decreased level of consciousness for the last couple of days. HE HAS H/O OF LIVER CANCER AND HAD BEEN ON PALLIATIVE CARE. At the time of evaluation, the patient poor historian. at the bedside. No reported incident of fever, shortness of breath, or chest pain. No episodes of missed hemodialysis. HOWEVER WORSENING MENTAL STATE. REVIEW OF SYSTEMS: LIMITED, All 12 elements of review of systems reviewed, pertinent positive and negative as above. ALLERGIES: Penicillin. PAST MEDICAL HISTORY: End-stage renal disease, on hemodialysis and cirrhosis.LIVER CA. MEDICATIONS: REVIEWED AND RECONCILED IN THE CHART SOCIAL HISTORY: The patient is . No recent active tobacco use or illicit drug abuse has been reported. The patient lives with the . PHYSICAL EXAMINATION: VITAL SIGNS: Blood pressure 100/70, temperature 98.2, pulse oximetry 98% on room air, pulse rate 85, and respiratory rate 18. HEAD AND NECK: Atraumatic and normocephalic. CHEST: Clear to auscultation.HEART: S1, S2. Regular rate and rhythm. ABDOMEN: Soft. No organomegaly. Abdomen is protuberant. Positive organomegaly.MUSCULOSKELETAL: Limited evaluation as the patient is sleepy. Limited following of the commands. IMAGING: Chest x-ray dated 02/10/19 REVIEWED LABORATORY DATA: Labs dated 02/10/19 REVIEWED ASSESSMENT: 1. Acute HEPATIC metabolic encephalopathy. 2 .LIVER CA 3. Pancytopenia. 4. Cirrhosis. 5. End-stage renal disease, on hemodialysis. 6. GI and DVT prophylaxes. PLAN OF Infectious Disease, Nephrology, Hematology-Oncology have been consulted. CONTINUE WITH CONSERVATIVE MGT General Appearance: other - Patient has significant decreased response grimaces to physical stimuli but verbal in limited wording Head: normocephalic, atraumatic Eyes: bilateral eye PERRL ENT: normal pharynx, no angioedema Neck: supple Respiratory: lungs clear, no respiratory distress, no retraction Cardiovascular #1: regular rate, rhythm Gastrointestinal: non tender, soft, prominent abdomen - Umbilical hernia mild abdominal distention Musculoskeletal: other - Difficult to assess patient is not awake does not follow commands Neurologic: other - Significantly decreased GCS does not open eyes minimal response to physical stimuli Skin: no rash Lymphatic: no adenopathy Meds and Labs: dated Feb 11 reviewed Assessment: 1- Acute encephalopathy: resolved 2- Pancytopenia 3- HCC 4- Cirhosis 5- Immunocompromised 6- ESRDx HD 7. Multiple medi al problems with Life expectancy less than 6 months Rosaura Hoffman MD Feb 11, 2019 15:10
--- NOTE | 2019-02-11 15:46 | NUR ---
CASE MANAGEMENT: INITIAL REVIEW 63 YR OLD MALE BIBA FROM HOME CC: AMS; BLOOD IN MOUTH SI: HEPATIC ENCEPHALOPATHY . 98.4 78 12 153/78 100% ON RA WBC 3.2 LA 2.20 H/H 10.9/33.3 PTT 22 IS: KAYEXALATE KS X1 LACTULOSE KS X1 \: 2E TELE UNIT DCP: HOME WHEN MEDICALLY CLEARED PLAN: HEAD CT CXR US ABD ABD XRAY REPEAT ABD XRAY IN AM CASE MANAGEMENT: REVIEW 02/11/19 SI: ACUTE HEPATIC ENCEPHALOPATHY . LIVER CA . CIRRHOSIS . PANCYTOPENIA 98.4 78 12 153/78 100% ON RA WBC 2.1 H/H 9.8/29.6 K+ 3.4 BUN 34 CREAT 1.8 CA+8.0 PT/INR14.5/1.4 IS: IV NS BOLUS X1 IV VIT K X1 IV KCL X3 BAGS IV D5 @50ML/HR LACTULOSE PO QID IV DECADRON X1 \: 2E TELE UNIT DCP: HOME WHEN MEDICALLY CLEARED
[2019-02-11 16:00] VITALS: BP 110/59
--- NOTE | 2019-02-11 19:28 | NUR ---
HAND-OFF: Report given to DWIGHT CARVER.
--- NOTE | 2019-02-11 19:35 | NUR ---
NURSE NOTES: Received pt and report from DWIGHT Parsons. Observed pt resting in bed with both eyes open and family members at bedside. Pt is A/Ox2. monitoring analyst is in placed, IV site intact, asymptomatic and patent. Pt has a NGT in left nares. Aspiration precaution noted; HOB at 30 degrees. Pt has a Rt chest PermCath for HD. Bed is in the lowest position and locked. Call light and bedside table within reach. No signs/symptoms of acute distress noted at this time. Will continue plan of care.
[2019-02-11] MEDS ORDERED: guaiFENesin 100mg/5ml Liq ud ORAL PRN (19:45)
[2019-02-11 20:00] VITALS: BP 112/62
[2019-02-11] MEDS: Pantoprazole Inj IVP SCH (21:25)
[2019-02-12] VITALS: BP 122/70
[2019-02-12 04:00] VITALS: BP 124/71
[2019-02-12 05:47] LABS: HEMATOCRIT 28.6 % (42.0-52.0); HEMOGLOBIN 10.2 G/DL (14.2-18.0); MEAN CORPUSCULAR VOLUME 92 FL (80-99); PLATELET COUNT 30 K/UL (150-450); RED CELL DISTRIBUTION WIDTH 13.5 % (11.6-14.8)
[2019-02-12 05:57] LABS: AMMONIA 34 umol/L (11-32)
[2019-02-12 06:09] LABS: GAMMA GLUTAMYL TRANSPEPTIDASE 177 U/L (5-85); PHOSPHORUS 4.8 MG/DL (2.5-4.9)
[2019-02-12 06:18] LABS: ALANINE AMINOTRANSFERASE 37 U/L (12-78); ALBUMIN 1.9 G/DL (3.4-5.0); ALBUMIN/GLOBULIN RATIO 0.4 (1.0-2.7); ALKALINE PHOSPHATASE 203 U/L (46-116); ANION GAP 11 mmol/L (5-15); ASPARTATE AMINO TRANSFERASE 55 U/L (15-37); BILIRUBIN,TOTAL 2.1 MG/DL (0.2-1.0); BLOOD UREA NITROGEN 36 mg/dL (7-18); CALCIUM 8.1 MG/DL (8.5-10.1); CARBON DIOXIDE 23 MMOL/L (21-32); CHLORIDE 111 MMOL/L (98-107); CHOLESTEROL 94 MG/DL (< 200); CREATININE 1.9 MG/DL (0.55-1.30); FERRITIN 385 NG/ML (8-388); HDL CHOLESTEROL 47 MG/DL (40-60); POTASSIUM 3.9 MMOL/L (3.5-5.1); SODIUM 145 MMOL/L (136-145); TRIGLYCERIDES 61 MG/DL (30-150)
[2019-02-12 06:19] LABS: INR 1.4 (0.9-1.1)
[2019-02-12 06:31] LABS: BILIRUBIN,DIRECT 0.9 MG/DL (0.0-0.3)
[2019-02-12 06:59] LABS: % IRON SATURATION 50 % (15-50); IRON 60 ug/dL (50-175); TOTAL IRON BINDING CAPACITY 120 ug/dL (250-450)
--- NOTE | 2019-02-12 07:49 | NUR ---
HAND-OFF: Report given to DWIGHT Thompson. Plan of care endorsed.
--- NOTE | 2019-02-12 07:49 | NUR ---
NURSE NOTES: Received patient and report from DWIGHT Sarmiento in bed resting. Patient is A/O X2. IV tact, asymptomatic and patent. Patient has NGT in left nares, aspiration precaution noted; HOB at 30 degrees. No signs/symptoms of acute distress noted at this time. Patient has a Rt chest PermCath for HD. Bed is in the lowest position and brakes engaged for safety. Call light and bedside table within reach. No signs/symptoms of acute distress noted at this time. Will continue with the plan of care.
[2019-02-12 08:00] VITALS: BP 118/66
[2019-02-12] MEDS: Pantoprazole Inj IVP SCH ×2 (08:48→21:26)
[2019-02-12] MEDS: Lactulose 20gm/30ml UDC ORAL SCH ×4 (08:48→21:26)
--- NOTE | 2019-02-12 10:16 | General Progress Note ---
Assessment/Plan Problem List: (1) Hepatic encephalopathy ICD Codes: K72.90 - Hepatic failure, unspecified without coma SNOMED: 77678766 (2) Elevated lactic acid level ICD Codes: R79.89 - Other specified abnormal findings of blood chemistry SNOMED: 3109676 (3) Pleural effusion, right ICD Codes: J90 - Pleural effusion, not elsewhere classified SNOMED: 25343332 (4) Liver nodule ICD Codes: K76.89 - Other specified diseases of liver SNOMED: 856842462 (5) Liver cirrhosis ICD Codes: K74.60 - Unspecified cirrhosis of liver SNOMED: 35436814 (6) ESRD (end stage renal disease) ICD Codes: N18.6 - End stage renal disease SNOMED: 19329086 Assessment/Plan: ngt lactulose xifaxan npo abd us>> reviewed fu labs EGD in the last admission showed small varices swallow eval ordered Subjective ROS Limited/Unobtainable: No Allergies: Coded Allergies: PENICILLINS (Verified Allergy, Unknown, 01/03/19) Objective Last 24 Hour Vital Signs Date Time Temp Pulse Resp B/P (MAP) Pulse Ox O2 Delivery O2 Flow Rate FiO2 02/12/19 04:00 97.7 77 18 124/71 (88) 95 02/12/19 04:00 79 02/12/19 00:00 98.1 78 20 122/70 (87) 100 02/12/19 00:00 76 02/11/19 21:00 Room Air 02/11/19 20:00 76 02/11/19 20:00 98.1 70 18 112/62 (79) 94 02/11/19 16:00 97.5 62 17 110/59 (76) 95 02/11/19 16:00 57 02/11/19 12:00 66 02/11/19 12:00 98.1 79 18 83/42 (56) 95 Intake and Output 02/11/19 02/12/19 18:59 06:59 Intake Total 50 ml Output Total 1 ml Balance 50 ml -1 ml Intake IV Total 50 ml Output Stool Total 1 ml Laboratory Tests 02/12/19 05:06: White Blood Count 3.0L, Red Blood Count 3.10L, Hemoglobin 10.2L, Hematocrit 28.6L, Mean Corpuscular Volume 92, Mean Corpuscular Hemoglobin 32.8H, Mean Corpuscular Hemoglobin Concent 35.6, Red Cell Distribution Width 13.5, Platelet Count 30L, Mean Platelet Volume 7.8, Neutrophils (%) (Auto) , Lymphocytes (%) ( Auto) , Monocytes (%) (Auto) , Eosinophils (%) (Auto) , Basophils (%) (Auto) , Neutrophils % (Manual) [Pending], Lymphocytes % (Manual) [Pending], Platelet Estimate [Pending], Platelet Morphology [Pending], Prothrombin Time 14.3H, Prothromb Time International Ratio 1.4H, Sodium Level 145, Potassium Level 3.9, Chloride Level 111H, Carbon Dioxide Level 23, Anion Gap 11, Blood Urea Nitrogen 36H, Creatinine 1.9H, Estimat Glomerular Filtration Rate 36.2, Glucose Level 119H, Hemoglobin A1c 4.7, Uric Acid 6.9, Calcium Level 8.1L, Phosphorus Level 4.8, Magnesium Level 1.6L, Iron Level 60, Total Iron Binding Capacity 120L, Percent Iron Saturation 50, Unsaturated Iron Binding 60L, Ferritin 385, Total Bilirubin 2.1H, Direct Bilirubin 0.9H, Gamma Glutamyl Transpeptidase 177H, Aspartate Amino Transf (AST/SGOT) 55H, Alanine Aminotransferase (ALT/SGPT) 37, Alkaline Phosphatase 203H, Ammonia 34H, Troponin I 0.003, C-Reactive Protein, Quantitative 2.4H, Pro-B-Type Natriuretic Peptide 612H, Total Protein 6.2L, Albumin 1.9L, Globulin 4.3, Albumin/Globulin Ratio 0.4L, Triglycerides Level 61 , Cholesterol Level 94, LDL Cholesterol 37, HDL Cholesterol 47, Cholesterol/HDL Ratio 2.0L, Lipase 228, Vitamin B12 Level 1289H, Folate 40.1, Thyroid Stimulating Hormone (TSH) 1.201, Cortisol AM Sample [Pending] Height (Feet): 5 Height (Inches): 4.00 Weight (Pounds): 158 General Appearance: lethargic EENT: normal ENT inspection Neck: supple Cardiovascular: normal rate Respiratory/Chest: decreased breath sounds Abdomen: normal bowel sounds, non tender, soft Extremities: non-tender José Michael MD Feb 12, 2019 10:16
--- NOTE | 2019-02-12 10:17 | NUR ---
NURSE NOTES: Spoke with Dr. Michael and will order swallow eval for patient.
--- NOTE | 2019-02-12 10:30 | General Progress Note ---
Assessment/Plan Assessment/Plan: S: cachectic, minimal LIMITED word verbal communication O: at bed side. denies sever pain General Appearance: other - Patient has significant decreased response grimaces to physical stimuli but verbal in limited wording Head: normocephalic, atraumatic Eyes: bilateral eye PERRL ENT: normal pharynx, no angioedema Neck: supple Respiratory: lungs clear, no respiratory distress, no retraction Cardiovascular #1: regular rate, rhythm Gastrointestinal: non tender, soft, prominent abdomen - Umbilical hernia mild abdominal distention Musculoskeletal: other - Difficult to assess patient is not awake does not follow commands Neurologic: other - Significantly decreased GCS does not open eyes minimal response to physical stimuli Skin: no rash Lymphatic: no adenopathy Meds and Labs: dated Feb 11 reviewed Assessment: 1- Acute encephalopathy: resolved 2- Pancytopenia 3- HCC 4- Cirhosis 5- Immunocompromised 6- ESRDx HD 7. Multiple medi al problems with Life expectancy less than 6 months Plan: I had a detailed cnv with at bed side. Patient is AOX2 and requested us to return him home Will return home on hospice TODAY DC NG TUBE Subjective Allergies: Coded Allergies: PENICILLINS (Verified Allergy, Unknown, 01/03/19) Objective Last 24 Hour Vital Signs Date Time Temp Pulse Resp B/P (MAP) Pulse Ox O2 Delivery O2 Flow Rate FiO2 02/12/19 08:00 69 02/12/19 08:00 98.0 69 18 118/66 (83) 98 02/12/19 04:00 97.7 77 18 124/71 (88) 95 02/12/19 04:00 79 02/12/19 00:00 98.1 78 20 122/70 (87) 100 02/12/19 00:00 76 02/11/19 21:00 Room Air 02/11/19 20:00 76 02/11/19 20:00 98.1 70 18 112/62 (79) 94 02/11/19 16:00 97.5 62 17 110/59 (76) 95 02/11/19 16:00 57 02/11/19 12:00 66 02/11/19 12:00 98.1 79 18 83/42 (56) 95 Intake and Output 02/11/19 02/12/19 18:59 06:59 Intake Total 50 ml Output Total 1 ml Balance 50 ml -1 ml Intake IV Total 50 ml Output Stool Total 1 ml Laboratory Tests 02/12/19 05:06: White Blood Count 3.0L, Red Blood Count 3.10L, Hemoglobin 10.2L, Hematocrit 28.6L, Mean Corpuscular Volume 92, Mean Corpuscular Hemoglobin 32.8H, Mean Corpuscular Hemoglobin Concent 35.6, Red Cell Distribution Width 13.5, Platelet Count 30L, Mean Platelet Volume 7.8, Neutrophils (%) (Auto) , Lymphocytes (%) ( Auto) , Monocytes (%) (Auto) , Eosinophils (%) (Auto) , Basophils (%) (Auto) , Neutrophils % (Manual) [Pending], Lymphocytes % (Manual) [Pending], Platelet Estimate [Pending], Platelet Morphology [Pending], Prothrombin Time 14.3H, Prothromb Time International Ratio 1.4H, Sodium Level 145, Potassium Level 3.9, Chloride Level 111H, Carbon Dioxide Level 23, Anion Gap 11, Blood Urea Nitrogen 36H, Creatinine 1.9H, Estimat Glomerular Filtration Rate 36.2, Glucose Level 119H, Hemoglobin A1c 4.7, Uric Acid 6.9, Calcium Level 8.1L, Phosphorus Level 4.8, Magnesium Level 1.6L, Iron Level 60, Total Iron Binding Capacity 120L, Percent Iron Saturation 50, Unsaturated Iron Binding 60L, Ferritin 385, Total Bilirubin 2.1H, Direct Bilirubin 0.9H, Gamma Glutamyl Transpeptidase 177H, Aspartate Amino Transf (AST/SGOT) 55H, Alanine Aminotransferase (ALT/SGPT) 37, Alkaline Phosphatase 203H, Ammonia 34H, Troponin I 0.003, C-Reactive Protein, Quantitative 2.4H, Pro-B-Type Natriuretic Peptide 612H, Total Protein 6.2L, Albumin 1.9L, Globulin 4.3, Albumin/Globulin Ratio 0.4L, Triglycerides Level 61 , Cholesterol Level 94, LDL Cholesterol 37, HDL Cholesterol 47, Cholesterol/HDL Ratio 2.0L, Lipase 228, Vitamin B12 Level 1289H, Folate 40.1, Thyroid Stimulating Hormone (TSH) 1.201, Cortisol AM Sample [Pending] Height (Feet): 5 Height (Inches): 4.00 Weight (Pounds): 158 Rosaura Hoffman MD Feb 12, 2019 10:30
[2019-02-12] MEDS: D5NS 1,000 ML IV SCH (10:50)
--- NOTE | 2019-02-12 11:45 | NUR ---
SWALLOW EVAL ORDERED AND CARRIED OUT. PATIENT IS NO LONGER NPO. NEW DIET PER [facility]VETTE, RENAL SOFT EASY CHEW, THIN LIQUID AND NEPHRO THREE TIMES A DAY.
[2019-02-12 12:00] VITALS: BP 122/64
--- NOTE | 2019-02-12 12:49 | Nephrology Progress Note ---
Assessment/Plan Problem List: (1) Renal failure (2) Pleural effusion, right (3) Liver nodule (4) Hepatic encephalopathy Assessment (1) Liver nodule h/o hepatocellular ca (2) Hepatic encephalopathy (3) Renal failure , ESRD (4) Pleural effusion (5) Pancytopenia (6) High Lactic level Plan Per GI ? paracenthesis monitor am[place] lactulose K supplement as needed NPO Dialysis as and if needed, per orders Subjective ROS Limited/Unobtainable: No Constitutional: Reports: other - more responsive Objective Objective Last 24 Hour Vital Signs Date Time Temp Pulse Resp B/P (MAP) Pulse Ox O2 Delivery O2 Flow Rate FiO2 02/12/19 09:00 Room Air 02/12/19 08:00 69 02/12/19 08:00 98.0 69 18 118/66 (83) 98 02/12/19 04:00 97.7 77 18 124/71 (88) 95 02/12/19 04:00 79 02/12/19 00:00 98.1 78 20 122/70 (87) 100 02/12/19 00:00 76 02/11/19 21:00 Room Air 02/11/19 20:00 76 02/11/19 20:00 98.1 70 18 112/62 (79) 94 02/11/19 16:00 97.5 62 17 110/59 (76) 95 02/11/19 16:00 57 Intake and Output 02/11/19 02/12/19 18:59 06:59 Intake Total 50 ml Output Total 1 ml Balance 50 ml -1 ml Intake IV Total 50 ml Output Stool Total 1 ml Current Medications Medications (Trade) Dose Ordered Sig/Kaite Route PRN Reason Start Time Stop Time Status Last Admin Dose Admin Acetaminophen (Tylenol) 500 mg Q6H PRN ORAL Mild Pain/Temp > 100.5 02/10/19 18:15 03/12/19 18:14 Acetaminophen/ Hydrocodone Bitart ([place] 5/325) 1 tab Q4H PRN ORAL Moderate Pain (Pain Scale 4-6) 02/11/19 11:45 02/18/19 11:44 02/11/19 12:09 Dextrose/Sodium Chloride 1,000 ml @ 50 mls/hr Q20H IV 02/10/19 18:15 03/12/19 18:14 02/12/19 10:50 Guaifenesin (Robitussin) 100 mg Q4H PRN ORAL For Cough 02/11/19 19:45 03/12/19 18:14 Lactulose (Cephulac) 30 gm QID ORAL 02/10/19 21:00 03/12/19 20:59 02/12/19 08:48 Pantoprazole (Protonix) 40 mg EVERY 12 HOURS IVP 02/11/19 21:00 03/13/19 20:59 02/12/19 08:48 Rifaximin (Xifaxan) 550 mg EVERY 12 HOURS ORAL 02/10/19 21:00 02/17/19 20:59 02/12/19 08:44 Laboratory Tests 02/12/19 05:06: White Blood Count 3.0L, Red Blood Count 3.10L, Hemoglobin 10.2L, Hematocrit 28.6L, Mean Corpuscular Volume 92, Mean Corpuscular Hemoglobin 32.8H, Mean Corpuscular Hemoglobin Concent 35.6, Red Cell Distribution Width 13.5, Platelet Count 30L, Mean Platelet Volume 7.8, Neutrophils (%) (Auto) , Lymphocytes (%) ( Auto) , Monocytes (%) (Auto) , Eosinophils (%) (Auto) , Basophils (%) (Auto) , Differential Total Cells Counted 100, Neutrophils % (Manual) 77H, Lymphocytes % (Manual) 14L, Monocytes % (Manual) 7, Eosinophils % (Manual) 1, Basophils % ( Manual) 1, Band Neutrophils 0, Platelet Estimate DecreasedL, Platelet Morphology Normal, Hypochromasia 1+, Anisocytosis 1+, Prothrombin Time 14.3H, Prothromb Time International Ratio 1.4H, Sodium Level 145, Potassium Level 3.9, Chloride Level 111H, Carbon Dioxide Level 23, Anion Gap 11, Blood Urea Nitrogen 36H, Creatinine 1.9H, Estimat Glomerular Filtration Rate 36.2, Glucose Level 119H, Hemoglobin A1c 4.7, Uric Acid 6.9, Calcium Level 8.1L, Phosphorus Level 4.8, Magnesium Level 1.6L, Iron Level 60, Total Iron Binding Capacity 120L, Percent Iron Saturation 50, Unsaturated Iron Binding 60L, Ferritin 385, Total Bilirubin 2.1H, Direct Bilirubin 0.9H, Gamma Glutamyl Transpeptidase 177H, Aspartate Amino Transf (AST/SGOT) 55H, Alanine Aminotransferase (ALT/SGPT) 37, Alkaline Phosphatase 203H, Ammonia 34H, Troponin I 0.003, C-Reactive Protein, Quantitative 2.4H, Pro-B-Type Natriuretic Peptide 612H, Total Protein 6.2L, Albumin 1.9L, Globulin 4.3, Albumin/Globulin Ratio 0.4L, Triglycerides Level 61 , Cholesterol Level 94, LDL Cholesterol 37, HDL Cholesterol 47, Cholesterol/HDL Ratio 2.0L, Lipase 228, Vitamin B12 Level 1289H, Folate 40.1, Thyroid Stimulating Hormone (TSH) 1.201, Cortisol AM Sample < 1.0 Height (Feet): 5 Height (Inches): 4.00 Weight (Pounds): 158 General Appearance: no apparent distress, lethargic Cardiovascular: normal rate Respiratory/Chest: decreased breath sounds Abdomen: distended Dg Ennis MD Feb 12, 2019 12:49
--- NOTE | 2019-02-12 13:07 | NUR ---
ST NOTES: REFERRED FOR SWALLOW EVAL BY DR NORMAN, SEE EVAL. DYSPHAGIA RISK FACTORS FOR THIS 63 Y.O. KOREAN-SPEAKING MALE: ADMITTED 2 DAYS AGO ALOC AND WORSENING SINCE MISSED SOME HD (NOW HD NEEDED), POOR HISTORIAN (WORSE NOW), LARGE RIGHT PLEURAL EFFUSION GEN INTERSTITIAL EDEMA 01/07/19 TELE PARACENTESIS EGD, PER CT HEAD NEGATIVE BUT HAS MIN RIGHT MAXILLARY DZ. H/O HCC, CIRRHOSIS, ESRD WITH HD, PALLIATIVE CARE (LESS THAN 6 MONTHS LIFE EXPECTANCY PER MEDICAL RECORD). PER RN MAY BE D/C SOON TO HOME ON HOSPICE. ALERT AND ABLE TO EXPRESS BASIC NEEDS. PER , HE IS ON A REG TEXTURE DIET AND WILL OCC COUGH ON WATER BUT ONLY IF LETHARGIC AND TOO TIRED. INITIAL IMPRESSIONS: MILD OROPHARYNGEAL DYSPHAGIA BUT HAS A FUNCTIONAL SWALLOW WITH MOST CONSISTENCIES. GROSSLY FUNCTIONAL DENTITION (SOME MISSING) AND OROMOTOR SKILLS GIVEN THIN LIQUIDS VIA STRAW SEQUENTIAL SIPS, NO ORAL RESIDUE OVERT S/S OF ASPIRATION GIVEN TSP PUREED, SLOWER OP TRANSIT (TENDED TO CHEW IT A BIT) THEN SWALLOWED WITH SOME SLIGHT INCREASED EFFORT BUT W/O ORAL RESIDUE NOR OVERT ASPIRATION. GIVEN MASTICATED SOLIDS 1/2 CRACKER, CHEWED FOR 7 SECONDS AND HAD A GROSSLY FUNCTIONAL BUT SLIGHTLY EFFORTFUL SWALLOW (LIKELY PHARYNGEAL WEAKNESS) W/O ORAL RESIDUE NOR OVERT ASPIRATION. QUESTIONABLE SILENT ASP RISK (ONLY NEURO DX HEPATIC ENCEPHALOPATHY) RECOMMENDATIONS: FOR QUALITY OF LIFE, INITIATE RENAL SOFT CHEW DIET (/STAFF TO CUT INTO SMALL BITES) AND THIN LIQUIDS (SMALL SIP ONE AT A TIME) AND ONE TO ONE ASSIST AND SUPERVISION WITH MEALS SEND HIGH KAT SUP PER RD (NEPRO TID IF NEEDS) TRIAL/LIMITED SKILLED DYSPHAGIA MANAGEMENT AND TX D/W RN MARGA ALEGRE ALEX AND LEFT MESSAGE WITH DR NORMAN AND [facility] MILL TENDER SECOND OPERATOR REGARDING RECOMMENDADTIONS AND D/C NGT ([facility] APPROVED DC NGT) COG-COM EVAL/TX IF NEEDS.
--- NOTE | 2019-02-12 13:26 | Hematology/Onc Progress Note ---
Assessment/Plan Assessment/Plan Assessment and Recs: # Hepatocellular carcinoma has had this for three years and gets treatment at [facility] --> have dw patient need further history and will contact family, have mounika RN, need more history, has been on treatment for the past three years --> [place] [facility] [place]a and afp on prior admission were within normal limits --> imaging noted, doesn't need biopsy here --> further imaging if abd pain worsens --> EGD last admission per Dr. Michael showed small varices # PAncytopenia is related to history of liver disease, cirrhosis and cancer --> closely monitor, neupogen given 01/05 x1 --> ANC is >1500 --> meds have been reviewed, on abx --> perp smear has been reviewed, no blasts --> epogen and iron as needed for esrd --> as per renal, hd --> wbc 3.2-->3 --> plt 32k-->30 --> hgb 10.9 # Hepatic encephalopathy --> rifaxamin/lactulose and gi management # HYperblirubinemia due to liver disease --> lactulose and other prn # Pleural effusion --> drain prn, due to hep congestion potentially and chf # ESRD on hd --> per renal recs MOUNIKA RN in am, and appreciate consultation. Subjective Allergies: Coded Allergies: PENICILLINS (Verified Allergy, Unknown, 01/03/19) Subjective 02/12: awake and alert, no acute events, swallow eval for today Objective Objective Current Medications Medications (Trade) Dose Ordered Sig/Katie Route PRN Reason Start Time Stop Time Status Last Admin Dose Admin Acetaminophen (Tylenol) 500 mg Q6H PRN ORAL Mild Pain/Temp > 100.5 02/10/19 18:15 03/12/19 18:14 Acetaminophen/ Hydrocodone Bitart ([place] 5/325) 1 tab Q4H PRN ORAL Moderate Pain (Pain Scale 4-6) 02/11/19 11:45 02/18/19 11:44 02/11/19 12:09 Dextrose/Sodium Chloride 1,000 ml @ 50 mls/hr Q20H IV 02/10/19 18:15 03/12/19 18:14 02/12/19 10:50 Guaifenesin (Robitussin) 100 mg Q4H PRN ORAL For Cough 02/11/19 19:45 03/12/19 18:14 Lactulose (Cephulac) 30 gm QID ORAL 02/10/19 21:00 03/12/19 20:59 02/12/19 12:55 Pantoprazole (Protonix) 40 mg EVERY 12 HOURS IVP 02/11/19 21:00 03/13/19 20:59 02/12/19 08:48 Rifaximin (Xifaxan) 550 mg EVERY 12 HOURS ORAL 02/10/19 21:00 02/17/19 20:59 02/12/19 08:44 Last 24 Hour Vital Signs Date Time Temp Pulse Resp B/P (MAP) Pulse Ox O2 Delivery O2 Flow Rate FiO2 02/12/19 09:00 Room Air 02/12/19 08:00 69 02/12/19 08:00 98.0 69 18 118/66 (83) 98 02/12/19 04:00 97.7 77 18 124/71 (88) 95 02/12/19 04:00 79 02/12/19 00:00 98.1 78 20 122/70 (87) 100 02/12/19 00:00 76 02/11/19 21:00 Room Air 02/11/19 20:00 76 02/11/19 20:00 98.1 70 18 112/62 (79) 94 02/11/19 16:00 97.5 62 17 110/59 (76) 95 02/11/19 16:00 57 02/11/19 12:00 66 02/11/19 12:00 98.1 79 18 83/42 (56) 95 02/11/19 08:12 Room Air 02/11/19 08:00 54 02/11/19 08:00 97.5 55 18 124/64 (84) 99 02/11/19 04:00 97.4 58 17 115/64 (81) 97 02/11/19 04:00 57 02/11/19 00:00 57 02/11/19 00:00 97.5 74 19 125/74 (91) 96 02/10/19 21:00 Room Air 02/10/19 20:00 97.4 70 17 123/77 (92) 97 02/10/19 20:00 58 02/10/19 19:28 Room Air 02/10/19 17:29 97.7 70 13 148/68 100 Room Air Intake and Output 02/11/19 02/12/19 18:59 06:59 Intake Total 50 ml Output Total 1 ml Balance 50 ml -1 ml Intake IV Total 50 ml Output Stool Total 1 ml Labs Test 02/10/19 06:30 02/10/19 07:30 02/10/19 09:50 02/11/19 06:30 White Blood Count 3.2 K/UL (4.8-10.8) 2.1 K/UL (4.8-10.8) Red Blood Count 3.45 M/UL (4.70-6.10) 3.05 M/UL (4.70-6.10) Hemoglobin 10.9 G/DL (14.2-18.0) 9.8 G/DL (14.2-18.0) Hematocrit 33.3 % (42.0-52.0) 29.6 % (42.0-52.0) Mean Corpuscular Volume 97 FL (80-99) 97 FL (80-99) Mean Corpuscular Hemoglobin 31.6 PG (27.0-31.0) 32.2 PG (27.0-31.0) Mean Corpuscular Hemoglobin Concent 32.7 G/DL (32.0-36.0) 33.1 G/DL (32.0-36.0) Red Cell Distribution Width 15.3 % (11.6-14.8) 15.2 % (11.6-14.8) Platelet Count 32 K/UL (150-450) 29 K/UL (150-450) Mean Platelet Volume 7.9 FL (6.5-10.1) 7.6 FL (6.5-10.1) Neutrophils (%) (Auto) % (45.0-75.0) % (45.0-75.0) Lymphocytes (%) (Auto) % (20.0-45.0) % (20.0-45.0) Monocytes (%) (Auto) % (1.0-10.0) % (1.0-10.0) Eosinophils (%) (Auto) % (0.0-3.0) % (0.0-3.0) Basophils (%) (Auto) % (0.0-2.0) % (0.0-2.0) Differential Total Cells Counted 100 100 Neutrophils % (Manual) 85 % (45-75) 80 % (45-75) Lymphocytes % (Manual) 10 % (20-45) 18 % (20-45) Monocytes % (Manual) 3 % (1-10) 0 % (1-10) Eosinophils % (Manual) 2 % (0-3) 2 % (0-3) Basophils % (Manual) 0 % (0-2) 0 % (0-2) Band Neutrophils 0 % (0-8) 0 % (0-8) Platelet Estimate Decreased Decreased Platelet Morphology Normal Normal Anisocytosis 1+ 1+ Prothrombin Time 10.4 SEC (9.30-11.50) 14.5 SEC (9.30-11.50) Prothromb Time International Ratio 1.0 (0.9-1.1) 1.4 (0.9-1.1) Activated Partial Thromboplast Time 22 SEC (23-33) Sodium Level 138 MMOL/L (136-145) 140 MMOL/L (136-145) Potassium Level 3.8 MMOL/L (3.5-5.1) 3.4 MMOL/L (3.5-5.1) Chloride Level 102 MMOL/L (98-107) 106 MMOL/L (98-107) Carbon Dioxide Level 26 MMOL/L (21-32) 25 MMOL/L (21-32) Anion Gap 10 mmol/L (5-15) 9 mmol/L (5-15) Blood Urea Nitrogen 30 mg/dL (7-18) 34 mg/dL (7-18) Creatinine 1.9 MG/DL (0.55-1.30) 1.8 MG/DL (0.55-1.30) Estimat Glomerular Filtration Rate 36.2 mL/min (>60) 38.6 mL/min (>60) Glucose Level 132 MG/DL (74-106) 88 MG/DL (74-106) Lactic Acid Level 2.20 mmol/L (0.4-2.0) 2.00 mmol/L (0.66-2.22) Calcium Level 8.1 MG/DL (8.5-10.1) 8.0 MG/DL (8.5-10.1) Total Bilirubin 2.3 MG/DL (0.2-1.0) 2.4 MG/DL (0.2-1.0) Direct Bilirubin 0.7 MG/DL (0.0-0.3) 0.6 MG/DL (0.0-0.3) Aspartate Amino Transf (AST/SGOT) 56 U/L (15-37) 51 U/L (15-37) Alanine Aminotransferase (ALT/SGPT) 39 U/L (12-78) 36 U/L (12-78) Alkaline Phosphatase 265 U/L (46-116) 200 U/L (46-116) Ammonia 199 umol/L (11-32) 113 umol/L (11-32) Total Creatine Kinase 50 U/L (26-308) Creatine Kinase MB 0.6 NG/ML (0.0-3.6) Creatine Kinase MB Relative Index 1.2 Troponin I 0.006 ng/mL (0.000-0.056) Pro-B-Type Natriuretic Peptide 585 pg/mL (0-125) Total Protein 6.8 G/DL (6.4-8.2) 5.9 G/DL (6.4-8.2) Albumin 2.2 G/DL (3.4-5.0) 1.9 G/DL (3.4-5.0) Globulin 4.6 g/dL 4.0 g/dL Albumin/Globulin Ratio 0.5 (1.0-2.7) 0.5 (1.0-2.7) Lipase 297 U/L (73-393) Urine Color Pale yellow Urine Appearance Clear Urine pH 8 (4.5-8.0) Urine Specific [place] 1.010 (1.005-1.035) Urine Protein Negative (NEGATIVE) Urine Glucose (UA) Negative (NEGATIVE) Urine Ketones 1+ (NEGATIVE) Urine Blood 4+ (NEGATIVE) Urine Nitrite Negative (NEGATIVE) Urine Bilirubin Negative (NEGATIVE) Urine Urobilinogen Normal MG/DL (0.0-1.0) Urine Leukocyte Esterase Negative (NEGATIVE) Urine RBC 5-10 /HPF (0 - 0) Urine WBC 0 /HPF (0 - 0) Urine Squamous Epithelial Cells Occasional /LPF Urine Bacteria None /HPF (NONE) Alpha Fetoprotein 8.6 ng/mL (0.0-8.3) Test 02/12/19 05:06 White Blood Count 3.0 K/UL (4.8-10.8) Red Blood Count 3.10 M/UL (4.70-6.10) Hemoglobin 10.2 G/DL (14.2-18.0) Hematocrit 28.6 % (42.0-52.0) Mean Corpuscular Volume 92 FL (80-99) Mean Corpuscular Hemoglobin 32.8 PG (27.0-31.0) Mean Corpuscular Hemoglobin Concent 35.6 G/DL (32.0-36.0) Red Cell Distribution Width 13.5 % (11.6-14.8) Platelet Count 30 K/UL (150-450) Mean Platelet Volume 7.8 FL (6.5-10.1) Neutrophils (%) (Auto) % (45.0-75.0) Lymphocytes (%) (Auto) % (20.0-45.0) Monocytes (%) (Auto) % (1.0-10.0) Eosinophils (%) (Auto) % (0.0-3.0) Basophils (%) (Auto) % (0.0-2.0) Differential Total Cells Counted 100 Neutrophils % (Manual) 77 % (45-75) Lymphocytes % (Manual) 14 % (20-45) Monocytes % (Manual) 7 % (1-10) Eosinophils % (Manual) 1 % (0-3) Basophils % (Manual) 1 % (0-2) Band Neutrophils 0 % (0-8) Platelet Estimate Decreased Platelet Morphology Normal Hypochromasia 1+ Anisocytosis 1+ Prothrombin Time 14.3 SEC (9.30-11.50) Prothromb Time International Ratio 1.4 (0.9-1.1) Sodium Level 145 MMOL/L (136-145) Potassium Level 3.9 MMOL/L (3.5-5.1) Chloride Level 111 MMOL/L (98-107) Carbon Dioxide Level 23 MMOL/L (21-32) Anion Gap 11 mmol/L (5-15) Blood Urea Nitrogen 36 mg/dL (7-18) Creatinine 1.9 MG/DL (0.55-1.30) Estimat Glomerular Filtration Rate 36.2 mL/min (>60) Glucose Level 119 MG/DL (74-106) Hemoglobin A1c 4.7 % (4.3-6.0) Uric Acid 6.9 MG/DL (2.6-7.2) Calcium Level 8.1 MG/DL (8.5-10.1) Phosphorus Level 4.8 MG/DL (2.5-4.9) Magnesium Level 1.6 MG/DL (1.8-2.4) Iron Level 60 ug/dL (50-175) Total Iron Binding Capacity 120 ug/dL (250-450) Percent Iron Saturation 50 % (15-50) Unsaturated Iron Binding 60 ug/dL (112-346) Ferritin 385 NG/ML (8-388) Total Bilirubin 2.1 MG/DL (0.2-1.0) Direct Bilirubin 0.9 MG/DL (0.0-0.3) Gamma Glutamyl Transpeptidase 177 U/L (5-85) Aspartate Amino Transf (AST/SGOT) 55 U/L (15-37) Alanine Aminotransferase (ALT/SGPT) 37 U/L (12-78) Alkaline Phosphatase 203 U/L (46-116) Ammonia 34 umol/L (11-32) Troponin I 0.003 ng/mL (0.000-0.056) C-Reactive Protein, Quantitative 2.4 mg/dL (0.00-0.90) Pro-B-Type Natriuretic Peptide 612 pg/mL (0-125) Total Protein 6.2 G/DL (6.4-8.2) Albumin 1.9 G/DL (3.4-5.0) Globulin 4.3 g/dL Albumin/Globulin Ratio 0.4 (1.0-2.7) Triglycerides Level 61 MG/DL (30-150) Cholesterol Level 94 MG/DL (< 200) LDL Cholesterol 37 mg/dL (<100) HDL Cholesterol 47 MG/DL (40-60) Cholesterol/HDL Ratio 2.0 (3.3-4.4) Lipase 228 U/L (73-393) Vitamin B12 Level 1289 PG/ML (193-986) Folate 40.1 NG/ML (8.6-58.9) Thyroid Stimulating Hormone (TSH) 1.201 uiU/mL (0.358-3.740) Cortisol AM Sample < 1.0 UG/DL Height (Feet): 5 Height (Inches): 4.00 Weight (Pounds): 158 Objective Physical Exam Vitals: reviewed General: NAD, NG+, R chest permcath Neck: supple Respiratory: lungs clear, no respiratory distress Cardiovascular: RRR, no mgr Gastrointestinal: non tender, soft, other ++ Umbilical hernia mild abdominal distention Neurologic: II-XII intact grossly Lymphatic: no adenopathy Damion Brown MD Feb 12, 2019 13:26
--- NOTE | 2019-02-12 13:50 | NUR ---
NEW ORDER TO DC'd NG TUBE. ORDER CARRIED OUT, NG TUBE REMOVED, PATIENT TOLERATED WELL. WILL CONTINUE TO MONITOR.
[2019-02-12 16:00] VITALS: BP 113/61
--- NOTE | 2019-02-12 19:14 | NUR ---
HAND-OFF: Report given to DWIGHT Martinez. Endorsed plan of care. Patient is in stable condition.
--- NOTE | 2019-02-12 19:16 | NUR ---
NURSE NOTES: Received patient from DWIGHT Thompson. Patient alert, oriented, and talkative, [place] speaking. No signs of distress, shortness or breath, or pain noted. Family at bedside. Patient ambulates with assist and able to make needs known. IV site checked, intact and patent, no signs of redness, bleeding, or infiltration noted, D5NS running at 50 ml/hr. Bed in lowest position, brakes on, side rails up x2, and call light within reach. Will continue with plan of care.
[2019-02-12 20:00] VITALS: BP 126/69
[2019-02-13] VITALS: BP 129/72
[2019-02-13 04:00] VITALS: BP 91/61
[2019-02-13 04:34] LABS: HEMATOCRIT 28.5 % (42.0-52.0); HEMOGLOBIN 9.5 G/DL (14.2-18.0); MEAN CORPUSCULAR VOLUME 97 FL (80-99); PLATELET COUNT 29 K/UL (150-450); RED BLOOD COUNT 2.93 M/UL (4.70-6.10); RED CELL DISTRIBUTION WIDTH 15.9 % (11.6-14.8); WHITE BLOOD COUNT 2.5 K/UL (4.8-10.8)
[2019-02-13 05:04] LABS: AMMONIA 77 umol/L (11-32)
[2019-02-13 05:10] LABS: ALANINE AMINOTRANSFERASE 61 U/L (12-78); ALBUMIN 2.1 G/DL (3.4-5.0); ALBUMIN/GLOBULIN RATIO 0.5 (1.0-2.7); ALKALINE PHOSPHATASE 292 U/L (46-116); ANION GAP 7 mmol/L (5-15); ASPARTATE AMINO TRANSFERASE 101 U/L (15-37); BILIRUBIN,TOTAL 1.5 MG/DL (0.2-1.0); BLOOD UREA NITROGEN 37 mg/dL (7-18); CARBON DIOXIDE 24 MMOL/L (21-32); CHLORIDE 109 MMOL/L (98-107); CREATININE 1.7 MG/DL (0.55-1.30); POTASSIUM 3.5 MMOL/L (3.5-5.1); SODIUM 140 MMOL/L (136-145)
[2019-02-13 05:14] LABS: PHOSPHORUS 2.9 MG/DL (2.5-4.9)
[2019-02-13 06:04] LABS: BILIRUBIN,DIRECT 0.6 MG/DL (0.0-0.3)
[2019-02-13] MEDS: D5NS 1,000 ML IV SCH (06:16)
--- NOTE | 2019-02-13 07:20 | NUR ---
HAND-OFF: Report given to DWIGHT Thompson. Patient in stable condition, plan of care endorsed.
--- NOTE | 2019-02-13 07:22 | NUR ---
NURSE NOTES: Received patient and report from DWIGHT Martinez in bed resting. Patient is A/O X3. IV tact, asymptomatic and patent. No signs/symptoms of acute distress noted at this time. Patient has a Rt chest PermCath for HD. Bed is in the lowest position and brakes engaged for safety. Call light and bedside table within reach. No signs/symptoms of acute distress noted at this time. Will continue with the plan of care.
[2019-02-13 08:00] VITALS: BP 114/63
--- NOTE | 2019-02-13 09:00 | Hematology/Onc Progress Note ---
Assessment/Plan Assessment/Plan Assessment and Recs: # Hepatocellular carcinoma has had this for three years and gets treatment at [facility] --> have dw patient need further history and will contact family, have mounika RN, need more history, has been on treatment for the past three years --> f/u with onc at [facility] [place] --> cea and afp on prior admission were within normal limits --> imaging noted, doesn't need biopsy here --> further imaging if abd pain worsens --> EGD last admission per Dr. Michael showed small varices # PAncytopenia is related to history of liver disease, cirrhosis and cancer --> closely monitor, neupogen given 01/05 x1 --> ANC is >1500 --> meds have been reviewed, on abx --> perp smear has been reviewed, no blasts --> epogen and iron as needed for esrd --> as per renal, hd --> wbc 3.2-->3 --> plt 32k-->30-->29k --> hgb 10.9-->9.5 # Hepatic encephalopathy --> rifaxamin/lactulose and gi management # HYperblirubinemia due to liver disease --> lactulose and other prn # Pleural effusion --> drain prn, due to hep congestion potentially and chf # ESRD on hd --> per renal recs # 1 cm hypoechoic nodule within the right hepatic lobe. This is nonspecific # Hepatic cirrhosis # Portal hypertension, with ascites, splenomegaly, and splenic hilar varices MOUNIKA RN in am, and appreciate consultation. Subjective Constitutional: Denies: no symptoms, chills, fever, malaise, weakness, other Cardiovascular: Denies: no symptoms, chest pain, edema, irregular heart rate, lightheadedness, palpitations, syncope, other Respiratory: Denies: no symptoms, cough, shortness of breath, SOB with excertion, SOB at rest, sputum, wheezing, other Gastrointestinal/Abdominal: Denies: no symptoms, abdomen distended, abdominal pain, black stools, tarry stools, blood in stool, constipated, diarrhea, difficulty swallowing, nausea, poor appetite, poor fluid intake, rectal bleeding , vomiting, other Genitourinary: Denies: no symptoms, burning, discharge, frequency, flank pain, hematuria, incontinence, pain, urgency, other Allergies: Coded Allergies: PENICILLINS (Verified Allergy, Unknown, 01/03/19) Subjective 02/12: awake and alert, no acute events, swallow eval for today 02/13: no bleeding or chills, ng was remvoed, plts remain low 29, no bleeding Objective Objective Current Medications Medications (Trade) Dose Ordered Sig/Katie Route PRN Reason Start Time Stop Time Status Last Admin Dose Admin Acetaminophen (Tylenol) 500 mg Q6H PRN ORAL Mild Pain/Temp > 100.5 02/10/19 18:15 03/12/19 18:14 Acetaminophen/ Hydrocodone Bitart (Milton 5/325) 1 tab Q4H PRN ORAL Moderate Pain (Pain Scale 4-6) 02/11/19 11:45 02/18/19 11:44 02/11/19 12:09 Dextrose/Sodium Chloride 1,000 ml @ 50 mls/hr Q20H IV 02/10/19 18:15 03/12/19 18:14 02/13/19 06:16 Guaifenesin (Robitussin) 100 mg Q4H PRN ORAL For Cough 02/11/19 19:45 03/12/19 18:14 Lactulose (Cephulac) 30 gm QID ORAL 02/10/19 21:00 03/12/19 20:59 02/12/19 21:26 Pantoprazole (Protonix) 40 mg EVERY 12 HOURS IVP 02/11/19 21:00 03/13/19 20:59 02/12/19 21:26 Rifaximin (Xifaxan) 550 mg EVERY 12 HOURS ORAL 02/10/19 21:00 02/17/19 20:59 02/12/19 21:26 Last 24 Hour Vital Signs Date Time Temp Pulse Resp B/P (MAP) Pulse Ox O2 Delivery O2 Flow Rate FiO2 02/13/19 04:00 75 02/13/19 04:00 97.9 83 19 91/61 (71) 94 02/13/19 00:00 97.8 76 18 129/72 (91) 98 02/13/19 00:00 78 02/12/19 21:00 Room Air 02/12/19 20:00 97.5 78 18 126/69 (88) 98 02/12/19 20:00 79 02/12/19 16:00 73 02/12/19 16:00 98.1 72 18 113/61 (78) 98 02/12/19 12:00 67 02/12/19 12:00 98.6 67 18 122/64 (83) 99 02/12/19 09:00 Room Air 02/12/19 08:00 69 02/12/19 08:00 98.0 69 18 118/66 (83) 98 02/12/19 04:00 97.7 77 18 124/71 (88) 95 02/12/19 04:00 79 02/12/19 00:00 98.1 78 20 122/70 (87) 100 02/12/19 00:00 76 02/11/19 21:00 Room Air 02/11/19 20:00 76 02/11/19 20:00 98.1 70 18 112/62 (79) 94 02/11/19 16:00 97.5 62 17 110/59 (76) 95 02/11/19 16:00 57 02/11/19 12:00 66 02/11/19 12:00 98.1 79 18 83/42 (56) 95 Intake and Output 02/12/19 02/13/19 19:00 07:00 Intake Total 360 ml Balance 360 ml Intake Oral 360 ml # Voids 4 1 # Bowel Movements 1 1 Labs Test 02/10/19 09:50 02/11/19 06:30 02/12/19 05:06 02/13/19 04:07 Lactic Acid Level 2.00 mmol/L (0.66-2.22) White Blood Count 2.1 K/UL (4.8-10.8) 3.0 K/UL (4.8-10.8) 2.5 K/UL (4.8-10.8) Red Blood Count 3.05 M/UL (4.70-6.10) 3.10 M/UL (4.70-6.10) 2.93 M/UL (4.70-6.10) Hemoglobin 9.8 G/DL (14.2-18.0) 10.2 G/DL (14.2-18.0) 9.5 G/DL (14.2-18.0) Hematocrit 29.6 % (42.0-52.0) 28.6 % (42.0-52.0) 28.5 % (42.0-52.0) Mean Corpuscular Volume 97 FL (80-99) 92 FL (80-99) 97 FL (80-99) Mean Corpuscular Hemoglobin 32.2 PG (27.0-31.0) 32.8 PG (27.0-31.0) 32.4 PG (27.0-31.0) Mean Corpuscular Hemoglobin Concent 33.1 G/DL (32.0-36.0) 35.6 G/DL (32.0-36.0) 33.4 G/DL (32.0-36.0) Red Cell Distribution Width 15.2 % (11.6-14.8) 13.5 % (11.6-14.8) 15.9 % (11.6-14.8) Platelet Count 29 K/UL (150-450) 30 K/UL (150-450) 29 K/UL (150-450) Mean Platelet Volume 7.6 FL (6.5-10.1) 7.8 FL (6.5-10.1) 7.4 FL (6.5-10.1) Neutrophils (%) (Auto) % (45.0-75.0) % (45.0-75.0) % (45.0-75.0) Lymphocytes (%) (Auto) % (20.0-45.0) % (20.0-45.0) % (20.0-45.0) Monocytes (%) (Auto) % (1.0-10.0) % (1.0-10.0) % (1.0-10.0) Eosinophils (%) (Auto) % (0.0-3.0) % (0.0-3.0) % (0.0-3.0) Basophils (%) (Auto) % (0.0-2.0) % (0.0-2.0) % (0.0-2.0) Differential Total Cells Counted 100 100 100 Neutrophils % (Manual) 80 % (45-75) 77 % (45-75) 66 % (45-75) Lymphocytes % (Manual) 18 % (20-45) 14 % (20-45) 21 % (20-45) Monocytes % (Manual) 0 % (1-10) 7 % (1-10) 9 % (1-10) Eosinophils % (Manual) 2 % (0-3) 1 % (0-3) 3 % (0-3) Basophils % (Manual) 0 % (0-2) 1 % (0-2) 1 % (0-2) Band Neutrophils 0 % (0-8) 0 % (0-8) 0 % (0-8) Platelet Estimate Decreased Decreased Decreased Platelet Morphology Normal Normal Normal Anisocytosis 1+ 1+ 1+ Prothrombin Time 14.5 SEC (9.30-11.50) 14.3 SEC (9.30-11.50) Prothromb Time International Ratio 1.4 (0.9-1.1) 1.4 (0.9-1.1) Sodium Level 140 MMOL/L (136-145) 145 MMOL/L (136-145) 140 MMOL/L (136-145) Potassium Level 3.4 MMOL/L (3.5-5.1) 3.9 MMOL/L (3.5-5.1) 3.5 MMOL/L (3.5-5.1) Chloride Level 106 MMOL/L (98-107) 111 MMOL/L (98-107) 109 MMOL/L (98-107) Carbon Dioxide Level 25 MMOL/L (21-32) 23 MMOL/L (21-32) 24 MMOL/L (21-32) Anion Gap 9 mmol/L (5-15) 11 mmol/L (5-15) 7 mmol/L (5-15) Blood Urea Nitrogen 34 mg/dL (7-18) 36 mg/dL (7-18) 37 mg/dL (7-18) Creatinine 1.8 MG/DL (0.55-1.30) 1.9 MG/DL (0.55-1.30) 1.7 MG/DL (0.55-1.30) Estimat Glomerular Filtration Rate 38.6 mL/min (>60) 36.2 mL/min (>60) 41.2 mL/min (>60) Glucose Level 88 MG/DL (74-106) 119 MG/DL (74-106) 123 MG/DL (74-106) Calcium Level 8.0 MG/DL (8.5-10.1) 8.1 MG/DL (8.5-10.1) 8.0 MG/DL (8.5-10.1) Total Bilirubin 2.4 MG/DL (0.2-1.0) 2.1 MG/DL (0.2-1.0) 1.5 MG/DL (0.2-1.0) Direct Bilirubin 0.6 MG/DL (0.0-0.3) 0.9 MG/DL (0.0-0.3) 0.6 MG/DL (0.0-0.3) Aspartate Amino Transf (AST/SGOT) 51 U/L (15-37) 55 U/L (15-37) 101 U/L (15-37) Alanine Aminotransferase (ALT/SGPT) 36 U/L (12-78) 37 U/L (12-78) 61 U/L (12-78) Alkaline Phosphatase 200 U/L (46-116) 203 U/L (46-116) 292 U/L (46-116) Ammonia 113 umol/L (11-32) 34 umol/L (11-32) 77 umol/L (11-32) Total Protein 5.9 G/DL (6.4-8.2) 6.2 G/DL (6.4-8.2) 6.3 G/DL (6.4-8.2) Albumin 1.9 G/DL (3.4-5.0) 1.9 G/DL (3.4-5.0) 2.1 G/DL (3.4-5.0) Globulin 4.0 g/dL 4.3 g/dL 4.2 g/dL Albumin/Globulin Ratio 0.5 (1.0-2.7) 0.4 (1.0-2.7) 0.5 (1.0-2.7) Alpha Fetoprotein 8.6 ng/mL (0.0-8.3) Hypochromasia 1+ 2+ Hemoglobin A1c 4.7 % (4.3-6.0) Uric Acid 6.9 MG/DL (2.6-7.2) 6.5 MG/DL (2.6-7.2) Phosphorus Level 4.8 MG/DL (2.5-4.9) 2.9 MG/DL (2.5-4.9) Magnesium Level 1.6 MG/DL (1.8-2.4) 2.1 MG/DL (1.8-2.4) Iron Level 60 ug/dL (50-175) Total Iron Binding Capacity 120 ug/dL (250-450) Percent Iron Saturation 50 % (15-50) Unsaturated Iron Binding 60 ug/dL (112-346) Ferritin 385 NG/ML (8-388) Gamma Glutamyl Transpeptidase 177 U/L (5-85) Troponin I 0.003 ng/mL (0.000-0.056) C-Reactive Protein, Quantitative 2.4 mg/dL (0.00-0.90) 1.8 mg/dL (0.00-0.90) Pro-B-Type Natriuretic Peptide 612 pg/mL (0-125) 413 pg/mL (0-125) Triglycerides Level 61 MG/DL (30-150) Cholesterol Level 94 MG/DL (< 200) LDL Cholesterol 37 mg/dL (<100) HDL Cholesterol 47 MG/DL (40-60) Cholesterol/HDL Ratio 2.0 (3.3-4.4) Lipase 228 U/L (73-393) Vitamin B12 Level 1289 PG/ML (193-986) Folate 40.1 NG/ML (8.6-58.9) Thyroid Stimulating Hormone (TSH) 1.201 uiU/mL (0.358-3.740) Cortisol AM Sample < 1.0 UG/DL Spherocytes 1+ Height (Feet): 5 Height (Inches): 4.00 Weight (Pounds): 155 Objective Physical Exam Vitals: reviewed General: NAD, NG+, R chest permcath Neck: supple Respiratory: lungs clear, no respiratory distress Cardiovascular: RRR, no mgr Gastrointestinal: non tender, soft, other ++ Umbilical hernia mild abdominal distention Neurologic: II-XII intact grossly Lymphatic: no adenopathy Damion Brown MD Feb 13, 2019 09:00
[2019-02-13] MEDS: Pantoprazole Inj IVP SCH (09:18)
[2019-02-13] MEDS: Lactulose 20gm/30ml UDC ORAL SCH ×2 (09:18→12:38)
--- NOTE | 2019-02-13 09:46 | NUR ---
NURSE NOTES: Plan is to discharge home with hospice. special events planner aware, awaiting discharge orders from Dr. Hoffman. Will continue to monitor patient.
--- NOTE | 2019-02-13 09:47 | General Progress Note ---
Assessment/Plan Problem List: (1) Hepatic encephalopathy ICD Codes: K72.90 - Hepatic failure, unspecified without coma SNOMED: 86263858 (2) Elevated lactic acid level ICD Codes: R79.89 - Other specified abnormal findings of blood chemistry SNOMED: 2971245 (3) Pleural effusion, right ICD Codes: J90 - Pleural effusion, not elsewhere classified SNOMED: 67642463 (4) Liver nodule ICD Codes: K76.89 - Other specified diseases of liver SNOMED: 847406466 (5) Liver cirrhosis ICD Codes: K74.60 - Unspecified cirrhosis of liver SNOMED: 52578245 (6) ESRD (end stage renal disease) ICD Codes: N18.6 - End stage renal disease SNOMED: 55728384 Assessment/Plan: lactulose xifaxan abd us>> reviewed fu labs EGD in the last admission showed small varices swallow eval appreciated will fu Subjective ROS Limited/Unobtainable: No Allergies: Coded Allergies: PENICILLINS (Verified Allergy, Unknown, 01/03/19) Objective Last 24 Hour Vital Signs Date Time Temp Pulse Resp B/P (MAP) Pulse Ox O2 Delivery O2 Flow Rate FiO2 02/13/19 04:00 75 02/13/19 04:00 97.9 83 19 91/61 (71) 94 02/13/19 00:00 97.8 76 18 129/72 (91) 98 02/13/19 00:00 78 02/12/19 21:00 Room Air 02/12/19 20:00 97.5 78 18 126/69 (88) 98 02/12/19 20:00 79 02/12/19 16:00 73 02/12/19 16:00 98.1 72 18 113/61 (78) 98 02/12/19 12:00 67 02/12/19 12:00 98.6 67 18 122/64 (83) 99 Intake and Output 02/12/19 02/13/19 19:00 07:00 Intake Total 360 ml Balance 360 ml Intake Oral 360 ml # Voids 4 1 # Bowel Movements 1 1 Laboratory Tests 02/13/19 04:07: White Blood Count 2.5L, Red Blood Count 2.93L, Hemoglobin 9.5L, Hematocrit 28.5L , Mean Corpuscular Volume 97, Mean Corpuscular Hemoglobin 32.4H, Mean Corpuscular Hemoglobin Concent 33.4, Red Cell Distribution Width 15.9H, Platelet Count 29L, Mean Platelet Volume 7.4, Neutrophils (%) (Auto) , Lymphocytes (%) (Auto) , Monocytes (%) (Auto) , Eosinophils (%) (Auto) , Basophils (%) (Auto) , Differential Total Cells Counted 100, Neutrophils % ( Manual) 66, Lymphocytes % (Manual) 21, Monocytes % (Manual) 9, Eosinophils % ( Manual) 3, Basophils % (Manual) 1, Band Neutrophils 0, Platelet Estimate DecreasedL, Platelet Morphology Normal, Hypochromasia 2+, Anisocytosis 1+, Spherocytes 1+, Sodium Level 140, Potassium Level 3.5, Chloride Level 109H, Carbon Dioxide Level 24, Anion Gap 7, Blood Urea Nitrogen 37H, Creatinine 1.7H, Estimat Glomerular Filtration Rate 41.2, Glucose Level 123H, Uric Acid 6.5, Calcium Level 8.0L, Phosphorus Level 2.9, Magnesium Level 2.1, Total Bilirubin 1.5H, Direct Bilirubin 0.6H, Aspartate Amino Transf (AST/SGOT) 101H, Alanine Aminotransferase (ALT/SGPT) 61, Alkaline Phosphatase 292H, Ammonia 77H, C- Reactive Protein, Quantitative 1.8H, Pro-B-Type Natriuretic Peptide 413H, Total Protein 6.3L, Albumin 2.1L, Globulin 4.2, Albumin/Globulin Ratio 0.5L, Cortisol AM Sample [Pending] Height (Feet): 5 Height (Inches): 4.00 Weight (Pounds): 155 General Appearance: lethargic EENT: normal ENT inspection Neck: supple Cardiovascular: normal rate Respiratory/Chest: decreased breath sounds Abdomen: normal bowel sounds, non tender, soft Extremities: non-tender José Michael MD Feb 13, 2019 09:47
--- NOTE | 2019-02-13 10:20 | NUR ---
NURSE NOTES: Patient has no IV, unable to get a new one. Will continue to try and continue to monitor patient.
--- NOTE | 2019-02-13 10:35 | NUR ---
DISCHARGE PLAANED: PATIENT IS CURRENTLY WITH [facility] SPOKE TO FARRUKH FROM [facility] T: [phone] PATIENT SERVICES WILL BE REESTABLISHED ONCE DISCHARGED NO DISCHARGE ORDER AT THIS TIME
[2019-02-13 12:00] VITALS: BP 117/62
--- NOTE | 2019-02-13 13:42 | NUR ---
NURSE NOTES: Patient is discharged home with hospice per Dr. Hoffman's order. Patient was accompanied by his in a private vehicle. All discharge protocols followed. nuclear monitoring technician removed from patient and sanitized. Patient has no IV at time of discharge. Patient is in stable condition.
--- NOTE | 2019-02-13 13:53 | Nephrology Progress Note ---
Assessment/Plan Problem List: (1) Renal failure (2) Pleural effusion, right (3) Liver nodule (4) Hepatic encephalopathy Assessment (1) Liver nodule h/o hepatocellular ca (2) Hepatic encephalopathy (3) Renal failure , ESRD (4) Pleural effusion (5) Pancytopenia (6) High Lactic level Plan Per GI ? paracenthesis monitor amonia lactulose K supplement as needed NPO Dialysis as and if needed, per orders Subjective ROS Limited/Unobtainable: No Constitutional: Reports: malaise, weakness Objective Objective Last 24 Hour Vital Signs Date Time Temp Pulse Resp B/P (MAP) Pulse Ox O2 Delivery O2 Flow Rate FiO2 02/13/19 12:00 73 02/13/19 12:00 98.1 73 19 117/62 (80) 96 02/13/19 09:00 Room Air 02/13/19 08:00 82 02/13/19 08:00 98.1 82 19 114/63 (80) 97 02/13/19 04:00 75 02/13/19 04:00 97.9 83 19 91/61 (71) 94 02/13/19 00:00 97.8 76 18 129/72 (91) 98 02/13/19 00:00 78 02/12/19 21:00 Room Air 02/12/19 20:00 97.5 78 18 126/69 (88) 98 02/12/19 20:00 79 02/12/19 16:00 73 02/12/19 16:00 98.1 72 18 113/61 (78) 98 Intake and Output 02/12/19 02/13/19 18:59 06:59 Intake Total 360 ml Balance 360 ml Intake Oral 360 ml # Voids 4 1 # Bowel Movements 1 1 Laboratory Tests 02/13/19 04:07: White Blood Count 2.5L, Red Blood Count 2.93L, Hemoglobin 9.5L, Hematocrit 28.5L , Mean Corpuscular Volume 97, Mean Corpuscular Hemoglobin 32.4H, Mean Corpuscular Hemoglobin Concent 33.4, Red Cell Distribution Width 15.9H, Platelet Count 29L, Mean Platelet Volume 7.4, Neutrophils (%) (Auto) , Lymphocytes (%) (Auto) , Monocytes (%) (Auto) , Eosinophils (%) (Auto) , Basophils (%) (Auto) , Differential Total Cells Counted 100, Neutrophils % ( Manual) 66, Lymphocytes % (Manual) 21, Monocytes % (Manual) 9, Eosinophils % ( Manual) 3, Basophils % (Manual) 1, Band Neutrophils 0, Platelet Estimate DecreasedL, Platelet Morphology Normal, Hypochromasia 2+, Anisocytosis 1+, Spherocytes 1+, Sodium Level 140, Potassium Level 3.5, Chloride Level 109H, Carbon Dioxide Level 24, Anion Gap 7, Blood Urea Nitrogen 37H, Creatinine 1.7H, Estimat Glomerular Filtration Rate 41.2, Glucose Level 123H, Uric Acid 6.5, Calcium Level 8.0L, Phosphorus Level 2.9, Magnesium Level 2.1, Total Bilirubin 1.5H, Direct Bilirubin 0.6H, Aspartate Amino Transf (AST/SGOT) 101H, Alanine Aminotransferase (ALT/SGPT) 61, Alkaline Phosphatase 292H, Ammonia 77H, C- Reactive Protein, Quantitative 1.8H, Pro-B-Type Natriuretic Peptide 413H, Total Protein 6.3L, Albumin 2.1L, Globulin 4.2, Albumin/Globulin Ratio 0.5L, Cortisol AM Sample [Pending] Height (Feet): 5 Height (Inches): 4.00 Weight (Pounds): 156 General Appearance: no apparent distress Cardiovascular: normal rate Respiratory/Chest: decreased breath sounds Abdomen: distended Objective no change Dg Ennis MD Feb 13, 2019 13:53
--- NOTE | 2019-02-13 13:58 | NUR ---
DISCHARGE SWALLOW/SPEECH THERAPY SUMMARY PATIENT SEEN FOR DYSPHAGIA, SEE SWALLOW EVAL. GOALS MET FOR INTAKE AND FOR STAFF AND EDUCATED/TRAINED IN ASP PRECAUTIONS. PER HOEING ROW BOSS, JEAN CLAUDE, NO OVERT S/S OF ASPIRATION. PLAN: D/C TO HOME NO NEED FOR DOUBLING MACHINE OPERATOR F/UP PATIENT IS ON HOSPICE
--- NOTE | 2019-02-13 19:37 | Cardiology Report ---
APPROVED REPORT EKG Measurement Heart [id number] CT 154P60 [id number] Normal sinus rhythm Nonspecific ST abnormality Abnormal ECG
--- NOTE | 2019-02-14 08:52 | Discharge Summary ---
Discharge Summary Discharge Summary _ DATE OF ADMISSION: 02/10/2019 DATE OF DISCHARGE: 02/13/2019 DISCHARGED BY: Dr. Hoffman REASON FOR ADMISSION: 63 years old male with past medical history of end-stage renal disease, on hemodialysis, cirrhosis, liver cancer, presented due to decreased level of consciousness for the last few days. Patient apparently was diagnosed with liver cancer and was on palliative care. Patient was poor historian and unable to provide any additional information. Upon evaluation in emergency room laboratory work-up revealed mild leukopenia with WBC 3.2 ,hemoglobin 10.9 ,hematocrit 33.3, platelet count 32. BUN 30, creatinine 1.9. Stable electrolytes. Lactic acid 2.2. Glucose 132. AST 56, ALT 39. Ammonia 199. Troponin 0.006, proBNP 585 . Albumin 2.2. Total bilirubin 2.3, direct bilirubin 0.7. CT of the head revealed no acute intracranial bleeding or mass-effect. Patient received first dose of lactulose in emergency department and admitted to telemetry floor for further management. CONSULTANTS: GI specialist Dr. Michael cosmetic sales consultant Dr. Ennis senior engineering tech/oncologist Dr. Brown HOSPITAL COURSE: Patient admitted to telemetry floor. Patient started on lactulose and rifaximin as per GI specialist recommendation. Ammonia down to 77. AST trended up from initial 56 up to 101 upon discharge ; total bilirubin was trending down from 2.3 to 1.5 EGD on the last admission showed small varices. Swallow evaluation revealed mild dysphagia and functional swallowing. Diet texture was provided as per speech therapist recommendations for quality of life with aspiration precautions. Abdominal ultrasound revealed 1 cm hypoechoic liver nodule within the right hepatic lobe. Evidence of hepatic cirrhosis with atrophic echogenic liver with surface nodularity. Evidence of portal hypertension with ascites, splenomegaly and splenic hilar varices. Right pleural effusion. GI prophylaxis provided. Pain management was addressed as needed. Oncologist followed. Per oncology , patient had hepatocellular carcinoma for 3 years and received treatment at [facility]. On prior admission CEA and alpha-fetoprotein were within normal limits. This time alpha-fetoprotein elevated -8.6. Per oncologist , pancytopenia was related to history of liver disease : cirrhosis and cancer. Counts were closely monitored, remained at baseline. Prior to discharge: hemoglobin 9.5, WBC 2.5, platelet count- 29. Hyperbilirubinemia was also due to liver disease. Entry Level Assistant Manager followed. Potassium was replaced. Renal parameters and electrolytes were closely monitored along with volumes. No need for dialysis at this time. Pleural effusion was due to hepatic congestion . Supplemental oxygen was on board as needed . Further goals of care were discussed with the patient and his . Patient requested to be returned home. Patient subsequently was discharged home with hospice services. FINAL DIAGNOSES: Acute hepatic metabolic encephalopathy Hepatocellular carcinoma End-stage renal disease Pancytopenia Cirrhosis Lactic acidosis Right pleural effusion Hyperbilirubinemia Portal hypertension with ascites, splenomegaly and splenic hilar varices Multiply medical problem with life expectancy less than 6 months DISCHARGE MEDICATIONS: See Medication Reconciliation list. DISCHARGE INSTRUCTIONS: Patient was discharged home with hospice services. I have been assigned to dictate discharge summary for this account. I was not involved in the patient's management. Julia Sow NP Feb 14, 2019 08:52
[2019-02-16] MEDS ORDERED: Vitamin D 50,000 units cap ORAL SCH (09:00)
== END 2019-02-13 13:54 | disposition hospice, home (50) | DRG 279 ==
LOC: EDBD 05:54 → EMR 06:30 → EDBEDREQ 10:29 → 2W 12:06 → EDBEDREQ 16:04 → 2E 16:05
DX: K72.90 Hepatic failure, unspecified without coma (principal); N18.6 End stage renal disease; K74.60 Unspecified cirrhosis of liver; C22.8 Malignant neoplasm of liver, primary, unspecified as to type; Z88.0 Allergy status to penicillin; D61.818 Other pancytopenia; Z99.2 Dependence on renal dialysis; K76.6 Portal hypertension; R18.8 Other ascites; R16.1 Splenomegaly, not elsewhere classified
CPT/HCPCS: 36415; 70450; 71045; 74018; 76700; 80053; 80061; 81003; 82105; 82140; 82248; 82533; 82550; 82553; 82607; 82728; 82746; 82977; 83036; 83540; 83550; 83605; 83690; 83735; 83880; 84100; 84443; 84484; 84550; 85007; 85025; 85610; 85730; 86140; 87040; 87081; 93005; 99285; J3430

== ENCOUNTER 2019-05-31 09:38 | Emergency (ER) | payer MEDICAID ==
[~2019-05-31] VITALS: Ht 175.3 cm; Wt 68.0 kg
[~2019-05-31 09:38] MED LIST changes: +FAMOTIDINE20 MG ORAL; +FUROSEMIDE80 M1 ORAL; +XIFAXAN200 MG ORAL
[2019-05-31] MEDS ORDERED: Omnipaque-300 100ml vial INJ PRN (09:45)
--- NOTE | 2019-05-31 09:45 | Emergency Room Report ---
History of Present Illness General Chief Complaint: Altered Mental Status Source: EMS Present Illness HPI Disclaimer: Please note that this report is being documented using DRAGON technology. This can lead to erroneous entry secondary to incorrect interpretation by the dictating instrument. HPI: 63-year-old male with history of ESRD on hemodialysis TRS, liver cirrhosis presents for evaluation of altered mental status. He presents from his nursing facility. He was in his usual state of health last night awake and alert and oriented x3. He was found altered, only moaning this morning when he was awakened to go to dialysis. History of hepatic encephalopathy. Patient can but not provide any history. His abdomen is distended and has an umbilical hernia. Difficult to assess whether or not abdomen is painful though seems distended. No evidence of injury or reported falls. PMH: ESRD, cirrhosis PSH: Dialysis catheter Allergies: Penicillin listed in chart Social Hx: Cannot obtain from patient Allergies: Coded Allergies: PENICILLINS (Verified Allergy, Unknown, 01/03/19) COVID-19 Screening Contact w/high risk pt: No Recent Travel to affected area: No Experienced COVID-19 symptoms?: No Nursing Documentation-PMH Hx Cardiac Problems: No Hx Diabetes: Yes Hx Cancer: No Hx Gastrointestinal Problems: No Hx Dialysis: Yes Hx Neurological Problems: Yes - encepalopathy Review of Systems All Other Systems: limited - Due to clinical condition Physical Exam Vital Signs Date Time Temp Pulse Resp B/P (MAP) Pulse Ox O2 Delivery O2 Flow Rate FiO2 05/31/19 09:32 97.5 62 18 135/68 (90) 99 Room Air General: Awake, disoriented, moaning HEENT: NC/AT. EOMI. Chest wall: Dialysis catheter in right upper chest. Cardiovascular: RRR. S1 and S2 normal. No murmur appreciated Resp: Normal work of breathing. No cough, wheezing or crackles appreciated Abdomen: Abdomen is distended with protruding umbilical hernia. Reducible. No overlying skin changes, edema, erythema or breakdown. Skin: Intact. No abrasions, laceration or rash over the exposed skin MSK: Normal tone and bulk. Moving all extremities. No obvious deformity. Neuro: Awake, moaning incomprehensively. Moving extremities. Procedures Critical Care Time Critical Care Time Total critical care time: Approximately 45 minutes Due to a high probability of clinically significant, life threatening deterioration, the patient required the highest level of preparedness to intervene emergently and I personally spent this critical care time directly and personally managing the patient. This critical care time included obtaining a history, examining the patient, pulse oximetry, ordering and reviewing studies , ordering treatments, evaluating response to treatment and updating management plan as needed, frequent reassessment and discussion with other providers as well as arranging for ultimate disposition. This critical to care time was performed to assess and manage the high probability of life-threatening deterioration that could result in multiorgan failure. This critical care time is separate from the separately billable procedures and treating other patients. Medical Decision Making Diagnostic Impression: Primary Impression: ESRD (end stage renal disease) Additional Impressions: Leukopenia Altered mental status ER Course 63-year-old male presents for evaluation of altered mental status. Differential includes was not limited to electrolyte abnormality, hepatic encephalopathy, metabolic abnormality, sepsis, abdominal infection, occult injury. Will obtain CT scan of the head as well as the abdomen, broad labs including lactate and ammonia. Patient will require admission. Laboratory Tests Test 05/31/19 09:55 05/31/19 10:35 05/31/19 11:00 05/31/19 12:00 White Blood Count 2.1 K/UL (4.8-10.8) *L Red Blood Count 3.59 M/UL (4.70-6.10) L Hemoglobin 12.1 G/DL (14.2-18.0) L Hematocrit 35.5 % (42.0-52.0) L Mean Corpuscular Volume 99 FL (80-99) Mean Corpuscular Hemoglobin 33.7 PG (27.0-31.0) H Mean Corpuscular Hemoglobin Concent 34.0 G/DL (32.0-36.0) Red Cell Distribution Width 14.8 % (11.6-14.8) Platelet Count 24 K/UL (150-450) L Mean Platelet Volume 9.5 FL (6.5-10.1) Neutrophils (%) (Auto) % (45.0-75.0) Lymphocytes (%) (Auto) % (20.0-45.0) Monocytes (%) (Auto) % (1.0-10.0) Eosinophils (%) (Auto) % (0.0-3.0) Basophils (%) (Auto) % (0.0-2.0) Differential Total Cells Counted 100 Neutrophils % (Manual) 78 % (45-75) H Lymphocytes % (Manual) 10 % (20-45) L Monocytes % (Manual) 9 % (1-10) Eosinophils % (Manual) 2 % (0-3) Basophils % (Manual) 1 % (0-2) Band Neutrophils 0 % (0-8) Platelet Estimate Decreased L Platelet Morphology Normal Red Blood Cell Morphology Normal Lactic Acid Level 1.70 mmol/L (0.4-2.0) 2.80 mmol/L (0.4-2.0) H Pending Urine Color Yellow Urine Appearance Clear Urine pH 7 (4.5-8.0) Urine Specific Albright 1.010 (1.005-1.035) Urine Protein Negative (NEGATIVE) Urine Glucose (UA) Negative (NEGATIVE) Urine Ketones Negative (NEGATIVE) Urine Blood 4+ (NEGATIVE) H Urine Nitrite Negative (NEGATIVE) Urine Bilirubin Negative (NEGATIVE) Urine Urobilinogen Normal MG/DL (0.0-1.0) Urine Leukocyte Esterase Negative (NEGATIVE) Urine RBC 60-80 /HPF (0 - 0) H Urine WBC 0-2 /HPF (0 - 0) Urine Squamous Epithelial Cells Occasional /LPF Urine Bacteria Occasional /HPF (NONE) Sodium Level 139 MMOL/L (136-145) Potassium Level 3.8 MMOL/L (3.5-5.1) Chloride Level 104 MMOL/L (98-107) Carbon Dioxide Level 24 MMOL/L (21-32) Anion Gap 11 mmol/L (5-15) Blood Urea Nitrogen 31 mg/dL (7-18) H Creatinine 2.2 MG/DL (0.55-1.30) H Estimated Glomerular Filtration Rate 30.6 mL/min (>60) Glucose Level 125 MG/DL (74-106) H Calcium Level 7.9 MG/DL (8.5-10.1) L Total Bilirubin 2.2 MG/DL (0.2-1.0) H Direct Bilirubin 1.0 MG/DL (0.0-0.3) H Aspartate Amino Transferase (AST) 72 U/L (15-37) H Alanine Aminotransferase (ALT) 54 U/L (12-78) Alkaline Phosphatase 392 U/L (46-116) H Ammonia 54 umol/L (11-32) H Troponin I 0.000 ng/mL (0.000-0.056) Pro-B-Type Natriuretic Peptide 562 pg/mL (0-125) H Total Protein 6.8 G/DL (6.4-8.2) Albumin 2.2 G/DL (3.4-5.0) L Globulin 4.6 g/dL Albumin/Globulin Ratio 0.5 (1.0-2.7) L EKG Diagnostic Results EKG Time: 09:40 Rate: normal Rhythm: NSR ST Segments: no acute changes Other Impression Sinus rhythm, normal axis, prolonged QTC at 490 ms, no acute ST segment changes Rhythm Strip Diag. Results Rhythm Strip Time: 09:40 EP Interpretation: yes Rate: 60s Rhythm: NSR, no PVC's, no ectopy Chest X-Ray Diagnostic Results Chest X-Ray Diagnostic Results : Chest X-Ray Ordered: Yes # of Views/Limited/Complete: 1 View Indication: Other - Altered mental state EP Interpretation: Yes Interpretation: other - Right-sided effusion. Right-sided dialysis catheter Impression: Other - Right-sided effusion Electronically Signed by: Electronically signed by Dr. Galo Mchugh CT/MRI/US Diagnostic Results CT/MRI/US Diagnostic Results : Impression Final Report EXAM: CT Head Without Intravenous Contrast CLINICAL HISTORY: AMS TECHNIQUE: Axial computed tomography images of the head/brain without intravenous contrast. CTDI is 53.4 mGy and DLP is 1018.8 mGy-cm. One or more of the following dose reduction techniques were used: automated exposure control, adjustment of the mA and/or kV according to patient size, use of iterative reconstruction technique. COMPARISON: CT head on 02/10/2019 FINDINGS: Brain: No acute infarct or hemorrhage identified. No extra-axial fluid collection. No mass effect or midline shift. Stable mild areas of hypoattenuation in the supratentorial white matter likely represent chronic small vessel ischemic changes. Ventricles and sulci: Stable mild prominence of the ventricles and sulci is likely secondary to cerebral volume loss. Bones: Normal. No bony lesion or fracture. Subcutaneous tissues: Normal. Sinuses: Mild mucosal thickening in the maxillary sinuses. Mastoid air cells: Normal. Orbits: Grossly unremarkable. Other: Atherosclerotic calcifications in the intracranial vasculature. IMPRESSION: 1. No acute intracranial abnormality. 2. Stable mild chronic small vessel ischemic changes and cerebral volume loss. Radiologist: Abner Yang M.D. Electronically Signed: 05/31/19 10:35 Study ready at 10:25 and initial results transmitted at 10:35 Final Report EXAM: CT Abdomen and Pelvis With Intravenous Contrast CLINICAL HISTORY: ABD PAIN TECHNIQUE: Axial computed tomography images of the abdomen and pelvis with intravenous contrast. CTDI is 6.4 mGy and DLP is 365.3 mGy-cm. One or more of the following dose reduction techniques were used: automated exposure control, adjustment of the mA and/or kV according to patient size, use of iterative reconstruction technique. COMPARISON: None FINDINGS: Lung bases: See below. Pleural space: Moderate right pleural effusion. Associated atelectasis. Heart: Mild cardiomegaly. ABDOMEN: Liver: Cirrhotic liver. Gallbladder and bile ducts: Unremarkable. No calcified stones. No ductal dilation. Pancreas: Unremarkable. No mass. No ductal dilation. Spleen: Prominent splenomegaly. Adrenals: Unremarkable. No mass. Kidneys and ureters: No hydronephrosis or obstructing stone. Stomach and bowel: Wall thickening of the stomach may be accentuated by underdistention. Element of gastritis is not excluded. Mildly prominent fluid and gas-filled small bowel loops are nonspecific. Prominence of the mistry of some of the small bowel may be secondary to underdistention. Enteritis is not excluded. PELVIS: Appendix: Normal appendix. Bladder: Unremarkable. No mass. Reproductive: Unremarkable as visualized. ABDOMEN and PELVIS: Intraperitoneal space: Moderate amount of ascites. No free air. Bones/joints: Degenerative changes of the spine. Mild retrolisthesis of L3 on L4. Grade 1 anterolisthesis of L4 on L5. No acute fracture. No dislocation. Soft tissues: Gynecomastia. Fluid within a left inguinal hernia. Fluid within a moderate umbilical hernia. Vasculature: Prominent varices. Dilatation of the SMV near the junction with the splenic vein. Mild atherosclerotic changes of the vasculature. No aortic aneurysm or dissection. Lymph nodes: Unremarkable. No enlarged lymph nodes. IMPRESSION: 1. Moderate right pleural effusion. Associated atelectasis. 2. Wall thickening of the stomach may be accentuated by underdistention. Element of gastritis is not excluded. 3. Mildly prominent fluid and gas-filled small bowel loops are nonspecific. Prominence of the mistry of some of the small bowel may be secondary to underdistention. Enteritis is not excluded. 4. Cirrhotic liver with changes of portal hypertension, including moderate ascites, prominent splenomegaly, and prominent ascites. Radiologist: Abner Yang M.D. Electronically Signed: 05/31/19 10:32 Study ready at 10:25 and initial results transmitted at 10:32 Reevaluation Time: 12:29 Last Vital Signs Date Time Temp Pulse Resp B/P (MAP) Pulse Ox O2 Delivery O2 Flow Rate FiO2 05/31/19 09:32 97.5 62 18 135/68 (90) 99 Room Air Reevaluation Impression CT head shows chronic changes but no evidence of acute bleed, mass or other pathology. CT scan of the abdomen shows possible prominence of the gastric and small bowel mistry consistent with either enteritis, gastritis or may be just nonspecific/underdistended. There is free fluid in the pelvis. The patient will be given ceftriaxone as a precaution against SBP. CT notes cirrhotic changes and portal hypertension as well consistent with patient's history. Patient also found to have a right pleural effusion which he has had in the past. Labs show leukopenia. Originally reported as hyperkalemia however the sample was hemolyzed. Repeat is within normal limits. Bilirubin elevated as are LFTs. Ammonia elevated. Possible hepatic encephalopathy - Will give lactulose. He will require admission. He will be transferred to a [facility]. Dr. Best is accepting physician. Stable for transfer. Disposition: SHORT-TERM HOSP Condition: Serious Galo Mchugh MD May 31, 2019 09:45
[2019-05-31 09:50] VITALS: BP 132/65
--- NOTE | 2019-05-31 09:50 | NUR ---
ED Nurse Note: Pt brought in by ambulance from home for AMS. Per ambulance, pt normal basline is a&ox1, but at arrival, pt is a&ox0, only moaning, responsive to pain. Pt is set up on monitor. has seen pt. EKG taken. Labs drawn and sent.
--- NOTE | 2019-05-31 10:33 | Diagnostic Imaging Report ---
EXAM: CT Abdomen and Pelvis With Intravenous Contrast CLINICAL HISTORY: ABD PAIN TECHNIQUE: Axial computed tomography images of the abdomen and pelvis with intravenous contrast. CTDI is 6.4 mGy and DLP is 365.3 mGy-cm. One or more of the following dose reduction techniques were used: automated exposure control, adjustment of the mA and/or kV according to patient size, use of iterative reconstruction technique. COMPARISON: None FINDINGS: Lung bases: See below. Pleural space: Moderate right pleural effusion. Associated atelectasis. Heart: Mild cardiomegaly. ABDOMEN: Liver: Cirrhotic liver. Gallbladder and bile ducts: Unremarkable. No calcified stones. No ductal dilation. Pancreas: Unremarkable. No mass. No ductal dilation. Spleen: Prominent splenomegaly. Adrenals: Unremarkable. No mass. Kidneys and ureters: No hydronephrosis or obstructing stone. Stomach and bowel: Wall thickening of the stomach may be accentuated by underdistention. Element of gastritis is not excluded. Mildly prominent fluid and gas-filled small bowel loops are nonspecific. Prominence of the mistry of some of the small bowel may be secondary to underdistention. Enteritis is not excluded. PELVIS: Appendix: Normal appendix. Bladder: Unremarkable. No mass. Reproductive: Unremarkable as visualized. ABDOMEN and PELVIS: Intraperitoneal space: Moderate amount of ascites. No free air. Bones/joints: Degenerative changes of the spine. Mild retrolisthesis of L3 on L4. Grade 1 anterolisthesis of L4 on L5. No acute fracture. No dislocation. Soft tissues: Gynecomastia. Fluid within a left inguinal hernia. Fluid within a moderate umbilical hernia. Vasculature: Prominent varices. Dilatation of the SMV near the junction with the splenic vein. Mild atherosclerotic changes of the vasculature. No aortic aneurysm or dissection. Lymph nodes: Unremarkable. No enlarged lymph nodes. IMPRESSION: 1. Moderate right pleural effusion. Associated atelectasis. 2. Wall thickening of the stomach may be accentuated by underdistention. Element of gastritis is not excluded. 3. Mildly prominent fluid and gas-filled small bowel loops are nonspecific. Prominence of the mistry of some of the small bowel may be secondary to underdistention. Enteritis is not excluded. 4. Cirrhotic liver with changes of portal hypertension, including moderate ascites, prominent splenomegaly, and prominent ascites.
[2019-05-31] MEDS ORDERED: Insulin Human Regular 100units/ml 3ml IV ONE (10:45)
[2019-05-31] MEDS ORDERED: Calcium Gluconate 1gm/10ml vial IVP ONE (10:45)
[2019-05-31 10:52] LABS: HEMATOCRIT 35.5 % (42.0-52.0); HEMOGLOBIN 12.1 G/DL (14.2-18.0); MEAN CORPUSCULAR VOLUME 99 FL (80-99); PLATELET COUNT 24 K/UL (150-450); RED BLOOD COUNT 3.59 M/UL (4.70-6.10); RED CELL DISTRIBUTION WIDTH 14.8 % (11.6-14.8)
[2019-05-31 10:54] LABS: WHITE BLOOD COUNT 2.1 K/UL (4.8-10.8)
[2019-05-31 11:03] LABS: APPEARANCE,URINE CLEAR; BILIRUBIN, URINE NEGATIVE (NEGATIVE); GLUCOSE, URINE (UA) NEGATIVE (NEGATIVE); KETONES,URINE NEGATIVE (NEGATIVE); LEUKOCYTE ESTERASE ,URINE NEGATIVE (NEGATIVE); NITRITE,URINE NEGATIVE (NEGATIVE); PH,URINE 7 (4.5-8.0); PROTEIN,URINE NEGATIVE (NEGATIVE); UROBILINOGEN,URINE NORMAL MG/DL (0.0-1.0)
--- NOTE | 2019-05-31 11:05 | NUR ---
ED Nurse Note: Out of novolin in pyxis. Henry from [facility] contacted, will bring up more stock.
[2019-05-31 11:08] LABS: COLOR,URINE YELLOW
--- NOTE | 2019-05-31 11:29 | Diagnostic Imaging Report ---
EXAM: XR Chest, 1 View CLINICAL HISTORY: SOB TECHNIQUE: Frontal view of the chest. COMPARISON: Chest radiograph on 02/24/2019 FINDINGS: Hardware: Right dual-lumen central venous catheter which terminates in the region of the distal SVC. Lungs/pleura: Small right pleural effusion. Opacity in the right lung may represent atelectasis versus pneumonia. Mild left basilar atelectasis. Pulmonary vasculature congestion. Heart/mediastinum: Stable mild enlargement of the cardiac silhouette. Soft tissues: Unremarkable. Bones: No acute fracture. Degenerative changes of the acromioclavicular joints and spine. Upper abdomen: Normal. IMPRESSION: Small right pleural effusion. Opacity in the right lung may represent atelectasis versus pneumonia. Mild left basilar atelectasis. Pulmonary vasculature congestion.
[2019-05-31 11:42] LABS: ANION GAP 11 mmol/L (5-15); BLOOD UREA NITROGEN 31 mg/dL (7-18); CALCIUM 7.9 MG/DL (8.5-10.1); CARBON DIOXIDE 24 MMOL/L (21-32); CHLORIDE 104 MMOL/L (98-107); CREATININE 2.2 MG/DL (0.55-1.30); POTASSIUM 3.8 MMOL/L (3.5-5.1); SODIUM 139 MMOL/L (136-145)
[2019-05-31 11:45] LABS: AMMONIA 54 umol/L (11-32)
[2019-05-31 11:57] LABS: ALANINE AMINOTRANSFERASE 54 U/L (12-78); ALBUMIN 2.2 G/DL (3.4-5.0); ALBUMIN/GLOBULIN RATIO 0.5 (1.0-2.7); ALKALINE PHOSPHATASE 392 U/L (46-116); ASPARTATE AMINO TRANSFERASE 72 U/L (15-37); BILIRUBIN,TOTAL 2.2 MG/DL (0.2-1.0)
[2019-05-31 12:00] VITALS: BP 128/69
[2019-05-31] MEDS ORDERED: Lactulose 20gm/30ml UDC ORAL ONE (12:15)
[2019-05-31] MEDS ORDERED: cefTRIAXone 2 GM in NS 55 ML IVPB ONE (13:45)
[2019-05-31 14:20] VITALS: BP 136/60
[2019-05-31 16:00] VITALS: BP 133/57
--- NOTE | 2019-05-31 16:00 | NUR ---
ED Nurse Note: Report given to Manny RN at [facility]. Pt taken by ambulance to [facility] with all belongings on monitor. VSS.
--- NOTE | 2019-06-01 03:34 | Diagnostic Imaging Report ---
EXAM: CT Head Without Intravenous Contrast CLINICAL HISTORY: AMS TECHNIQUE: Axial computed tomography images of the head/brain without intravenous contrast. CTDI is 53.4 mGy and DLP is 1018.8 mGy-cm. One or more of the following dose reduction techniques were used: automated exposure control, adjustment of the mA and/or kV according to patient size, use of iterative reconstruction technique. COMPARISON: CT head on 02/10/2019 FINDINGS: Brain: No acute infarct or hemorrhage identified. No extra-axial fluid collection. No mass effect or midline shift. Stable mild areas of hypoattenuation in the supratentorial white matter likely represent chronic small vessel ischemic changes. Ventricles and sulci: Stable mild prominence of the ventricles and sulci is likely secondary to cerebral volume loss. Bones: Normal. No bony lesion or fracture. Subcutaneous tissues: Normal. Sinuses: Mild mucosal thickening in the maxillary sinuses. Mastoid air cells: Normal. Orbits: Grossly unremarkable. Other: Atherosclerotic calcifications in the intracranial vasculature. IMPRESSION: 1. No acute intracranial abnormality. 2. Stable mild chronic small vessel ischemic changes and cerebral volume loss.
== END 2019-05-31 16:00 | disposition short-term general hospital (02) ==
LOC: EDBD 09:38 → EMR 09:56 → EDBEDREQ 11:18 → EMR 16:00
DX: E11.22 Type 2 diabetes mellitus with diabetic chronic kidney disease (principal); N18.6 End stage renal disease; D72.819 Decreased white blood cell count, unspecified; R41.82 Altered mental status, unspecified; Z99.2 Dependence on renal dialysis; Z88.0 Allergy status to penicillin; K74.60 Unspecified cirrhosis of liver; J98.11 Atelectasis
CPT/HCPCS: 36415; 70450; 71045; 74177; 80053; 81003; 82140; 82248; 82962; 83605; 83880; 84484; 85007; 85025; 96361; 96365; 96375; J0610; J0696; J1815; J7030; Q9967; Z7502; 99291